=== PATIENT | male | born 1970 | race Two or more races ===

== ENCOUNTER 2017-05-21 11:28 | Emergency (ER) | payer SELFPAY ==
--- NOTE | 2017-05-21 12:24 | EDM.PDOC ---
ED HPI GENERAL MEDICAL PROBLEM - General Chief Complaint: Cardiovascular Problem Stated Complaint: HIGH BP Time Seen by Provider: 05/21/17 12:00 Source of Information: Reports: Patient History Limitations: Reports: No Limitations - History of Present Illness INITIAL COMMENTS - FREE TEXT/NARRATIVE: HISTORY AND PHYSICAL: History of present illness: [Pt comes to ER c/o elevated BP and requesting a refill of his BP medication. States that he has a long history of high BP, which has been managed by his PCP in [place], [place]. He hasn't taken his medication for the past 6 months because he forgot it in a truck that is no longer in his possession. He cannot remember the name of this medication. States that he did not fill at a local pharmacy. He has not tried to call the prescribing physician in [place] for refill. He has not had any chest pain shortness of breath or difficulty breathing. He felt mildly lightheaded a couple of days ago but this resolved. He feels anxious that he should be on this medication and wants a refill today. He has not established care with a local PCP. ] Review of systems: As per history of present illness and below otherwise all systems reviewed and negative. Past medical history: As per history of present illness and as reviewed below otherwise noncontributory. Surgical history: As per history of present illness and as reviewed below otherwise noncontributory. Social history: No reported history of drug or alcohol abuse. Family history: As per history of present illness and as reviewed below otherwise noncontributory. Physical exam: Gen.: Well-developed well-nourished male in no acute distress. Vitals are reviewed by me. HEENT: Atraumatic, normocephalic. PERRLA. EOMI. Oral mucous membranes are pink and moist. Neck supple no lymphadenopathy. No thyromegaly. Lungs: Clear to auscultation, breath sounds equal bilaterally, chest nontender. Heart: S1S2, regular, negative for clicks, rubs, or JVD. Abdomen: Soft, nondistended, nontender. No CVA tenderness. Pelvis: Stable nontender. Genitourinary: Deferred. Rectal: Deferred. Extremities: Atraumatic. No cyanosis or swelling to feet or lower legs. Neurovascular unremarkable. Neuro: Awake, alert, oriented. Appears mildly anxious. Motor and sensory unremarkable throughout. Exam nonfocal. Impression: [History of hypertension] Plan: [Discussed with patient that his blood pressure certainly is elevated, but that he requires lab work and to need management by a local PCP. Reviewed with him that I unable to refill the medication of which I don't know the name. We also discussed that his blood pressure is certainly not at a critical level and that he can follow-up with primary care provider tomorrow to establish care. He is in agreement with today's discussion and verbalizes understanding. Patient has no concerns upon discharge from the emergency room. Definitive disposition and diagnosis as appropriate pending reevaluation and review of above. - Related Data Allergies Allergy/AdvReac Type Severity Reaction Status Date / Time No Known Allergies Allergy Verified 05/21/17 11:42 Home Meds: Home Meds . [Unable to Verify Home Med List] 05/21/17 [History] Past Medical History Cardiovascular History: Reports: Hypertension - Infectious Disease History Infectious Disease History: Reports: Chicken Pox, Measles, Mumps Social & Family History - Family History Family Medical History: Noncontributory - Tobacco Use Smoking Status *Q: Never Smoker - Alcohol Use Days Per Week of Alcohol Use: 7 Number of Drinks Per Day: 10 Total Drinks Per Week: 70 - Recreational Drug Use Recreational Drug Use: No ED ROS GENERAL - Review of Systems Review Of Systems: ROS reveals no pertinent complaints other than HPI. ED EXAM, GENERAL - Physical Exam Exam: See Below Course - Vital Signs Last Recorded V/S: Last Vital Signs Temp 96.5 F 05/21/17 12:57 Pulse 115 H 05/21/17 12:57 Resp 18 05/21/17 12:57 BP 119/69 05/21/17 12:57 Pulse Ox 96 05/21/17 12:57 Departure - Departure Time of Disposition: 12:25 Disposition: Home, Self-Care 01 Condition: Good Clinical Impression: Hypertension Instructions: Hypertension, [id number] Referrals: PCP,None [Primary Care Provider] - Forms: ED Department Discharge Additional Instructions: The following information is given to patients seen in the emergency department who are being discharged to home. This information is to outline your options for follow-up care. We provide all patients seen in our emergency department with a follow-up referral. The need for follow-up, as well as the timing and circumstances, are variable depending upon the specifics of your emergency department visit. If you don't have a primary care physician on staff, we will provide you with a referral. We always advise you to contact your personal physician following an emergency department visit to inform them of the circumstance of the visit and for follow-up with them and/or the need for any referrals to a consulting specialist. The emergency department will also refer you to a specialist when appropriate. This referral assures that you have the opportunity for follow-up care with a specialist. All of these measure are taken in an effort to provide you with optimal care, which includes your follow-up. Under all circumstances we always encourage you to contact your private physician who remains a resource for coordinating your care. When calling for follow-up care, please make the office aware that this follow-up is from your recent emergency room visit. If for any reason you are refused follow-up, please contact the [facility] emergency department at and asked to speak to the emergency department charge nurse. [facility] Primary Care [address] [place] [phone] Please keep your appointment for ThursdayMay 25 at 1:30pm with Dr. Gloria. Take all medications as prescribed. Return to ER as needed as discussed.
== END 2017-05-21 12:57 | disposition home or self-care (01) ==
LOC: MW.ED 11:28
DX: I10 Essential (primary) hypertension (principal)
CPT/HCPCS: 99282

== ENCOUNTER 2018-12-06 05:23 | Emergency (ER) | payer SELFPAY ==
[2018-12-06] MEDS ORDERED: Sodium Chloride 0.9% 1,000 ML IV ONE (05:46)
[2018-12-06] MEDS ORDERED: Enalaprilat 1.25 MG/ML SDV IVPUSH ONE (05:48)
--- NOTE | 2018-12-06 05:48 | EDM.PDOC ---
ED HPI GENERAL MEDICAL PROBLEM - General Chief Complaint: General Stated Complaint: HIGH BLOOD PRESSURE, HEART RACING Time Seen by Provider: 12/06/18 05:47 Source of Information: Reports: Patient - History of Present Illness INITIAL COMMENTS - FREE TEXT/NARRATIVE: HISTORY AND PHYSICAL: History of present illness: []Patient with hypertension and diabetes presents with generalized weakness over the last week or 2 he has been out of his medications at home Patient was diagnosed with diabetes 2 years prior during a hospital admission, he has followed his glucose however is been ranging from 80-120 on his home checks Also states he was on 2 blood pressure medications lisinopril and hydrochlorothiazide Was unable to sleep last night hence he drank a sixpack of beer to try to sleep this did not help Has no fever nausea vomiting chills sweats no chest pain shortness breath headache dizziness palpitation no bowel or urine symptoms he does complain of generalized weakness he does not appear to be week or in any distress whatsoever Review of systems: As per history of present illness and below otherwise all systems reviewed and negative. Past medical history: As per history of present illness and as reviewed below otherwise noncontributory. Surgical history: As per history of present illness and as reviewed below otherwise noncontributory. Social history: No reported history of drug or alcohol abuse. Family history: As per history of present illness and as reviewed below otherwise noncontributory. Physical exam: HEENT: Atraumatic, normocephalic, pupils reactive, negative for conjunctival pallor or scleral icterus, mucous membranes moist, throat clear, neck supple, nontender, trachea midline. Lungs: Clear to auscultation, breath sounds equal bilaterally, chest nontender. Heart: S1S2, regular, negative for clicks, rubs, or JVD. Abdomen: Soft, nondistended, nontender. Negative for masses or hepatosplenomegaly. Negative for costovertebral tenderness. Pelvis: Stable nontender. Genitourinary: Deferred. Rectal: Deferred. Extremities: Atraumatic, negative for cords or calf pain. Neurovascular unremarkable. Neuro: Awake, alert, oriented. Cranial nerves II through XII unremarkable. Cerebellum unremarkable. Motor and sensory unremarkable throughout. Exam nonfocal. Diagnostics: [CBC CMP UA troponin lipase EKG chest 1 view ] Therapeutics: [Normal saline Vasotec Lisinopril Hydrochlorothiazide Follow-up with primary care ] Impression: [ hypertension diabetes med noncompliance due to financial Chronic history of baseline ] Definitive disposition and diagnosis as appropriate pending reevaluation and review of above. - Related Data Allergies Allergy/AdvReac Type Severity Reaction Status Date / Time No Known Allergies Allergy Verified 12/06/18 05:36 Home Meds: Home Meds . [No Known Home Meds] 12/06/18 [History] Past Medical History HEENT History: Reports: Impaired Vision Cardiovascular History: Reports: Hypertension Psychiatric History: Reports: Anxiety Endocrine/Metabolic History: Reports: Diabetes, Type II - Infectious Disease History Infectious Disease History: Reports: Chicken Pox, Measles, Mumps Social & Family History - Family History Family Medical History: Noncontributory - Tobacco Use Smoking Status *Q: Never Smoker - Alcohol Use Days Per Week of Alcohol Use: 7 Number of Drinks Per Day: 6 Total Drinks Per Week: 42 - Recreational Drug Use Recreational Drug Use: No ED ROS GENERAL - Review of Systems Review Of Systems: See Below ED EXAM, GENERAL - Physical Exam Exam: See Below Course - Vital Signs Last Recorded V/S: Last Vital Signs Temp 96.9 F 12/06/18 05:32 Pulse 116 H 12/06/18 06:06 Resp 20 12/06/18 06:06 BP 155/98 H 12/06/18 06:06 Pulse Ox 98 12/06/18 06:06 - Orders/Labs/Meds Orders: Active Orders 24 hr Category Date Time Status EKG Documentation Completion [RC] STAT Care 12/06/18 05:46 Active Chest 1V Frontal [CR] Stat Exams 12/06/18 05:47 Taken COMPREHENSIVE METABOLIC PN,CMP [CHEM] Stat Lab 12/06/18 05:45 Received TROPONIN I [CHEM] Stat Lab 12/06/18 05:45 Received Sodium Chloride 0.9% [Normal Saline] 1,000 ml Med 12/06/18 05:46 Active IV STAT Medication Orders Sodium Chloride (Normal Saline) 1,000 mls @ 999 mls/hr IV STAT ONE Stop: 12/06/18 06:46 Last Admin: 12/06/18 05:57 Dose: 999 mls/hr Labs: Laboratory Tests 12/06/18 12/06/18 Range/Units 05:34 05:45 WBC 9.19 (4.0-11.0) K/uL RBC 3.77 L (4.50-5.90) M/uL Hgb 13.5 (13.0-17.0) g/dL Hct 37.7 L (38.0-50.0) % MCV 100.0 H (80.0-98.0) fL MCH 35.8 H (27.0-32.0) pg MCHC 35.8 (31.0-37.0) g/dL RDW Std Deviation 47.9 (28.0-62.0) fl RDW Coeff of Pipe 13 (11.0-15.0) % Plt Count 102 L (150-400) K/uL MPV 11.20 (7.40-12.00) fL Neut % (Auto) 59.5 (48.0-80.0) % Lymph % (Auto) 32.3 (16.0-40.0) % [place] % (Auto) 7.0 (0.0-15.0) % Eos % (Auto) 1.0 (0.0-7.0) % Baso % (Auto) 0.2 (0.0-1.5) % Neut # (Auto) 5.5 (1.4-5.7) K/uL Lymph # (Auto) 3.0 H (0.6-2.4) K/uL [place] # (Auto) 0.6 (0.0-0.8) K/uL Eos # (Auto) 0.1 (0.0-0.7) K/uL Baso # (Auto) 0.0 (0.0-0.1) K/uL Nucleated RBC % 0.0 /100WBC Nucleated RBCs # 0 K/uL POC Glucose 142 H (60-110) mg/dL Meds: Medications Generic Name Dose Route Start Last Admin Trade Name Freq PRN Reason Stop Dose Admin Sodium Chloride 1,000 mls @ 999 mls/hr 12/06/18 05:46 12/06/18 05:57 Normal Saline IV 12/06/18 06:46 999 mls/hr STAT ONE Administration Discontinued Medications Generic Name Dose Route Start Last Admin Trade Name Freq PRN Reason Stop Dose Admin Enalaprilat 1.25 mg 12/06/18 05:48 12/06/18 05:57 Vasotec Iv IVPUSH 12/06/18 05:49 1.25 mg ONETIME ONE Administration Hydrochlorothiazide 25 mg 12/06/18 06:09 Hydrochlorothiazide PO 12/06/18 06:10 ONETIME ONE Departure - Departure Time of Disposition: 06:31 Disposition: Home, Self-Care 01 Condition: Good Clinical Impression: Hypertension, Noncompliance with medication regimen - Discharge Information Referrals: Anitra Robbins SYSTEMS TEST ENGINEER [Primary Care Provider] - Forms: ED Department Discharge Additional Instructions: Medication as prescribed Return if symptoms persist or worsen Follow-up with primary care in 2 weeks sooner as needed [facility] - Primary Care [address] [place] [phone] The following information is given to patients seen in the emergency department who are being discharged to home. This information is to outline your options for follow-up care. We provide all patients seen in our emergency department with a follow-up referral. The need for follow-up, as well as the timing and circumstances, are variable depending upon the specifics of your emergency department visit. If you don't have a primary care physician on staff, we will provide you with a referral. We always advise you to contact your personal physician following an emergency department visit to inform them of the circumstance of the visit and for follow-up with them and/or the need for any referrals to a consulting specialist. The emergency department will also refer you to a specialist when appropriate. This referral assures that you have the opportunity for follow-up care with a specialist. All of these measure are taken in an effort to provide you with optimal care, which includes your follow-up. Under all circumstances we always encourage you to contact your private physician who remains a resource for coordinating your care. When calling for follow-up care, please make the office aware that this follow-up is from your recent emergency room visit. If for any reason you are refused follow-up, please contact the [facility] emergency department at and asked to speak to the emergency department charge nurse. - My Orders Last 24 Hours: My Active Orders 12/06/18 05:45 COMPREHENSIVE METABOLIC PN,CMP [CHEM] Stat TROPONIN I [CHEM] Stat 12/06/18 05:46 EKG Documentation Completion [RC] STAT Sodium Chloride 0.9% [Normal Saline] 1,000 ml IV STAT 12/06/18 05:47 Chest 1V Frontal [CR] Stat - Assessment/Plan Last 24 Hours: My Active Orders 12/06/18 05:45 COMPREHENSIVE METABOLIC PN,CMP [CHEM] Stat TROPONIN I [CHEM] Stat 12/06/18 05:46 EKG Documentation Completion [RC] STAT Sodium Chloride 0.9% [Normal Saline] 1,000 ml IV STAT 12/06/18 05:47 Chest 1V Frontal [CR] Stat
[2018-12-06] MEDS ORDERED: Hydrochlorothiazide 25 MG Tab PO ONE (06:09)
[2018-12-06 06:48] LABS: CHLORIDE,CL 91 mmol/L (98-107); SODIUM,NA 130 mmol/L (136-148)
--- NOTE | 2018-12-06 07:13 | CR ---
INDICATION: Pain. Shortness of breath. FINDINGS: A single portable chest x-ray shows a normal cardiac silhouette. The lungs show no focal pulmonary opacities. Sharp pleural margins. No pneumothorax. IMPRESSION: No evidence of acute pulmonary abnormalities. Dictated by Jean-Pierre Go MD @ 12/06/2018 7:11:08 AM Dictated by: Jean-Pierre Go MD @ 12/06/2018 07:11:18 (Electronically Signed)
== END 2018-12-06 07:10 | disposition home or self-care (01) ==
LOC: MW.ED 05:23
DX: I10 Essential (primary) hypertension (principal); E11.9 Type 2 diabetes mellitus without complications; Z91.14 Patient's other noncompliance with medication regimen
CPT/HCPCS: 71045; 80053; 82962; 84484; 85025; 93005; 96361; 96374; 99285; A9270; J7040

== ENCOUNTER 2019-06-03 11:09 | Inpatient (IN) | payer MEDICAID ==
[2019-06-03] MEDS ORDERED: fentaNYL 50 MCG/ML SDV IVPUSH ONE (11:16)
[2019-06-03] MEDS ORDERED: Sodium Chloride 0.9% 1,000 ML IV ONE ×3 (11:17→15:19)
--- NOTE | 2019-06-03 11:38 | EDM.PDOC ---
ED [facility] GENERAL MEDICAL PROBLEM - General Chief Complaint: Abdominal Pain Stated Complaint: DETOX/ABDOMINAL PAIN Time Seen by Provider: 06/03/19 11:32 Source of Information: Reports: Patient History Limitations: Reports: No Limitations - History of Present Illness INITIAL COMMENTS - FREE TEXT/NARRATIVE: Patient is a 48-year-old male with a past medical history of alcohol abuse, hypertension, diabetes presenting with a chief complaint of abrupt onset of abdominal pain. The pain is located primarily in the epigastric region with radiation to the back. Patient states he does have some associated numbness in his right foot. Patient states he had the symptoms less than a week ago which only lasted for a minute or 2 and then resolved spontaneously. Patient does not have any chest pain or shortness of breath. Symptoms are severe in nature. Patient's last drink of alcohol was about 4 days ago. Patient reports daily heavy drinking prior to this. Patient states he would get the shakes when he stopped drinking. Pmhx: Per HPI Pshx: None Family Hx: noncontributory Smoking history? no Etoh use? Yes alcohol abuse Drug use? none In addition to that documented in the HPI above, the additional ROS was obtained : Constitutional: Denies fevers or chills Eyes: Denies vision changes ENMT: Denies sore throat CV: Denies chest pain Resp: Denies SOB GI: Reports one episode of diarrhea last night : Denies painful urination MSK: Denies recent trauma Skin: Denies new rashes Neuro: Per HPI Endocrine: Denies unexpected weight loss Heme: Denies bleeding disorders I have reviewed the triage vital signs Const: Toxic in appearance with diffuse diaphoresis and anxious. Eyes: PERRL, no conjunctival injection HENT: NCAT, Neck supple without meningismus CV: RRR, Warm, well-perfused extremities RESP: CTAB, Unlabored respiratory effort GI: soft, non-tender, non-distended, no masses MSK: No gross deformities appreciated Skin: Diaphoretic. No rashes Neuro: Alert, tub washer II-XII grossly intact. Sensation and motor function of extremities grossly intact. Psych: Appropriate mood and affect Assessment and plan: Patient is a 48-year-old male with intense abdominal pain and tremulousness. Initially, there was high concern for aortic dissection given the patient's clinical appearance and chief complaint. Patient's vital signs only showed initial tachycardia. Patient's labs were done as well as CT angiography. Demonstrate elevated white blood cell count and elevated lactate. Patient was also noted to be hypokalemic. I do not believe that this is secondary to sepsis as the patient has no fever and no findings on CT scan that would be concerning for infectious etiology. CT angiography was negative for aortic dissection. Patient's CIWA score was rated as a 16. However, during course of ER stay, the patient progressively worsened. Patient began hallucinating and tremors began were to increase. Patient was given numerous rounds of Ativan as well as Valium with slight improvement. In addition, patient was given been phenobarbital to help reduce withdrawal signs and symptoms. No seizures in the emergency department. No respiratory depression. Case discussed with Dr. Tirado who agreed to admit the patient for the ICU for close monitoring and treatment of severe alcohol withdrawal. Critical Care Procedure Note Authorized and Performed by: Marta Total critical care time: Approximately 60 minutes Due to a high probability of clinically significant, life threatening deterioration, the patient required my highest level of preparedness to intervene emergently and I personally spent this critical care time directly and personally managing the patient. This critical care time included obtaining a history; examining the patient; pulse oximetry; ordering and review of studies ; arranging urgent treatment with development of a management plan; evaluation of patient's response to treatment; frequent reassessment; and, discussions with other providers. This critical care time was performed to assess and manage the high probability of imminent, life-threatening deterioration that could result in multi-organ failure. It was exclusive of separately billable procedures and treating other patients and teaching time. Please see MDM section and the rest of the note for further information on patient assessment and treatment. Abdomen Pain Score (Numeric/FACES): 10 - Related Data Allergies Allergy/AdvReac Type Severity Reaction Status Date / Time No Known Allergies Allergy Verified 06/03/19 12:08 Home Meds: Home Meds . [No Known Home Meds] 12/06/18 [History] Past Medical History HEENT History: Reports: Impaired Vision Cardiovascular History: Reports: Hypertension Psychiatric History: Reports: Anxiety Endocrine/Metabolic History: Reports: Diabetes, Type II - Infectious Disease History Infectious Disease History: Reports: Chicken Pox, Measles, Mumps Social & Family History - Family History Family Medical History: Noncontributory ED ROS GENERAL - Review of Systems Review Of Systems: See Below ED EXAM, GI/ABD - Physical Exam Exam: See Below Course - Vital Signs Last Recorded V/S: Last Vital Signs Temp 36.3 C 06/03/19 11:13 Pulse 90 06/03/19 12:25 Resp 18 06/03/19 12:25 BP 134/84 06/03/19 12:25 Pulse Ox 98 06/03/19 12:25 - Orders/Labs/Meds Orders: Active Orders 24 hr Category Date Time Status Admission Status [Patient Status] [ADT] Stat ADT 06/03/19 13:09 Active UA W/KOKI RFLX IF INDICATED [URIN] Stat Lab 06/03/19 11:15 Ordered Potassium Chloride 40 meq Med 06/03/19 12:30 Active Dextrose 5%-Lactated Ringers 1,000 ml IV ASDIRECTED Medication Orders Acetaminophen (Tylenol) 650 mg PO Q4H PRN PRN Reason: Pain (Mild 1-3)/fever Chlordiazepoxide HCl (Librium) 25 mg PO QID JESUS Diazepam (Valium) 10 mg IVPUSH Q8H JESUS Heparin Sodium (Porcine) (Heparin Sodium) 5,000 units SUBCUT Q8H [facility] Potassium Chloride 40 meq/ (Dextrose/Lactated Ringer's) 1,020 mls @ 150 mls/hr IV ASDIRECTED JESUS Last Admin: 06/03/19 12:47 Dose: 150 mls/hr Lactated Ringer's (Ringers, Lactated) 1,000 mls @ 999 mls/hr IV .BOLUS ONE Stop: 06/03/19 15:13 Last Admin: 06/03/19 14:37 Dose: 999 mls/hr Phenobarbital 130 mg/ Sodium (Chloride) 101 mls @ 200 mls/hr IV ONETIME ONE Stop: 06/03/19 15:15 Last Admin: 06/03/19 14:47 Dose: 200 mls/hr Lorazepam (Ativan) 0 mg IVPUSH Q4H PRN; Protocol PRN Reason: Withdrawal Symptoms Morphine Sulfate (Morphine) 2 mg IVPUSH Q2H PRN PRN Reason: Pain (severe 7-10) Stop: 06/04/19 13:12 Multivit/Ca Carb/B Cmplx/FA/Prenat (Renal Caps Softgel) 1 cap PO DAILY JESUS Ondansetron HCl (Zofran Odt) 4 mg PO Q4H PRN PRN Reason: nausea, able to take PO Ondansetron HCl (Zofran) 4 mg IVPUSH Q4H PRN PRN Reason: Pain Labs: Laboratory Tests 06/03/19 06/03/19 06/03/19 Range/Units 11:07 11:07 11:07 WBC 13.78 H (4.0-11.0) K/uL RBC 4.87 (4.50-5.90) M/uL Hgb 17.2 H (13.0-17.0) g/dL Hct 47.7 (38.0-50.0) % MCV 97.9 (80.0-98.0) fL MCH 35.3 H (27.0-32.0) pg MCHC 36.1 (31.0-37.0) g/dL RDW Std Deviation 46.4 (28.0-62.0) fl RDW Coeff of Pipe 13 (11.0-15.0) % Plt Count 149 L (150-400) K/uL MPV 10.60 (7.40-12.00) fL Neut % (Auto) 49.8 (48.0-80.0) % Lymph % (Auto) 36.9 (16.0-40.0) % [place] % (Auto) 12.4 (0.0-15.0) % Eos % (Auto) 0.7 (0.0-7.0) % Baso % (Auto) 0.2 (0.0-1.5) % Neut # (Auto) 6.9 H (1.4-5.7) K/uL Lymph # (Auto) 5.1 H (0.6-2.4) K/uL [place] # (Auto) 1.7 H (0.0-0.8) K/uL Eos # (Auto) 0.1 (0.0-0.7) K/uL Baso # (Auto) 0.0 (0.0-0.1) K/uL Nucleated RBC % 0.0 /100WBC Nucleated RBCs # 0 K/uL Lactate 4.8 H* (0.20-2.00) mmol/L Sodium 131 L (136-148) mmol/L Potassium 2.9 L (3.5-5.1) mmol/L Chloride 88 L (98-107) mmol/L Carbon Dioxide 23.8 (21.0-32.0) mmol/L BUN 32 H (7.0-18.0) mg/dL Creatinine 2.3 H (0.8-1.3) mg/dL Est Cr Clr Drug Dosing TNP Estimated GFR (MDRD) 30.6 ml/min Glucose 84 (74-106) mg/dL Calcium 8.3 L (8.5-10.1) mg/dL Total Bilirubin 3.2 H (0.2-1.0) mg/dL AST 160 H (15-37) IU/L ALT 106 H (14-63) IU/L Alkaline Phosphatase 106 (46-116) U/L Troponin I < 0.050 (0.000-0.056) ng/mL Total Protein 8.0 (6.4-8.2) g/dL Albumin 3.7 (3.4-5.0) g/dL Globulin 4.3 H (2.6-4.0) g/dL Albumin/Globulin Ratio 0.9 (0.9-1.6) Lipase 315 (73-393) U/L Ethyl Alcohol mg/dL 06/03/19 Range/Units 11:07 WBC (4.0-11.0) K/uL RBC (4.50-5.90) M/uL Hgb (13.0-17.0) g/dL Hct (38.0-50.0) % MCV (80.0-98.0) fL MCH (27.0-32.0) pg MCHC (31.0-37.0) g/dL RDW Std Deviation (28.0-62.0) fl RDW Coeff of Pipe (11.0-15.0) % Plt Count (150-400) K/uL MPV (7.40-12.00) fL Neut % (Auto) (48.0-80.0) % Lymph % (Auto) (16.0-40.0) % [place] % (Auto) (0.0-15.0) % Eos % (Auto) (0.0-7.0) % Baso % (Auto) (0.0-1.5) % Neut # (Auto) (1.4-5.7) K/uL Lymph # (Auto) (0.6-2.4) K/uL [place] # (Auto) (0.0-0.8) K/uL Eos # (Auto) (0.0-0.7) K/uL Baso # (Auto) (0.0-0.1) K/uL Nucleated RBC % /100WBC Nucleated RBCs # K/uL Lactate (0.20-2.00) mmol/L Sodium (136-148) mmol/L Potassium (3.5-5.1) mmol/L Chloride (98-107) mmol/L Carbon Dioxide (21.0-32.0) mmol/L BUN (7.0-18.0) mg/dL Creatinine (0.8-1.3) mg/dL Est Cr Clr Drug Dosing Estimated GFR (MDRD) ml/min Glucose (74-106) mg/dL Calcium (8.5-10.1) mg/dL Total Bilirubin (0.2-1.0) mg/dL AST (15-37) IU/L ALT (14-63) IU/L Alkaline Phosphatase (46-116) U/L Troponin I (0.000-0.056) ng/mL Total Protein (6.4-8.2) g/dL Albumin (3.4-5.0) g/dL Globulin (2.6-4.0) g/dL Albumin/Globulin Ratio (0.9-1.6) Lipase (73-393) U/L Ethyl Alcohol <3 mg/dL Meds: Medications Generic Name Dose Route Start Last Admin Trade Name Freq PRN Reason Stop Dose Admin Acetaminophen 650 mg 06/03/19 13:10 Tylenol PO Q4H PRN Pain (Mild 1-3)/fever Chlordiazepoxide HCl 25 mg 06/03/19 18:00 Librium PO QID JESUS Diazepam 10 mg 06/03/19 19:00 Valium IVPUSH Q8H JESUS Heparin Sodium (Porcine) 5,000 units 06/03/19 13:15 Heparin Sodium SUBCUT Q8H [facility] Potassium Chloride 40 meq/ 1,020 mls @ 150 mls/hr 06/03/19 12:30 06/03/19 12: 47 Dextrose/Lactated Ringer's IV 150 mls/hr ASDIRECTED JESUS Administration Lactated Ringer's 1,000 mls @ 999 mls/hr 06/03/19 14:13 06/03/19 14:37 Ringers, Lactated IV 06/03/19 15:13 999 mls/hr .BOLUS ONE Administration Phenobarbital 130 mg/ Sodium 101 mls @ 200 mls/hr 06/03/19 14:45 06/03/19 14: 47 Chloride IV 06/03/19 15:15 200 mls/hr ONETIME ONE Administration Lorazepam 0 mg 06/03/19 13:24 Ativan IVPUSH Q4H PRN Withdrawal Symptoms Protocol Morphine Sulfate 2 mg 06/03/19 13:10 Morphine IVPUSH 06/04/19 13:12 Q2H PRN Pain (severe 7-10) Multivit/Ca Carb/B Cmplx/FA/Prenat 1 cap 06/04/19 09:00 Renal Caps Softgel PO DAILY [facility] Ondansetron HCl 4 mg 06/03/19 13:10 Zofran Odt PO Q4H PRN nausea, able to take PO Ondansetron HCl 4 mg 06/03/19 13:10 Zofran IVPUSH Q4H PRN Pain Discontinued Medications Generic Name Dose Route Start Last Admin Trade Name Freq PRN Reason Stop Dose Admin Diazepam 5 mg 06/03/19 12:47 06/03/19 12:51 Valium IVPUSH 06/03/19 12:48 5 mg ONETIME ONE Administration Diazepam Confirm 06/03/19 12:51 06/03/19 13:06 Valium Administered 06/03/19 12:52 Not Given Dose 5 mg .ROUTE .STK-MED ONE Diazepam 5 mg 06/03/19 13:17 06/03/19 13:44 Valium IVPUSH 06/03/19 13:18 5 mg ONETIME ONE Administration Fentanyl 100 mcg 06/03/19 11:16 06/03/19 11:26 Fentanyl IVPUSH 06/03/19 11:17 100 mcg ONETIME ONE Administration Sodium Chloride 1,000 mls @ 999 mls/hr 06/03/19 11:17 06/03/19 11:26 Normal Saline IV 06/03/19 12:17 999 mls/hr .Bolus ONE Administration Thiamine HCl 100 mg/ Sodium 101 mls @ 202 mls/hr 06/03/19 12:19 06/03/19 12: 47 Chloride IV 06/03/19 12:20 202 mls/hr ONETIME ONE Administration Sodium Chloride 1,000 mls @ 999 mls/hr 06/03/19 13:13 06/03/19 13:23 Normal Saline IV 06/03/19 14:13 999 mls/hr ONETIME ONE Administration Phenobarbital 130 mg/ Sodium 101 mls @ 200 mls/hr 06/03/19 13:49 06/03/19 14: 47 Chloride IV 06/03/19 14:18 Not Given ONETIME ONE Iopamidol 100 ml 06/03/19 11:47 06/03/19 11:48 Isovue Multipack-370 (76%) IVPUSH 06/03/19 11:48 100 ml ONETIME STA Administration Lorazepam 2 mg 06/03/19 11:57 06/03/19 12:16 Ativan IVPUSH 06/03/19 11:58 2 mg ONETIME ONE Administration Lorazepam 2 mg 06/03/19 12:47 06/03/19 12:51 Ativan IVPUSH 06/03/19 12:48 2 mg ONETIME ONE Administration Lorazepam 2 mg 06/03/19 13:01 06/03/19 13:06 Ativan IVPUSH 06/03/19 13:02 2 mg ONETIME ONE Administration Lorazepam Confirm 06/03/19 13:01 06/03/19 13:06 Ativan Administered 06/03/19 13:02 Not Given Dose 2 mg .ROUTE .STK-MED ONE Lorazepam 2 mg 06/03/19 13:19 06/03/19 13:23 Ativan IVPUSH 06/03/19 13:20 2 mg ONETIME ONE Administration Lorazepam 2 mg 06/03/19 13:19 06/03/19 13:41 Ativan IVPUSH 06/03/19 13:20 2 mg ONETIME ONE Administration Lorazepam 2 mg 06/03/19 13:36 06/03/19 14:55 Ativan IVPUSH 06/03/19 13:37 2 mg ONETIME ONE Administration Departure - Departure Time of Disposition: 15:07 Disposition: Admitted As Inpatient 67 Clinical Impression: Alcohol withdrawal delirium, acute, hyperactive - Discharge Information Sepsis Event Note - Focused Exam Vital Signs: Vital Signs Temp Pulse Resp BP Pulse Ox 06/03/19 12:25 90 18 134/84 98 06/03/19 11:13 36.3 C 108 H 26 H 135/89 99 Date Exam was Performed: 06/03/19 Time Exam was Performed: 15:05 - My Orders Last 24 Hours: My Active Orders 06/03/19 11:15 UA W/KOKI RFLX IF INDICATED [URIN] Stat 06/03/19 12:30 Potassium Chloride 40 meq Dextrose 5%-Lactated Ringers 1,000 ml IV ASDIRECTED 06/03/19 13:09 Admission Status [Patient Status] [ADT] Stat - Assessment/Plan Last 24 Hours: My Active Orders 06/03/19 11:15 UA W/KOKI RFLX IF INDICATED [URIN] Stat 06/03/19 12:30 Potassium Chloride 40 meq Dextrose 5%-Lactated Ringers 1,000 ml IV ASDIRECTED 06/03/19 13:09 Admission Status [Patient Status] [ADT] Stat
[2019-06-03] MEDS ORDERED: Iopamidol 755 MG/ML 500 ML Multipack Bottle IVPUSH STA (11:47)
[2019-06-03] MEDS ORDERED: LORazepam 2 MG/ML SDV IVPUSH ONE ×6 (11:57→13:36)
[2019-06-03 12:04] LABS: BLOOD UREA NITROGEN,BUN 32 mg/dL (7.0-18.0); CARBON DIOXIDE,CO2 23.8 mmol/L (21.0-32.0); CHLORIDE,CL 88 mmol/L (98-107); GLUCOSE RANDOM 84 mg/dL (74-106); LIPASE 315 U/L (73-393); POTASSIUM,K 2.9 mmol/L (3.5-5.1); SODIUM,NA 131 mmol/L (136-148)
--- NOTE | 2019-06-03 12:10 | CR ---
Chest: Portable view of the chest was obtained. Comparison: Prior chest x-ray of 12/06/18. Heart size and mediastinum are normal. Lungs are clear with no acute parenchymal change. Bony structures are grossly intact. Impression: 1. Nothing acute is seen on portable chest x-ray. Diagnostic code #1 This report was dictated in [place] Standard Time
[2019-06-03] MEDS ORDERED: Thiamine 100 MG in Sodium Chloride 0.9% 100 ML IV ONE (12:19)
[2019-06-03] MEDS: Potassium Chloride 40 MEQ in Dextrose 5%-Lactated Ringers 1,000 ML IV SCH ×2 (12:47→21:20)
[2019-06-03] MEDS ORDERED: diazePAM 5 MG/ML MDV ONE (12:51)
[2019-06-03] MEDS ORDERED: LORazepam 2 MG/ML SDV ONE (13:01)
[2019-06-03] MEDS ORDERED: Ondansetron 4 MG/2 ML SDV IVPUSH PRN ×2 (13:10→15:36)
[2019-06-03] MEDS ORDERED: Ondansetron 4 MG Tab.DIS PO PRN (13:10)
[2019-06-03] MEDS ORDERED: Morphine 10 MG/ML Syringe IVPUSH PRN (13:10)
[2019-06-03] MEDS ORDERED: Acetaminophen 325 MG Tab PO PRN (13:10)
--- NOTE | 2019-06-03 13:47 | CT ---
EXAM DATE: 06/03/19 PATIENT'S AGE: 48 CT chest and abdomen Technique: Multiple axial sections were obtained through the chest and abdomen through the aortoiliac bifurcation. Intravenous contrast was given. Study performed as a aortogram exam. Comparison: Prior chest x-ray performed earlier on the same day (11:24 AM). Findings: Thoracic aorta shows no aneurysm. No dissection is seen. Abdominal aorta also shows no aneurysm or dissection. Common iliac arteries are unremarkable. Visualized mediastinum shows no adenopathy or mass. Coronary artery calcification appears to be present. No pericardial thickening is seen. Visualized lungs show no acute parenchymal change. No pleural effusions are seen. Bone window settings were reviewed which shows no acute osseous finding with mild scattered degenerative change. Slight anterior wedging is noted of T11 which is felt to be old. Liver shows fatty infiltration. Spleen size is normal. Adrenal glands show no nodule. Pancreas is within normal limits. Gallbladder contains no calcified gallstones. Kidneys show symmetric contrast enhancement. No hydronephrosis or mass seen within the kidneys. No retroperitoneal adenopathy or mesenteric abnormalities are seen. Appendix is seen which is normal in size. Bone window settings were reviewed which shows mild degenerative change within the lumbar spine. Impression: 1. Aorta shows no aneurysm or dissection. 2. Nothing acute is appreciated on CT study of the chest. 3. CT study of the abdomen shows fatty infiltration within the liver. Nothing acute is otherwise seen within the abdomen. Diagnostic code #2 This report was dictated in [place] Standard Time Report Signed by Proxy. [facility]
[2019-06-03] MEDS ORDERED: Lactated Ringers 1,000 ML IV ONE (14:13)
[2019-06-03] MEDS: PHENobarbitaL sodium 130 MG in Sodium Chloride 0.9% 100 ML IV ONE ×2 (14:44→14:47)
[2019-06-03] MEDS ORDERED: PHENobarbitaL sodium 130 MG in Sodium Chloride 0.9% 100 ML IV ONE (14:45)
--- NOTE | 2019-06-03 15:09 | PCM.HP.2 ---
H&P History of Present Illness - General Date of Service: 06/03/19 Admit Problem/Dx: Admission Diagnosis/Problem Admission Diagnosis/Problem Alcohol withdrawal syndrome - History of Present Illness Initial Comments - Free Text/Narative: 48 y/o male with history of alcohol abuse who presented to the ER complaining of abdominal pain, tremulous. Per , he drinks about 12 pk per day. Last drink about 2 days ago. Has been trying to quit drinking. denies any history of alcohol withdrawal seizures. No previous hospitalizations. When I evaluated the patient, the patient was tremulous and hallucinating. CT chest/abdomen was negative for any acute pathology. He received multiple doses of lorazepam and Ativan with minimal improvement. Was started on phenobarbital x1. Now calm and sleeping in bed. Abdomen Pain Score (Numeric/FACES): 10 - Related Data Allergies/Adverse Reactions: Allergies Allergy/AdvReac Type Severity Reaction Status Date / Time No Known Allergies Allergy Verified 06/03/19 12:08 Home Medications: Home Meds . [No Known Home Meds] 12/06/18 [History] Past Medical History HEENT History: Reports: Impaired Vision Cardiovascular History: Reports: Hypertension Psychiatric History: Reports: Anxiety Endocrine/Metabolic History: Reports: Diabetes, Type II - Infectious Disease History Infectious Disease History: Reports: Chicken Pox, Measles, Mumps Social & Family History - Family History Family Medical History: Noncontributory - Tobacco Use Smoking Status *Q: Never Smoker Second Hand Smoke Exposure: No - Caffeine Use Caffeine Use: Reports: Coffee - Alcohol Use Days Per Week of Alcohol Use: 7 Number of Drinks Per Day: 12 Total Drinks Per Week: 84 - Recreational Drug Use Recreational Drug Use: No H&P Review of Systems - Review of Systems: Review Of Systems: Comprehensive ROS is negative, except as noted in HPI. Exam - Exam Exam: See Below - Vital Signs Vital Signs: Last Vital Signs Temp 36.3 C 06/03/19 11:13 Pulse 90 06/03/19 12:25 Resp 18 06/03/19 12:25 BP 134/84 06/03/19 12:25 Pulse Ox 98 06/03/19 12:25 Weight: 122.47 kg - Exam General: Sedated HEENT: Other (dry mucosa) Lungs: Clear to Auscultation. No: Crackles, Wheezing Cardiovascular: Regular Rhythm, Tachycardia GI/Abdominal Exam: Soft, Non-Tender, No Distention Extremities: Normal Inspection, No Pedal Edema Skin: Warm, Moist - Patient Data Lab Results Last 24 hrs: Laboratory Results - last 24 hr 06/03/19 06/03/19 06/03/19 Range/Units 11:07 11:07 11:07 WBC 13.78 H (4.0-11.0) K/uL RBC 4.87 (4.50-5.90) M/uL Hgb 17.2 H (13.0-17.0) g/dL Hct 47.7 (38.0-50.0) % MCV 97.9 (80.0-98.0) fL MCH 35.3 H (27.0-32.0) pg MCHC 36.1 (31.0-37.0) g/dL RDW Std Deviation 46.4 (28.0-62.0) fl RDW Coeff of Pipe 13 (11.0-15.0) % Plt Count 149 L (150-400) K/uL MPV 10.60 (7.40-12.00) fL Neut % (Auto) 49.8 (48.0-80.0) % Lymph % (Auto) 36.9 (16.0-40.0) % [place]ie % (Auto) 12.4 (0.0-15.0) % Eos % (Auto) 0.7 (0.0-7.0) % Baso % (Auto) 0.2 (0.0-1.5) % Neut # (Auto) 6.9 H (1.4-5.7) K/uL Lymph # (Auto) 5.1 H (0.6-2.4) K/uL [place] # (Auto) 1.7 H (0.0-0.8) K/uL Eos # (Auto) 0.1 (0.0-0.7) K/uL Baso # (Auto) 0.0 (0.0-0.1) K/uL Nucleated RBC % 0.0 /100WBC Nucleated RBCs # 0 K/uL Lactate 4.8 H* (0.20-2.00) mmol/L Sodium 131 L (136-148) mmol/L Potassium 2.9 L (3.5-5.1) mmol/L Chloride 88 L (98-107) mmol/L Carbon Dioxide 23.8 (21.0-32.0) mmol/L BUN 32 H (7.0-18.0) mg/dL Creatinine 2.3 H (0.8-1.3) mg/dL Est Cr Clr Drug Dosing TNP Estimated GFR (MDRD) 30.6 ml/min Glucose 84 (74-106) mg/dL Calcium 8.3 L (8.5-10.1) mg/dL Total Bilirubin 3.2 H (0.2-1.0) mg/dL AST 160 H (15-37) IU/L ALT 106 H (14-63) IU/L Alkaline Phosphatase 106 (46-116) U/L Troponin I < 0.050 (0.000-0.056) ng/mL Total Protein 8.0 (6.4-8.2) g/dL Albumin 3.7 (3.4-5.0) g/dL Globulin 4.3 H (2.6-4.0) g/dL Albumin/Globulin Ratio 0.9 (0.9-1.6) Lipase 315 (73-393) U/L Ethyl Alcohol mg/dL 06/03/19 Range/Units 11:07 WBC (4.0-11.0) K/uL RBC (4.50-5.90) M/uL Hgb (13.0-17.0) g/dL Hct (38.0-50.0) % MCV (80.0-98.0) fL MCH (27.0-32.0) pg MCHC (31.0-37.0) g/dL RDW Std Deviation (28.0-62.0) fl RDW Coeff of Pipe (11.0-15.0) % Plt Count (150-400) K/uL MPV (7.40-12.00) fL Neut % (Auto) (48.0-80.0) % Lymph % (Auto) (16.0-40.0) % [place] % (Auto) (0.0-15.0) % Eos % (Auto) (0.0-7.0) % Baso % (Auto) (0.0-1.5) % Neut # (Auto) (1.4-5.7) K/uL Lymph # (Auto) (0.6-2.4) K/uL [place]ie # (Auto) (0.0-0.8) K/uL Eos # (Auto) (0.0-0.7) K/uL Baso # (Auto) (0.0-0.1) K/uL Nucleated RBC % /100WBC Nucleated RBCs # K/uL Lactate (0.20-2.00) mmol/L Sodium (136-148) mmol/L Potassium (3.5-5.1) mmol/L Chloride (98-107) mmol/L Carbon Dioxide (21.0-32.0) mmol/L BUN (7.0-18.0) mg/dL Creatinine (0.8-1.3) mg/dL Est Cr Clr Drug Dosing Estimated GFR (MDRD) ml/min Glucose (74-106) mg/dL Calcium (8.5-10.1) mg/dL Total Bilirubin (0.2-1.0) mg/dL AST (15-37) IU/L ALT (14-63) IU/L Alkaline Phosphatase (46-116) U/L Troponin I (0.000-0.056) ng/mL Total Protein (6.4-8.2) g/dL Albumin (3.4-5.0) g/dL Globulin (2.6-4.0) g/dL Albumin/Globulin Ratio (0.9-1.6) Lipase (73-393) U/L Ethyl Alcohol <3 mg/dL Result Diagrams: 06/03/19 11:07 06/03/19 11:07 Sepsis Event Note - Evaluation Sepsis Screening Result: No Definite Risk - Focused Exam Vital Signs: Vital Signs Temp Pulse Resp BP Pulse Ox 06/03/19 12:25 90 18 134/84 98 06/03/19 11:13 36.3 C 108 H 26 H 135/89 99 Date Exam was Performed: 06/03/19 Time Exam was Performed: 15:50 Problem List Initiated/Reviewed/Updated: Yes Orders Last 24hrs: Active Orders 24 hr Category Date Time Status Admission Status [Patient Status] [ADT] Stat ADT 06/03/19 13:09 Active Patient Status [ADT] Routine ADT 06/03/19 13:10 Active Blood Glucose Check, Bedside [RC] QIDACANDBED Care 06/03/19 13:10 Active CIWAA Assessment [RC] Q4H Care 06/03/19 13:24 Active Intake and Output [RC] QSHIFT Care 06/03/19 13:11 Active Oxygen Therapy [RC] PRN Care 06/03/19 13:10 Active Up With Assistance [RC] ASDIRECTED Care 06/03/19 13:10 Active VTE/DVT Education [RC] PER UNIT ROUTINE Care 06/03/19 13:10 Active Vital Signs [RC] Q4H Care 06/03/19 13:10 Active Regular Diet [DIET] Diet 06/03/19 Dinner Active DRUG SCREEN, URINE [URCHEM] Routine Lab 06/03/19 13:19 Ordered UA W/KOKI RFLX IF INDICATED [URIN] Stat Lab 06/03/19 11:15 Ordered Acetaminophen [Tylenol] Med 06/03/19 13:10 Active 650 mg PO Q4H PRN Folic Acid/Vitamin B Comp W-C [Renal Caps Softgel] Med 06/04/19 09:00 Active 1 cap PO DAILY Heparin Sodium Med 06/03/19 13:15 Active 5,000 units SUBCUT Q8H LORazepam [Ativan] Med 06/03/19 13:24 Active See Protocol IVPUSH Q4H PRN Lactated Ringers [Ringers, Lactated] 1,000 ml Med 06/03/19 14:13 Active IV .BOLUS Morphine Med 06/03/19 13:10 Active 2 mg IVPUSH Q2H PRN Ondansetron [Zofran ODT] Med 06/03/19 13:10 Active 4 mg PO Q4H PRN Ondansetron [Zofran] Med 06/03/19 13:10 Active 4 mg IVPUSH Q4H PRN PHENobarbitaL sodium 130 mg Med 06/03/19 14:45 Active Sodium Chloride 0.9% [Normal Saline] 100 ml IV ONETIME Potassium Chloride 40 meq Med 06/03/19 12:30 Active Dextrose 5%-Lactated Ringers 1,000 ml IV ASDIRECTED chlordiazePOXIDE [Librium] Med 06/03/19 18:00 Active 25 mg PO QID diazePAM [Valium] Med 06/03/19 19:00 Active 10 mg IVPUSH Q8H Seizure Precautions [OM.PC] Stat Oth 06/03/19 13:13 Ordered Resuscitation Status Routine Resus Stat 06/03/19 13:10 Ordered Medication Orders Acetaminophen (Tylenol) 650 mg PO Q4H PRN PRN Reason: Pain (Mild 1-3)/fever Chlordiazepoxide HCl (Librium) 25 mg PO QID [facility] Diazepam (Valium) 10 mg IVPUSH Q8H [facility] Heparin Sodium (Porcine) (Heparin Sodium) 5,000 units SUBCUT Q8H [facility] Potassium Chloride 40 meq/ (Dextrose/Lactated Ringer's) 1,020 mls @ 150 mls/hr IV ASDIRECTED [facility] Last Admin: 06/03/19 12:47 Dose: 150 mls/hr Lactated Ringer's (Ringers, Lactated) 1,000 mls @ 999 mls/hr IV .BOLUS ONE Stop: 06/03/19 15:13 Last Admin: 06/03/19 14:37 Dose: 999 mls/hr Phenobarbital 130 mg/ Sodium (Chloride) 101 mls @ 200 mls/hr IV ONETIME ONE Stop: 06/03/19 15:15 Last Admin: 06/03/19 14:47 Dose: 200 mls/hr Lorazepam (Ativan) 0 mg IVPUSH Q4H PRN; Protocol PRN Reason: Withdrawal Symptoms Morphine Sulfate (Morphine) 2 mg IVPUSH Q2H PRN PRN Reason: Pain (severe 7-10) Stop: 06/04/19 13:12 Multivit/Ca Carb/B Cmplx/FA/Prenat (Renal Caps Softgel) 1 cap PO DAILY [facility] Ondansetron HCl (Zofran Odt) 4 mg PO Q4H PRN PRN Reason: nausea, able to take PO Ondansetron HCl (Zofran) 4 mg IVPUSH Q4H PRN PRN Reason: Pain Assessment/Plan Comment:: 1. Acute alcohol withdrawal 2. Acute kidney injury 3. Elevated liver enzymes 4. Hypokalemia 5. Erythrocytosis P: 1. Will monitor in the ICU. He is now sedated after 1 dose of phenobarbital. Will monitor O2 sats, CIWA, ativan PRN. In addition, continue Librium QID. High risk for withdrawal seizure. Will continue to aggressively hydrate with NS. Will monitor electrolytes and replace as needed. Banana bag later this evening. Will set maintenance fluids 200 ml/hr NS. Dispo: 2-3 days
--- NOTE | 2019-06-03 15:26 | PN ---
THC Physician - Brief Progress [id number]/21/2020 14:46[facility] [place], [place] - SHAYNA (LORI) - JOSHUA GARCÍA.Date of Service 06/03/2019 14:46H PI/Events of Note eICU admission [id number] M with hx of etoh abuse, HTN, DM2 who presented to the ED w ith abdominal pain. Patient mentions he had acute onset of epigastric abdominal pain radiating to th e back with associated numbness in right foot. Patient had similar symptoms 1 week prior which resol nik spontaneously. Patient reports heavy drinking daily but last drink was 4 days prior and he has p rior history of tremors when he stops drinking. On initial presentation the ED there was concern for dissection per EM physician thus CTA was performed which did not reveal any acute pathology. Howeve r patient was found to have leukocytosis and elevated lactate and hypokalemia thus patient was resusc itated with IV fluids, phenobarb, valium, ativan, librium and potassium replacements. Patient is layi ng flat in bed, no acute distress, conversing with bedside nurse. No agitation noted. Does have inten tional tremors in UE. Nasal canula in place. Vitals reviewedLabs/EMR/imaging reviewedAlcohol Withdraw al- Agree with placement on CIWA protocol with ativan PRN. Can consider precedex gtt(as long as HR re aminta normal) if patient becomes agitated to avoid excessive benzo use. - Patient also started on elliott rium and valium scheduled, recommend only doing one scheduled medication at this time to avoid excess reza sedation. - Agree with IVF resuscitation- can consider banana bag. But will recommend aggressive Potassium replacements. - Continue with Thiamine 200mg BID IVP and Folate IV daily- Recommend obtaini ng Mg on next lab check and replacing to 2.0 if low. - Will need repeat lactate, to check trend. Elev ation likely multifactorial with etoh abuse and acute liver injury. Alcoholic Hepatitis- CT abd shows fatty infiltration of liver- Recommend continued daily LFT's and coags. If INR elevated recommend gi ving Vit K- Do not recommend initiating prednisolone for alcoholic hepatitis. GILLES- Cr 2.3- Likely pre -renal in etiology but patient also given contrast for CTA thus also possible concern for contrast ne phropathy superimposed. - Will recommend repeat labs tonight, along with strict I/O's and avoid any n ephrotoxins. DM2- ISS while inpatient with BG goal of 140-180DVT prophy- Heparin sqGI prophy- diet or deredInterventions [id number] disturbance - evaluation and management, Acute renal failure - doeren luation and management, Delirium, psychosis, severe agitation - evaluation and managementElectronical ly Signed by: VIPUL GREY) on 06/03/2019 15:20
[2019-06-03] MEDS: Heparin Sodium 5,000 Units/ML Vial SUBCUT SCH ×2 (15:41→20:57)
[2019-06-03] MEDS: Pantoprazole 40 MG in Sodium Chloride 0.9% 10 ML IV SCH (16:24)
[2019-06-03 17:44] LABS: CARBON DIOXIDE,CO2 25.8 mmol/L (21.0-32.0); POTASSIUM,K 3.3 mmol/L (3.5-5.1)
[2019-06-03] MEDS ORDERED: chlordiazePOXIDE 25 MG Cap PO SCH (18:00)
[2019-06-03] MEDS ORDERED: Magnesium Sulfate/Water 4 GM in Premix Bag 1 BAG IV ONE (18:44)
[2019-06-03] MEDS ORDERED: MVI, Adult with Vitamin K 10 ML, Thiamine 100 MG, Folic Acid 1 MG in Sodium Chloride 0.... IV ONE ×4 (21:00)
[2019-06-04] MEDS: Heparin Sodium 5,000 Units/ML Vial SUBCUT SCH (05:13)
[2019-06-04 06:48] LABS: BLOOD UREA NITROGEN,BUN 21 mg/dL (7.0-18.0); CARBON DIOXIDE,CO2 26.7 mmol/L (21.0-32.0); CHLORIDE,CL 105 mmol/L (98-107); GLUCOSE RANDOM 76 mg/dL (74-106); POTASSIUM,K 3.6 mmol/L (3.5-5.1); SODIUM,NA 141 mmol/L (136-148)
[2019-06-04] MEDS ORDERED: Magnesium Sulfate/Water 2 GM in Premix Bag 1 BAG IV ONE (07:25)
[2019-06-04 08:40] LABS: HEMOGLOBIN A1C 6.6 % (4.5-6.2)
[2019-06-04] MEDS ORDERED: diazePAM 5 MG/ML MDV IVPUSH PRN (08:49)
--- NOTE | 2019-06-04 09:00 | PN ---
THC Physician - Brief Progress [id number]/22/2020 08:52[facility] [place], [place] - SHAYNA (LORI) - JOSHUA GARCÍADate of Service 06/04/2019 08:52H PI/Events of Note eICU progress [id number] M with hx of etoh abuse, HTN, DM2 who presented to the ED wi th abdominal pain found to be in alcohol withdrawal with alcoholic hepatitis. No acute issues overnig ht and patient doing well this morning, sitting up in bed, eating breakfast. On camera patient is not in acute distress, comfortable, no agitationVitals reviewed (tachycardic 120's and hypertensive 160' s systolic)Labs/EMR/Imaging reviewedAlcohol withdrawal- Agree with continuing Valium scheduled with a tivan PRN per CIWA protocol- If patient is to get agitated, can consider starting precidex gtt to ramana id excessive benzo administration. - Agree with Thiamine/Folate/MVI- Agree wtih continued replacement of Mg and KAlcoholic hepatiis - INR within normal limit and no mental status changes thus acute live r injury from etoh use. - Recommend daily trend for LFT's Hypertension and Tachycardia- Withdrawal li murphy contributing to current vital signs. Will recommend to confirm home medications (lopressor and e nalapril) and starting one of the agents at low dose. Patient could also have BB withdrawal leading t o tachcyardia. DVT prophy- heparinInterventions Major-Hypertension - evaluation and management, Other : Alcohol withdrawal
[2019-06-04] MEDS: Pantoprazole 40 MG in Sodium Chloride 0.9% 10 ML IV SCH (09:15)
[2019-06-04] MEDS: Folic Acid/Vitamin B Complex With C Cap PO SCH (09:15)
[2019-06-04] MEDS: LORazepam 2 MG/ML SDV IVPUSH PRN (11:54)
[2019-06-04] MEDS ORDERED: Potassium Chloride 20 MEQ Tab.ER PO ONE (16:25)
--- NOTE | 2019-06-04 16:30 | PCM.PN ---
- General Info Date of Service: 06/04/19 Subjective Update: No acute events overnight. Doing better this morning. Awake and speaking. Mild tremor. Denies any nausea, vomiting, chest pain, dyspnea, abdominal pain. Endorsing some loose stools. - Patient Data Vitals - Most Recent: Last Vital Signs Temp 36.8 C 06/04/19 08:00 Pulse 99 06/04/19 07:00 Resp 29 H 06/04/19 10:00 BP 150/97 H 06/04/19 11:00 Pulse Ox 93 L 06/04/19 11:00 Weight - Most Recent: 119.5 kg I&O - Last 24 Hours: Intake & Output 06/04/19 06/04/19 06/04/19 06:59 14:59 22:59 Intake Total 3265 Output Total 2000 Balance 1265 Lab Results Last 24 Hours: Laboratory Results - last 24 hr 06/03/19 06/03/19 06/03/19 Range/Units 11:07 17:15 17:15 WBC (4.0-11.0) K/uL RBC (4.50-5.90) M/uL Hgb (13.0-17.0) g/dL Hct (38.0-50.0) % MCV (80.0-98.0) fL MCH (27.0-32.0) pg MCHC (31.0-37.0) g/dL RDW Std Deviation (28.0-62.0) fl RDW Coeff of Pipe (11.0-15.0) % Plt Count (150-400) K/uL MPV (7.40-12.00) fL Neut % (Auto) (48.0-80.0) % Lymph % (Auto) (16.0-40.0) % [place] % (Auto) (0.0-15.0) % Eos % (Auto) (0.0-7.0) % Baso % (Auto) (0.0-1.5) % Neut # (Auto) (1.4-5.7) K/uL Lymph # (Auto) (0.6-2.4) K/uL [place] # (Auto) (0.0-0.8) K/uL Eos # (Auto) (0.0-0.7) K/uL Baso # (Auto) (0.0-0.1) K/uL Nucleated RBC % /100WBC Nucleated RBCs # K/uL INR 1.18 Ionized Calcium 3.8 L (4.6-5.1) mg/dL Lactate (0.20-2.00) mmol/L Sodium 135 L (136-148) mmol/L Potassium 3.3 L (3.5-5.1) mmol/L Chloride 100 (98-107) mmol/L Carbon Dioxide 25.8 (21.0-32.0) mmol/L BUN 28 H (7.0-18.0) mg/dL Creatinine 1.4 H (0.8-1.3) mg/dL Est Cr Clr Drug Dosing 75.87 mL/min Estimated GFR (MDRD) 54.3 ml/min Glucose 92 (74-106) mg/dL POC Glucose (60-110) mg/dL Hemoglobin A1c (4.5-6.2) % Calcium 6.6 L (8.5-10.1) mg/dL Phosphorus (2.6-4.7) mg/dL Magnesium 0.9 L (1.8-2.4) mg/dL Total Bilirubin 1.8 H (0.2-1.0) mg/dL AST 107 H (15-37) IU/L ALT 73 H (14-63) IU/L Alkaline Phosphatase 67 (46-116) U/L Total Protein 5.4 L (6.4-8.2) g/dL Albumin 2.4 L (3.4-5.0) g/dL Globulin 3.0 (2.6-4.0) g/dL Albumin/Globulin Ratio 0.8 L (0.9-1.6) Triglycerides (0-200) mg/dL Cholesterol (50-200) mg/dL LDL Cholesterol, Calc (60-180) mg/dL VLDL Cholesterol (5-55) mg/dL HDL Cholesterol (40-60) mg/dL Cholesterol/HDL Ratio (3.3-6.0) Urine Color Urine Appearance Urine pH (5.0-8.0) Ur Specific [place] (1.001-1.035) Urine Protein (NEGATIVE) mg/dL Urine Glucose (UA) (NEGATIVE) mg/dL Urine Ketones (NEGATIVE) mg/dL Urine Occult Blood (NEGATIVE) Urine Nitrite (NEGATIVE) Urine Bilirubin (NEGATIVE) Urine Urobilinogen (<2.0) EU/dL Ur Leukocyte Esterase (NEGATIVE) Urine RBC (0-2/HPF) Urine WBC (0-5/HPF) Ur Epithelial Cells (NONE-FEW) Urine Bacteria (NEGATIVE) Urine Opiates Screen (NEGATIVE) Ur Oxycodone Screen (NEGATIVE) Urine Methadone Screen (NEGATIVE) Ur Barbiturates Screen (NEGATIVE) Ur Phencyclidine Scrn (NEGATIVE) Ur Amphetamine Screen (NEGATIVE) U Methamphetamines Scrn (NEGATIVE) U Benzodiazepines Scrn (NEGATIVE) U Cocaine Metab Screen (NEGATIVE) U Marijuana (THC) Screen (NEGATIVE) 06/03/19 06/03/19 06/03/19 Range/Units 17:57 19:27 19:27 WBC (4.0-11.0) K/uL RBC (4.50-5.90) M/uL Hgb (13.0-17.0) g/dL Hct (38.0-50.0) % MCV (80.0-98.0) fL MCH (27.0-32.0) pg MCHC (31.0-37.0) g/dL RDW Std Deviation (28.0-62.0) fl RDW Coeff of Pipe (11.0-15.0) % Plt Count (150-400) K/uL MPV (7.40-12.00) fL Neut % (Auto) (48.0-80.0) % Lymph % (Auto) (16.0-40.0) % [place] % (Auto) (0.0-15.0) % Eos % (Auto) (0.0-7.0) % Baso % (Auto) (0.0-1.5) % Neut # (Auto) (1.4-5.7) K/uL Lymph # (Auto) (0.6-2.4) K/uL [place] # (Auto) (0.0-0.8) K/uL Eos # (Auto) (0.0-0.7) K/uL Baso # (Auto) (0.0-0.1) K/uL Nucleated RBC % /100WBC Nucleated RBCs # K/uL INR Ionized Calcium (4.6-5.1) mg/dL Lactate 0.6 (0.20-2.00) mmol/L Sodium (136-148) mmol/L Potassium (3.5-5.1) mmol/L Chloride (98-107) mmol/L Carbon Dioxide (21.0-32.0) mmol/L BUN (7.0-18.0) mg/dL Creatinine (0.8-1.3) mg/dL Est Cr Clr Drug Dosing mL/min Estimated GFR (MDRD) ml/min Glucose (74-106) mg/dL POC Glucose 98 (60-110) mg/dL Hemoglobin A1c (4.5-6.2) % Calcium (8.5-10.1) mg/dL Phosphorus 4.3 (2.6-4.7) mg/dL Magnesium (1.8-2.4) mg/dL Total Bilirubin (0.2-1.0) mg/dL AST (15-37) IU/L ALT (14-63) IU/L Alkaline Phosphatase (46-116) U/L Total Protein (6.4-8.2) g/dL Albumin (3.4-5.0) g/dL Globulin (2.6-4.0) g/dL Albumin/Globulin Ratio (0.9-1.6) Triglycerides (0-200) mg/dL Cholesterol (50-200) mg/dL LDL Cholesterol, Calc (60-180) mg/dL VLDL Cholesterol (5-55) mg/dL HDL Cholesterol (40-60) mg/dL Cholesterol/HDL Ratio (3.3-6.0) Urine Color Urine Appearance Urine pH (5.0-8.0) Ur Specific [place] (1.001-1.035) Urine Protein (NEGATIVE) mg/dL Urine Glucose (UA) (NEGATIVE) mg/dL Urine Ketones (NEGATIVE) mg/dL Urine Occult Blood (NEGATIVE) Urine Nitrite (NEGATIVE) Urine Bilirubin (NEGATIVE) Urine Urobilinogen (<2.0) EU/dL Ur Leukocyte Esterase (NEGATIVE) Urine RBC (0-2/HPF) Urine WBC (0-5/HPF) Ur Epithelial Cells (NONE-FEW) Urine Bacteria (NEGATIVE) Urine Opiates Screen (NEGATIVE) Ur Oxycodone Screen (NEGATIVE) Urine Methadone Screen (NEGATIVE) Ur Barbiturates Screen (NEGATIVE) Ur Phencyclidine Scrn (NEGATIVE) Ur Amphetamine Screen (NEGATIVE) U Methamphetamines Scrn (NEGATIVE) U Benzodiazepines Scrn (NEGATIVE) U Cocaine Metab Screen (NEGATIVE) U Marijuana (THC) Screen (NEGATIVE) 06/03/19 06/03/19 06/04/19 Range/Units 23:15 23:15 00:02 WBC (4.0-11.0) K/uL RBC (4.50-5.90) M/uL Hgb (13.0-17.0) g/dL Hct (38.0-50.0) % MCV (80.0-98.0) fL MCH (27.0-32.0) pg MCHC (31.0-37.0) g/dL RDW Std Deviation (28.0-62.0) fl RDW Coeff of Pipe (11.0-15.0) % Plt Count (150-400) K/uL MPV (7.40-12.00) fL Neut % (Auto) (48.0-80.0) % Lymph % (Auto) (16.0-40.0) % [place] % (Auto) (0.0-15.0) % Eos % (Auto) (0.0-7.0) % Baso % (Auto) (0.0-1.5) % Neut # (Auto) (1.4-5.7) K/uL Lymph # (Auto) (0.6-2.4) K/uL [place] # (Auto) (0.0-0.8) K/uL Eos # (Auto) (0.0-0.7) K/uL Baso # (Auto) (0.0-0.1) K/uL Nucleated RBC % /100WBC Nucleated RBCs # K/uL INR Ionized Calcium (4.6-5.1) mg/dL Lactate (0.20-2.00) mmol/L Sodium (136-148) mmol/L Potassium (3.5-5.1) mmol/L Chloride (98-107) mmol/L Carbon Dioxide (21.0-32.0) mmol/L BUN (7.0-18.0) mg/dL Creatinine (0.8-1.3) mg/dL Est Cr Clr Drug Dosing mL/min Estimated GFR (MDRD) ml/min Glucose (74-106) mg/dL POC Glucose 106 (60-110) mg/dL Hemoglobin A1c (4.5-6.2) % Calcium (8.5-10.1) mg/dL Phosphorus (2.6-4.7) mg/dL Magnesium (1.8-2.4) mg/dL Total Bilirubin (0.2-1.0) mg/dL AST (15-37) IU/L ALT (14-63) IU/L Alkaline Phosphatase (46-116) U/L Total Protein (6.4-8.2) g/dL Albumin (3.4-5.0) g/dL Globulin (2.6-4.0) g/dL Albumin/Globulin Ratio (0.9-1.6) Triglycerides (0-200) mg/dL Cholesterol (50-200) mg/dL LDL Cholesterol, Calc (60-180) mg/dL VLDL Cholesterol (5-55) mg/dL HDL Cholesterol (40-60) mg/dL Cholesterol/HDL Ratio (3.3-6.0) Urine Color YELLOW Urine Appearance CLEAR Urine pH 6.0 (5.0-8.0) Ur Specific [place] 1.010 (1.001-1.035) Urine Protein NEGATIVE (NEGATIVE) mg/dL Urine Glucose (UA) NEGATIVE (NEGATIVE) mg/dL Urine Ketones NEGATIVE (NEGATIVE) mg/dL Urine Occult Blood SMALL H (NEGATIVE) Urine Nitrite NEGATIVE (NEGATIVE) Urine Bilirubin NEGATIVE (NEGATIVE) Urine Urobilinogen 0.2 (<2.0) EU/dL Ur Leukocyte Esterase NEGATIVE (NEGATIVE) Urine RBC 0-1 (0-2/HPF) Urine WBC 0-1 (0-5/HPF) Ur Epithelial Cells RARE (NONE-FEW) Urine Bacteria RARE (NEGATIVE) Urine Opiates Screen NEGATIVE (NEGATIVE) Ur Oxycodone Screen NEGATIVE (NEGATIVE) Urine Methadone Screen NEGATIVE (NEGATIVE) Ur Barbiturates Screen NEGATIVE (NEGATIVE) Ur Phencyclidine Scrn NEGATIVE (NEGATIVE) Ur Amphetamine Screen NEGATIVE (NEGATIVE) U Methamphetamines Scrn NEGATIVE (NEGATIVE) U Benzodiazepines Scrn POSITIVE (NEGATIVE) U Cocaine Metab Screen NEGATIVE (NEGATIVE) U Marijuana (THC) Screen NEGATIVE (NEGATIVE) 06/04/19 06/04/19 06/04/19 Range/Units 06:10 06:10 06:10 WBC 4.90 (4.0-11.0) K/uL RBC 3.85 L (4.50-5.90) M/uL Hgb 13.2 (13.0-17.0) g/dL Hct 37.9 L (38.0-50.0) % MCV 98.4 H (80.0-98.0) fL MCH 34.3 H (27.0-32.0) pg MCHC 34.8 (31.0-37.0) g/dL RDW Std Deviation 46.7 (28.0-62.0) fl RDW Coeff of Pipe 13 (11.0-15.0) % Plt Count 92 L (150-400) K/uL MPV 10.50 (7.40-12.00) fL Neut % (Auto) 57.2 (48.0-80.0) % Lymph % (Auto) 28.4 (16.0-40.0) % [place] % (Auto) 11.8 (0.0-15.0) % Eos % (Auto) 2.4 (0.0-7.0) % Baso % (Auto) 0.2 (0.0-1.5) % Neut # (Auto) 2.8 (1.4-5.7) K/uL Lymph # (Auto) 1.4 (0.6-2.4) K/uL [place] # (Auto) 0.6 (0.0-0.8) K/uL Eos # (Auto) 0.1 (0.0-0.7) K/uL Baso # (Auto) 0.0 (0.0-0.1) K/uL Nucleated RBC % 0.0 /100WBC Nucleated RBCs # 0 K/uL INR Ionized Calcium (4.6-5.1) mg/dL Lactate (0.20-2.00) mmol/L Sodium 141 (136-148) mmol/L Potassium 3.6 (3.5-5.1) mmol/L Chloride 105 (98-107) mmol/L Carbon Dioxide 26.7 (21.0-32.0) mmol/L BUN 21 H (7.0-18.0) mg/dL Creatinine 1.1 (0.8-1.3) mg/dL Est Cr Clr Drug Dosing 96.56 mL/min Estimated GFR (MDRD) > 60.0 ml/min Glucose 76 (74-106) mg/dL POC Glucose (60-110) mg/dL Hemoglobin A1c 6.6 H (4.5-6.2) % Calcium 7.3 L (8.5-10.1) mg/dL Phosphorus (2.6-4.7) mg/dL Magnesium 1.7 L (1.8-2.4) mg/dL Total Bilirubin 1.8 H (0.2-1.0) mg/dL AST 112 H (15-37) IU/L ALT 80 H (14-63) IU/L Alkaline Phosphatase 71 (46-116) U/L Total Protein 5.9 L (6.4-8.2) g/dL Albumin 2.6 L (3.4-5.0) g/dL Globulin 3.3 (2.6-4.0) g/dL Albumin/Globulin Ratio 0.8 L (0.9-1.6) Triglycerides (0-200) mg/dL Cholesterol (50-200) mg/dL LDL Cholesterol, Calc (60-180) mg/dL VLDL Cholesterol (5-55) mg/dL HDL Cholesterol (40-60) mg/dL Cholesterol/HDL Ratio (3.3-6.0) Urine Color Urine Appearance Urine pH (5.0-8.0) Ur Specific [place] (1.001-1.035) Urine Protein (NEGATIVE) mg/dL Urine Glucose (UA) (NEGATIVE) mg/dL Urine Ketones (NEGATIVE) mg/dL Urine Occult Blood (NEGATIVE) Urine Nitrite (NEGATIVE) Urine Bilirubin (NEGATIVE) Urine Urobilinogen (<2.0) EU/dL Ur Leukocyte Esterase (NEGATIVE) Urine RBC (0-2/HPF) Urine WBC (0-5/HPF) Ur Epithelial Cells (NONE-FEW) Urine Bacteria (NEGATIVE) Urine Opiates Screen (NEGATIVE) Ur Oxycodone Screen (NEGATIVE) Urine Methadone Screen (NEGATIVE) Ur Barbiturates Screen (NEGATIVE) Ur Phencyclidine Scrn (NEGATIVE) Ur Amphetamine Screen (NEGATIVE) U Methamphetamines Scrn (NEGATIVE) U Benzodiazepines Scrn (NEGATIVE) U Cocaine Metab Screen (NEGATIVE) U Marijuana (THC) Screen (NEGATIVE) 06/04/19 06/04/19 06/04/19 Range/Units 06:10 06:18 06:42 WBC (4.0-11.0) K/uL RBC (4.50-5.90) M/uL Hgb (13.0-17.0) g/dL Hct (38.0-50.0) % MCV (80.0-98.0) fL MCH (27.0-32.0) pg MCHC (31.0-37.0) g/dL RDW Std Deviation (28.0-62.0) fl RDW Coeff of Pipe (11.0-15.0) % Plt Count (150-400) K/uL MPV (7.40-12.00) fL Neut % (Auto) (48.0-80.0) % Lymph % (Auto) (16.0-40.0) % [place] % (Auto) (0.0-15.0) % Eos % (Auto) (0.0-7.0) % Baso % (Auto) (0.0-1.5) % Neut # (Auto) (1.4-5.7) K/uL Lymph # (Auto) (0.6-2.4) K/uL [place] # (Auto) (0.0-0.8) K/uL Eos # (Auto) (0.0-0.7) K/uL Baso # (Auto) (0.0-0.1) K/uL Nucleated RBC % /100WBC Nucleated RBCs # K/uL INR Ionized Calcium (4.6-5.1) mg/dL Lactate (0.20-2.00) mmol/L Sodium (136-148) mmol/L Potassium (3.5-5.1) mmol/L Chloride (98-107) mmol/L Carbon Dioxide (21.0-32.0) mmol/L BUN (7.0-18.0) mg/dL Creatinine (0.8-1.3) mg/dL Est Cr Clr Drug Dosing mL/min Estimated GFR (MDRD) ml/min Glucose (74-106) mg/dL POC Glucose 63 118 H (60-110) mg/dL Hemoglobin A1c (4.5-6.2) % Calcium (8.5-10.1) mg/dL Phosphorus (2.6-4.7) mg/dL Magnesium (1.8-2.4) mg/dL Total Bilirubin (0.2-1.0) mg/dL AST (15-37) IU/L ALT (14-63) IU/L Alkaline Phosphatase (46-116) U/L Total Protein (6.4-8.2) g/dL Albumin (3.4-5.0) g/dL Globulin (2.6-4.0) g/dL Albumin/Globulin Ratio (0.9-1.6) Triglycerides 66 (0-200) mg/dL Cholesterol 139 (50-200) mg/dL LDL Cholesterol, Calc 59 L (60-180) mg/dL VLDL Cholesterol 13 (5-55) mg/dL HDL Cholesterol 67 H (40-60) mg/dL Cholesterol/HDL Ratio 2.1 L (3.3-6.0) Urine Color Urine Appearance Urine pH (5.0-8.0) Ur Specific [place] (1.001-1.035) Urine Protein (NEGATIVE) mg/dL Urine Glucose (UA) (NEGATIVE) mg/dL Urine Ketones (NEGATIVE) mg/dL Urine Occult Blood (NEGATIVE) Urine Nitrite (NEGATIVE) Urine Bilirubin (NEGATIVE) Urine Urobilinogen (<2.0) EU/dL Ur Leukocyte Esterase (NEGATIVE) Urine RBC (0-2/HPF) Urine WBC (0-5/HPF) Ur Epithelial Cells (NONE-FEW) Urine Bacteria (NEGATIVE) Urine Opiates Screen (NEGATIVE) Ur Oxycodone Screen (NEGATIVE) Urine Methadone Screen (NEGATIVE) Ur Barbiturates Screen (NEGATIVE) Ur Phencyclidine Scrn (NEGATIVE) Ur Amphetamine Screen (NEGATIVE) U Methamphetamines Scrn (NEGATIVE) U Benzodiazepines Scrn (NEGATIVE) U Cocaine Metab Screen (NEGATIVE) U Marijuana (THC) Screen (NEGATIVE) 06/04/19 Range/Units 11:42 WBC (4.0-11.0) K/uL RBC (4.50-5.90) M/uL Hgb (13.0-17.0) g/dL Hct (38.0-50.0) % MCV (80.0-98.0) fL MCH (27.0-32.0) pg MCHC (31.0-37.0) g/dL RDW Std Deviation (28.0-62.0) fl RDW Coeff of Pipe (11.0-15.0) % Plt Count (150-400) K/uL MPV (7.40-12.00) fL Neut % (Auto) (48.0-80.0) % Lymph % (Auto) (16.0-40.0) % [place] % (Auto) (0.0-15.0) % Eos % (Auto) (0.0-7.0) % Baso % (Auto) (0.0-1.5) % Neut # (Auto) (1.4-5.7) K/uL Lymph # (Auto) (0.6-2.4) K/uL [place] # (Auto) (0.0-0.8) K/uL Eos # (Auto) (0.0-0.7) K/uL Baso # (Auto) (0.0-0.1) K/uL Nucleated RBC % /100WBC Nucleated RBCs # K/uL INR Ionized Calcium (4.6-5.1) mg/dL Lactate (0.20-2.00) mmol/L Sodium (136-148) mmol/L Potassium (3.5-5.1) mmol/L Chloride (98-107) mmol/L Carbon Dioxide (21.0-32.0) mmol/L BUN (7.0-18.0) mg/dL Creatinine (0.8-1.3) mg/dL Est Cr Clr Drug Dosing mL/min Estimated GFR (MDRD) ml/min Glucose (74-106) mg/dL POC Glucose 95 (60-110) mg/dL Hemoglobin A1c (4.5-6.2) % Calcium (8.5-10.1) mg/dL Phosphorus (2.6-4.7) mg/dL Magnesium (1.8-2.4) mg/dL Total Bilirubin (0.2-1.0) mg/dL AST (15-37) IU/L ALT (14-63) IU/L Alkaline Phosphatase (46-116) U/L Total Protein (6.4-8.2) g/dL Albumin (3.4-5.0) g/dL Globulin (2.6-4.0) g/dL Albumin/Globulin Ratio (0.9-1.6) Triglycerides (0-200) mg/dL Cholesterol (50-200) mg/dL LDL Cholesterol, Calc (60-180) mg/dL VLDL Cholesterol (5-55) mg/dL HDL Cholesterol (40-60) mg/dL Cholesterol/HDL Ratio (3.3-6.0) Urine Color Urine Appearance Urine pH (5.0-8.0) Ur Specific [place] (1.001-1.035) Urine Protein (NEGATIVE) mg/dL Urine Glucose (UA) (NEGATIVE) mg/dL Urine Ketones (NEGATIVE) mg/dL Urine Occult Blood (NEGATIVE) Urine Nitrite (NEGATIVE) Urine Bilirubin (NEGATIVE) Urine Urobilinogen (<2.0) EU/dL Ur Leukocyte Esterase (NEGATIVE) Urine RBC (0-2/HPF) Urine WBC (0-5/HPF) Ur Epithelial Cells (NONE-FEW) Urine Bacteria (NEGATIVE) Urine Opiates Screen (NEGATIVE) Ur Oxycodone Screen (NEGATIVE) Urine Methadone Screen (NEGATIVE) Ur Barbiturates Screen (NEGATIVE) Ur Phencyclidine Scrn (NEGATIVE) Ur Amphetamine Screen (NEGATIVE) U Methamphetamines Scrn (NEGATIVE) U Benzodiazepines Scrn (NEGATIVE) U Cocaine Metab Screen (NEGATIVE) U Marijuana (THC) Screen (NEGATIVE) Med Orders - Current: Current Medications Acetaminophen (Tylenol) 650 mg PO Q4H PRN PRN Reason: Pain (Mild 1-3)/fever Diazepam (Valium) 10 mg IVPUSH Q8H [facility] Enalapril Maleate (Vasotec) 10 mg PO DAILY [facility] Pantoprazole Sodium 40 mg/ (Sodium Chloride) 10 mls @ 300 mls/hr IV DAILY [facility] Last Admin: 06/04/19 09:15 Dose: 300 mls/hr Lorazepam (Ativan) 0 mg IVPUSH Q4H PRN; Protocol PRN Reason: Withdrawal Symptoms Last Admin: 06/04/19 11:54 Dose: 1 mg Multivit/Ca Carb/B Cmplx/FA/Prenat (Renal Caps Softgel) 1 cap PO DAILY [facility] Last Admin: 06/04/19 09:15 Dose: 1 cap Ondansetron HCl (Zofran Odt) 4 mg PO Q4H PRN PRN Reason: nausea, able to take PO Ondansetron HCl (Zofran) 4 mg IVPUSH Q4H PRN PRN Reason: Pain Potassium Chloride (Klor-Con M20) 40 meq PO ONETIME ONE Stop: 06/04/19 16:26 Discontinued Medications Chlordiazepoxide HCl (Librium) 25 mg PO QID [facility] Last Admin: 06/03/19 19:01 Dose: Not Given Diazepam (Valium) 5 mg IVPUSH ONETIME ONE Stop: 06/03/19 12:48 Last Admin: 06/03/19 12:51 Dose: 5 mg Diazepam (Valium) Confirm Administered Dose 5 mg .ROUTE .STK-MED ONE Stop: 06/03/19 12:52 Last Admin: 06/03/19 13:06 Dose: Not Given Diazepam (Valium) 5 mg IVPUSH ONETIME ONE Stop: 06/03/19 13:18 Last Admin: 06/03/19 13:44 Dose: 5 mg Diazepam (Valium) 10 mg IVPUSH Q8H [facility] Diazepam (Valium) 10 mg IVPUSH Q8H PRN PRN Reason: Anxiety Diazepam (Valium) 10 mg IVPUSH Q8H PRN PRN Reason: Anxiety Last Admin: 06/04/19 08:58 Dose: 10 mg Fentanyl (Fentanyl) 100 mcg IVPUSH ONETIME ONE Stop: 06/03/19 11:17 Last Admin: 06/03/19 11:26 Dose: 100 mcg Heparin Sodium (Porcine) (Heparin Sodium) 5,000 units SUBCUT Q8H [facility] Last Admin: 06/04/19 05:13 Dose: 5,000 units Sodium Chloride (Normal Saline) 1,000 mls @ 999 mls/hr IV .Bolus ONE Stop: 06/03/19 12:17 Last Admin: 06/03/19 11:26 Dose: 999 mls/hr Potassium Chloride 40 meq/ (Dextrose/Lactated Ringer's) 1,020 mls @ 150 mls/hr IV ASDIRECTED [facility] Last Admin: 06/03/19 21:20 Dose: 150 mls/hr Thiamine HCl 100 mg/ Sodium (Chloride) 101 mls @ 202 mls/hr IV ONETIME ONE Stop: 06/03/19 12:20 Last Admin: 06/03/19 12:47 Dose: 202 mls/hr Sodium Chloride (Normal Saline) 1,000 mls @ 999 mls/hr IV ONETIME ONE Stop: 06/03/19 14:13 Last Admin: 06/03/19 13:23 Dose: 999 mls/hr Phenobarbital 130 mg/ Sodium (Chloride) 101 mls @ 200 mls/hr IV ONETIME ONE Stop: 06/03/19 14:18 Last Admin: 06/03/19 14:47 Dose: Not Given Lactated Ringer's (Ringers, Lactated) 1,000 mls @ 999 mls/hr IV .BOLUS ONE Stop: 06/03/19 15:13 Last Admin: 06/03/19 14:37 Dose: 999 mls/hr Phenobarbital 130 mg/ Sodium (Chloride) 101 mls @ 200 mls/hr IV ONETIME ONE Stop: 06/03/19 15:15 Last Admin: 06/03/19 14:47 Dose: 200 mls/hr Sodium Chloride (Normal Saline) 1,000 mls @ 999 mls/hr IV STAT ONE Stop: 06/03/19 16:19 Last Admin: 06/03/19 15:44 Dose: 999 mls/hr Multivitamins/Minerals 10 ml/Thiamine HCl 100 mg/ Folic Acid 1 mg/ Sodium Chloride 1,011.2 mls @ 200 mls/hr IV ONETIME ONE Stop: 06/04/19 02:03 Last Admin: 06/03/19 20:55 Dose: 200 mls/hr Magnesium Sulfate 4 gm/ Premix 100 mls @ 25 mls/hr IV ONETIME ONE Stop: 06/03/19 22:43 Last Admin: 06/03/19 19:44 Dose: 25 mls/hr Magnesium Sulfate 2 gm/ Premix 50 mls @ 25 mls/hr IV ONETIME ONE Stop: 06/04/19 09:24 Last Admin: 06/04/19 07:48 Dose: 25 mls/hr Iopamidol (Isovue Multipack-370 (76%)) 100 ml IVPUSH ONETIME STA Stop: 06/03/19 11:48 Last Admin: 06/03/19 11:48 Dose: 100 ml Lorazepam (Ativan) 2 mg IVPUSH ONETIME ONE Stop: 06/03/19 11:58 Last Admin: 06/03/19 12:16 Dose: 2 mg Lorazepam (Ativan) 2 mg IVPUSH ONETIME ONE Stop: 06/03/19 12:48 Last Admin: 06/03/19 12:51 Dose: 2 mg Lorazepam (Ativan) 2 mg IVPUSH ONETIME ONE Stop: 06/03/19 13:02 Last Admin: 02/21/20 13:06 Dose: 2 mg Lorazepam (Ativan) Confirm Administered Dose 2 mg .ROUTE .STK-MED ONE Stop: 06/03/19 13:02 Last Admin: 06/03/19 13:06 Dose: Not Given Lorazepam (Ativan) 2 mg IVPUSH ONETIME ONE Stop: 06/03/19 13:20 Last Admin: 06/03/19 13:23 Dose: 2 mg Lorazepam (Ativan) 2 mg IVPUSH ONETIME ONE Stop: 06/03/19 13:20 Last Admin: 06/03/19 13:41 Dose: 2 mg Lorazepam (Ativan) 2 mg IVPUSH ONETIME ONE Stop: 06/03/19 13:37 Last Admin: 06/03/19 14:55 Dose: 2 mg Morphine Sulfate (Morphine) 2 mg IVPUSH Q2H PRN PRN Reason: Pain (severe 7-10) Stop: 06/04/19 13:12 Ondansetron HCl (Zofran) 4 mg IVPUSH Q4H PRN PRN Reason: Nausea - Exam General: Alert, Oriented, Cooperative, No Acute Distress, Other (tremulous) Lungs: Clear to Auscultation, Normal Respiratory Effort. No: Crackles, Wheezing Cardiovascular: Regular Rhythm, Tachycardia GI/Abdominal Exam: Normal Bowel Sounds, Soft, Non-Tender, No Distention Extremities: Normal Inspection, No Pedal Edema Skin: Warm, Dry Sepsis Event Note - Evaluation Sepsis Screening Result: Sepsis Risk - Focused Exam Vital Signs: Vital Signs Temp Pulse Resp BP BP Pulse Ox 06/04/19 11:00 150/97 H 93 L 06/04/19 10:00 29 H 95 06/04/19 09:00 33 H 141/90 H 95 06/04/19 08:00 36.8 C 18 161/104 H 94 L 06/04/19 07:00 99 17 153/106 H 95 06/04/19 06:00 85 16 149/95 H 97 06/04/19 05:00 78 16 138/87 99 Date Exam was Performed: 06/04/19 Time Exam was Performed: 16:25 - Problem List Review Problem List Initiated/Reviewed/Updated: Yes - My Orders Last 24 Hours: My Active Orders 06/03/19 16:00 Pantoprazole [ProTONIX IV] 40 mg Sodium Chloride 0.9% [Normal Saline] 10 ml IV DAILY 06/03/19 17:48 Blood Glucose Check, Bedside [RC] QIDACANDBED 06/03/19 Dinner Regular Diet [DIET] 06/04/19 08:13 Antiembolic Devices [RC] PER UNIT ROUTINE SCD [Sequential Compression Device] [OM.PC] Routine 06/04/19 09:00 Folic Acid/Vitamin B Comp W-C [Renal Caps Softgel] 1 cap PO DAILY 06/04/19 16:22 FOLIC ACID [CHEM] Routine VITAMIN B12 [CHEM] Routine 06/04/19 16:25 Potassium Chloride [Klor-Con M20] 40 meq PO ONETIME ONE 06/04/19 16:30 Enalapril [Vasotec] 10 mg PO DAILY 06/04/19 17:00 diazePAM [Valium] 10 mg IVPUSH Q8H 06/05/19 05:11 CBC WITH AUTO DIFF [HEME] AM COMPREHENSIVE METABOLIC PN,CMP [CHEM] AM 06/06/19 05:11 CBC WITH AUTO DIFF [HEME] AM COMPREHENSIVE METABOLIC PN,CMP [CHEM] AM - Plan Plan:: 1. Acute alcohol withdrawal 2. Acute liver injury 3. Hypertension 4. Hypomagnesemia 5. Hypokalemia 6. PMH DM2,Hypertension P: 1. Clinically improving. Will continue with Diazepam 10 mg IV Q8H for now and CIWA assessment with ativan PRN. Will restart enalapril 10 mg PO daily for hypertension. Replace potassium and magnesium. Encourage PO intake. Possibly downgrade tomorrow. Dispo: 1-2 days
[2019-06-04] MEDS: diazePAM 5 MG/ML MDV IVPUSH SCH (17:48)
[2019-06-04] MEDS ORDERED: Labetalol 100 MG/20 ML MDV IVPUSH PRN (18:31)
[2019-06-05] MEDS: diazePAM 5 MG/ML MDV IVPUSH SCH ×2 (00:46→09:02)
[2019-06-05 07:06] LABS: BLOOD UREA NITROGEN,BUN 18 mg/dL (7.0-18.0); CARBON DIOXIDE,CO2 29.5 mmol/L (21.0-32.0); CHLORIDE,CL 103 mmol/L (98-107); GLUCOSE RANDOM 95 mg/dL (74-106); POTASSIUM,K 3.7 mmol/L (3.5-5.1); SODIUM,NA 141 mmol/L (136-148)
[2019-06-05] MEDS: Folic Acid/Vitamin B Complex With C Cap PO SCH (08:47)
[2019-06-05] MEDS: Pantoprazole 40 MG in Sodium Chloride 0.9% 10 ML IV SCH (08:48)
--- NOTE | 2019-06-05 16:26 | PCM.PN ---
- General Info Date of Service: 06/05/19 Admission Dx/Problem (Free Text): Admission Diagnosis/Problem Admission Diagnosis/Problem Alcohol withdrawal syndrome Subjective Update: No acute events overnight. Doing better this morning. Feels his legs are restless. Awake and speaking. Mild tremor. Denies any nausea, vomiting, chest pain, dyspnea, abdominal pain. - Review of Systems General: Reports: Weakness. Denies: Fever, Fatigue, Malaise Pulmonary: Denies: Shortness of Breath, Pleuritic Chest Pain Cardiovascular: Denies: Chest Pain, Palpitations, Dyspnea on Exertion Gastrointestinal: Denies: Abdominal Pain, Constipation, Decreased Appetite Genitourinary: Denies: Dysuria, Frequency, Burning, Pain Musculoskeletal: Denies: Neck Pain, Shoulder Pain, Arm Pain Neurological: Reports: Tremors - Patient Data Vitals - Most Recent: Last Vital Signs Temp 36.2 C 06/05/19 12:00 Pulse 99 06/04/19 07:00 Resp 24 H 06/05/19 12:00 BP 138/96 H 06/05/19 12:00 Pulse Ox 94 L 06/05/19 12:00 Weight - Most Recent: 116.8 kg I&O - Last 24 Hours: Intake & Output 06/05/19 06/05/19 06/05/19 06:59 14:59 22:59 Intake Total 1400 Output Total 1600 Balance -200 Lab Results Last 24 Hours: Laboratory Results - last 24 hr 06/04/19 06/05/19 06/05/19 Range/Units 18:51 05:50 05:50 WBC 5.02 (4.0-11.0) K/uL RBC 3.99 L (4.50-5.90) M/uL Hgb 13.8 (13.0-17.0) g/dL Hct 40.3 (38.0-50.0) % MCV 101.0 H (80.0-98.0) fL MCH 34.6 H (27.0-32.0) pg MCHC 34.2 (31.0-37.0) g/dL RDW Std Deviation 46.6 (28.0-62.0) fl RDW Coeff of Pipe 13 (11.0-15.0) % Plt Count 101 L (150-400) K/uL MPV 10.80 (7.40-12.00) fL Neut % (Auto) 43.7 L (48.0-80.0) % Lymph % (Auto) 40.4 H (16.0-40.0) % [place] % (Auto) 13.5 (0.0-15.0) % Eos % (Auto) 2.2 (0.0-7.0) % Baso % (Auto) 0.2 (0.0-1.5) % Neut # (Auto) 2.2 (1.4-5.7) K/uL Lymph # (Auto) 2.0 (0.6-2.4) K/uL [place] # (Auto) 0.7 (0.0-0.8) K/uL Eos # (Auto) 0.1 (0.0-0.7) K/uL Baso # (Auto) 0.0 (0.0-0.1) K/uL Nucleated RBC % 0.0 /100WBC Nucleated RBCs # 0 K/uL Sodium 141 (136-148) mmol/L Potassium 3.7 (3.5-5.1) mmol/L Chloride 103 (98-107) mmol/L Carbon Dioxide 29.5 (21.0-32.0) mmol/L BUN 18 (7.0-18.0) mg/dL Creatinine 1.1 (0.8-1.3) mg/dL Est Cr Clr Drug Dosing 96.56 mL/min Estimated GFR (MDRD) > 60.0 ml/min Glucose 95 (74-106) mg/dL POC Glucose 80 (60-110) mg/dL Calcium 7.6 L (8.5-10.1) mg/dL Total Bilirubin 1.2 H (0.2-1.0) mg/dL AST 95 H (15-37) IU/L ALT 78 H (14-63) IU/L Alkaline Phosphatase 85 (46-116) U/L Total Protein 6.6 (6.4-8.2) g/dL Albumin 2.9 L (3.4-5.0) g/dL Globulin 3.7 (2.6-4.0) g/dL Albumin/Globulin Ratio 0.8 L (0.9-1.6) Vitamin B12 807 (193-986) pg/mL Folate 26.60 (8.60-58.90) ng/mL 06/05/19 06/05/19 Range/Units 06:32 11:52 WBC (4.0-11.0) K/uL RBC (4.50-5.90) M/uL Hgb (13.0-17.0) g/dL Hct (38.0-50.0) % MCV (80.0-98.0) fL MCH (27.0-32.0) pg MCHC (31.0-37.0) g/dL RDW Std Deviation (28.0-62.0) fl RDW Coeff of Pipe (11.0-15.0) % Plt Count (150-400) K/uL MPV (7.40-12.00) fL Neut % (Auto) (48.0-80.0) % Lymph % (Auto) (16.0-40.0) % [place] % (Auto) (0.0-15.0) % Eos % (Auto) (0.0-7.0) % Baso % (Auto) (0.0-1.5) % Neut # (Auto) (1.4-5.7) K/uL Lymph # (Auto) (0.6-2.4) K/uL [place] # (Auto) (0.0-0.8) K/uL Eos # (Auto) (0.0-0.7) K/uL Baso # (Auto) (0.0-0.1) K/uL Nucleated RBC % /100WBC Nucleated RBCs # K/uL Sodium (136-148) mmol/L Potassium (3.5-5.1) mmol/L Chloride (98-107) mmol/L Carbon Dioxide (21.0-32.0) mmol/L BUN (7.0-18.0) mg/dL Creatinine (0.8-1.3) mg/dL Est Cr Clr Drug Dosing mL/min Estimated GFR (MDRD) ml/min Glucose (74-106) mg/dL POC Glucose 100 181 H (60-110) mg/dL Calcium (8.5-10.1) mg/dL Total Bilirubin (0.2-1.0) mg/dL AST (15-37) IU/L ALT (14-63) IU/L Alkaline Phosphatase (46-116) U/L Total Protein (6.4-8.2) g/dL Albumin (3.4-5.0) g/dL Globulin (2.6-4.0) g/dL Albumin/Globulin Ratio (0.9-1.6) Vitamin B12 (193-986) pg/mL Folate (8.60-58.90) ng/mL Med Orders - Current: Current Medications Acetaminophen (Tylenol) 650 mg PO Q4H PRN PRN Reason: Pain (Mild 1-3)/fever Diazepam (Valium.) 10 mg PO Q8H [facility] Enalapril Maleate (Vasotec) 10 mg PO DAILY [facility] Last Admin: 06/05/19 08:46 Dose: 10 mg Pantoprazole Sodium 40 mg/ (Sodium Chloride) 10 mls @ 300 mls/hr IV DAILY [facility] Last Admin: 06/05/19 08:48 Dose: 300 mls/hr Labetalol HCl (Normodyne) 10 mg IVPUSH Q4H PRN; Protocol PRN Reason: Hypertension Last Admin: 06/05/19 07:23 Dose: 10 mg Lorazepam (Ativan) 0 mg IVPUSH Q4H PRN; Protocol PRN Reason: Withdrawal Symptoms Last Admin: 06/04/19 11:54 Dose: 1 mg Multivit/Ca Carb/B Cmplx/FA/Prenat (Renal Caps Softgel) 1 cap PO DAILY [facility] Last Admin: 06/05/19 08:47 Dose: 1 cap Ondansetron HCl (Zofran Odt) 4 mg PO Q4H PRN PRN Reason: nausea, able to take PO Ondansetron HCl (Zofran) 4 mg IVPUSH Q4H PRN PRN Reason: Pain Discontinued Medications Chlordiazepoxide HCl (Librium) 25 mg PO QID [facility] Last Admin: 06/03/19 19:01 Dose: Not Given Diazepam (Valium) 5 mg IVPUSH ONETIME ONE Stop: 06/03/19 12:48 Last Admin: 06/03/19 12:51 Dose: 5 mg Diazepam (Valium) Confirm Administered Dose 5 mg .ROUTE .STK-MED ONE Stop: 06/03/19 12:52 Last Admin: 06/03/19 13:06 Dose: Not Given Diazepam (Valium) 5 mg IVPUSH ONETIME ONE Stop: 06/03/19 13:18 Last Admin: 06/03/19 13:44 Dose: 5 mg Diazepam (Valium) 10 mg IVPUSH Q8H [facility] Diazepam (Valium) 10 mg IVPUSH Q8H PRN PRN Reason: Anxiety Diazepam (Valium) 10 mg IVPUSH Q8H PRN PRN Reason: Anxiety Last Admin: 06/04/19 08:58 Dose: 10 mg Diazepam (Valium) 10 mg IVPUSH Q8H [facility] Last Admin: 06/05/19 09:02 Dose: 10 mg Fentanyl (Fentanyl) 100 mcg IVPUSH ONETIME ONE Stop: 06/03/19 11:17 Last Admin: 06/03/19 11:26 Dose: 100 mcg Heparin Sodium (Porcine) (Heparin Sodium) 5,000 units SUBCUT Q8H [facility] Last Admin: 06/04/19 05:13 Dose: 5,000 units Sodium Chloride (Normal Saline) 1,000 mls @ 999 mls/hr IV .Bolus ONE Stop: 06/03/19 12:17 Last Admin: 06/03/19 11:26 Dose: 999 mls/hr Potassium Chloride 40 meq/ (Dextrose/Lactated Ringer's) 1,020 mls @ 150 mls/hr IV ASDIRECTED [facility] Last Admin: 06/03/19 21:20 Dose: 150 mls/hr Thiamine HCl 100 mg/ Sodium (Chloride) 101 mls @ 202 mls/hr IV ONETIME ONE Stop: 06/03/19 12:20 Last Admin: 06/03/19 12:47 Dose: 202 mls/hr Sodium Chloride (Normal Saline) 1,000 mls @ 999 mls/hr IV ONETIME ONE Stop: 06/03/19 14:13 Last Admin: 06/03/19 13:23 Dose: 999 mls/hr Phenobarbital 130 mg/ Sodium (Chloride) 101 mls @ 200 mls/hr IV ONETIME ONE Stop: 06/03/19 14:18 Last Admin: 06/03/19 14:47 Dose: Not Given Lactated Ringer's (Ringers, Lactated) 1,000 mls @ 999 mls/hr IV .BOLUS ONE Stop: 06/03/19 15:13 Last Admin: 06/03/19 14:37 Dose: 999 mls/hr Phenobarbital 130 mg/ Sodium (Chloride) 101 mls @ 200 mls/hr IV ONETIME ONE Stop: 06/03/19 15:15 Last Admin: 06/03/19 14:47 Dose: 200 mls/hr Sodium Chloride (Normal Saline) 1,000 mls @ 999 mls/hr IV STAT ONE Stop: 06/03/19 16:19 Last Admin: 06/03/19 15:44 Dose: 999 mls/hr Multivitamins/Minerals 10 ml/Thiamine HCl 100 mg/ Folic Acid 1 mg/ Sodium Chloride 1,011.2 mls @ 200 mls/hr IV ONETIME ONE Stop: 06/04/19 02:03 Last Admin: 06/03/19 20:55 Dose: 200 mls/hr Magnesium Sulfate 4 gm/ Premix 100 mls @ 25 mls/hr IV ONETIME ONE Stop: 06/03/19 22:43 Last Admin: 06/03/19 19:44 Dose: 25 mls/hr Magnesium Sulfate 2 gm/ Premix 50 mls @ 25 mls/hr IV ONETIME ONE Stop: 06/04/19 09:24 Last Admin: 06/04/19 07:48 Dose: 25 mls/hr Iopamidol (Isovue Multipack-370 (76%)) 100 ml IVPUSH ONETIME STA Stop: 06/03/19 11:48 Last Admin: 06/03/19 11:48 Dose: 100 ml Lorazepam (Ativan) 2 mg IVPUSH ONETIME ONE Stop: 06/03/19 11:58 Last Admin: 06/03/19 12:16 Dose: 2 mg Lorazepam (Ativan) 2 mg IVPUSH ONETIME ONE Stop: 06/03/19 12:48 Last Admin: 06/03/19 12:51 Dose: 2 mg Lorazepam (Ativan) 2 mg IVPUSH ONETIME ONE Stop: 06/03/19 13:02 Last Admin: 06/03/19 13:06 Dose: 2 mg Lorazepam (Ativan) Confirm Administered Dose 2 mg .ROUTE .STK-MED ONE Stop: 06/03/19 13:02 Last Admin: 06/03/19 13:06 Dose: Not Given Lorazepam (Ativan) 2 mg IVPUSH ONETIME ONE Stop: 06/03/19 13:20 Last Admin: 06/03/19 13:23 Dose: 2 mg Lorazepam (Ativan) 2 mg IVPUSH ONETIME ONE Stop: 06/03/19 13:20 Last Admin: 06/03/19 13:41 Dose: 2 mg Lorazepam (Ativan) 2 mg IVPUSH ONETIME ONE Stop: 06/03/19 13:37 Last Admin: 06/03/19 14:55 Dose: 2 mg Morphine Sulfate (Morphine) 2 mg IVPUSH Q2H PRN PRN Reason: Pain (severe 7-10) Stop: 06/04/19 13:12 Ondansetron HCl (Zofran) 4 mg IVPUSH Q4H PRN PRN Reason: Nausea Potassium Chloride (Klor-Con M20) 40 meq PO ONETIME ONE Stop: 06/04/19 16:26 Last Admin: 06/04/19 17:48 Dose: 40 meq - Exam Quality Assessment: No: Supplemental Oxygen General: Alert, Oriented Neck: Supple, Trachea Midline Lungs: Clear to Auscultation, Normal Respiratory Effort Cardiovascular: Regular Rhythm, Tachycardia GI/Abdominal Exam: Normal Bowel Sounds, Soft, Non-Tender Neurological: No New Focal Deficit, Normal Speech, Normal Tone, Strength Equal Bilateral, Cranial Nerves Intact Psy/Mental Status: Alert, Normal Affect, Normal Mood. No: Anxious, Depressed, Agitated Sepsis Event Note - Evaluation Sepsis Screening Result: No Definite Risk - Focused Exam Vital Signs: Vital Signs Temp Resp BP BP Pulse Ox 06/05/19 12:00 36.2 C 24 H 138/96 H 94 L 06/05/19 11:00 21 H 143/101 H 91 L 06/05/19 10:00 18 146/102 H 92 L 06/05/19 09:00 15 139/94 H 95 06/05/19 08:46 151/97 H 06/05/19 08:00 37 C 16 184/116 H 95 06/05/19 07:28 22 H 177/111 H 94 L 06/05/19 07:00 16 165/111 H 94 L 06/05/19 06:00 13 150/102 H 98 06/05/19 05:00 14 153/98 H 96 Date Exam was Performed: 06/05/19 Time Exam was Performed: 16:23 - Problem List & Annotations (1) Alcohol withdrawal delirium, acute, hyperactive SNOMED Code(s): 7540727, 03682756 Code(s): F10.231 - ALCOHOL DEPENDENCE WITH WITHDRAWAL DELIRIUM Status: Acute Current Visit: Yes (2) Hypertension SNOMED Code(s): 84701053 Code(s): I10 - ESSENTIAL (PRIMARY) HYPERTENSION Status: Acute Current Visit: No - Problem List Review Problem List Initiated/Reviewed/Updated: Yes - My Orders Last 24 Hours: My Active Orders 06/05/19 13:40 Admission Status [Patient Status] [ADT] Routine Telemetry Monitoring [Cardiac Monitoring] [RC] Q8H 06/05/19 17:00 diazePAM [Valium] 10 mg PO Q8H - Plan Plan:: 1. Acute alcohol withdrawal 2. Acute liver injury 3. Hypertension 4. Hypomagnesemia 5. Hypokalemia 6. PMH DM2,Hypertension P: 1. Clinically improving. Will change with Diazepam 10 mg to PO Q8H for now and CIWA assessment with Ativan PRN. cont enalapril 10 mg PO daily for hypertension. Replace potassium and magnesium. Encourage PO intake. Downgrade to med-surg Possible dc rex Dispo: 1-2 days
[2019-06-05] MEDS: Diazepam 5 MG Tab PO SCH (17:39)
[2019-06-05] MEDS: LORazepam 2 MG/ML SDV IVPUSH PRN (21:26)
[2019-06-06] MEDS: Diazepam 5 MG Tab PO SCH ×2 (01:01→10:47)
[2019-06-06 06:46] LABS: BLOOD UREA NITROGEN,BUN 16 mg/dL (7.0-18.0); CARBON DIOXIDE,CO2 24.2 mmol/L (21.0-32.0); CHLORIDE,CL 104 mmol/L (98-107); GLUCOSE RANDOM 102 mg/dL (74-106); POTASSIUM,K 3.7 mmol/L (3.5-5.1); SODIUM,NA 140 mmol/L (136-148)
--- NOTE | 2019-06-06 09:10 | PCM.DCSUM1 ---
Discharge Summary - Hospital Course Free Text/Narrative:: 48 y/o male with history of alcohol abuse presenting to the ER in alcohol withdrawal. He was admitted for acute alcohol withdrawal needing multiple doses of Ativan and one dose of phenobarbital to control his withdrawal symptoms. He was closely monitored in the ICU where he had a good recovery. His tremulousness was relieved with Ativan PRN and scheduled Diazepam. At time of discharge he was tolerating PO intake. His withdrawal symptoms were under control. He was advised to follow-up with [facility] for alcohol treatment and his PCP. He was highly advised to abstain from alcohol and any mood altering substances. - Discharge Data Discharge Date: 06/06/19 Discharge Disposition: Home, Self-Care 01 Condition: Good - Referral to Home Health Primary Care Physician: PCP None - Patient Instructions Diet: Regular Diet as Tolerated, Drink 8-10+ Glasses/Day, No Alcoholic Beverages Activity: As Tolerated Notify Provider of: Fever, Increased Pain, Swelling and Redness, Nausea and/or Vomiting - Discharge Plan Prescriptions/Med Rec: RX: Folic Acid/Vitamin B Comp W-C [Renal Caps Softgel] 1 cap PO DAILY #30 cap Home Medications: Home Meds RX: Docusate Sodium 300 mg PO DAILY 06/03/19 [History] RX: Enalapril [Vasotec] 10 mg PO DAILY 06/03/19 [History] RX: Metoprolol Succinate 50 mg PO DAILY 06/03/19 [History] RX: Simvastatin 20 mg PO BEDTIME 06/03/19 [History] RX: metFORMIN [Glucophage XR] 1,000 mg PO DAILY 06/03/19 [History] RX: Folic Acid/Vitamin B Comp W-C [Renal Caps Softgel] 1 cap PO DAILY #30 cap [Rx] Patient Handouts: Alcohol Withdrawal Syndrome, Delirium Tremens, Folic Acid, Vitamin B9 tablets Referrals: [facility] [Outside] Anitra Robbins NP [Ordering Only Provider] - 06/10/19 10:15 am - Discharge Summary/Plan Comment DC Time >30 min.: No - Patient Data Vitals - Most Recent: Last Vital Signs Temp 36.3 C 06/06/19 04:56 Pulse 116 H 06/06/19 04:56 Resp 18 06/06/19 04:56 BP 158/96 H 06/06/19 04:56 Pulse Ox 97 06/06/19 04:56 Weight - Most Recent: 120.247 kg I&O - Last 24 hours: Intake & Output 06/05/19 06/06/19 06/06/19 22:59 06:59 14:59 Intake Total 3000 800 Output Total 450 1600 Balance 2550 -800 Lab Results - Last 24 hrs: Laboratory Results - last 24 hr 06/05/19 06/05/19 06/06/19 Range/Units 11:52 17:15 03:03 WBC (4.0-11.0) K/uL RBC (4.50-5.90) M/uL Hgb (13.0-17.0) g/dL Hct (38.0-50.0) % MCV (80.0-98.0) fL MCH (27.0-32.0) pg MCHC (31.0-37.0) g/dL RDW Std Deviation (28.0-62.0) fl RDW Coeff of Pipe (11.0-15.0) % Plt Count (150-400) K/uL MPV (7.40-12.00) fL Neut % (Auto) (48.0-80.0) % Lymph % (Auto) (16.0-40.0) % [place] % (Auto) (0.0-15.0) % Eos % (Auto) (0.0-7.0) % Baso % (Auto) (0.0-1.5) % Neut # (Auto) (1.4-5.7) K/uL Lymph # (Auto) (0.6-2.4) K/uL [place] # (Auto) (0.0-0.8) K/uL Eos # (Auto) (0.0-0.7) K/uL Baso # (Auto) (0.0-0.1) K/uL Nucleated RBC % /100WBC Nucleated RBCs # K/uL Sodium (136-148) mmol/L Potassium (3.5-5.1) mmol/L Chloride (98-107) mmol/L Carbon Dioxide (21.0-32.0) mmol/L BUN (7.0-18.0) mg/dL Creatinine (0.8-1.3) mg/dL Est Cr Clr Drug Dosing mL/min Estimated GFR (MDRD) ml/min Glucose (74-106) mg/dL POC Glucose 181 H 117 H 108 (60-110) mg/dL Calcium (8.5-10.1) mg/dL Total Bilirubin (0.2-1.0) mg/dL AST (15-37) IU/L ALT (14-63) IU/L Alkaline Phosphatase (46-116) U/L Total Protein (6.4-8.2) g/dL Albumin (3.4-5.0) g/dL Globulin (2.6-4.0) g/dL Albumin/Globulin Ratio (0.9-1.6) 06/06/19 06/06/19 06/06/19 Range/Units 05:55 05:55 06:21 WBC 5.00 (4.0-11.0) K/uL RBC 3.74 L (4.50-5.90) M/uL Hgb 13.1 (13.0-17.0) g/dL Hct 37.6 L (38.0-50.0) % MCV 100.5 H (80.0-98.0) fL MCH 35.0 H (27.0-32.0) pg MCHC 34.8 (31.0-37.0) g/dL RDW Std Deviation 46.4 (28.0-62.0) fl RDW Coeff of Pipe 13 (11.0-15.0) % Plt Count 97 L (150-400) K/uL MPV 10.40 (7.40-12.00) fL Neut % (Auto) 46.8 L (48.0-80.0) % Lymph % (Auto) 30.0 (16.0-40.0) % [place] % (Auto) 21.2 H (0.0-15.0) % Eos % (Auto) 1.6 (0.0-7.0) % Baso % (Auto) 0.4 (0.0-1.5) % Neut # (Auto) 2.3 (1.4-5.7) K/uL Lymph # (Auto) 1.5 (0.6-2.4) K/uL [place] # (Auto) 1.1 H (0.0-0.8) K/uL Eos # (Auto) 0.1 (0.0-0.7) K/uL Baso # (Auto) 0.0 (0.0-0.1) K/uL Nucleated RBC % 0.0 /100WBC Nucleated RBCs # 0 K/uL Sodium 140 (136-148) mmol/L Potassium 3.7 (3.5-5.1) mmol/L Chloride 104 (98-107) mmol/L Carbon Dioxide 24.2 (21.0-32.0) mmol/L BUN 16 (7.0-18.0) mg/dL Creatinine 1.0 (0.8-1.3) mg/dL Est Cr Clr Drug Dosing 109.15 mL/min Estimated GFR (MDRD) > 60.0 ml/min Glucose 102 (74-106) mg/dL POC Glucose 100 (60-110) mg/dL Calcium 7.8 L (8.5-10.1) mg/dL Total Bilirubin 1.1 H (0.2-1.0) mg/dL AST 68 H (15-37) IU/L ALT 68 H (14-63) IU/L Alkaline Phosphatase 76 (46-116) U/L Total Protein 6.2 L (6.4-8.2) g/dL Albumin 2.8 L (3.4-5.0) g/dL Globulin 3.4 (2.6-4.0) g/dL Albumin/Globulin Ratio 0.8 L (0.9-1.6) Med Orders - Current: Current Medications Acetaminophen (Tylenol) 650 mg PO Q4H PRN PRN Reason: Pain (Mild 1-3)/fever Diazepam (Valium.) 10 mg PO Q8H [facility] Last Admin: 06/06/19 01:01 Dose: 10 mg Enalapril Maleate (Vasotec) 10 mg PO DAILY [facility] Last Admin: 06/05/19 08:46 Dose: 10 mg Pantoprazole Sodium 40 mg/ (Sodium Chloride) 10 mls @ 300 mls/hr IV DAILY [facility] Last Admin: 06/05/19 08:48 Dose: 300 mls/hr Labetalol HCl (Normodyne) 10 mg IVPUSH Q4H PRN; Protocol PRN Reason: Hypertension Last Admin: 06/05/19 07:23 Dose: 10 mg Lorazepam (Ativan) 0 mg IVPUSH Q4H PRN; Protocol PRN Reason: Withdrawal Symptoms Last Admin: 06/05/19 21:26 Dose: 1 mg Multivit/Ca Carb/B Cmplx/FA/Prenat (Renal Caps Softgel) 1 cap PO DAILY [facility] Last Admin: 06/05/19 08:47 Dose: 1 cap Ondansetron HCl (Zofran Odt) 4 mg PO Q4H PRN PRN Reason: nausea, able to take PO Ondansetron HCl (Zofran) 4 mg IVPUSH Q4H PRN PRN Reason: Pain Discontinued Medications Chlordiazepoxide HCl (Librium) 25 mg PO QID [facility] Last Admin: 06/03/19 19:01 Dose: Not Given Diazepam (Valium) 5 mg IVPUSH ONETIME ONE Stop: 06/03/19 12:48 Last Admin: 06/03/19 12:51 Dose: 5 mg Diazepam (Valium) Confirm Administered Dose 5 mg .ROUTE .STK-MED ONE Stop: 06/03/19 12:52 Last Admin: 06/03/19 13:06 Dose: Not Given Diazepam (Valium) 5 mg IVPUSH ONETIME ONE Stop: 06/03/19 13:18 Last Admin: 06/03/19 13:44 Dose: 5 mg Diazepam (Valium) 10 mg IVPUSH Q8H [facility] Diazepam (Valium) 10 mg IVPUSH Q8H PRN PRN Reason: Anxiety Diazepam (Valium) 10 mg IVPUSH Q8H PRN PRN Reason: Anxiety Last Admin: 06/04/19 08:58 Dose: 10 mg Diazepam (Valium) 10 mg IVPUSH Q8H [facility] Last Admin: 06/05/19 09:02 Dose: 10 mg Fentanyl (Fentanyl) 100 mcg IVPUSH ONETIME ONE Stop: 06/03/19 11:17 Last Admin: 06/03/19 11:26 Dose: 100 mcg Heparin Sodium (Porcine) (Heparin Sodium) 5,000 units SUBCUT Q8H [facility] Last Admin: 06/04/19 05:13 Dose: 5,000 units Sodium Chloride (Normal Saline) 1,000 mls @ 999 mls/hr IV .Bolus ONE Stop: 06/03/19 12:17 Last Admin: 06/03/19 11:26 Dose: 999 mls/hr Potassium Chloride 40 meq/ (Dextrose/Lactated Ringer's) 1,020 mls @ 150 mls/hr IV ASDIRECTED [facility] Last Admin: 06/03/19 21:20 Dose: 150 mls/hr Thiamine HCl 100 mg/ Sodium (Chloride) 101 mls @ 202 mls/hr IV ONETIME ONE Stop: 06/03/19 12:20 Last Admin: 06/03/19 12:47 Dose: 202 mls/hr Sodium Chloride (Normal Saline) 1,000 mls @ 999 mls/hr IV ONETIME ONE Stop: 06/03/19 14:13 Last Admin: 06/03/19 13:23 Dose: 999 mls/hr Phenobarbital 130 mg/ Sodium (Chloride) 101 mls @ 200 mls/hr IV ONETIME ONE Stop: 06/03/19 14:18 Last Admin: 06/03/19 14:47 Dose: Not Given Lactated Ringer's (Ringers, Lactated) 1,000 mls @ 999 mls/hr IV .BOLUS ONE Stop: 06/03/19 15:13 Last Admin: 06/03/19 14:37 Dose: 999 mls/hr Phenobarbital 130 mg/ Sodium (Chloride) 101 mls @ 200 mls/hr IV ONETIME ONE Stop: 06/03/19 15:15 Last Admin: 06/03/19 14:47 Dose: 200 mls/hr Sodium Chloride (Normal Saline) 1,000 mls @ 999 mls/hr IV STAT ONE Stop: 06/03/19 16:19 Last Admin: 06/03/19 15:44 Dose: 999 mls/hr Multivitamins/Minerals 10 ml/Thiamine HCl 100 mg/ Folic Acid 1 mg/ Sodium Chloride 1,011.2 mls @ 200 mls/hr IV ONETIME ONE Stop: 06/04/19 02:03 Last Admin: 06/03/19 20:55 Dose: 200 mls/hr Magnesium Sulfate 4 gm/ Premix 100 mls @ 25 mls/hr IV ONETIME ONE Stop: 06/03/19 22:43 Last Admin: 06/03/19 19:44 Dose: 25 mls/hr Magnesium Sulfate 2 gm/ Premix 50 mls @ 25 mls/hr IV ONETIME ONE Stop: 06/04/19 09:24 Last Admin: 06/04/19 07:48 Dose: 25 mls/hr Iopamidol (Isovue Multipack-370 (76%)) 100 ml IVPUSH ONETIME STA Stop: 06/03/19 11:48 Last Admin: 06/03/19 11:48 Dose: 100 ml Lorazepam (Ativan) 2 mg IVPUSH ONETIME ONE Stop: 06/03/19 11:58 Last Admin: 06/03/19 12:16 Dose: 2 mg Lorazepam (Ativan) 2 mg IVPUSH ONETIME ONE Stop: 06/03/19 12:48 Last Admin: 06/03/19 12:51 Dose: 2 mg Lorazepam (Ativan) 2 mg IVPUSH ONETIME ONE Stop: 06/03/19 13:02 Last Admin: 06/03/19 13:06 Dose: 2 mg Lorazepam (Ativan) Confirm Administered Dose 2 mg .ROUTE .STK-MED ONE Stop: 06/03/19 13:02 Last Admin: 06/03/19 13:06 Dose: Not Given Lorazepam (Ativan) 2 mg IVPUSH ONETIME ONE Stop: 06/03/19 13:20 Last Admin: 06/03/19 13:23 Dose: 2 mg Lorazepam (Ativan) 2 mg IVPUSH ONETIME ONE Stop: 06/03/19 13:20 Last Admin: 06/03/19 13:41 Dose: 2 mg Lorazepam (Ativan) 2 mg IVPUSH ONETIME ONE Stop: 06/03/19 13:37 Last Admin: 06/03/19 14:55 Dose: 2 mg Morphine Sulfate (Morphine) 2 mg IVPUSH Q2H PRN PRN Reason: Pain (severe 7-10) Stop: 06/04/19 13:12 Ondansetron HCl (Zofran) 4 mg IVPUSH Q4H PRN PRN Reason: Nausea Potassium Chloride (Klor-Con M20) 40 meq PO ONETIME ONE Stop: 06/04/19 16:26 Last Admin: 06/04/19 17:48 Dose: 40 meq
[2019-06-06] MEDS: Pantoprazole 40 MG in Sodium Chloride 0.9% 10 ML IV SCH (10:47)
[2019-06-06] MEDS: Folic Acid/Vitamin B Complex With C Cap PO SCH (10:47)
== END 2019-06-06 12:30 | disposition home or self-care (01) | DRG 897 ==
LOC: MW.ED 11:09 → MW.ICU 13:10 → MW.MS 06-05 22:39 → OBSVTOIN 06-05 22:40
PROVIDERS: ADMIT Student in an Organized Health Care Education/Training Program; ATTEND Student in an Organized Health Care Education/Training Program
DX: F10.231 Alcohol dependence with withdrawal delirium (principal); Y90.9 Presence of alcohol in blood, level not specified; N17.9 Acute kidney failure, unspecified; F10.288 Alcohol dependence with other alcohol-induced disorder; E87.6 Hypokalemia; R74.8 Abnormal levels of other serum enzymes; K72.00 Acute and subacute hepatic failure without coma; D75.1 Secondary polycythemia; I10 Essential (primary) hypertension; F41.9 Anxiety disorder, unspecified; R79.89 Other specified abnormal findings of blood chemistry; R10.13 Epigastric pain; R20.0 Anesthesia of skin; E11.9 Type 2 diabetes mellitus without complications; R00.0 Tachycardia, unspecified; E83.42 Hypomagnesemia; K70.10 Alcoholic hepatitis without ascites; Y90.0 Blood alcohol level of less than 20 mg/100 ml; H54.7 Unspecified visual loss
CPT/HCPCS: 36415 ×3; 71045; 71275; 74175; 80053 ×4; 80061; 80305; 80307; 81001; 82330; 82607; 82746; 82962 ×9; 83036; 83605 ×2; 83690; 83735 ×2; 84100; 84484; 85025 ×3; 85610; 93005; A9270 ×6; C9113 ×3; J1644 ×3; J2060 ×8; J2560; J3010; J3360 ×6; J3411 ×2; J3475 ×2; J3480 ×2; J3490; J7030 ×4; J7050 ×5; J7120; J7121 ×2; Q9967

== ENCOUNTER 2019-08-07 17:38 | Inpatient (IN) | payer MEDICAID ==
--- NOTE | 2019-08-07 18:46 | CR ---
Chest: Portable view of the chest was obtained. Comparison: Previous chest x-ray of 12/06/18. Heart size and mediastinum are normal. Mild atelectasis believed to be present above the right hemidiaphragm within the right lung base. Lungs otherwise are clear with no acute parenchymal change. Bony structures are grossly intact. Impression: 1. Mild right basilar atelectasis as noted above. 2. Nothing acute is otherwise appreciated on portable chest x-ray. Diagnostic code #2 This report was dictated in MDT
--- NOTE | 2019-08-07 19:02 | CT ---
Head CT Technique: Multiple axial sections through the brain were obtained. Intravenous contrast was not utilized. Comparison: No prior intracranial imaging is available. Findings: Ventricles along with basal cisterns and sulci over the convexities are mildly prominent. No abnormal parenchymal densities are seen. No evidence of intracranial hemorrhage. No midline shift or mass-effect is seen. Bone window settings were reviewed. No acute calvarial abnormality is appreciated. Mild mucosal thickening is seen within the right inferior maxillary sinus. Minimal mucosal thickening is seen within the left maxillary sinus. No air-fluid levels are seen within the paranasal sinuses. Impression: 1. Sinus findings which are most likely chronic. 2. Mild generalized atrophy. 3. No acute intracranial abnormality is appreciated. Diagnostic code #2 This report was dictated in MDT
[2019-08-07] MEDS ORDERED: MVI, Adult with Vitamin K 10 ML, Thiamine 100 MG, Folic Acid 1 MG in Sodium Chloride 0.... IV ONE ×4 (19:11)
[2019-08-07] MEDS ORDERED: LORazepam 2 MG/ML SDV IVPUSH ONE (19:11)
[2019-08-07] MEDS ORDERED: chlordiazePOXIDE 25 MG Cap PO ONE (19:12)
--- NOTE | 2019-08-07 19:14 | EDM.PDOC ---
ED HPI GENERAL MEDICAL PROBLEM - General Chief Complaint: Neuro Symptoms/Deficits Stated Complaint: EMS ARRIVAL - SEIZURE Time Seen by Provider: 08/07/19 19:05 Source of Information: Reports: Patient History Limitations: Reports: No Limitations - History of Present Illness INITIAL COMMENTS - FREE TEXT/NARRATIVE: Seen initially managed by Dr. Aly orders put in 18:24. This provider on shift at 19:00. Patient states that he has been drinking and stopped for 4 days. Patient states he vomited 1 time and had a seizure. Patient now states that he has shakes and has some abdominal pain. It is now alert and awake. Had CAT scan which is negative and chest x-ray. Patient's labs are pending at this point. Onset: Today Duration: Hour(s):, Resolved Prior to Arrival Location: Reports: Abdomen Quality: Reports: Stabbing Severity: Moderate Worsens with: Reports: None Associated Symptoms: Reports: No Other Symptoms - Related Data Allergies Allergy/AdvReac Type Severity Reaction Status Date / Time No Known Allergies Allergy Verified 08/07/19 17:44 Home Meds: Home Meds Docusate Sodium 300 mg PO DAILY 06/03/19 [History] Enalapril [Vasotec] 10 mg PO DAILY 06/03/19 [History] Metoprolol Succinate 50 mg PO DAILY 06/03/19 [History] Simvastatin 20 mg PO BEDTIME 06/03/19 [History] metFORMIN [Glucophage XR] 1,000 mg PO DAILY 06/03/19 [History] Folic Acid/Vitamin B Comp W-C [Renal Caps Softgel] 1 cap PO DAILY #30 cap [Rx] Past Medical History HEENT History: Reports: Impaired Vision Cardiovascular History: Reports: Hypertension Psychiatric History: Reports: Anxiety Endocrine/Metabolic History: Reports: Diabetes, Type II - Infectious Disease History Infectious Disease History: Reports: Chicken Pox, Measles, Mumps Social & Family History - Family History Family Medical History: Noncontributory - Tobacco Use Smoking Status *Q: Unknown Ever Smoked - Caffeine Use Caffeine Use: Reports: Coffee - Recreational Drug Use Recreational Drug Use: No ED ROS GENERAL - Review of Systems Review Of Systems: See Below Constitutional: Reports: No Symptoms HEENT: Reports: No Symptoms Respiratory: Reports: No Symptoms Cardiovascular: Reports: No Symptoms Endocrine: Reports: Fatigue GI/Abdominal: Reports: Abdominal Pain : Reports: No Symptoms Musculoskeletal: Reports: No Symptoms Skin: Reports: No Symptoms Neurological: Reports: Seizure Psychiatric: Reports: No Symptoms Hematologic/Lymphatic: Reports: No Symptoms Immunologic: Reports: No Symptoms ED EXAM, NEURO - Physical Exam Exam: See Below Exam Limited By: No Limitations General Appearance: Alert, WD/WN, Moderate Distress Eye Exam: Bilateral Eye: PERRL Ears: Normal External Exam, Normal Canal Nose: Normal Inspection, Normal Mucosa Throat/Mouth: Normal Inspection, Normal Lips Head Exam: Atraumatic, Normocephalic Neck: Normal Inspection, Supple, Non-Tender Respiratory/Chest: No Respiratory Distress, Lungs Clear, Normal Breath Sounds, No Accessory Muscle Use, Chest Non-Tender Cardiovascular: Normal Peripheral Pulses, Regular Rate, Rhythm, No Edema, No Gallop, No Murmur, No Rub GI/Abdominal: Normal Bowel Sounds, Soft, No Abnormal Bruit, No Mass, Pelvis Stable, Tender (Epigastric tenderness) (Male) Exam: No Hernia, Normal Inspection Rectal (Males) Exam: Deferred Neurological: Alert, Normal Dorsiflexion, CN II-XII Intact, Normal Gait, Normal Reflexes, No Motor/Sensory Deficits, Oriented x 3, Tremor Back Exam: Normal Inspection, Full Range of Motion Extremities: Normal Inspection, Normal Range of Motion, Non-Tender Psychiatric: Normal Affect, Normal Mood Skin Exam: Warm, Dry, Intact, Normal Color, No Rash EKG INTERPRETATION [place]: Normal P-Wave: Present (Tachycardia rate of 111 no acute changes) QRS: Normal Course - Vital Signs Text/Narrative:: 49-year-old gentleman presents to the emergency room chief complaint of having a seizure after not drinking for 4 days. Patient having tremors at this time. Patient hallucinating a little bit while in the emergency room. Patient given 1 mg of Ativan which she responded to. Patient not having as many tremors at this time. Patient does have a history of DTs in the past. Patient's electrolytes found to have a potassium low at 2.8 and magnesium low 1.4. Patient has been given a banana bag which contains potassium and magnesium. Patient is also been given IV potassium. Course: Patient responded well to Ativan no longer hallucinating. Patient's vitals are stable. Patient's CAT scan of the head was done which is normal. Patient receiving IV fluids with normal vital signs at this time. Patient's alcohol level is less than 3. Because of patient's significant history of DTs. Patient will be monitored and sent to the eye to the stiff care unit with a diagnosis of pending DTs Patient also has hypokalemia and hyponatremia and hypomagnesemia. Was given IV Protonix for his abdominal pain. Last Recorded V/S: Last Vital Signs Temp 97.3 F 08/07/19 17:45 Pulse 107 H 08/07/19 19:35 Resp 16 08/07/19 19:35 BP 129/89 08/07/19 19:35 Pulse Ox 96 08/07/19 19:35 - Orders/Labs/Meds Orders: Active Orders 24 hr Category Date Time Status EKG 12 Lead [EKG Documentation Completion] [RC] STAT Care 08/07/19 19:22 Active EKG Documentation Completion [RC] STAT Care 08/07/19 19:22 Active DRUG SCREEN, URINE [URCHEM] Stat Lab 08/07/19 18:13 Ordered Dextrose 5%-0.9% NaCl with KCl [D5 NS with 20 mEq KCl] Med 08/07/19 20:45 Active 1,000 ml IV ASDIRECTED MVI, Adult with Vitamin K [Infuvite Adult] 10 ml Med 08/07/19 19:11 Active Thiamine [Vitamin B-1] 100 mg Folic Acid 1 mg Sodium Chloride 0.9% [Normal Saline] 1,000 ml IV ONETIME Medication Orders Multivitamins/Minerals 10 ml/Thiamine HCl 100 mg/ Folic Acid 1 mg/ Sodium Chloride 1,011.2 mls @ 150 mls/hr IV ONETIME ONE Stop: 08/08/19 01:55 Last Admin: 08/07/19 19:52 Dose: 150 mls/hr Potassium Chloride/Dextrose/Sod Cl (D5 Ns With 20 Meq Kcl) 1,000 mls @ 125 mls/ hr IV ASDIRECTED [facility] Labs: Laboratory Tests 08/07/19 08/07/19 08/07/19 Range/Units 18:50 18:50 18:50 WBC 7.87 (4.0-11.0) K/uL RBC 4.27 L (4.50-5.90) M/uL Hgb 14.8 (13.0-17.0) g/dL Hct 41.2 (38.0-50.0) % MCV 96.5 (80.0-98.0) fL MCH 34.7 H (27.0-32.0) pg MCHC 35.9 (31.0-37.0) g/dL RDW Std Deviation 45.7 (28.0-62.0) fl RDW Coeff of Pipe 13 (11.0-15.0) % Plt Count 109 L (150-400) K/uL MPV 10.50 (7.40-12.00) fL Neut % (Auto) 75.6 (48.0-80.0) % Lymph % (Auto) 15.0 L (16.0-40.0) % Green % (Auto) 8.8 (0.0-15.0) % Eos % (Auto) 0.3 (0.0-7.0) % Baso % (Auto) 0.3 (0.0-1.5) % Neut # (Auto) 6.0 H (1.4-5.7) K/uL Lymph # (Auto) 1.2 (0.6-2.4) K/uL [place] # (Auto) 0.7 (0.0-0.8) K/uL Eos # (Auto) 0.0 (0.0-0.7) K/uL Baso # (Auto) 0.0 (0.0-0.1) K/uL Nucleated RBC % 0.0 /100WBC Nucleated RBCs # 0 K/uL Sodium 129 L (136-148) mmol/L Potassium 2.8 L (3.5-5.1) mmol/L Chloride 92 L (98-107) mmol/L Carbon Dioxide 26.2 (21.0-32.0) mmol/L BUN 16 (7.0-18.0) mg/dL Creatinine 1.8 H (0.8-1.3) mg/dL Est Cr Clr Drug Dosing 59.98 mL/min Estimated GFR (MDRD) 40.5 ml/min Glucose 185 H (74-106) mg/dL Calcium 8.1 L (8.5-10.1) mg/dL Magnesium 1.4 L (1.8-2.4) mg/dL Total Bilirubin 2.7 H (0.2-1.0) mg/dL AST 93 H (15-37) IU/L ALT 58 (14-63) IU/L Alkaline Phosphatase 93 (46-116) U/L Troponin I < 0.050 (0.000-0.056) ng/mL Total Protein 6.9 (6.4-8.2) g/dL Albumin 3.3 L (3.4-5.0) g/dL Globulin 3.6 (2.6-4.0) g/dL Albumin/Globulin Ratio 0.9 (0.9-1.6) Ethyl Alcohol < 3.0 mg/dL Meds: Medications Generic Name Dose Route Start Last Admin Trade Name Freq PRN Reason Stop Dose Admin Multivitamins/Minerals 10 ml/ 1,011.2 mls @ 150 mls/hr 08/07/19 19:11 19:52 Thiamine HCl 100 mg/ Folic IV 08/08/19 01:55 150 mls/hr Acid 1 mg/ Sodium Chloride ONETIME ONE Administration Potassium Chloride/Dextrose/Sod Cl 1,000 mls @ 125 mls/hr 08/07/19 20:45 D5 Ns With 20 Meq Kcl IV ASDIRECTED JESUS Discontinued Medications Generic Name Dose Route Start Last Admin Trade Name Freq PRN Reason Stop Dose Admin Chlordiazepoxide HCl 50 mg 08/07/19 19:12 Librium PO 08/07/19 19:13 ONETIME ONE Pantoprazole Sodium 40 mg/ 10 mls @ 300 mls/hr 08/07/19 19:21 08/07/19 19:37 Sodium Chloride IV 08/07/19 19:22 300 mls/hr NOW ONE Administration Lorazepam 1 mg 08/07/19 19:11 08/07/19 19:34 Ativan IVPUSH 08/07/19 19:12 1 mg ONETIME ONE Administration Departure - Departure Time of Disposition: 20:46 Disposition: Admitted As Inpatient 67 Condition: Fair Clinical Impression: Alcohol withdrawal delirium, Hypokalemia, Hypomagnesemia - Discharge Information Referrals: Anitra Robbins NP [Primary Care Provider] - Forms: ED Department Discharge Sepsis Event Note - Evaluation Sepsis Screening Result: No Definite Risk - Focused Exam Vital Signs: Vital Signs Temp Pulse Resp BP Pulse Ox 08/07/19 19:35 107 H 16 129/89 96 08/07/19 17:45 97.3 F 134 H 20 134/75 97 Date Exam was Performed: 08/07/19 Time Exam was Performed: 20:41 - My Orders Last 24 Hours: My Active Orders 08/07/19 19:11 MVI, Adult with Vitamin K [Infuvite Adult] 10 ml Thiamine [Vitamin B-1] 100 mg Folic Acid 1 mg Sodium Chloride 0.9% [Normal Saline] 1,000 ml IV ONETIME 08/07/19 19:22 EKG 12 Lead [EKG Documentation Completion] [RC] STAT 08/07/19 20:45 Dextrose 5%-0.9% NaCl with KCl [D5 NS with 20 mEq KCl] 1,000 ml IV ASDIRECTED - Assessment/Plan Last 24 Hours: My Active Orders 08/07/19 19:11 MVI, Adult with Vitamin K [Infuvite Adult] 10 ml Thiamine [Vitamin B-1] 100 mg Folic Acid 1 mg Sodium Chloride 0.9% [Normal Saline] 1,000 ml IV ONETIME 08/07/19 19:22 EKG 12 Lead [EKG Documentation Completion] [RC] STAT 08/07/19 20:45 Dextrose 5%-0.9% NaCl with KCl [D5 NS with 20 mEq KCl] 1,000 ml IV ASDIRECTED
[2019-08-07] MEDS ORDERED: Pantoprazole 40 MG in Sodium Chloride 0.9% 10 ML IV ONE (19:21)
[2019-08-07 19:26] LABS: BLOOD UREA NITROGEN,BUN 16 mg/dL (7.0-18.0); CARBON DIOXIDE,CO2 26.2 mmol/L (21.0-32.0); CHLORIDE,CL 92 mmol/L (98-107); GLUCOSE RANDOM 185 mg/dL (74-106); POTASSIUM,K 2.8 mmol/L (3.5-5.1); SODIUM,NA 129 mmol/L (136-148)
[2019-08-07] MEDS ORDERED: Dextrose 5%-0.9% NaCl with KCl 1,000 ML IV SCH (20:45)
[2019-08-07] MEDS ORDERED: LORazepam 2 MG/ML SDV IVPUSH PRN (22:15)
[2019-08-07] MEDS ORDERED: Potassium Chloride 20 MEQ Tab.ER PO ONE (22:24)
[2019-08-07] MEDS ORDERED: Magnesium Sulfate/Water 2 GM in Premix Bag 1 BAG IV ONE (22:25)
--- NOTE | 2019-08-07 22:28 | PN ---
THC Physician - Brief Progress [id number]/26/2020 22:04 Fransico [place]in, [place] - ALCIDESN (LORI) - JOSHUA GARCÍADate of Service 08/07/2019 22:04H PI/Events of Note eICU Admission Note49 yo M presenting after etoh withdrawal seizureLast drink 4 day sago now tremulous with some hallucinations in ERAdmitted to ICU for further monitoringOn CameraAwake and alertNADLabs reviewedLow potassiumAKIeICU Recommendations:HydrationElectrolyte repletionCiwaGI a nd DVT prophThank you for allowing us to particpate in the care of your patient.Interventions Major-D elirium, psychosis, severe agitation - evaluation and management, Seizures - evaluation and managemen tIntermediate-Communication with other healthcare providers and/or family
--- NOTE | 2019-08-07 22:33 | PCM.HP.2 ---
H&P History of Present Illness - General Date of Service: 08/07/19 Admit Problem/Dx: Admission Diagnosis/Problem Admission Diagnosis/Problem Alcohol withdrawal delirium - History of Present Illness Initial Comments - Free Text/Narative: 49 yo male with pmh of DM, HTN and alcoholism who presented to the ED after having a seizure at home. Patient was admitted two months ago for alcohol detox. He stated he was doing well until he he stopped working due to the pandemic. He has been drinking 12 beers a day. He stopped drinking three day sago. He started to develop shakes today. He denies any fevers or shortness of breath. - Related Data Allergies/Adverse Reactions: Allergies Allergy/AdvReac Type Severity Reaction Status Date / Time No Known Allergies Allergy Verified 08/07/19 17:44 Home Medications: Home Meds Docusate Sodium 300 mg PO DAILY 06/03/19 [History] Enalapril [Vasotec] 10 mg PO DAILY 06/03/19 [History] Metoprolol Succinate 50 mg PO DAILY 06/03/19 [History] Simvastatin 20 mg PO BEDTIME 06/03/19 [History] metFORMIN [Glucophage XR] 1,000 mg PO DAILY 06/03/19 [History] Folic Acid/Vitamin B Comp W-C [Renal Caps Softgel] 1 cap PO DAILY #30 cap [Rx] Past Medical History HEENT History: Reports: Impaired Vision, Other (See Below) Other HEENT History: glasses for reading Cardiovascular History: Reports: High Cholesterol, Hypertension Respiratory History: Reports: None Gastrointestinal History: Reports: GERD Psychiatric History: Reports: Anxiety, Depression Endocrine/Metabolic History: Reports: Diabetes, Type II - Infectious Disease History Infectious Disease History: Reports: Chicken Pox, Measles, Mumps - Past Surgical History GI Surgical History: Reports: None Musculoskeletal Surgical History: Reports: Other (See Below) Other Musculoskeletal Surgeries/Procedures:: left knee pain- every year had an injection to control the pain Social & Family History - Family History Family Medical History: Noncontributory - Tobacco Use Smoking Status *Q: Former Smoker Used Tobacco, but Quit: Yes Month/Year Tobacco Last Used: 20 yrs ago Second Hand Smoke Exposure: Yes - Caffeine Use Caffeine Use: Reports: Coffee, Soda Other Caffeine Use: coffee for morning. soda for lunch - Alcohol Use Days Per Week of Alcohol Use: 7 Number of Drinks Per Day: 12 Total Drinks Per Week: 84 Date of Last Drink: 08/04/19 - Recreational Drug Use Recreational Drug Use: No H&P Review of Systems - Review of Systems: Review Of Systems: Comprehensive ROS is negative, except as noted in HPI. Exam - Exam Exam: See Below - Vital Signs Vital Signs: Last Vital Signs Temp 36.3 C 08/07/19 17:45 Pulse 107 H 08/07/19 21:21 Resp 18 08/07/19 21:21 BP 149/80 H 08/07/19 21:21 Pulse Ox 98 08/07/19 21:21 Weight: 113.171 kg - Exam General: Alert, Oriented HEENT: Mucosa Moist & [place] Neck: Supple Lungs: Clear to Auscultation, Normal Respiratory Effort Cardiovascular: Regular Rate, Regular Rhythm GI/Abdominal Exam: Normal Bowel Sounds, Soft, Non-Tender Extremities: Non-Tender, No Pedal Edema Skin: Warm, Dry, Intact - Patient Data Lab Results Last 24 hrs: Laboratory Results - last 24 hr 08/07/19 08/07/19 08/07/19 Range/Units 18:50 18:50 18:50 WBC 7.87 (4.0-11.0) K/uL RBC 4.27 L (4.50-5.90) M/uL Hgb 14.8 (13.0-17.0) g/dL Hct 41.2 (38.0-50.0) % MCV 96.5 (80.0-98.0) fL MCH 34.7 H (27.0-32.0) pg MCHC 35.9 (31.0-37.0) g/dL RDW Std Deviation 45.7 (28.0-62.0) fl RDW Coeff of Pipe 13 (11.0-15.0) % Plt Count 109 L (150-400) K/uL MPV 10.50 (7.40-12.00) fL Neut % (Auto) 75.6 (48.0-80.0) % Lymph % (Auto) 15.0 L (16.0-40.0) % [place] % (Auto) 8.8 (0.0-15.0) % Eos % (Auto) 0.3 (0.0-7.0) % Baso % (Auto) 0.3 (0.0-1.5) % Neut # (Auto) 6.0 H (1.4-5.7) K/uL Lymph # (Auto) 1.2 (0.6-2.4) K/uL [place] # (Auto) 0.7 (0.0-0.8) K/uL Eos # (Auto) 0.0 (0.0-0.7) K/uL Baso # (Auto) 0.0 (0.0-0.1) K/uL Nucleated RBC % 0.0 /100WBC Nucleated RBCs # 0 K/uL Sodium 129 L (136-148) mmol/L Potassium 2.8 L (3.5-5.1) mmol/L Chloride 92 L (98-107) mmol/L Carbon Dioxide 26.2 (21.0-32.0) mmol/L BUN 16 (7.0-18.0) mg/dL Creatinine 1.8 H (0.8-1.3) mg/dL Est Cr Clr Drug Dosing 59.98 mL/min Estimated GFR (MDRD) 40.5 ml/min Glucose 185 H (74-106) mg/dL Calcium 8.1 L (8.5-10.1) mg/dL Magnesium 1.4 L (1.8-2.4) mg/dL Total Bilirubin 2.7 H (0.2-1.0) mg/dL AST 93 H (15-37) IU/L ALT 58 (14-63) IU/L Alkaline Phosphatase 93 (46-116) U/L Troponin I < 0.050 (0.000-0.056) ng/mL Total Protein 6.9 (6.4-8.2) g/dL Albumin 3.3 L (3.4-5.0) g/dL Globulin 3.6 (2.6-4.0) g/dL Albumin/Globulin Ratio 0.9 (0.9-1.6) Ethyl Alcohol < 3.0 mg/dL Result Diagrams: 08/08/19 05:55 08/08/19 05:55 Sepsis Event Note - Evaluation Sepsis Screening Result: No Definite Risk - Focused Exam Vital Signs: Vital Signs Temp Pulse Resp BP Pulse Ox 08/07/19 21:21 107 H 18 149/80 H 98 08/07/19 19:35 107 H 16 129/89 96 04/26/20 17:45 36.3 C 134 H 20 134/75 97 Date Exam was Performed: 08/08/19 Time Exam was Performed: 09:19 Problem List Initiated/Reviewed/Updated: Yes Orders Last 24hrs: Active Orders 24 hr Category Date Time Status Admission Status [Patient Status] [ADT] Stat ADT 08/07/19 20:48 Active Antiembolic Devices [RC] PER UNIT ROUTINE Care 08/07/19 22:28 Ordered Blood Glucose Check, Bedside [RC] TIDMEALS Care 08/07/19 22:26 Ordered Oxygen Therapy [RC] PRN Care 08/07/19 22:27 Ordered Up ad [place] [RC] ASDIRECTED Care 08/07/19 22:26 Ordered VTE/DVT Education [RC] PER UNIT ROUTINE Care 08/07/19 22:27 Ordered Vital Signs [RC] Q4H Care 08/07/19 22:27 Ordered Citizen Of [place] Diabetic [employer] Diet [DIET] Diet 08/07/19 Breakfast Ordered CBC WITH AUTO DIFF [HEME] AM Lab 08/08/19 05:11 Ordered COMPREHENSIVE METABOLIC PN,CMP [CHEM] AM Lab 08/08/19 05:11 Ordered DRUG SCREEN, URINE [URCHEM] Stat Lab 08/07/19 18:13 Ordered MAGNESIUM [CHEM] AM Lab 08/08/19 05:11 Ordered PHOSPHORUS [CHEM] AM Lab 08/08/19 05:11 Ordered Folic Acid Med 08/08/19 21:00 Ordered 1 mg PO BEDTIME Insulin Aspart [NovoLOG] Med 08/08/19 07:30 Ordered See Protocol SUBCUT TIDAC LORazepam [Ativan] Med 08/07/19 22:18 Active 1 - 2 mg PO Q4H PRN LORazepam [Ativan] Med 08/07/19 22:15 Ordered See Protocol IVPUSH Q4H PRN MVI, Adult with Vitamin K [Infuvite Adult] 10 ml Med 08/07/19 19:11 Active Thiamine [Vitamin B-1] 100 mg Folic Acid 1 mg Sodium Chloride 0.9% [Normal Saline] 1,000 ml IV ONETIME Magnesium Sulfate/Water [Magnesium Sulfate in Water Med 08/07/19 22:25 Ordered Premix] 2 gm Premix Bag 1 bag IV ONETIME Sodium Chloride 0.9% @ 125 MLS/HR (1000ml) Med 08/07/19 22:30 Ordered Sodium Chloride 0.9% [Normal Saline] 1,000 ml IV ASDIRECTED Thiamine [Vitamin B-1] Med 08/08/19 21:00 Ordered 100 mg PO BEDTIME Sequential Compression Device [OM.PC] Per Unit Routine Oth 08/07/19 22:27 Ordered Resuscitation Status Routine Resus Stat 08/07/19 22:26 Ordered Medication Orders Folic Acid (Folic Acid) 1 mg PO BEDTIME JESUS Multivitamins/Minerals 10 ml/Thiamine HCl 100 mg/ Folic Acid 1 mg/ Sodium Chloride 1,011.2 mls @ 150 mls/hr IV ONETIME ONE Stop: 08/08/19 01:55 Last Admin: 08/07/19 19:52 Dose: 150 mls/hr Magnesium Sulfate 2 gm/ Premix 50 mls @ 50 mls/hr IV ONETIME ONE Stop: 08/07/19 23:24 Sodium Chloride (Normal Saline) 1,000 mls @ 125 mls/hr IV ASDIRECTED JESUS Insulin Aspart (Novolog) 0 unit SUBCUT TIDAC JESUS; Protocol Lorazepam (Ativan) 0 mg IVPUSH Q4H PRN; Protocol PRN Reason: CIWAA Lorazepam (Ativan) 1 - 2 mg PO Q4H PRN; Protocol PRN Reason: CIWAA Thiamine HCl (Vitamin B-1) 100 mg PO BEDTIME JESUS Assessment/Plan Comment:: 49 yo male admitted for alcohol withdrawal. Patient also has an acute kidney injury likely from dehydration. We will hydrate with IV fluids and monitor on CIWAA protocol. Patient is to receive thiamin and folic acid.
[2019-08-07 22:56] LABS: LIPASE 193 U/L (73-393)
[2019-08-08] MEDS: Sodium Chloride 0.9% 1,000 ML IV SCH ×2 (02:34→16:14)
[2019-08-08 06:35] LABS: CARBON DIOXIDE,CO2 28.6 mmol/L (21.0-32.0)
[2019-08-08] MEDS: Insulin Aspart 100 Units/ML 3 ML Pen SUBCUT SCH ×3 (07:15→17:26)
[2019-08-08] MEDS ORDERED: Sodium Chloride 0.9% with KCl 1,000 ML IV ONE (07:56)
[2019-08-08] MEDS ORDERED: Potassium Chloride 20 MEQ Tab.ER PO ONE (07:56)
--- NOTE | 2019-08-08 08:16 | PN ---
THC Physician - Brief Progress [id number]/27/2020 08:09[facility] Fransico Luke, [place] - SHAYNA (LORI) - JOSHUA GARCÍADate of Service 08/08/2019 08:09H PI/Events of Note eICU progress [id number] male with past history of DM 2, HTN and EtOH abuse wh o presented to the hospital with alcohol withdrawal seizures. Patient mentions that he has been havi ng excessive drinking up to 12 beers daily since the pandemic began and quit 3 days prior to admissio n ending up with seizure. No acute events noted in EMR overnight but patient continues to be tachyca rdic up to 120s at rest.Patient sitting up at the side of his bed, no acute distress, comfortable and conversing with bedside team.Vital signs reviewed. HR 118,Labs/EMR reviewedEtoh abuse-Agree with CI WA protocol with PRN ativan -If patient has high requirement of Benzo's can consider adding on Preced ex to help decrease requirement.-Agree with Thiamine and folate-Recommend aggressive replacement of M g and K to prevent any arrhythmias. Withdrawal seizure- Continue with Ativan PRN- Agree with holding off on Anti epileptic medications as seizure likely related to withdrawalAKI-Likely pre-renal as impr oving with IVF hydration. -Strict I/O and avoid nephrotoxins. Continued daily monitoring.Intervention s Major-Acute renal failure - evaluation and management, Other: etoh abuse
[2019-08-08] MEDS: Phosphorus #1 250 MG Tab PO SCH ×4 (08:39→23:00)
--- NOTE | 2019-08-08 09:19 | PCM.PN ---
- General Info Date of Service: 08/08/19 - Review of Systems Systems Review Comment:: feeling better, abdominal pain has resolved - Patient Data Vitals - Most Recent: Last Vital Signs Temp 36.4 C 08/08/19 07:00 Pulse 107 H 08/07/19 21:21 Resp 19 08/08/19 09:00 BP 131/93 H 08/08/19 09:00 Pulse Ox 95 08/08/19 09:00 Weight - Most Recent: 114.804 kg I&O - Last 24 Hours: Intake & Output 08/07/19 08/08/19 08/08/19 22:59 06:59 14:59 Intake Total 1412 930 Output Total 375 Balance 1037 930 Lab Results Last 24 Hours: Laboratory Results - last 24 hr 08/07/19 08/07/19 08/07/19 Range/Units 18:50 18:50 18:50 WBC 7.87 (4.0-11.0) K/uL RBC 4.27 L (4.50-5.90) M/uL Hgb 14.8 (13.0-17.0) g/dL Hct 41.2 (38.0-50.0) % MCV 96.5 (80.0-98.0) fL MCH 34.7 H (27.0-32.0) pg MCHC 35.9 (31.0-37.0) g/dL RDW Std Deviation 45.7 (28.0-62.0) fl RDW Coeff of Pipe 13 (11.0-15.0) % Plt Count 109 L (150-400) K/uL MPV 10.50 (7.40-12.00) fL Neut % (Auto) 75.6 (48.0-80.0) % Lymph % (Auto) 15.0 L (16.0-40.0) % [place] % (Auto) 8.8 (0.0-15.0) % Eos % (Auto) 0.3 (0.0-7.0) % Baso % (Auto) 0.3 (0.0-1.5) % Neut # (Auto) 6.0 H (1.4-5.7) K/uL Lymph # (Auto) 1.2 (0.6-2.4) K/uL [place] # (Auto) 0.7 (0.0-0.8) K/uL Eos # (Auto) 0.0 (0.0-0.7) K/uL Baso # (Auto) 0.0 (0.0-0.1) K/uL Nucleated RBC % 0.0 /100WBC Nucleated RBCs # 0 K/uL Sodium 129 L (136-148) mmol/L Potassium 2.8 L (3.5-5.1) mmol/L Chloride 92 L (98-107) mmol/L Carbon Dioxide 26.2 (21.0-32.0) mmol/L BUN 16 (7.0-18.0) mg/dL Creatinine 1.8 H (0.8-1.3) mg/dL Est Cr Clr Drug Dosing 59.98 mL/min Estimated GFR (MDRD) 40.5 ml/min Glucose 185 H (74-106) mg/dL Calcium 8.1 L (8.5-10.1) mg/dL Phosphorus (2.6-4.7) mg/dL Magnesium 1.4 L (1.8-2.4) mg/dL Total Bilirubin 2.7 H (0.2-1.0) mg/dL AST 93 H (15-37) IU/L ALT 58 (14-63) IU/L Alkaline Phosphatase 93 (46-116) U/L Troponin I < 0.050 (0.000-0.056) ng/mL Total Protein 6.9 (6.4-8.2) g/dL Albumin 3.3 L (3.4-5.0) g/dL Globulin 3.6 (2.6-4.0) g/dL Albumin/Globulin Ratio 0.9 (0.9-1.6) Amylase (25-115) U/L Lipase (73-393) U/L Urine Opiates Screen (NEGATIVE) Ur Oxycodone Screen (NEGATIVE) Urine Methadone Screen (NEGATIVE) Ur Barbiturates Screen (NEGATIVE) Ur Phencyclidine Scrn (NEGATIVE) Ur Amphetamine Screen (NEGATIVE) U Methamphetamines Scrn (NEGATIVE) U Benzodiazepines Scrn (NEGATIVE) U Cocaine Metab Screen (NEGATIVE) U Marijuana (THC) Screen (NEGATIVE) Ethyl Alcohol < 3.0 mg/dL 08/07/19 08/08/19 08/08/19 Range/Units 18:50 03:48 05:55 WBC 7.18 (4.0-11.0) K/uL RBC 4.08 L (4.50-5.90) M/uL Hgb 13.8 (13.0-17.0) g/dL Hct 39.9 (38.0-50.0) % MCV 97.8 (80.0-98.0) fL MCH 33.8 H (27.0-32.0) pg MCHC 34.6 (31.0-37.0) g/dL RDW Std Deviation 48.3 (28.0-62.0) fl RDW Coeff of Pipe 13 (11.0-15.0) % Plt Count 118 L (150-400) K/uL MPV 10.80 (7.40-12.00) fL Neut % (Auto) 64.7 (48.0-80.0) % Lymph % (Auto) 23.7 (16.0-40.0) % [place] % (Auto) 10.2 (0.0-15.0) % Eos % (Auto) 1.3 (0.0-7.0) % Baso % (Auto) 0.1 (0.0-1.5) % Neut # (Auto) 4.7 (1.4-5.7) K/uL Lymph # (Auto) 1.7 (0.6-2.4) K/uL [place] # (Auto) 0.7 (0.0-0.8) K/uL Eos # (Auto) 0.1 (0.0-0.7) K/uL Baso # (Auto) 0.0 (0.0-0.1) K/uL Nucleated RBC % 0.0 /100WBC Nucleated RBCs # 0 K/uL Sodium (136-148) mmol/L Potassium (3.5-5.1) mmol/L Chloride (98-107) mmol/L Carbon Dioxide (21.0-32.0) mmol/L BUN (7.0-18.0) mg/dL Creatinine (0.8-1.3) mg/dL Est Cr Clr Drug Dosing mL/min Estimated GFR (MDRD) ml/min Glucose (74-106) mg/dL Calcium (8.5-10.1) mg/dL Phosphorus (2.6-4.7) mg/dL Magnesium (1.8-2.4) mg/dL Total Bilirubin (0.2-1.0) mg/dL AST (15-37) IU/L ALT (14-63) IU/L Alkaline Phosphatase (46-116) U/L Troponin I (0.000-0.056) ng/mL Total Protein (6.4-8.2) g/dL Albumin (3.4-5.0) g/dL Globulin (2.6-4.0) g/dL Albumin/Globulin Ratio (0.9-1.6) Amylase 44 (25-115) U/L Lipase 193 (73-393) U/L Urine Opiates Screen NEGATIVE (NEGATIVE) Ur Oxycodone Screen NEGATIVE (NEGATIVE) Urine Methadone Screen NEGATIVE (NEGATIVE) Ur Barbiturates Screen NEGATIVE (NEGATIVE) Ur Phencyclidine Scrn NEGATIVE (NEGATIVE) Ur Amphetamine Screen NEGATIVE (NEGATIVE) U Methamphetamines Scrn NEGATIVE (NEGATIVE) U Benzodiazepines Scrn POSITIVE (NEGATIVE) U Cocaine Metab Screen NEGATIVE (NEGATIVE) U Marijuana (THC) Screen NEGATIVE (NEGATIVE) Ethyl Alcohol mg/dL 08/08/19 Range/Units 05:55 WBC (4.0-11.0) K/uL RBC (4.50-5.90) M/uL Hgb (13.0-17.0) g/dL Hct (38.0-50.0) % MCV (80.0-98.0) fL MCH (27.0-32.0) pg MCHC (31.0-37.0) g/dL RDW Std Deviation (28.0-62.0) fl RDW Coeff of Pipe (11.0-15.0) % Plt Count (150-400) K/uL MPV (7.40-12.00) fL Neut % (Auto) (48.0-80.0) % Lymph % (Auto) (16.0-40.0) % [place] % (Auto) (0.0-15.0) % Eos % (Auto) (0.0-7.0) % Baso % (Auto) (0.0-1.5) % Neut # (Auto) (1.4-5.7) K/uL Lymph # (Auto) (0.6-2.4) K/uL [place] # (Auto) (0.0-0.8) K/uL Eos # (Auto) (0.0-0.7) K/uL Baso # (Auto) (0.0-0.1) K/uL Nucleated RBC % /100WBC Nucleated RBCs # K/uL Sodium 132 L (136-148) mmol/L Potassium 3.0 L (3.5-5.1) mmol/L Chloride 96 L (98-107) mmol/L Carbon Dioxide 28.6 (21.0-32.0) mmol/L BUN 15 (7.0-18.0) mg/dL Creatinine 1.4 H (0.8-1.3) mg/dL Est Cr Clr Drug Dosing 75.02 mL/min Estimated GFR (MDRD) 54.1 ml/min Glucose 148 H (74-106) mg/dL Calcium 7.4 L (8.5-10.1) mg/dL Phosphorus 2.1 L (2.6-4.7) mg/dL Magnesium 1.8 (1.8-2.4) mg/dL Total Bilirubin 3.1 H (0.2-1.0) mg/dL AST 80 H (15-37) IU/L ALT 53 (14-63) IU/L Alkaline Phosphatase 86 (46-116) U/L Troponin I (0.000-0.056) ng/mL Total Protein 6.4 (6.4-8.2) g/dL Albumin 3.0 L (3.4-5.0) g/dL Globulin 3.4 (2.6-4.0) g/dL Albumin/Globulin Ratio 0.9 (0.9-1.6) Amylase (25-115) U/L Lipase (73-393) U/L Urine Opiates Screen (NEGATIVE) Ur Oxycodone Screen (NEGATIVE) Urine Methadone Screen (NEGATIVE) Ur Barbiturates Screen (NEGATIVE) Ur Phencyclidine Scrn (NEGATIVE) Ur Amphetamine Screen (NEGATIVE) U Methamphetamines Scrn (NEGATIVE) U Benzodiazepines Scrn (NEGATIVE) U Cocaine Metab Screen (NEGATIVE) U Marijuana (THC) Screen (NEGATIVE) Ethyl Alcohol mg/dL Med Orders - Current: Current Medications Folic Acid (Folic Acid) 1 mg PO BEDTIME JESUS Sodium Chloride (Normal Saline) 1,000 mls @ 125 mls/hr IV ASDIRECTED [facility] Last Admin: 08/08/19 02:34 Dose: 125 mls/hr Potassium Chloride/Sodium Chloride (Normal Saline With 40 Meq Kcl) 1,000 mls @ 125 mls/hr IV ONETIME ONE Stop: 08/08/19 15:55 Last Admin: 08/08/19 08:37 Dose: 125 mls/hr Insulin Aspart (Novolog) 0 unit SUBCUT TIDAC [facility]; Protocol Last Admin: 08/08/19 07:15 Dose: Not Given Lorazepam (Ativan) 0 mg IVPUSH Q4H PRN; Protocol PRN Reason: CIWAA Last Admin: 08/08/19 08:41 Dose: 1 mg Lorazepam (Ativan) 1 - 2 mg PO Q4H PRN; Protocol PRN Reason: CIWAA Sodium Phosphate (Neutra-Phos) 250 mg PO QID [facility] Last Admin: 08/08/19 08:39 Dose: 250 mg Thiamine HCl (Vitamin B-1) 100 mg PO BEDTIME [facility] Discontinued Medications Chlordiazepoxide HCl (Librium) 50 mg PO ONETIME ONE Stop: 08/07/19 19:13 Last Admin: 08/07/19 20:56 Dose: Not Given Multivitamins/Minerals 10 ml/Thiamine HCl 100 mg/ Folic Acid 1 mg/ Sodium Chloride 1,011.2 mls @ 150 mls/hr IV ONETIME ONE Stop: 08/08/19 01:55 Last Admin: 08/07/19 19:52 Dose: 150 mls/hr Pantoprazole Sodium 40 mg/ (Sodium Chloride) 10 mls @ 300 mls/hr IV NOW ONE Stop: 08/07/19 19:22 Last Admin: 08/07/19 19:37 Dose: 300 mls/hr Potassium Chloride/Dextrose/Sod Cl (D5 Ns With 20 Meq Kcl) 1,000 mls @ 125 mls/ hr IV ASDIRECTED [facility] Last Admin: 08/07/19 22:19 Dose: 125 mls/hr Magnesium Sulfate 2 gm/ Premix 50 mls @ 50 mls/hr IV ONETIME ONE Stop: 08/07/19 23:24 Last Admin: 08/07/19 22:37 Dose: 50 mls/hr Lorazepam (Ativan) 1 mg IVPUSH ONETIME ONE Stop: 08/07/19 19:12 Last Admin: 08/07/19 19:34 Dose: 1 mg Potassium Chloride (Klor-Con M20) 40 meq PO ONETIME ONE Stop: 08/07/19 22:25 Last Admin: 08/07/19 22:37 Dose: 40 meq Potassium Chloride (Klor-Con M20) 40 meq PO ONETIME ONE Stop: 08/08/19 07:57 Last Admin: 08/08/19 08:40 Dose: 40 meq - Exam General: Alert, Oriented Neck: Supple Lungs: Clear to Auscultation, Normal Respiratory Effort Cardiovascular: Regular Rate, Regular Rhythm GI/Abdominal Exam: Normal Bowel Sounds, Soft, Non-Tender, No Distention Extremities: Non-Tender, No Pedal Edema Skin: Warm, Dry, Intact Sepsis Event Note - Evaluation Sepsis Screening Result: No Definite Risk - Focused Exam Vital Signs: Vital Signs Temp Pulse Resp BP Pulse Ox 08/08/19 09:00 19 131/93 H 95 08/08/19 08:00 18 138/98 H 97 08/08/19 07:00 36.4 C 15 140/104 H 95 08/08/19 06:00 17 135/93 H 96 08/08/19 05:00 20 126/87 96 08/08/19 04:00 36.6 C 18 148/100 H 95 08/08/19 03:00 18 139/96 H 98 08/08/19 02:00 14 177/101 H 97 08/08/19 01:00 15 153/106 H 97 08/08/19 00:00 36.6 C 14 166/99 H 96 08/07/19 23:00 16 148/102 H 98 08/07/19 22:00 20 133/96 H 95 08/07/19 21:48 36.8 C 15 145/97 H 98 08/07/19 21:21 107 H 18 149/80 H 98 Date Exam was Performed: 08/08/19 Time Exam was Performed: 09:16 - Problem List Review Problem List Initiated/Reviewed/Updated: Yes - My Orders Last 24 Hours: My Active Orders 08/07/19 22:15 LORazepam [Ativan] See Protocol IVPUSH Q4H PRN 08/07/19 22:18 LORazepam [Ativan] 1 - 2 mg PO Q4H PRN 08/07/19 22:26 Blood Glucose Check, Bedside [RC] TIDMEALS Up ad [place]ella [RC] ASDIRECTED Resuscitation Status Routine 08/07/19 22:27 Oxygen Therapy [RC] PRN VTE/DVT Education [RC] PER UNIT ROUTINE Vital Signs [RC] Q1H Sequential Compression Device [OM.PC] Per Unit Routine 08/07/19 22:28 Antiembolic Devices [RC] Q12H 08/07/19 22:30 Sodium Chloride 0.9% [Normal Saline] 1,000 ml IV ASDIRECTED 08/08/19 07:30 Insulin Aspart [NovoLOG] See Protocol SUBCUT TIDAC 08/08/19 21:00 Folic Acid 1 mg PO BEDTIME Thiamine [Vitamin B-1] 100 mg PO BEDTIME - Plan Plan:: 49 yo male admitted for alcohol withdrawal. ETOH withdrawal. Continue CIWAA protocol, receiving Ativan this morning. continue thiamin and folic acid Hypomagnesia/Hypokalemia: replacing GILLES: improving with fluids
[2019-08-08] MEDS: LORazepam 1 MG Tab PO PRN ×2 (16:10→22:56)
[2019-08-08] MEDS ORDERED: Thiamine 100 MG Tab PO SCH (21:00)
[2019-08-08] MEDS ORDERED: Folic Acid 1 MG Tab PO SCH (21:00)
[2019-08-09] MEDS: Sodium Chloride 0.9% 1,000 ML IV SCH (00:47)
[2019-08-09 04:33] LABS: BLOOD UREA NITROGEN,BUN 13 mg/dL (7.0-18.0); CARBON DIOXIDE,CO2 28.3 mmol/L (21.0-32.0); CHLORIDE,CL 102 mmol/L (98-107); GLUCOSE RANDOM 86 mg/dL (74-106); POTASSIUM,K 3.1 mmol/L (3.5-5.1); SODIUM,NA 137 mmol/L (136-148)
[2019-08-09] MEDS ORDERED: Potassium Chloride Riders 40 MEQ in Premix Bag 1 BAG IV ONE (06:11)
[2019-08-09] MEDS ORDERED: Magnesium Sulfate/Water 2 GM in Premix Bag 1 BAG IV ONE ×4 (06:12→12:00)
--- NOTE | 2019-08-09 06:18 | PN ---
THC Physician - Brief Progress [id number]/28/2020 06:14[facility] [place] - SHAYNA (LORI) - JOSHUA GARCÍADate of Service 08/09/2019 06:14H PI/Events of Note eICU Event NoteMag and potassium repletion orderedThank you for allowing us to part icipate in the care of your patient.Interventions Intermediate-Electrolyte abnormality - evaluation a nd management
[2019-08-09] MEDS: Phosphorus #1 250 MG Tab PO SCH (06:19)
[2019-08-09] MEDS: Insulin Aspart 100 Units/ML 3 ML Pen SUBCUT SCH (07:29)
[2019-08-09] MEDS ORDERED: Potassium Chloride 20 MEQ Tab.ER PO ONE (07:54)
[2019-08-09] MEDS: LORazepam 1 MG Tab PO PRN (08:52)
--- NOTE | 2019-08-09 10:00 | PN ---
THC Physician - Brief Progress [id number]/28/2020 09:40[facility] [place], [place] - ALCIDESN (LORI) - JOSHUA GARCÍADate of Service 08/09/2019 09:40H PI/Events of Note eICU progress [id number] male with past history of DM 2, HTN and EtOH abuse wh o presented to the hospital with alcohol withdrawal seizures. Patient mentions that he has been havin g excessive drinking up to 12 beers daily since the pandemic began and quit 3 days prior to admission ending up with seizure. Overnight patient was noted to be in A. fib with RVR with heart rate in the 150s before converting back to sinus rhythm. Patient was asymptomatic during this time and lab work -up done overnight did reveal significant hypokalemia and hypomagnesemia which was replaced.Patient s itting in chair next to bed, no acute distress,Vital signs reviewed Labs/EMR reviewedEtoh abuse-Agree with CIWA protocol with PRN ativan-If patient has high requirement of Benzo's can consider adding on Precedex to help decrease requirement.-Agree with Thiamine and folateAfib w/ RVR-Paroxysmal likely r elated to significant hypokalemia/hypomagnesemia -Agree with aggressive replacement of lytes. Will or luis repeat for noon and replace as needed. Withdrawal seizure- Continue with Ativan PRN- Agree with h olding off on Anti epileptic medications as seizure likely related to withdrawalInterventions Major-A rrhythmia - evaluation and management, Electrolyte abnormality - evaluation and managementElectronica [facility] Signed by: VIPUL GREY) on 08/09/2019 10:00
--- NOTE | 2019-08-09 11:16 | PCM.DCSUM1 ---
Discharge Summary - Discharge Data Discharge Date: 08/09/19 Discharge Disposition: Against Medical Advice 07 Condition: Fair - Referral to Home Health Primary Care Physician: Anitra Robbins NP - Patient Summary/Data Hospital Course: 49 yo male with past medical history of DM, HTN and alcoholism who was admitted for alcohol withdrawal with seizure and acute kidney injury from dehydration.. Patient was admitted two months ago for alcohol detox. He started drinking a month ago due to loss of job. He stopped drinking three days prior to admission. He presented to the ED after having a seizure at home. He had been having tremors before the seizure. Initial work up was significant for a sodium of 128, potassium of 2.8, creatinine of 1.8, bilirubin of 2.7, Magnesium fo 1.4. He was admitted and given Ativan prn CIWAA protocol. His electrolytes were replaced. On his third hospital day he agreed to stay for continued detox on morning rounds but then later signed out against medical advice with out waiting to be seen by me again. - Discharge Plan Home Medications: Home Meds Docusate Sodium 300 mg PO DAILY 06/03/19 [History] Enalapril [Vasotec] 10 mg PO DAILY 06/03/19 [History] Metoprolol Succinate 50 mg PO DAILY 06/03/19 [History] Simvastatin 20 mg PO BEDTIME 06/03/19 [History] metFORMIN [Glucophage XR] 1,000 mg PO DAILY 06/03/19 [History] Folic Acid/Vitamin B Comp W-C [Renal Caps Softgel] 1 cap PO DAILY #30 cap [Rx] Forms: ED Department Discharge Referrals: Anitra Robbins NP [Primary Care Provider] - - Discharge Summary/Plan Comment DC Time >30 min.: No - Patient Data Vitals - Most Recent: Last Vital Signs Temp 36.6 C 08/09/19 08:00 Pulse 107 H 08/07/19 21:21 Resp 17 08/09/19 09:00 BP 145/100 H 08/09/19 09:00 Pulse Ox 96 08/09/19 09:00 Weight - Most Recent: 115.893 kg I&O - Last 24 hours: Intake & Output 08/08/19 08/09/19 08/09/19 22:59 06:59 14:59 Intake Total 1710 2703 1140 Output Total 1600 900 Balance 1710 1103 240 Lab Results - Last 24 hrs: Laboratory Results - last 24 hr 08/08/19 08/08/19 08/09/19 Range/Units 11:31 17:23 04:08 WBC 4.37 (4.0-11.0) K/uL RBC 3.38 L (4.50-5.90) M/uL Hgb 11.7 L (13.0-17.0) g/dL Hct 33.7 L (38.0-50.0) % MCV 99.7 H (80.0-98.0) fL MCH 34.6 H (27.0-32.0) pg MCHC 34.7 (31.0-37.0) g/dL RDW Std Deviation 48.7 (28.0-62.0) fl RDW Coeff of Pipe 13 (11.0-15.0) % Plt Count 85 L (150-400) K/uL MPV 10.10 (7.40-12.00) fL Neut % (Auto) 55.9 (48.0-80.0) % Lymph % (Auto) 30.9 (16.0-40.0) % [place] % (Auto) 11.2 (0.0-15.0) % Eos % (Auto) 1.8 (0.0-7.0) % Baso % (Auto) 0.2 (0.0-1.5) % Neut # (Auto) 2.4 (1.4-5.7) K/uL Lymph # (Auto) 1.4 (0.6-2.4) K/uL [place] # (Auto) 0.5 (0.0-0.8) K/uL Eos # (Auto) 0.1 (0.0-0.7) K/uL Baso # (Auto) 0.0 (0.0-0.1) K/uL Nucleated RBC % 0.0 /100WBC Nucleated RBCs # 0 K/uL Sodium (136-148) mmol/L Potassium (3.5-5.1) mmol/L Chloride (98-107) mmol/L Carbon Dioxide (21.0-32.0) mmol/L BUN (7.0-18.0) mg/dL Creatinine (0.8-1.3) mg/dL Est Cr Clr Drug Dosing mL/min Estimated GFR (MDRD) ml/min Glucose (74-106) mg/dL POC Glucose 165 H 100 (60-110) mg/dL Calcium (8.5-10.1) mg/dL Phosphorus (2.6-4.7) mg/dL Magnesium (1.8-2.4) mg/dL Total Bilirubin (0.2-1.0) mg/dL AST (15-37) IU/L ALT (14-63) IU/L Alkaline Phosphatase (46-116) U/L Total Protein (6.4-8.2) g/dL Albumin (3.4-5.0) g/dL Globulin (2.6-4.0) g/dL Albumin/Globulin Ratio (0.9-1.6) 08/09/19 08/09/19 Range/Units 04:08 07:25 WBC (4.0-11.0) K/uL RBC (4.50-5.90) M/uL Hgb (13.0-17.0) g/dL Hct (38.0-50.0) % MCV (80.0-98.0) fL MCH (27.0-32.0) pg MCHC (31.0-37.0) g/dL RDW Std Deviation (28.0-62.0) fl RDW Coeff of Pipe (11.0-15.0) % Plt Count (150-400) K/uL MPV (7.40-12.00) fL Neut % (Auto) (48.0-80.0) % Lymph % (Auto) (16.0-40.0) % [place] % (Auto) (0.0-15.0) % Eos % (Auto) (0.0-7.0) % Baso % (Auto) (0.0-1.5) % Neut # (Auto) (1.4-5.7) K/uL Lymph # (Auto) (0.6-2.4) K/uL [place] # (Auto) (0.0-0.8) K/uL Eos # (Auto) (0.0-0.7) K/uL Baso # (Auto) (0.0-0.1) K/uL Nucleated RBC % /100WBC Nucleated RBCs # K/uL Sodium 137 (136-148) mmol/L Potassium 3.1 L (3.5-5.1) mmol/L Chloride 102 (98-107) mmol/L Carbon Dioxide 28.3 (21.0-32.0) mmol/L BUN 13 (7.0-18.0) mg/dL Creatinine 1.2 (0.8-1.3) mg/dL Est Cr Clr Drug Dosing 87.53 mL/min Estimated GFR (MDRD) > 60.0 ml/min Glucose 86 (74-106) mg/dL POC Glucose 72 (60-110) mg/dL Calcium 7.3 L (8.5-10.1) mg/dL Phosphorus 2.1 L (2.6-4.7) mg/dL Magnesium 1.3 L (1.8-2.4) mg/dL Total Bilirubin 1.9 H (0.2-1.0) mg/dL AST 69 H (15-37) IU/L ALT 46 (14-63) IU/L Alkaline Phosphatase 70 (46-116) U/L Total Protein 5.7 L (6.4-8.2) g/dL Albumin 2.7 L (3.4-5.0) g/dL Globulin 3.0 (2.6-4.0) g/dL Albumin/Globulin Ratio 0.9 (0.9-1.6) Med Orders - Current: Current Medications Folic Acid (Folic Acid) 1 mg PO BEDTIME [facility] Last Admin: 08/08/19 20:23 Dose: 1 mg [facility]ulin [facility] ([facility]) [facility] Protocol Last Admin: 08/09/19 07:29 Dose: Not Given Lorazepam (Ativan) 0 mg IVPUSH Q4H PRN; Protocol PRN Reason: CIWAA Last Admin: 08/08/19 08:41 Dose: 1 mg Lorazepam (Ativan) 1 - 2 mg PO Q4H PRN; Protocol PRN Reason: CIWAA Last Admin: 08/09/19 08:52 Dose: 1 mg Sodium Phosphate (Neutra-Phos) 250 mg PO QID [facility] Last Admin: 08/09/19 06:19 Dose: 250 mg Thiamine HCl (Vitamin B-1) 100 mg PO BEDTIME [facility] Last Admin: 08/08/19 20:23 Dose: 100 mg Discontinued Medications Chlordiazepoxide HCl (Librium) 50 mg PO ONETIME ONE Stop: 08/07/19 19:13 Last Admin: 08/07/19 20:56 Dose: Not Given Multivitamins/Minerals 10 ml/Thiamine HCl 100 mg/ Folic Acid 1 mg/ Sodium Chloride 1,011.2 mls @ 150 mls/hr IV ONETIME ONE Stop: 08/08/19 01:55 Last Admin: 08/07/19 19:52 Dose: 150 mls/hr Pantoprazole Sodium 40 mg/ (Sodium Chloride) 10 mls @ 300 mls/hr IV NOW ONE Stop: 08/07/19 19:22 Last Admin: 08/07/19 19:37 Dose: 300 mls/hr Potassium Chloride/Dextrose/Sod Cl (D5 Ns With 20 Meq Kcl) 1,000 mls @ 125 mls/ hr IV ASDIRECTED [facility] Last Admin: 08/07/19 22:19 Dose: 125 mls/hr Magnesium Sulfate 2 gm/ Premix 50 mls @ 50 mls/hr IV ONETIME ONE Stop: 08/07/19 23:24 Last Admin: 08/07/19 22:37 Dose: 50 mls/hr Sodium Chloride (Normal Saline) 1,000 mls @ 125 mls/hr IV ASDIRECTED [facility] Last Infusion: 08/09/19 08:33 Dose: 125 mls/hr Potassium Chloride/Sodium Chloride (Normal Saline With 40 Meq Kcl) 1,000 mls @ 125 mls/hr IV ONETIME ONE Stop: 08/08/19 15:55 Last Admin: 08/08/19 08:37 Dose: 125 mls/hr Magnesium Sulfate 2 gm/ Premix 50 mls @ 50 mls/hr IV ONETIME ONE Stop: 08/09/19 07:11 Last Admin: 08/09/19 06:19 Dose: 50 mls/hr Potassium Chloride 40 meq/ (Premix) 100 mls @ 25 mls/hr IV ONETIME ONE Stop: 08/09/19 10:10 Last Admin: 08/09/19 07:30 Dose: 25 mls/hr Magnesium Sulfate 2 gm/ Premix 50 mls @ 50 mls/hr IV ONETIME ONE Stop: 08/09/19 08:54 Last Admin: 08/09/19 09:12 Dose: Not Given Magnesium Sulfate 2 gm/ Premix 50 mls @ 50 mls/hr IV ONETIME ONE Stop: 08/09/19 12:59 Magnesium Sulfate 2 gm/ Premix 50 mls @ 50 mls/hr IV ONETIME ONE Stop: 08/09/19 09:59 Last Admin: 08/09/19 08:53 Dose: 50 mls/hr Lorazepam (Ativan) 1 mg IVPUSH ONETIME ONE Stop: 08/07/19 19:12 Last Admin: 08/07/19 19:34 Dose: 1 mg Potassium Chloride (Klor-Con M20) 40 meq PO ONETIME ONE Stop: 08/07/19 22:25 Last Admin: 08/07/19 22:37 Dose: 40 meq Potassium Chloride (Klor-Con M20) 40 meq PO ONETIME ONE Stop: 08/08/19 07:57 Last Admin: 08/08/19 08:40 Dose: 40 meq Potassium Chloride (Klor-Con M20) 40 meq PO ONETIME ONE Stop: 08/09/19 07:55 Last Admin: 08/09/19 08:52 Dose: 40 meq
== END 2019-08-09 10:54 | disposition left against medical advice (07) | DRG 894 ==
LOC: MW.ED 17:38 → MW.ICU 20:48
PROVIDERS: ADMIT Internal Medicine; ATTEND Internal Medicine
DX: F10.231 Alcohol dependence with withdrawal delirium (principal); E87.6 Hypokalemia; E83.42 Hypomagnesemia; E87.1 Hypo-osmolality and hyponatremia; F10.239 Alcohol dependence with withdrawal, unspecified; N17.9 Acute kidney failure, unspecified; E86.0 Dehydration; E11.9 Type 2 diabetes mellitus without complications; I10 Essential (primary) hypertension; H54.7 Unspecified visual loss; E78.00 Pure hypercholesterolemia, unspecified; K21.9 Gastro-esophageal reflux disease without esophagitis; F41.9 Anxiety disorder, unspecified; F32.9 Major depressive disorder, single episode, unspecified; Z79.84 Long term (current) use of oral hypoglycemic drugs; Z79.899 Other long term (current) drug therapy; Z87.891 Personal history of nicotine dependence; I48.91 Unspecified atrial fibrillation
CPT/HCPCS: 36415; 70450; 71045; 80053; 80307; 82150; 83690; 83735; 84484; 85025; 93005; 96365; 96375; 99285; C9113; J2060; J3411; J7030; J7050; 80305-QW; 82962; 84100; 99284; A9270-GY; J1815-GY; J3475; J3480

== ENCOUNTER 2019-11-09 13:48 | Emergency (ER) | payer MEDICAID ==
[2019-11-09] MEDS ORDERED: Sodium Chloride 0.9% 2.5 ML Syringe FLUSH PRN (14:19)
[2019-11-09] MEDS ORDERED: Sodium Chloride 0.9% 10 ML Syringe FLUSH PRN (14:19)
[2019-11-09] MEDS ORDERED: Lactated Ringers 1,000 ML IV ONE ×2 (14:28→16:37)
[2019-11-09] MEDS ORDERED: fentaNYL 50 MCG/ML SDV IVPUSH ONE (14:35)
[2019-11-09 15:10] LABS: BLOOD UREA NITROGEN,BUN 13 mg/dL (7.0-18.0); CARBON DIOXIDE,CO2 24.3 mmol/L (21.0-32.0); CHLORIDE,CL 83 mmol/L (98-107); GLUCOSE RANDOM 195 mg/dL (74-106); POTASSIUM,K 2.9 mmol/L (3.5-5.1); SODIUM,NA 126 mmol/L (136-148)
--- NOTE | 2019-11-09 15:12 | EDM.PDOC ---
ED HPI GENERAL MEDICAL PROBLEM - General Chief Complaint: Abdominal Pain Stated Complaint: ABDOMINAL PAIN Time Seen by Provider: 11/09/19 14:18 Source of Information: Reports: Patient, Old Records History Limitations: Reports: No Limitations - History of Present Illness INITIAL COMMENTS - FREE TEXT/NARRATIVE: 49-year-old male with a past medical history of alcohol dependence and alcohol withdrawal, diabetes mellitus presenting with complaints of feeling unwell. Patient reports a one-week history of generalized abdominal pain, lightheadedness, general malaise, bilateral leg numbness. States that he has not eaten in at least 5 days. Also noticed new jaundice over the same timeframe. Reports new onset of dark-colored urine. Nothing makes abdominal pain better or worse, generalized, nonradiating, constant, rated as 10 out of 10. Denies any fever, nausea, vomiting, hematemesis, diarrhea, rectal bleeding, melena, hematochezia, dysuria, urinary frequency, recent illness, chest pain. Middle Abdomen Pain Score (Numeric/FACES): 8 - Related Data Allergies Allergy/AdvReac Type Severity Reaction Status Date / Time No Known Allergies Allergy Verified 08/07/19 17:44 Home Meds: Home Meds Enalapril [Vasotec] 10 mg PO DAILY 06/03/19 [History] Metoprolol Succinate 50 mg PO DAILY 06/03/19 [History] metFORMIN [Glucophage XR] 1,000 mg PO DAILY 06/03/19 [History] B Complex W-C No.20/Folic Acid [Virt-Caps Softgel] 1 cap PO DAILY 11/09/19 [History] Past Medical History HEENT History: Reports: Impaired Vision, Other (See Below) Other HEENT History: glasses for reading Cardiovascular History: Reports: High Cholesterol, Hypertension Respiratory History: Reports: None Gastrointestinal History: Reports: Cirrhosis, GERD Psychiatric History: Reports: Anxiety, Depression Endocrine/Metabolic History: Reports: Diabetes, Type II - Infectious Disease History Infectious Disease History: Reports: Chicken Pox, Measles, Mumps - Past Surgical History GI Surgical History: Reports: None Musculoskeletal Surgical History: Reports: Other (See Below) Other Musculoskeletal Surgeries/Procedures:: left knee pain- every year had an injection to control the pain, broken left arm with plate Social & Family History - Family History Family Medical History: Noncontributory - Tobacco Use Smoking Status *Q: Never Smoker - Caffeine Use Caffeine Use: Reports: None Other Caffeine Use: coffee for morning. soda for lunch - Recreational Drug Use Recreational Drug Use: No ED ROS GENERAL - Review of Systems Review Of Systems: See Below Constitutional: Reports: Malaise, Weakness, Fatigue. Denies: Fever, Chills HEENT: Denies: Nosebleed, Throat Swelling Respiratory: Denies: Shortness of Breath, Cough Cardiovascular: Denies: Chest Pain, Edema Endocrine: Reports: No Symptoms GI/Abdominal: Reports: Abdominal Pain. Denies: Black Stool, Bloody Stool, Diarrhea, Distension, Hematemesis, Hematochezia, Melena, Nausea, Vomiting : Denies: Flank Pain, Hematuria Musculoskeletal: Denies: Neck Pain, Back Pain Skin: Reports: Jaundice Neurological: Reports: Numbness (Bilateral lower extremity numbness) ED EXAM, GI/ABD - Physical Exam Exam: See Below Text/Narrative:: Vital signs reviewed. Nursing notes reviewed. Constitutional: Awake, alert, ill-appearing. Head: Normocephalic, atraumatic. Eyes: EOMI, conjunctiva normal, no discharge, no scleral icterus. Ears, Nose, Throat: External ears and nose normal, moist oral mucosa. Cardiovascular: Tachycardic, 2+ radial pulse, capillary refill less than 2 seconds. Pulmonary: normal work of breathing, no accessory muscle use. CTA BL Abdomen/GI: Soft, mild generalized tenderness, obese, no masses. Musculoskeletal: No deformities. Integumentary: Jaundiced, warm, dry, no pallor or jaundice, no rash. Neurologic: Alert, answering questions appropriately, normal speech, no facial droop, moving all extremities well. Psychiatric: Appropriate mood and affect, normal thought process. EKG INTERPRETATION EKG Interpretation Comments: 12-Lead ECG Interpretation Acquired: 2:34 PM Rhythm: Sinus tachycardia Rate: 103/min [place]: Normal Intervals: Normal Ectopy: None Ischemic Changes: None apparent RV Strain: No obvious RV strain pattern. ST Segments/T-Waves: T wave inversions in lead III Course - Vital Signs Text/Narrative:: Differential diagnosis includes but is not limited to: Cirrhosis, AAA, bowel obstruction, perforation, mesenteric ischemia, intra-abdominal infection, cholecystitis, appendicitis, pancreatitis, GI bleed, anemia, electrolyte disturbance, hepatic failure, sepsis, UTI, pyelonephritis, malignancy, etc. Labs show leukocytosis, normal INR, elevated lactate at 8.2. Hyponatremia, hypokalemia, elevated serum creatinine at 1.8. Bilirubin markedly elevated at 26.9. AST/ALT elevated and an alcoholic hepatitis pattern. Elevated alkaline phosphatase at 348. Negative troponin. Lipase is within normal limits. Urinalysis shows large bilirubin and small occult blood. CT imaging of the abdomen/pelvis was concerning for mild pancreatitis, no evidence of ascites. Patient was given 2 L of crystalloid fluids along with IV magnesium sulfate and potassium. Given fentanyl for pain. Blood cultures were also sent. I did speak with our hospitalist Dr. Manuel Faria who did not feel comfortable admitting the patient our facility because we do not have gastroenterology coverage. We will plan to transfer the patient to [facility] in my not due to a higher level of care. I spoke with the accepting emergency physician Dr. Gomez who agrees to accept the transfer. The patient remained in the emergency department through the end of my shift awaiting EMS arrival for [place]. Last Recorded V/S: Last Vital Signs Temp 37.6 C 11/09/19 14:10 Pulse 107 H 11/09/19 14:10 Resp 20 11/09/19 14:10 BP 121/79 11/09/19 14:10 Pulse Ox 96 11/09/19 14:10 - Orders/Labs/Meds Orders: Active Orders 24 hr Category Date Time Status Cardiac Monitoring [RC] . DIRECTED Care 11/09/19 14:19 Active EKG Documentation Completion [RC] STAT Care 11/09/19 14:19 Active Pulse Oximetry [RC] ASDIRECTED Care 11/09/19 14:19 Active NPO [Nothing Per Oral Diet] [DIET] Diet 11/09/19 Breakfast Active CULTURE BLOOD [BC] Stat Lab 11/09/19 14:15 Received CULTURE BLOOD [BC] Stat Lab 11/09/19 14:41 Received Sodium Chloride 0.9% [Saline Flush] Med 11/09/19 14:19 Active 10 ml FLUSH ASDIRECTED PRN Sodium Chloride 0.9% [Saline Flush] Med 11/09/19 14:19 Active 2.5 ml FLUSH ASDIRECTED PRN Blood Culture x2 Reflex Set [OM.PC] Stat Oth 11/09/19 14:27 Ordered Saline Lock Insert [OM.PC] Stat Oth 11/09/19 14:19 Ordered Medication Orders Sodium Chloride (Saline Flush) 10 ml FLUSH ASDIRECTED PRN PRN Reason: Keep Vein Open Sodium Chloride (Saline Flush) 2.5 ml FLUSH ASDIRECTED PRN PRN Reason: Keep Vein Open Labs: Laboratory Tests 11/09/19 11/09/19 11/09/19 Range/Units 14:15 14:15 14:15 WBC 11.49 H (4.0-11.0) K/uL RBC 3.74 L (4.50-5.90) M/uL Hgb 12.7 L (13.0-17.0) g/dL Hct 36.0 L (38.0-50.0) % MCV 96.3 (80.0-98.0) fL MCH 34.0 H (27.0-32.0) pg MCHC 35.3 (31.0-37.0) g/dL RDW Std Deviation 53.2 (28.0-62.0) fl RDW Coeff of Pipe 15 (11.0-15.0) % Plt Count 92 L (150-400) K/uL MPV 12.40 H (7.40-12.00) fL Neut % (Auto) 59.4 (48.0-80.0) % Lymph % (Auto) 32.2 (16.0-40.0) % [place] % (Auto) 7.8 (0.0-15.0) % Eos % (Auto) 0.3 (0.0-7.0) % Baso % (Auto) 0.3 (0.0-1.5) % Neut # (Auto) 6.8 H (1.4-5.7) K/uL Lymph # (Auto) 3.7 H (0.6-2.4) K/uL [place] # (Auto) 0.9 H (0.0-0.8) K/uL Eos # (Auto) 0.0 (0.0-0.7) K/uL Baso # (Auto) 0.0 (0.0-0.1) K/uL Nucleated RBC % 0.0 /100WBC Nucleated RBCs # 0 K/uL INR 1.30 Lactate 8.2 H* (0.20-2.00) mmol/L Sodium (136-148) mmol/L Potassium (3.5-5.1) mmol/L Chloride (98-107) mmol/L Carbon Dioxide (21.0-32.0) mmol/L BUN (7.0-18.0) mg/dL Creatinine (0.8-1.3) mg/dL Est Cr Clr Drug Dosing mL/min Estimated GFR (MDRD) ml/min Glucose (74-106) mg/dL Calcium (8.5-10.1) mg/dL Total Bilirubin (0.2-1.0) mg/dL AST (15-37) IU/L ALT (14-63) IU/L Alkaline Phosphatase (46-116) U/L Troponin I (0.000-0.056) ng/mL Total Protein (6.4-8.2) g/dL Albumin (3.4-5.0) g/dL Globulin (2.6-4.0) g/dL Albumin/Globulin Ratio (0.9-1.6) Lipase (73-393) U/L Urine Color Urine Appearance Urine pH (5.0-8.0) Ur Specific Premium (1.001-1.035) Urine Protein (NEGATIVE) mg/dL Urine Glucose (UA) (NEGATIVE) mg/dL Urine Ketones (NEGATIVE) mg/dL Urine Occult Blood (NEGATIVE) Urine Nitrite (NEGATIVE) Urine Bilirubin (NEGATIVE) Urine Ictotest Urine Urobilinogen (<2.0) EU/dL Ur Leukocyte Esterase (NEGATIVE) Urine RBC (0-2/HPF) Urine WBC (0-5/HPF) Ur Epithelial Cells (NONE-FEW) Urine Bacteria (NEGATIVE) COVID-19 (MAYE) (NEGATIVE) Blood Type 11/09/19 11/09/19 11/09/19 Range/Units 14:15 14:15 14:15 WBC (4.0-11.0) K/uL RBC (4.50-5.90) M/uL Hgb (13.0-17.0) g/dL Hct (38.0-50.0) % MCV (80.0-98.0) fL MCH (27.0-32.0) pg MCHC (31.0-37.0) g/dL RDW Std Deviation (28.0-62.0) fl RDW Coeff of Pipe (11.0-15.0) % Plt Count (150-400) K/uL MPV (7.40-12.00) fL Neut % (Auto) (48.0-80.0) % Lymph % (Auto) (16.0-40.0) % [place] % (Auto) (0.0-15.0) % Eos % (Auto) (0.0-7.0) % Baso % (Auto) (0.0-1.5) % Neut # (Auto) (1.4-5.7) K/uL Lymph # (Auto) (0.6-2.4) K/uL [place] # (Auto) (0.0-0.8) K/uL Eos # (Auto) (0.0-0.7) K/uL Baso # (Auto) (0.0-0.1) K/uL Nucleated RBC % /100WBC Nucleated RBCs # K/uL INR Lactate (0.20-2.00) mmol/L Sodium 126 L (136-148) mmol/L Potassium 2.9 L (3.5-5.1) mmol/L Chloride 83 L (98-107) mmol/L Carbon Dioxide 24.3 (21.0-32.0) mmol/L BUN 13 (7.0-18.0) mg/dL Creatinine 1.8 H (0.8-1.3) mg/dL Est Cr Clr Drug Dosing 56.72 mL/min Estimated GFR (MDRD) 40.5 ml/min Glucose 195 H (74-106) mg/dL Calcium 8.1 L (8.5-10.1) mg/dL Total Bilirubin 26.9 H (0.2-1.0) mg/dL AST 426 H (15-37) IU/L ALT 190 H (14-63) IU/L Alkaline Phosphatase 348 H (46-116) U/L Troponin I < 0.050 (0.000-0.056) ng/mL Total Protein 6.7 (6.4-8.2) g/dL Albumin 2.5 L (3.4-5.0) g/dL Globulin 4.2 H (2.6-4.0) g/dL Albumin/Globulin Ratio 0.6 L (0.9-1.6) Lipase 295 (73-393) U/L Urine Color Urine Appearance Urine pH (5.0-8.0) Ur Specific Premium (1.001-1.035) Urine Protein (NEGATIVE) mg/dL Urine Glucose (UA) (NEGATIVE) mg/dL Urine Ketones (NEGATIVE) mg/dL Urine Occult Blood (NEGATIVE) Urine Nitrite (NEGATIVE) Urine Bilirubin (NEGATIVE) Urine Ictotest Urine Urobilinogen (<2.0) EU/dL Ur Leukocyte Esterase (NEGATIVE) Urine RBC (0-2/HPF) Urine WBC (0-5/HPF) Ur Epithelial Cells (NONE-FEW) Urine Bacteria (NEGATIVE) COVID-19 (MAYE) (NEGATIVE) Blood Type O NEGATIVE 11/09/19 11/09/19 Range/Units 15:20 16:52 WBC (4.0-11.0) K/uL RBC (4.50-5.90) M/uL Hgb (13.0-17.0) g/dL Hct (38.0-50.0) % MCV (80.0-98.0) fL MCH (27.0-32.0) pg MCHC (31.0-37.0) g/dL RDW Std Deviation (28.0-62.0) fl RDW Coeff of Pipe (11.0-15.0) % Plt Count (150-400) K/uL MPV (7.40-12.00) fL Neut % (Auto) (48.0-80.0) % Lymph % (Auto) (16.0-40.0) % [place] % (Auto) (0.0-15.0) % Eos % (Auto) (0.0-7.0) % Baso % (Auto) (0.0-1.5) % Neut # (Auto) (1.4-5.7) K/uL Lymph # (Auto) (0.6-2.4) K/uL [place] # (Auto) (0.0-0.8) K/uL Eos # (Auto) (0.0-0.7) K/uL Baso # (Auto) (0.0-0.1) K/uL Nucleated RBC % /100WBC Nucleated RBCs # K/uL INR Lactate (0.20-2.00) mmol/L Sodium (136-148) mmol/L Potassium (3.5-5.1) mmol/L Chloride (98-107) mmol/L Carbon Dioxide (21.0-32.0) mmol/L BUN (7.0-18.0) mg/dL Creatinine (0.8-1.3) mg/dL Est Cr Clr Drug Dosing mL/min Estimated GFR (MDRD) ml/min Glucose (74-106) mg/dL Calcium (8.5-10.1) mg/dL Total Bilirubin (0.2-1.0) mg/dL AST (15-37) IU/L ALT (14-63) IU/L Alkaline Phosphatase (46-116) U/L Troponin I (0.000-0.056) ng/mL Total Protein (6.4-8.2) g/dL Albumin (3.4-5.0) g/dL Globulin (2.6-4.0) g/dL Albumin/Globulin Ratio (0.9-1.6) Lipase (73-393) U/L Urine Color YELLOW Urine Appearance CLEAR Urine pH 7.0 (5.0-8.0) Ur Specific Premium <= 1.005 (1.001-1.035) Urine Protein NEGATIVE (NEGATIVE) mg/dL Urine Glucose (UA) NEGATIVE (NEGATIVE) mg/dL Urine Ketones NEGATIVE (NEGATIVE) mg/dL Urine Occult Blood SMALL H (NEGATIVE) Urine Nitrite NEGATIVE (NEGATIVE) Urine Bilirubin LARGE H (NEGATIVE) Urine Ictotest POSITIVE Urine Urobilinogen 0.2 (<2.0) EU/dL Ur Leukocyte Esterase NEGATIVE (NEGATIVE) Urine RBC 1-2 (0-2/HPF) Urine WBC 0-1 (0-5/HPF) Ur Epithelial Cells RARE (NONE-FEW) Urine Bacteria RARE (NEGATIVE) COVID-19 (MAYE) NEGATIVE (NEGATIVE) Blood Type Meds: Medications Generic Name Dose Route Start Last Admin Trade Name Freq PRN Reason Stop Dose Admin Sodium Chloride 10 ml 11/09/19 14:19 Saline Flush FLUSH ASDIRECTED PRN Keep Vein Open Sodium Chloride 2.5 ml 11/09/19 14:19 Saline Flush FLUSH ASDIRECTED PRN Keep Vein Open Discontinued Medications Generic Name Dose Route Start Last Admin Trade Name Freq PRN Reason Stop Dose Admin Fentanyl 100 mcg 11/09/19 14:35 11/09/19 14:40 Fentanyl IVPUSH 11/09/19 14:36 100 mcg ONETIME ONE Administration Lactated Ringer's 1,000 mls @ 999 mls/hr 11/09/19 14:28 11/09/19 14:33 Ringers, Lactated IV 11/09/19 15:28 999 mls/hr .BOLUS ONE Administration Magnesium Sulfate 2 gm/ Premix 50 mls @ 50 mls/hr 11/09/19 15:48 11/09/19 16:42 IV 11/09/19 16:47 50 mls/hr ONETIME ONE Administration Potassium Chloride 20 meq/ 50 mls @ 25 mls/hr 11/09/19 15:48 11/09/19 16:42 Premix IV 11/09/19 17:47 25 mls/hr ONETIME ONE Administration Lactated Ringer's 1,000 mls @ 999 mls/hr 11/09/19 16:37 11/09/19 16:43 Ringers, Lactated IV 11/09/19 17:37 999 mls/hr .BOLUS ONE Administration Iopamidol 100 ml 11/09/19 16:44 11/09/19 16:45 Isovue Multipack-370 (76%) IVPUSH 11/09/19 16:45 100 ml ONETIME STA Administration Departure - Departure Time of Disposition: 17:00 Disposition: DC/Tfer to Acute Hospital 02 Condition: Good Clinical Impression: Hyperbilirubinemia, Hypokalemia, Acute renal insufficiency Alcoholic hepatitis Qualifiers: Ascites presence: without ascites Qualified Code(s): K70.10 - Alcoholic hepatitis without ascites - Discharge Information Referrals: Anitra Robbins NP [Primary Care Provider] - Forms: ED Department Discharge Sepsis Event Note (ED) - Evaluation Sepsis Screening Result: No Definite Risk - Focused Exam Vital Signs: Vital Signs Temp Pulse Resp BP Pulse Ox 11/09/19 14:10 37.6 C 107 H 20 121/79 96 - My Orders Last 24 Hours: My Active Orders 11/09/19 Breakfast NPO [Nothing Per Oral Diet] [DIET] 11/09/19 14:15 CULTURE BLOOD [BC] Stat 11/09/19 14:19 Cardiac Monitoring [RC] . DIRECTED EKG Documentation Completion [RC] STAT Pulse Oximetry [RC] ASDIRECTED Sodium Chloride 0.9% [Saline Flush] 10 ml FLUSH ASDIRECTED PRN Sodium Chloride 0.9% [Saline Flush] 2.5 ml FLUSH ASDIRECTED PRN Saline Lock Insert [OM.PC] Stat 11/09/19 14:27 Blood Culture x2 Reflex Set [OM.PC] Stat 11/09/19 14:41 CULTURE BLOOD [BC] Stat - Assessment/Plan Last 24 Hours: My Active Orders 11/09/19 Breakfast NPO [Nothing Per Oral Diet] [DIET] 11/09/19 14:15 CULTURE BLOOD [BC] Stat 11/09/19 14:19 Cardiac Monitoring [RC] . DIRECTED EKG Documentation Completion [RC] STAT Pulse Oximetry [RC] ASDIRECTED Sodium Chloride 0.9% [Saline Flush] 10 ml FLUSH ASDIRECTED PRN Sodium Chloride 0.9% [Saline Flush] 2.5 ml FLUSH ASDIRECTED PRN Saline Lock Insert [OM.PC] Stat 11/09/19 14:27 Blood Culture x2 Reflex Set [OM.PC] Stat 11/09/19 14:41 CULTURE BLOOD [BC] Stat
--- NOTE | 2019-11-09 15:27 | CR ---
Chest: Portable view of the chest was obtained. Comparison: Prior chest x-ray of 08/07/19. Heart size and mediastinum are within normal limits for portable technique. Lungs are clear with no acute parenchymal change. Bony structures are grossly intact. Impression: 1. Nothing acute is identified on portable chest x-ray. Diagnostic code #1 This report was dictated in MDT
[2019-11-09] MEDS ORDERED: Magnesium Sulfate/Water 2 GM in Premix Bag 1 BAG IV ONE (15:48)
[2019-11-09] MEDS ORDERED: Potassium Chloride Riders 20 MEQ in Premix Bag 1 BAG IV ONE (15:48)
[2019-11-09] MEDS ORDERED: Iopamidol 755 MG/ML 500 ML Multipack Bottle IVPUSH STA (16:44)
--- NOTE | 2019-11-09 16:53 | CT ---
CT abdomen and pelvis Technique: Multiple axial sections were obtained from above the dome of the diaphragm inferiorly through the pubic symphysis. Intravenous contrast was utilized. No oral contrast has been given. Findings: Diffuse fatty infiltration is seen within the liver. Visualized lung bases show nothing acute. Spleen appears within normal limits. Small amount of accessory splenic tissue is seen inferior to the spleen. Adrenal glands show no nodule. Kidneys show symmetric contrast enhancement without hydronephrosis or mass. Mild inflammatory change is seen around the tail of the pancreas. Inflammatory change continues along the left pararenal fascia. Findings are felt compatible with mild pancreatitis. Gallbladder contains no calcified gallstones. Aorta shows no aneurysm. No retroperitoneal adenopathy or mesenteric abnormalities are seen. No pelvic mass or adenopathy is seen. Small fat-containing bilateral inguinal hernias are noted. Appendix is seen which is normal in size. Bone window settings were reviewed which shows mild scoliosis within the spine. Bilateral spondylolytic defects noted at L5-S1 without spondylolisthesis. Mild degenerative change is scattered within the spine. Impression: 1. Mild inflammatory change around the tail of the pancreas compatible with pancreatitis. 2. Fatty infiltration within the liver which is similar to prior exam. 3. Other nonacute findings as noted above. Diagnostic code #3 This report was dictated in MDT
== END 2019-11-09 20:33 ==
LOC: MW.ED 13:48
DX: K70.10 Alcoholic hepatitis without ascites (principal); E80.6 Other disorders of bilirubin metabolism; E87.6 Hypokalemia; I10 Essential (primary) hypertension; N28.9 Disorder of kidney and ureter, unspecified; E11.9 Type 2 diabetes mellitus without complications; Z79.84 Long term (current) use of oral hypoglycemic drugs; Z79.899 Other long term (current) drug therapy; Z20.828 Contact with and (suspected) exposure to other viral communicable diseases
CPT/HCPCS: 36415; 71045; 74177; 80053; 81001; 83605; 83690; 84484; 85025; 85610; 86900; 86901; 87040; 87635; 93005; 96361; 96365; 96366; 96368; 96375; 99285; J3010; J3475; J3480; J7120; Q9967; 99284; U0002

== ENCOUNTER 2020-02-26 19:31 | Observation (INO) | payer MEDICAID ==
[2020-02-26] MEDS ORDERED: Sodium Chloride 0.9% 1,000 ML IV ONE ×2 (19:48→20:55)
[2020-02-26] MEDS ORDERED: Morphine 4 MG/ML Syringe IVPUSH ONE (19:48)
[2020-02-26] MEDS ORDERED: Ondansetron 4 MG/2 ML SDV IVPUSH ONE (19:48)
--- NOTE | 2020-02-26 19:51 | EDM.PDOC ---
<MirandaCash - Last Filed: 02/26/20 22:59> ED HPI GENERAL MEDICAL PROBLEM - General Chief Complaint: Abdominal Pain Stated Complaint: COUGH, STOMACH SWELLING, HEADACHE Time Seen by Provider: 02/26/20 19:32 - Related Data Allergies Allergy/AdvReac Type Severity Reaction Status Date / Time No Known Allergies Allergy Verified 02/27/20 04:25 Home Meds: Home Meds Enalapril [Vasotec] 5 mg PO DAILY 06/03/19 [History] Metoprolol Succinate 50 mg PO DAILY 06/03/19 [History] Insulin Glarg,Human.Rec.Analog [Lantus] 12 units SQ BEDTIME 02/26/20 [History] Rifaximin [Xifaxan] 1 tab PO BID 02/26/20 [History] Lactulose 22 ml PO TID #0 02/28/20 [Rx] polyethylene glycoL 3350 [MiraLAX] 17 gm PO BID PRN #30 packet 02/28/20 [Rx] Course - Vital Signs Text/Narrative:: 220 hours the patient feels better. His abdomen is not significantly tender. He is not nauseated. His headaches gone. We will try p.o. challenge, recheck his labs, and make a disposition. 2259 hrs. the patient's heart rate is 113 and his sodium only came to 119 BUN was 31.5 the patient's magnesium was corrected. Because it is so slow and correcting with his hyponatremia I talked to the hospitalist and she agreed to admit the patient to observation status on telemetry. Departure - Departure Time of Disposition: 22:59 Disposition: Refer to Observation Condition: Good Clinical Impression: Dehydration, Abdominal pain, Hyponatremia - Discharge Information <Renato Mejia - Last Filed: 02/29/20 19:51> ED HPI GENERAL MEDICAL PROBLEM - General Source of Information: Reports: Patient History Limitations: Reports: No Limitations - History of Present Illness INITIAL COMMENTS - FREE TEXT/NARRATIVE: HISTORY AND PHYSICAL: History of present illness: Patient is a 49-year-old male who presents to the emergency room with complaints of generalized abdominal pain, nausea, vomiting, headache, dry nonproductive cough and generally feeling unwell over the past 2 to 3 days. He complains of generalized abdominal pain, nonspecific and nontender with palpation. He states he has been retching due to vomiting and has been having intermittent diarrhea/constipation. Patient denies any change in vision, syncope or near syncope. Denies any chest pain, back pain, shortness of breath or dysuria. Has not noted any blood in urine or stool. Patient has been eating and drinking appropriately. Patient has a past medical history of alcohol dependence, alcohol withdrawal, type 2 diabetes, hypertension, cirrhosis, and GERD. Review of systems: As per history of present illness and below otherwise all systems reviewed and negative. Past medical history: As per history of present illness and as reviewed below otherwise noncontributory. Surgical history: As per history of present illness and as reviewed below otherwise no ncontributory. Social history: See social history for further information Family history: As per history of present illness and as reviewed below otherwise noncontributory. Physical exam: General: Well developed and well nourished 49 year old male. Alert and orientated x 3. Nontoxic in appearance and in no acute distress. Vital signs are stable and have been reviewed by me. Nursing notes were reviewed. HEENT: Atraumatic, normocephalic, pupils equal and reactive bilaterally, negative for conjunctival pallor or scleral icterus, mucous membranes moist, TMs normal bilaterally, throat clear, neck supple, nontender, trachea midline. No drooling or trismus noted. No meningeal signs. No hot potato voice noted. Lungs: Clear to auscultation, breath sounds equal bilaterally, chest nontender. Normal work of breathing, no accessory muscles used. Heart: S1S2, regular rate and rhythm without overt murmur Abdomen: Soft, nondistended, nontender. Negative for masses or hepatosplenomegaly. Negative for costovertebral tenderness. Pelvis: Stable nontender. Skin: Intact, warm, dry. No lesions or rashes noted. Hematologic: No petechiae or purpra. Mucosa appropriate color and normal nail bed color and refill. Extremities: Atraumatic, moves all extremities per self without difficulty or deficits, negative for cords or calf pain. Neurovascular unremarkable. Neuro: Awake, alert, oriented. Cranial nerves II through XII unremarkable. Cerebellum unremarkable. Motor and sensory unremarkable throughout. Exam nonfocal. Psychiatric: Mood and affect are appropriate. Normal thought process. Answering questions appropriately. Notes: 11/09/2019: Patient was seen in the emergency department and transferred to [place] for alcoholic hepatitis without ascites, hyper bili Domo anemia, hypokalemia and acute renal insufficiency. At that time the patient states he had been drinking heavily but has not had any alcohol in approximately 4 months. Chest x-ray is unremarkable. Patient has hyponatremia; unable to get a lactate at this time. Will rehydrate and reassess. Patient will need to be admitted, monitored and re-evaluated. CT abd/pelvis shows evidence of third spacing with trace ascites and trace bilateral pleural effusions. Small bowel wall thickening, possibly enteritis. Fatty infiltration of liver. Splenomegaly, likely secondary to portal hypertension with some distention of the portal vein noted. Hospitalist was consulted on this patient, agreeable to accepting this patient for further care and management. Patient was made aware of the need for admission and he is agreeable to plan of care. Continues to be vitally stable. We will continue to monitor until admitted to the floor. Diagnostics: CBC, CMP, Magnesium, Lipase, UA, CT abdomen/pelvis Therapeutics: IV fluids x 2, Zofran, Morphine, 2gm Magnesium Impression: Hyponatremia Dehydration Plan: Admission to Med/Surg Definitive disposition and diagnosis as appropriate pending reevaluation and review of above. headache, abdomen Pain Score (Numeric/FACES): 7 Abdomen Pain Score (Numeric/FACES): 4 Past Medical History HEENT History: Reports: Impaired Vision, Other (See Below) Other HEENT History: glasses for reading Cardiovascular History: Reports: High Cholesterol, Hypertension Respiratory History: Reports: None Gastrointestinal History: Reports: Cirrhosis, GERD Psychiatric History: Reports: Anxiety, Depression Endocrine/Metabolic History: Reports: Diabetes, Type II - Infectious Disease History Infectious Disease History: Reports: Chicken Pox, Measles, Mumps - Past Surgical History GI Surgical History: Reports: None Musculoskeletal Surgical History: Reports: Other (See Below) Other Musculoskeletal Surgeries/Procedures:: left knee pain- every year had an injection to control the pain, broken left arm with plate Social & Family History - Family History Family Medical History: No Pertinent Family History - Tobacco Use Tobacco Use Status *Q: Never Tobacco User - Caffeine Use Caffeine Use: Reports: None Other Caffeine Use: coffee for morning. soda for lunch - Recreational Drug Use Recreational Drug Use: No ED ROS GENERAL - Review of Systems Review Of Systems: Comprehensive ROS is negative, except as noted in HPI. ED EXAM, GI/ABD - Physical Exam Exam: See Below (See dictation) Course - Vital Signs Last Recorded V/S: Last Vital Signs Temp 97.5 F 02/28/20 11:50 Pulse 77 02/28/20 11:50 Resp 18 02/28/20 11:50 BP 172/93 H 02/28/20 11:50 Pulse Ox 96 02/28/20 08:00 - Orders/Labs/Meds Labs: Laboratory Tests 02/26/20 02/26/20 02/26/20 Range/Units 20:01 20:01 20:01 WBC 12.56 H (4.0-11.0) K/uL RBC 4.23 L (4.50-5.90) M/uL Hgb 13.0 (13.0-17.0) g/dL Hct 35.9 L (38.0-50.0) % MCV 84.9 (80.0-98.0) fL MCH 30.7 (27.0-32.0) pg MCHC 36.2 (31.0-37.0) g/dL RDW Std Deviation 36.6 (28.0-62.0) fl RDW Coeff of Pipe 12 (11.0-15.0) % Plt Count 153 (150-400) K/uL MPV 10.60 (7.40-12.00) fL Neut % (Auto) 73.4 (48.0-80.0) % Lymph % (Auto) 17.9 (16.0-40.0) % Roosevelt % (Auto) 8.2 (0.0-15.0) % Eos % (Auto) 0.5 (0.0-7.0) % Baso % (Auto) 0.0 (0.0-1.5) % Neut # (Auto) 9.2 H (1.4-5.7) K/uL Lymph # (Auto) 2.3 (0.6-2.4) K/uL Roosevelt # (Auto) 1.0 H (0.0-0.8) K/uL Eos # (Auto) 0.1 (0.0-0.7) K/uL Baso # (Auto) 0.0 (0.0-0.1) K/uL Nucleated RBC % 0.0 /100WBC Nucleated RBCs # 0 K/uL Lactate (0.20-2.00) mmol/L Sodium 118 L* (136-148) mmol/L Potassium 3.8 (3.5-5.1) mmol/L Chloride 82 L (98-107) mmol/L Carbon Dioxide 27.1 (21.0-32.0) mmol/L BUN 31 H (7.0-18.0) mg/dL Creatinine 1.7 H (0.8-1.3) mg/dL Est Cr Clr Drug Dosing 63.51 mL/min Estimated GFR (MDRD) 43.2 ml/min Glucose 132 H (74-106) mg/dL Calcium 8.2 L (8.5-10.1) mg/dL Magnesium 1.5 L (1.8-2.4) mg/dL Total Bilirubin 0.7 (0.2-1.0) mg/dL AST 24 (15-37) IU/L ALT 17 (14-63) IU/L Alkaline Phosphatase 79 (46-116) U/L Total Protein 6.3 L (6.4-8.2) g/dL Albumin 2.6 L (3.4-5.0) g/dL Globulin 3.7 (2.6-4.0) g/dL Albumin/Globulin Ratio 0.7 L (0.9-1.6) Lipase (73-393) U/L Urine Color Urine Appearance Urine pH (5.0-8.0) Ur Specific Blackburn (1.001-1.035) Urine Protein (NEGATIVE) mg/dL Urine Glucose (UA) (NEGATIVE) mg/dL Urine Ketones (NEGATIVE) mg/dL Urine Occult Blood (NEGATIVE) Urine Nitrite (NEGATIVE) Urine Bilirubin (NEGATIVE) Urine Urobilinogen (<2.0) EU/dL Ur Leukocyte Esterase (NEGATIVE) Urine RBC (0-2/HPF) Urine WBC (0-5/HPF) Ur Epithelial Cells (NONE-FEW) Urine Bacteria (NEGATIVE) SARS-CoV-2 (PCR) (NOT DETECT) SARS CoV-2 RNA Rapid MAYE (NEGATIVE) 02/26/20 02/26/20 02/26/20 Range/Units 20:01 20:15 20:15 WBC (4.0-11.0) K/uL RBC (4.50-5.90) M/uL Hgb (13.0-17.0) g/dL Hct (38.0-50.0) % MCV (80.0-98.0) fL MCH (27.0-32.0) pg MCHC (31.0-37.0) g/dL RDW Std Deviation (28.0-62.0) fl RDW Coeff of Pipe (11.0-15.0) % Plt Count (150-400) K/uL MPV (7.40-12.00) fL Neut % (Auto) (48.0-80.0) % Lymph % (Auto) (16.0-40.0) % Roosevelt % (Auto) (0.0-15.0) % Eos % (Auto) (0.0-7.0) % Baso % (Auto) (0.0-1.5) % Neut # (Auto) (1.4-5.7) K/uL Lymph # (Auto) (0.6-2.4) K/uL Roosevelt # (Auto) (0.0-0.8) K/uL Eos # (Auto) (0.0-0.7) K/uL Baso # (Auto) (0.0-0.1) K/uL Nucleated RBC % /100WBC Nucleated RBCs # K/uL Lactate (0.20-2.00) mmol/L Sodium (136-148) mmol/L Potassium (3.5-5.1) mmol/L Chloride (98-107) mmol/L Carbon Dioxide (21.0-32.0) mmol/L BUN (7.0-18.0) mg/dL Creatinine (0.8-1.3) mg/dL Est Cr Clr Drug Dosing mL/min Estimated GFR (MDRD) ml/min Glucose (74-106) mg/dL Calcium (8.5-10.1) mg/dL Magnesium (1.8-2.4) mg/dL Total Bilirubin (0.2-1.0) mg/dL AST (15-37) IU/L ALT (14-63) IU/L Alkaline Phosphatase (46-116) U/L Total Protein (6.4-8.2) g/dL Albumin (3.4-5.0) g/dL Globulin (2.6-4.0) g/dL Albumin/Globulin Ratio (0.9-1.6) Lipase 135 (73-393) U/L Urine Color Urine Appearance Urine pH (5.0-8.0) Ur Specific Blackburn (1.001-1.035) Urine Protein (NEGATIVE) mg/dL Urine Glucose (UA) (NEGATIVE) mg/dL Urine Ketones (NEGATIVE) mg/dL Urine Occult Blood (NEGATIVE) Urine Nitrite (NEGATIVE) Urine Bilirubin (NEGATIVE) Urine Urobilinogen (<2.0) EU/dL Ur Leukocyte Esterase (NEGATIVE) Urine RBC (0-2/HPF) Urine WBC (0-5/HPF) Ur Epithelial Cells (NONE-FEW) Urine Bacteria (NEGATIVE) SARS-CoV-2 (PCR) NOT DETECTED (NOT DETECT) SARS CoV-2 RNA Rapid MAYE NEGATIVE (NEGATIVE) 02/26/20 02/26/20 Range/Units 22:26 22:32 WBC (4.0-11.0) K/uL RBC (4.50-5.90) M/uL Hgb (13.0-17.0) g/dL Hct (38.0-50.0) % MCV (80.0-98.0) fL MCH (27.0-32.0) pg MCHC (31.0-37.0) g/dL RDW Std Deviation (28.0-62.0) fl RDW Coeff of Pipe (11.0-15.0) % Plt Count (150-400) K/uL MPV (7.40-12.00) fL Neut % (Auto) (48.0-80.0) % Lymph % (Auto) (16.0-40.0) % Roosevelt % (Auto) (0.0-15.0) % Eos % (Auto) (0.0-7.0) % Baso % (Auto) (0.0-1.5) % Neut # (Auto) (1.4-5.7) K/uL Lymph # (Auto) (0.6-2.4) K/uL Roosevelt # (Auto) (0.0-0.8) K/uL Eos # (Auto) (0.0-0.7) K/uL Baso # (Auto) (0.0-0.1) K/uL Nucleated RBC % /100WBC Nucleated RBCs # K/uL Lactate (0.20-2.00) mmol/L Sodium 119 L* (136-148) mmol/L Potassium 4.5 (3.5-5.1) mmol/L Chloride 85 L (98-107) mmol/L Carbon Dioxide 28.5 (21.0-32.0) mmol/L BUN 30 H (7.0-18.0) mg/dL Creatinine 1.5 H (0.8-1.3) mg/dL Est Cr Clr Drug Dosing 71.98 mL/min Estimated GFR (MDRD) 49.9 ml/min Glucose 112 H (74-106) mg/dL Calcium 7.9 L (8.5-10.1) mg/dL Magnesium 2.0 (1.8-2.4) mg/dL Total Bilirubin (0.2-1.0) mg/dL AST (15-37) IU/L ALT (14-63) IU/L Alkaline Phosphatase (46-116) U/L Total Protein (6.4-8.2) g/dL Albumin (3.4-5.0) g/dL Globulin (2.6-4.0) g/dL Albumin/Globulin Ratio (0.9-1.6) Lipase (73-393) U/L Urine Color YELLOW Urine Appearance HAZY Urine pH 5.5 (5.0-8.0) Ur Specific Blackburn 1.020 (1.001-1.035) Urine Protein 100 H (NEGATIVE) mg/dL Urine Glucose (UA) NEGATIVE (NEGATIVE) mg/dL Urine Ketones NEGATIVE (NEGATIVE) mg/dL Urine Occult Blood LARGE H (NEGATIVE) Urine Nitrite NEGATIVE (NEGATIVE) Urine Bilirubin NEGATIVE (NEGATIVE) Urine Urobilinogen 0.2 (<2.0) EU/dL Ur Leukocyte Esterase NEGATIVE (NEGATIVE) Urine RBC 10-20 (0-2/HPF) Urine WBC 0-3 (0-5/HPF) Ur Epithelial Cells RARE (NONE-FEW) Urine Bacteria FEW (NEGATIVE) SARS-CoV-2 (PCR) (NOT DETECT) SARS CoV-2 RNA Rapid MAYE (NEGATIVE) Meds: Medications Discontinued Medications Generic Name Dose Route Start Last Admin Trade Name Freq PRN Reason Stop Dose Admin Albuterol/Ipratropium 3 ml 02/26/20 23:20 Duoneb 3.0-0.5 Mg/3 Ml NEB Q4HRRT PRN Shortness Of Breath/wheezing Dextrose/Water 50 ml 02/27/20 15:49 Dextrose 50% In Water IV ASDIRECTED PRN Hypoglycemia Enalapril Maleate 5 mg 02/27/20 09:00 02/28/20 09:15 Vasotec PO 5 mg DAILY JESUS Administration Glucagon 1 mg 02/27/20 15:49 Glucagen IM ASDIRECTED PRN Hypoglycemia Sodium Chloride 1,000 mls @ 999 mls/hr 02/26/20 19:48 02/26/20 20:09 Normal Saline IV 02/26/20 20:48 999 mls/hr STAT ONE Administration Sodium Chloride 1,000 mls @ 999 mls/hr 02/26/20 20:55 02/26/20 21:01 Normal Saline IV 02/26/20 21:55 999 mls/hr STAT ONE Administration Sodium Chloride 500 mls @ 150 mls/hr 02/26/20 22:30 02/26/20 22:29 Normal Saline IV 150 mls/hr .BOLUS JESUS Administration Lactated Ringer's 1,000 mls @ 125 mls/hr 02/26/20 23:30 Ringers, Lactated IV ASDIRECTED JESUS Pantoprazole Sodium 40 mg/ 10 mls @ 300 mls/hr 02/27/20 09:00 02/28/20 09:15 Sodium Chloride IV 300 mls/hr DAILY JESUS Administration Lactated Ringer's 1,000 mls @ 125 mls/hr 02/27/20 01:00 02/27/20 01:02 Ringers, Lactated IV 125 mls/hr ASDIRECTED JESUS Administration Lactated Ringer's 1,000 mls @ 125 mls/hr 02/27/20 06:45 02/28/20 06:48 Ringers, Lactated IV 125 mls/hr ASDIRECTED JESUS Administration Insulin Aspart 0 unit 02/27/20 17:00 02/28/20 11:45 Novolog SUBCUT 1 unit TIDAC JESUS Administration Protocol Iopamidol 100 ml 02/26/20 21:32 02/27/20 01:09 Isovue Multipack-370 (76%) IVPUSH 02/26/20 21:33 100 ml ONETIME STA Administration Labetalol HCl 10 mg 02/27/20 00:15 02/27/20 00:25 Normodyne IVPUSH 02/27/20 00:16 2 ml ONETIME ONE Administration Protocol Labetalol HCl 20 mg 02/27/20 20:20 02/27/20 20:35 Normodyne IVPUSH 02/27/20 20:21 20 mg ONETIME ONE Administration Protocol Lactulose 14.666 gm 02/27/20 09:48 02/28/20 09:16 Chronulac PO 14.666 gm BID JESUS Administration Magnesium Sulfate 2 gm 02/26/20 21:27 02/26/20 21:44 Magnesium Sulfate In Water Premix IV 02/26/20 21:28 2 gm NOW STA Administration Metoprolol Succinate 50 mg 02/28/20 09:48 02/28/20 09:15 Toprol Xl PO 50 mg DAILY JESUS Administration Morphine Sulfate 4 mg 02/26/20 19:48 02/26/20 20:09 Morphine IVPUSH 02/26/20 19:49 4 mg ONETIME ONE Administration Morphine Sulfate 1 mg 02/26/20 23:25 02/28/20 04:07 Morphine IVPUSH 1 mg Q4H PRN Administration Abdominal Pain Ondansetron HCl 4 mg 02/26/20 19:48 02/26/20 20:09 Zofran IVPUSH 02/26/20 19:49 4 mg ONETIME ONE Administration Ondansetron HCl 4 mg 02/26/20 23:27 02/27/20 01:05 Zofran IVPUSH 4 mg Q4H PRN Administration Nausea/Vomiting Rifaximin 550 Mg Tab 1 each 02/27/20 09:48 02/28/20 09:15 PO 1 each BID JESUS Administration Polyethylene Glycol 17 gm 02/27/20 21:00 02/28/20 09:15 Miralax PO 17 gm BID JESUS Administration Sepsis Event Note (ED) - Evaluation Sepsis Screening Result: No Definite Risk
--- NOTE | 2020-02-26 20:26 | CR ---
INDICATION: Shortness of breath, chest pain TECHNIQUE: Chest 1 view COMPARISON: November 09, 2019 FINDINGS: Cardiovascular and mediastinum: Heart size and vasculature are normal in caliber and appearance. Lungs and pleural spaces: Lungs are clear. No sign of infiltrate or mass. No sign of pleural effusion. No pneumothorax. Bones and soft tissues: No significant findings. IMPRESSION: No acute findings and no significant changes from the prior exam. Dictated by Osmany Baker MD @ Feb 26 2020 8:24PM Signed by Dr. Osmany Baker @ Feb 26 2020 8:24PM
[2020-02-26 20:50] LABS: CARBON DIOXIDE,CO2 27.1 mmol/L (21.0-32.0); POTASSIUM,K 3.8 mmol/L (3.5-5.1)
--- NOTE | 2020-02-26 21:23 | PCM.SN.2 ---
- Free Text/Narrative Note: An EKG was performed 02/26/2020 at 2108 hrs. and read at 2115. Sinus rhythm with a heart rate 68 [place] I 07 MI interval 175 QT 437. Duration 115. QRS there is a minor tiny Q wave in [address] and T insulin normal. This is compared to 11/09/2019 and there is no significant change. This injury
[2020-02-26] MEDS ORDERED: Magnesium Sulfate/Water 2 GM/50 ML Premix Bag IV STA (21:27)
[2020-02-26] MEDS ORDERED: Iopamidol 755 MG/ML 500 ML Multipack Bottle IVPUSH STA (21:32)
--- NOTE | 2020-02-26 22:02 | CT ---
INDICATION: Abdominal pain. Nausea and vomiting. TECHNIQUE: Axial images were obtained from the diaphragm to the pubic symphysis. Reformats were obtained in the coronal and sagittal plane. IV Contrast: 100 cc Isovue 370 Oral Contrast: None COMPARISON: Abdomen and pelvis CT 11/09/2019 FINDINGS: Lower chest: Trace bilateral pleural effusions. Liver: Fatty infiltration of the liver. No discrete intrahepatic lesions. Gallbladder and bile ducts: Distended gallbladder without pericholecystic inflammation. Spleen: Mild splenomegaly without discrete lesion. Pancreas: Unremarkable. No mass or inflammation. Adrenal glands: Unremarkable. No nodules. Kidneys: Symmetric renal enhancement without hydronephrosis. Vasculature: No abdominal aortic aneurysm. Mild distention of the portal vein. GI tract: Trace ascites. Stomach is unremarkable. No dilated loops of small bowel. Small bowel is mostly decompressed limiting evaluation although some areas of small-bowel wall thickening are possible. Unremarkable appendix. Colon is normal in caliber. Pelvis: Minimal bladder distension. Bones: Spondylolysis L5. IMPRESSION: 1. Evidence of 3rd spacing with trace ascites and trace bilateral pleural effusions. 2. Equivocal small bowel wall thickening, possibly an enteritis. 3. Fatty infiltration of the liver. 4. Splenomegaly, likely secondary to portal hypertension with some distention of the portal vein noted. Please note that all CT scans at this facility use dose modulation, iterative reconstruction, and/or weight-based dosing when appropriate to reduce radiation dose to as low as reasonably achievable. Dictated by Khanh Bean MD @ Feb 26 2020 9:44PM Signed by Dr. Khanh Bean @ Feb 26 2020 10:01PM
[2020-02-26] MEDS ORDERED: Sodium Chloride 0.9% 500 ML IV SCH (22:30)
[2020-02-26 22:53] LABS: CARBON DIOXIDE,CO2 28.5 mmol/L (21.0-32.0); POTASSIUM,K 4.5 mmol/L (3.5-5.1)
[2020-02-26] MEDS ORDERED: Albuterol/Ipratropium 3.0-0.5 MG/3 ML Neb Soln NEB PRN (23:20)
[2020-02-26] MEDS ORDERED: Ondansetron 4 MG/2 ML SDV IVPUSH PRN (23:27)
[2020-02-26] MEDS ORDERED: Lactated Ringers 1,000 ML IV SCH (23:30)
[2020-02-27] MEDS ORDERED: Labetalol 100 MG/20 ML MDV IVPUSH ONE ×2 (00:15→20:20)
[2020-02-27] MEDS: Morphine 2 MG/ML SYRINGE IVPUSH PRN ×2 (00:57→05:48)
[2020-02-27] MEDS ORDERED: Lactated Ringers 1,000 ML IV SCH (01:00)
[2020-02-27 02:43] LABS: CARBON DIOXIDE,CO2 29.4 mmol/L (21.0-32.0); POTASSIUM,K 4.6 mmol/L (3.5-5.1)
[2020-02-27 06:17] LABS: CARBON DIOXIDE,CO2 27.9 mmol/L (21.0-32.0)
[2020-02-27] MEDS: Lactated Ringers 1,000 ML IV SCH ×3 (06:45→22:56)
--- NOTE | 2020-02-27 08:11 | PCM.HP.2 ---
<Shaan Rosen - Last Filed: 02/27/20 15:49> H&P History of Present Illness - General Date of Service: 02/27/20 Admit Problem/Dx: Admission Diagnosis/Problem Admission Diagnosis/Problem Hyponatremia - History of Present Illness Initial Comments - Free Text/Narative: 49 yr old male presented to the ED due to abdominal pain, nausea, vomiting, headaches and a dry cough for 3 days. Patient states that he though he had a COVID infection or the flu. Patient has a past medical history significant for Alcohol dependence, Cirrosis, GERD, HTN, Diabetes 2. Patient states that he has not had any alcohol in 4 months. Patient denies nausea, vomiting, fever or chills but states abdominal pain that is aggravated with movement and due to vomiting multiple times over the past 3 days. headache, abdomen Pain Score (Numeric/FACES): 3 - Related Data Allergies/Adverse Reactions: Allergies Allergy/AdvReac Type Severity Reaction Status Date / Time No Known Allergies Allergy Verified 02/27/20 04:25 Home Medications: Home Meds Enalapril [Vasotec] 5 mg PO DAILY 06/03/19 [History] Metoprolol Succinate 50 mg PO DAILY 06/03/19 [History] Insulin Glarg,Human.Rec.Analog [Lantus] 12 units SQ BEDTIME 02/26/20 [History] Rifaximin [Xifaxan] 1 tab PO BID 02/26/20 [History] Lactulose 22 ml PO TID #0 02/28/20 [Rx] polyethylene glycoL 3350 [MiraLAX] 17 gm PO BID PRN #30 packet 02/28/20 [Rx] Past Medical History HEENT History: Reports: Impaired Vision, Other (See Below) Other HEENT History: glasses for reading Cardiovascular History: Reports: High Cholesterol, Hypertension Respiratory History: Reports: None Gastrointestinal History: Reports: Cirrhosis, GERD Psychiatric History: Reports: Anxiety, Depression Endocrine/Metabolic History: Reports: Diabetes, Type II - Infectious Disease History Infectious Disease History: Reports: Chicken Pox, Measles, Mumps - Past Surgical History GI Surgical History: Reports: None Musculoskeletal Surgical History: Reports: Other (See Below) Other Musculoskeletal Surgeries/Procedures:: left knee pain- every year had an injection to control the pain, broken left arm with plate Social & Family History - Family History Family Medical History: No Pertinent Family History - Tobacco Use Tobacco Use Status *Q: Never Tobacco User Second Hand Smoke Exposure: No - Caffeine Use Caffeine Use: Reports: Soda Other Caffeine Use: coffee for morning. soda for lunch - Alcohol Use Date of Last Drink: 11/09/19 - Recreational Drug Use Recreational Drug Use: No H&P Review of Systems - Review of Systems: Review Of Systems: See Below General: Denies: Fever, Chills, Malaise, Weakness Pulmonary: Denies: Shortness of Breath, Wheezing Cardiovascular: Denies: Chest Pain, Dyspnea on Exertion Gastrointestinal: Denies: Abdominal Pain, Nausea, Vomiting Musculoskeletal: Reports: Foot Pain (left great toe pain). Denies: Back Pain Neurological: Denies: Dizziness, Headache Exam - Exam Exam: See Below - Vital Signs Vital Signs: Last Vital Signs Temp 97.5 F 02/27/20 08:00 Pulse 67 02/27/20 08:00 Resp 17 02/27/20 08:00 BP 191/98 H 02/27/20 08:00 Pulse Ox 96 02/27/20 08:00 Weight: 131.769 kg - Exam General: Alert, Oriented, Cooperative Neck: Trachea Midline Lungs: Clear to Auscultation, Normal Respiratory Effort Cardiovascular: Regular Rate, Regular Rhythm GI/Abdominal Exam: Normal Bowel Sounds, Soft, Non-Tender Extremities: No Pedal Edema, Other (Wound of left great toe) Neurological: Sensation Intact Neuro Extensive - Mental Status: Alert, Oriented x3 - Patient Data Lab Results Last 24 hrs: Laboratory Results - last 24 hr 02/26/20 02/26/20 02/26/20 Range/Units 20:01 20:01 20:01 WBC 12.56 H (4.0-11.0) K/uL RBC 4.23 L (4.50-5.90) M/uL Hgb 13.0 (13.0-17.0) g/dL Hct 35.9 L (38.0-50.0) % MCV 84.9 (80.0-98.0) fL MCH 30.7 (27.0-32.0) pg MCHC 36.2 (31.0-37.0) g/dL RDW Std Deviation 36.6 (28.0-62.0) fl RDW Coeff of Pipe 12 (11.0-15.0) % Plt Count 153 (150-400) K/uL MPV 10.60 (7.40-12.00) fL Neut % (Auto) 73.4 (48.0-80.0) % Lymph % (Auto) 17.9 (16.0-40.0) % [place] % (Auto) 8.2 (0.0-15.0) % Eos % (Auto) 0.5 (0.0-7.0) % Baso % (Auto) 0.0 (0.0-1.5) % Neut # (Auto) 9.2 H (1.4-5.7) K/uL Lymph # (Auto) 2.3 (0.6-2.4) K/uL [place] # (Auto) 1.0 H (0.0-0.8) K/uL Eos # (Auto) 0.1 (0.0-0.7) K/uL Baso # (Auto) 0.0 (0.0-0.1) K/uL Nucleated RBC % 0.0 /100WBC Nucleated RBCs # 0 K/uL Lactate (0.20-2.00) mmol/L Sodium 118 L* (136-148) mmol/L Potassium 3.8 (3.5-5.1) mmol/L Chloride 82 L (98-107) mmol/L Carbon Dioxide 27.1 (21.0-32.0) mmol/L BUN 31 H (7.0-18.0) mg/dL Creatinine 1.7 H (0.8-1.3) mg/dL Est Cr Clr Drug Dosing 63.51 mL/min Estimated GFR (MDRD) 43.2 ml/min Glucose 132 H (74-106) mg/dL Calcium 8.2 L (8.5-10.1) mg/dL Magnesium 1.5 L (1.8-2.4) mg/dL Total Bilirubin 0.7 (0.2-1.0) mg/dL AST 24 (15-37) IU/L ALT 17 (14-63) IU/L Alkaline Phosphatase 79 (46-116) U/L Total Protein 6.3 L (6.4-8.2) g/dL Albumin 2.6 L (3.4-5.0) g/dL Globulin 3.7 (2.6-4.0) g/dL Albumin/Globulin Ratio 0.7 L (0.9-1.6) Lipase (73-393) U/L Urine Color Urine Appearance Urine pH (5.0-8.0) Ur Specific [place] (1.001-1.035) Urine Protein (NEGATIVE) mg/dL Urine Glucose (UA) (NEGATIVE) mg/dL Urine Ketones (NEGATIVE) mg/dL Urine Occult Blood (NEGATIVE) Urine Nitrite (NEGATIVE) Urine Bilirubin (NEGATIVE) Urine Urobilinogen (<2.0) EU/dL Ur Leukocyte Esterase (NEGATIVE) Urine RBC (0-2/HPF) Urine WBC (0-5/HPF) Ur Epithelial Cells (NONE-FEW) Urine Bacteria (NEGATIVE) SARS-CoV-2 RNA (MAYE) (NEGATIVE) SARS CoV-2 RNA Rapid MAYE (NEGATIVE) 02/26/20 02/26/20 02/26/20 Range/Units 20:01 20:15 22:26 WBC (4.0-11.0) K/uL RBC (4.50-5.90) M/uL Hgb (13.0-17.0) g/dL Hct (38.0-50.0) % MCV (80.0-98.0) fL MCH (27.0-32.0) pg MCHC (31.0-37.0) g/dL RDW Std Deviation (28.0-62.0) fl RDW Coeff of Pipe (11.0-15.0) % Plt Count (150-400) K/uL MPV (7.40-12.00) fL Neut % (Auto) (48.0-80.0) % Lymph % (Auto) (16.0-40.0) % [place] % (Auto) (0.0-15.0) % Eos % (Auto) (0.0-7.0) % Baso % (Auto) (0.0-1.5) % Neut # (Auto) (1.4-5.7) K/uL Lymph # (Auto) (0.6-2.4) K/uL [place] # (Auto) (0.0-0.8) K/uL Eos # (Auto) (0.0-0.7) K/uL Baso # (Auto) (0.0-0.1) K/uL Nucleated RBC % /100WBC Nucleated RBCs # K/uL Lactate (0.20-2.00) mmol/L Sodium (136-148) mmol/L Potassium (3.5-5.1) mmol/L Chloride (98-107) mmol/L Carbon Dioxide (21.0-32.0) mmol/L BUN (7.0-18.0) mg/dL Creatinine (0.8-1.3) mg/dL Est Cr Clr Drug Dosing mL/min Estimated GFR (MDRD) ml/min Glucose (74-106) mg/dL Calcium (8.5-10.1) mg/dL Magnesium (1.8-2.4) mg/dL Total Bilirubin (0.2-1.0) mg/dL AST (15-37) IU/L ALT (14-63) IU/L Alkaline Phosphatase (46-116) U/L Total Protein (6.4-8.2) g/dL Albumin (3.4-5.0) g/dL Globulin (2.6-4.0) g/dL Albumin/Globulin Ratio (0.9-1.6) Lipase 135 (73-393) U/L Urine Color YELLOW Urine Appearance HAZY Urine pH 5.5 (5.0-8.0) Ur Specific [place] 1.020 (1.001-1.035) Urine Protein 100 H (NEGATIVE) mg/dL Urine Glucose (UA) NEGATIVE (NEGATIVE) mg/dL Urine Ketones NEGATIVE (NEGATIVE) mg/dL Urine Occult Blood LARGE H (NEGATIVE) Urine Nitrite NEGATIVE (NEGATIVE) Urine Bilirubin NEGATIVE (NEGATIVE) Urine Urobilinogen 0.2 (<2.0) EU/dL Ur Leukocyte Esterase NEGATIVE (NEGATIVE) Urine RBC 10-20 (0-2/HPF) Urine WBC 0-3 (0-5/HPF) Ur Epithelial Cells RARE (NONE-FEW) Urine Bacteria FEW (NEGATIVE) SARS-CoV-2 RNA (MAYE) (NEGATIVE) SARS CoV-2 RNA Rapid MAYE NEGATIVE (NEGATIVE) 02/26/20 02/26/20 02/27/20 Range/Units 22:32 23:12 02:07 WBC (4.0-11.0) K/uL RBC (4.50-5.90) M/uL Hgb (13.0-17.0) g/dL Hct (38.0-50.0) % MCV (80.0-98.0) fL MCH (27.0-32.0) pg MCHC (31.0-37.0) g/dL RDW Std Deviation (28.0-62.0) fl RDW Coeff of Pipe (11.0-15.0) % Plt Count (150-400) K/uL MPV (7.40-12.00) fL Neut % (Auto) (48.0-80.0) % Lymph % (Auto) (16.0-40.0) % [place] % (Auto) (0.0-15.0) % Eos % (Auto) (0.0-7.0) % Baso % (Auto) (0.0-1.5) % Neut # (Auto) (1.4-5.7) K/uL Lymph # (Auto) (0.6-2.4) K/uL [place] # (Auto) (0.0-0.8) K/uL Eos # (Auto) (0.0-0.7) K/uL Baso # (Auto) (0.0-0.1) K/uL Nucleated RBC % /100WBC Nucleated RBCs # K/uL Lactate (0.20-2.00) mmol/L Sodium 119 L* 120 L (136-148) mmol/L Potassium 4.5 4.6 (3.5-5.1) mmol/L Chloride 85 L 86 L (98-107) mmol/L Carbon Dioxide 28.5 29.4 (21.0-32.0) mmol/L BUN 30 H 31 H (7.0-18.0) mg/dL Creatinine 1.5 H 1.5 H (0.8-1.3) mg/dL Est Cr Clr Drug Dosing 71.98 71.98 mL/min Estimated GFR (MDRD) 49.9 49.9 ml/min Glucose 112 H 99 (74-106) mg/dL Calcium 7.9 L 7.8 L (8.5-10.1) mg/dL Magnesium 2.0 (1.8-2.4) mg/dL Total Bilirubin (0.2-1.0) mg/dL AST (15-37) IU/L ALT (14-63) IU/L Alkaline Phosphatase (46-116) U/L Total Protein (6.4-8.2) g/dL Albumin (3.4-5.0) g/dL Globulin (2.6-4.0) g/dL Albumin/Globulin Ratio (0.9-1.6) Lipase (73-393) U/L Urine Color Urine Appearance Urine pH (5.0-8.0) Ur Specific [place] (1.001-1.035) Urine Protein (NEGATIVE) mg/dL Urine Glucose (UA) (NEGATIVE) mg/dL Urine Ketones (NEGATIVE) mg/dL Urine Occult Blood (NEGATIVE) Urine Nitrite (NEGATIVE) Urine Bilirubin (NEGATIVE) Urine Urobilinogen (<2.0) EU/dL Ur Leukocyte Esterase (NEGATIVE) Urine RBC (0-2/HPF) Urine WBC (0-5/HPF) Ur Epithelial Cells (NONE-FEW) Urine Bacteria (NEGATIVE) SARS-CoV-2 RNA (MAYE) NEGATIVE (NEGATIVE) SARS CoV-2 RNA Rapid MAYE (NEGATIVE) 02/27/20 Range/Units 05:07 WBC (4.0-11.0) K/uL RBC (4.50-5.90) M/uL Hgb (13.0-17.0) g/dL Hct (38.0-50.0) % MCV (80.0-98.0) fL MCH (27.0-32.0) pg MCHC (31.0-37.0) g/dL RDW Std Deviation (28.0-62.0) fl RDW Coeff of Pipe (11.0-15.0) % Plt Count (150-400) K/uL MPV (7.40-12.00) fL Neut % (Auto) (48.0-80.0) % Lymph % (Auto) (16.0-40.0) % [place] % (Auto) (0.0-15.0) % Eos % (Auto) (0.0-7.0) % Baso % (Auto) (0.0-1.5) % Neut # (Auto) (1.4-5.7) K/uL Lymph # (Auto) (0.6-2.4) K/uL [place] # (Auto) (0.0-0.8) K/uL Eos # (Auto) (0.0-0.7) K/uL Baso # (Auto) (0.0-0.1) K/uL Nucleated RBC % /100WBC Nucleated RBCs # K/uL Lactate (0.20-2.00) mmol/L Sodium 120 L (136-148) mmol/L Potassium 4.0 (3.5-5.1) mmol/L Chloride 86 L (98-107) mmol/L Carbon Dioxide 27.9 (21.0-32.0) mmol/L BUN 31 H (7.0-18.0) mg/dL Creatinine 1.6 H (0.8-1.3) mg/dL Est Cr Clr Drug Dosing 67.48 mL/min Estimated GFR (MDRD) 46.4 ml/min Glucose 87 (74-106) mg/dL Calcium 7.9 L (8.5-10.1) mg/dL Magnesium (1.8-2.4) mg/dL Total Bilirubin (0.2-1.0) mg/dL AST (15-37) IU/L ALT (14-63) IU/L Alkaline Phosphatase (46-116) U/L Total Protein (6.4-8.2) g/dL Albumin (3.4-5.0) g/dL Globulin (2.6-4.0) g/dL Albumin/Globulin Ratio (0.9-1.6) Lipase (73-393) U/L Urine Color Urine Appearance Urine pH (5.0-8.0) Ur Specific [place] (1.001-1.035) Urine Protein (NEGATIVE) mg/dL Urine Glucose (UA) (NEGATIVE) mg/dL Urine Ketones (NEGATIVE) mg/dL Urine Occult Blood (NEGATIVE) Urine Nitrite (NEGATIVE) Urine Bilirubin (NEGATIVE) Urine Urobilinogen (<2.0) EU/dL Ur Leukocyte Esterase (NEGATIVE) Urine RBC (0-2/HPF) Urine WBC (0-5/HPF) Ur Epithelial Cells (NONE-FEW) Urine Bacteria (NEGATIVE) SARS-CoV-2 RNA (MAYE) (NEGATIVE) SARS CoV-2 RNA Rapid MAYE (NEGATIVE) Result Diagrams: 02/27/20 02:07 02/27/20 12:35 Sepsis Event Note - Evaluation Sepsis Screening Result: No Definite Risk - Focused Exam Vital Signs: Vital Signs Temp Pulse Resp BP Pulse Ox 02/27/20 08:00 97.5 F 67 17 191/98 H 96 02/27/20 04:00 68 17 155/82 H 100 02/27/20 01:30 69 16 158/83 H 98 02/27/20 00:40 97.0 F 69 17 195/100 H 98 02/27/20 00:11 70 18 181/97 H 97 02/26/20 23:19 71 18 180/60 H 97 02/26/20 21:48 72 16 155/92 H 96 02/26/20 21:02 70 20 169/97 H 97 02/26/20 20:13 68 20 155/92 H 98 Problem List Initiated/Reviewed/Updated: Yes Orders Last 24hrs: Active Orders 24 hr Category Date Time Status Admission Status [Patient Status] [ADT] Stat ADT 02/26/20 23:00 Active Ambulate [RC] ASDIRECTED Care 02/26/20 23:20 Active Antiembolic Devices [RC] PER UNIT ROUTINE Care 02/26/20 23:24 Active EKG Documentation Completion [RC] STAT Care 02/26/20 20:53 Active Oxygen Therapy [RC] PRN Care 02/26/20 23:21 Active Pulse Oximetry [RC] PRN Care 02/26/20 23:21 Active RT Aerosol Therapy [RC] ASDIRECTED Care 02/26/20 23:25 Active Telemetry Monitoring [Cardiac Monitoring] [RC] Q8H Care 02/26/20 23:08 Active VTE/DVT Education [RC] PER UNIT ROUTINE Care 02/26/20 23:21 Active Vital Signs [RC] Q4H Care 02/26/20 23:21 Active Regular Diet [DIET] Diet 02/27/20 Breakfast Active CORONAVIRUS COVID-19 PCR PHL Stat Lab 02/26/20 20:15 Received Albuterol/Ipratropium [DuoNeb 3.0-0.5 MG/3 ML] Med 02/26/20 23:20 Active 3 ml NEB Q4HRRT PRN Lactated Ringers [Ringers, Lactated] 1,000 ml Med 02/27/20 06:45 Active IV ASDIRECTED Morphine Med 02/26/20 23:25 Active 1 mg IVPUSH Q4H PRN Ondansetron [Zofran] Med 02/26/20 23:27 Active 4 mg IVPUSH Q4H PRN Pantoprazole [ProTONIX IV] 40 mg Med 02/27/20 09:00 Active Sodium Chloride 0.9% [Normal Saline] 10 ml IV DAILY Sodium Chloride 0.9% [Normal Saline] 500 ml Med 02/26/20 22:30 Active IV .BOLUS Sequential Compression Device [OM.PC] Per Unit Routine Oth 02/26/20 23:22 Ordered Resuscitation Status Routine Resus Stat 02/26/20 23:20 Ordered Medication Orders Albuterol/Ipratropium (Duoneb 3.0-0.5 Mg/3 Ml) 3 ml NEB Q4HRRT PRN PRN Reason: Shortness Of Breath/wheezing Sodium Chloride (Normal Saline) 500 mls @ 150 mls/hr IV .BOLUS JESUS Last Admin: 02/26/20 22:29 Dose: 150 mls/hr Documented by: BRITTANIE Pantoprazole Sodium 40 mg/ (Sodium Chloride) 10 mls @ 300 mls/hr IV DAILY JESUS Lactated Ringer's (Ringers, Lactated) 1,000 mls @ 150 mls/hr IV ASDIRECTED JESUS Last Admin: 02/27/20 06:45 Dose: 150 mls/hr Documented by: BRISA Morphine Sulfate (Morphine) 1 mg IVPUSH Q4H PRN PRN Reason: Abdominal Pain Last Admin: 02/27/20 05:48 Dose: 1 mg Documented by: Admin: 02/27/20 00:57 Dose: 1 mg Documented by: BRISA Ondansetron HCl (Zofran) 4 mg IVPUSH Q4H PRN PRN Reason: Nausea/Vomiting Last Admin: 02/27/20 01:05 Dose: 4 mg Documented by: BRISA Assessment/Plan Comment:: Nausea/Vomiting- Patient has a negative COVID. Morphine 1mg PRN, Zofran 4mg PRN, Pantropozole 40mg Dehydration- LR 150/HR Diabetes- ADA Diet, Sliding Scale (low) Left great toe wound- Wound Care consult, Aquacel wound dressings. X-RAY left foot to rule out osteomyelitis Hyponatremia- 122, monitor with AM BMP. Sodium chloride PO if sodium is not improving Cirosis- Rifaximin 550mg QD, Lactulose HTN- Enalapril 5mg daily, Metoprolol succinate 50mg ER daily <Kevin Tirado - Last Filed: 03/01/20 12:35> H&P History of Present Illness - General Admit Problem/Dx: Admission Diagnosis/Problem Admission Diagnosis/Problem Hyponatremia Exam - Vital Signs Vital Signs: Last Vital Signs Temp 36.4 C 02/28/20 11:50 Pulse 77 02/28/20 11:50 Resp 18 02/28/20 11:50 BP 172/93 H 02/28/20 11:50 Pulse Ox 96 02/28/20 08:00 - Patient Data Result Diagrams: 02/28/20 04:58 02/28/20 04:58 Assessment/Plan Comment:: I performed a history and physical exam of the patient and discussed management with resident. I have reviewed the residents note and agree with documented findings and plan unless otherwise specified in my note.
[2020-02-27] MEDS: Pantoprazole 40 MG in Sodium Chloride 0.9% 10 ML IV SCH (09:16)
[2020-02-27] MEDS: Enalapril 5 MG Tab PO SCH (10:47)
[2020-02-27] MEDS: Lactulose Soln 10 GM/15 ML 15 ML UD Cup PO SCH ×2 (10:47→20:39)
[2020-02-27] MEDS: Rifaximin 550 MG Tab PO SCH ×2 (10:49→20:41)
--- NOTE | 2020-02-27 13:18 | CR ---
Indication: Left great toe wound Comparison: None available. Technique: AP and lateral views of the left foot were obtained Findings: There is a healed fracture of the 5th metatarsal. There is no evidence of obvious, displaced fracture or dislocation. There is no evidence of osseous erosion. The joint spaces are grossly preserved. There is prominence of the distal 1st soft tissues without evidence of underlying osseous erosion Impression: Superficial soft tissue ulceration of the distal 1st digit without evidence of underlying osseous erosion or acute fracture. If there remains persisting concern for underlying osteomyelitis, MRI with contrast is more sensitive for detecting subtle edema and foci of enhancement. Dictated by Erick Vinson MD @ Feb 27 2020 1:16PM Signed by Dr. Erick Vinson @ Feb 27 2020 1:17PM
[2020-02-27 13:23] LABS: CARBON DIOXIDE,CO2 28.7 mmol/L (21.0-32.0); POTASSIUM,K 4.6 mmol/L (3.5-5.1)
[2020-02-27] MEDS ORDERED: Glucagon,Human Recombinant 1 MG Vial IM PRN (15:49)
[2020-02-27] MEDS ORDERED: 50% Dextrose in Water 50 ML Syringe IV PRN (15:49)
[2020-02-27] MEDS: Insulin Aspart 100 Units/ML 3 ML Pen SUBCUT SCH (18:13)
[2020-02-27] MEDS: Polyethylene Glycol 3350 Powder 17 GM Packet PO SCH (20:38)
[2020-02-28] MEDS: Morphine 2 MG/ML SYRINGE IVPUSH PRN (04:07)
[2020-02-28 05:55] LABS: CARBON DIOXIDE,CO2 28.2 mmol/L (21.0-32.0); POTASSIUM,K 4.4 mmol/L (3.5-5.1)
[2020-02-28] MEDS: Lactated Ringers 1,000 ML IV SCH (06:48)
[2020-02-28] MEDS: Insulin Aspart 100 Units/ML 3 ML Pen SUBCUT SCH ×2 (06:51→11:45)
[2020-02-28] MEDS: Rifaximin 550 MG Tab PO SCH (09:15)
[2020-02-28] MEDS: Enalapril 5 MG Tab PO SCH (09:15)
[2020-02-28] MEDS: Polyethylene Glycol 3350 Powder 17 GM Packet PO SCH (09:15)
[2020-02-28] MEDS: Pantoprazole 40 MG in Sodium Chloride 0.9% 10 ML IV SCH (09:15)
[2020-02-28] MEDS: Lactulose Soln 10 GM/15 ML 15 ML UD Cup PO SCH (09:16)
[2020-02-28] MEDS ORDERED: Metoprolol Succinate 50 MG Tab.ER PO SCH (09:48)
--- NOTE | 2020-02-28 16:38 | PCM.DCSUM1 ---
<Shaan Rosen - Last Filed: 02/28/20 16:31> Discharge Summary - Hospital Course Free Text/Narrative:: 49 yr old male presented was admitted for abdominal pain, nausea, vomiting with an unknow etiology. Patient states that he though he had a COVID infection or the flu. Patient has a past medical history significant for Alcohol dependence, Cirrosis, GERD, HTN, Diabetes 2. Patient states that he has not had any alcohol in 4 months. Patient was admitted for monitoring and fluids. Patient was noted to be hyponatremic which gradually improved. Patient was also noted to have a wound of his left great toe which required wound consult and treatment with aquacel dressings. Patient at discharge was stable and stated that he felt better. - Discharge Data Discharge Date: 02/28/20 Discharge Disposition: Home, Self-Care 01 Condition: Stable - Referral to Home Health Primary Care Physician: Anitra Robbins NP - Patient Summary/Data Consults: Consultations 02/27/20 09:21 Consult to Wound Care Services [CONS] Routine - Discharge Plan Prescriptions/Med Rec: polyethylene glycoL 3350 [MiraLAX] 17 gm PO BID PRN #30 packet PRN Reason: Constipation Home Medications: Home Meds Enalapril [Vasotec] 5 mg PO DAILY 06/03/19 [History] Metoprolol Succinate 50 mg PO DAILY 06/03/19 [History] Insulin Glarg,Human.Rec.Analog [Lantus] 12 units SQ BEDTIME 02/26/20 [History] Rifaximin [Xifaxan] 1 tab PO BID 02/26/20 [History] Lactulose 22 ml PO TID #0 02/28/20 [Rx] polyethylene glycoL 3350 [MiraLAX] 17 gm PO BID PRN #30 packet 02/28/20 [Rx] Patient Handouts: Dehydration, Adult, [id number], Polyethylene Glycol powder Referrals: Anitra Robbins NP [Primary Care Provider] - 03/07/20 10:30 am - Discharge Summary/Plan Comment DC Time >30 min.: No - General Info Date of Service: 02/28/20 Admission Dx/Problem (Free Text: Patient states that he feels better but had some abdominal pain which resolved with a bowel movement and D/C of IV fluids. Patient denies fever, chills, nausea, vomiting, SOB, chest pain. Patient would like to go home - Review of Systems General: Denies: Fever, Weakness, Chills Pulmonary: Denies: Shortness of Breath, Pleuritic Chest Pain, Cough Cardiovascular: Denies: Chest Pain, Dyspnea on Exertion Gastrointestinal: Denies: Abdominal Pain, Decreased Appetite, Diarrhea Neurological: Denies: Confusion, Dizziness, Headache - Patient Data Vitals - Most Recent: Last Vital Signs Temp 97.5 F 02/28/20 11:50 Pulse 77 02/28/20 11:50 Resp 18 02/28/20 11:50 BP 172/93 H 02/28/20 11:50 Pulse Ox 96 02/28/20 08:00 Weight - Most Recent: 131.769 kg I&O - Last 24 hours: Intake & Output 02/28/20 02/28/20 02/28/20 06:59 14:59 22:59 Intake Total 2110 1460 Output Total 1150 350 Balance 960 1110 Lab Results - Last 24 hrs: Laboratory Results - last 24 hr 02/27/20 02/28/20 02/28/20 Range/Units 18:11 04:58 04:58 WBC 9.72 (4.0-11.0) K/uL RBC 3.96 L (4.50-5.90) M/uL Hgb 12.1 L (13.0-17.0) g/dL Hct 34.3 L (38.0-50.0) % MCV 86.6 (80.0-98.0) fL MCH 30.6 (27.0-32.0) pg MCHC 35.3 (31.0-37.0) g/dL RDW Std Deviation 37.9 (28.0-62.0) fl RDW Coeff of Pipe 12 (11.0-15.0) % Plt Count 143 L (150-400) K/uL MPV 10.10 (7.40-12.00) fL Neut % (Auto) 65.6 (48.0-80.0) % Lymph % (Auto) 22.3 (16.0-40.0) % [place] % (Auto) 11.2 (0.0-15.0) % Eos % (Auto) 0.8 (0.0-7.0) % Baso % (Auto) 0.1 (0.0-1.5) % Neut # (Auto) 6.4 H (1.4-5.7) K/uL Lymph # (Auto) 2.2 (0.6-2.4) K/uL [place] # (Auto) 1.1 H (0.0-0.8) K/uL Eos # (Auto) 0.1 (0.0-0.7) K/uL Baso # (Auto) 0.0 (0.0-0.1) K/uL Nucleated RBC % 0.0 /100WBC Nucleated RBCs # 0 K/uL Sodium 122 L (136-148) mmol/L Potassium 4.4 (3.5-5.1) mmol/L Chloride 88 L (98-107) mmol/L Carbon Dioxide 28.2 (21.0-32.0) mmol/L BUN 31 H (7.0-18.0) mg/dL Creatinine 1.8 H (0.8-1.3) mg/dL Est Cr Clr Drug Dosing 59.98 mL/min Estimated GFR (MDRD) 40.5 ml/min Glucose 83 (74-106) mg/dL POC Glucose 90 (60-110) mg/dL Calcium 8.1 L (8.5-10.1) mg/dL 02/28/20 02/28/20 Range/Units 06:47 11:19 WBC (4.0-11.0) K/uL RBC (4.50-5.90) M/uL Hgb (13.0-17.0) g/dL Hct (38.0-50.0) % MCV (80.0-98.0) fL MCH (27.0-32.0) pg MCHC (31.0-37.0) g/dL RDW Std Deviation (28.0-62.0) fl RDW Coeff of Pipe (11.0-15.0) % Plt Count (150-400) K/uL MPV (7.40-12.00) fL Neut % (Auto) (48.0-80.0) % Lymph % (Auto) (16.0-40.0) % [place] % (Auto) (0.0-15.0) % Eos % (Auto) (0.0-7.0) % Baso % (Auto) (0.0-1.5) % Neut # (Auto) (1.4-5.7) K/uL Lymph # (Auto) (0.6-2.4) K/uL [place] # (Auto) (0.0-0.8) K/uL Eos # (Auto) (0.0-0.7) K/uL Baso # (Auto) (0.0-0.1) K/uL Nucleated RBC % /100WBC Nucleated RBCs # K/uL Sodium (136-148) mmol/L Potassium (3.5-5.1) mmol/L Chloride (98-107) mmol/L Carbon Dioxide (21.0-32.0) mmol/L BUN (7.0-18.0) mg/dL Creatinine (0.8-1.3) mg/dL Est Cr Clr Drug Dosing mL/min Estimated GFR (MDRD) ml/min Glucose (74-106) mg/dL POC Glucose 80 164 H (60-110) mg/dL Calcium (8.5-10.1) mg/dL Med Orders - Current: Current Medications Discontinued Medications Albuterol/Ipratropium (Duoneb 3.0-0.5 Mg/3 Ml) 3 ml NEB Q4HRRT PRN PRN Reason: Shortness Of Breath/wheezing Dextrose/Water (Dextrose 50% In Water) 50 ml IV ASDIRECTED PRN PRN Reason: Hypoglycemia Enalapril Maleate (Vasotec) 5 mg PO DAILY [facility] Last Admin: 02/28/20 09:15 Dose: 5 mg Documented by: Glucagon (Glucagen) 1 mg IM ASDIRECTED PRN PRN Reason: Hypoglycemia Sodium Chloride (Normal Saline) 1,000 mls @ 999 mls/hr IV STAT ONE Stop: 02/26/20 20:48 Last Admin: 02/26/20 20:09 Dose: 999 mls/hr Documented by: Sodium Chloride (Normal Saline) 1,000 mls @ 999 mls/hr IV STAT ONE Stop: 02/26/20 21:55 Last Admin: 02/26/20 21:01 Dose: 999 mls/hr Documented by: Sodium Chloride (Normal Saline) 500 mls @ 150 mls/hr IV .BOLUS [facility] Last Admin: 02/26/20 22:29 Dose: 150 mls/hr Documented by: Lactated Ringer's (Ringers, Lactated) 1,000 mls @ 125 mls/hr IV ASDIRECTED [facility] Pantoprazole Sodium 40 mg/ (Sodium Chloride) 10 mls @ 300 mls/hr IV DAILY [facility] Last Admin: 02/28/20 09:15 Dose: 300 mls/hr Documented by: Lactated Ringer's (Ringers, Lactated) 1,000 mls @ 125 mls/hr IV ASDIRECTED [facility] Last Admin: 02/27/20 01:02 Dose: 125 mls/hr Documented by: Lactated Ringer's (Ringers, Lactated) 1,000 mls @ 125 mls/hr IV ASDIRECTED [facility] Last Admin: 02/28/20 06:48 Dose: 125 mls/hr Documented by: Insulin Aspart (Novolog) 0 unit SUBCUT TIDAC [facility]; Protocol Last Admin: 02/28/20 11:45 Dose: 1 unit Documented by: Iopamidol (Isovue Multipack-370 (76%)) 100 ml IVPUSH ONETIME STA Stop: 02/26/20 21:33 Last Admin: 02/27/20 01:09 Dose: 100 ml Documented by: Labetalol HCl (Normodyne) 10 mg IVPUSH ONETIME ONE; Protocol Stop: 02/27/20 00:16 Last Admin: 02/27/20 00:25 Dose: 2 ml Documented by: Labetalol HCl (Normodyne) 20 mg IVPUSH ONETIME ONE; Protocol Stop: 02/27/20 20:21 Last Admin: 02/27/20 20:35 Dose: 20 mg Documented by: Lactulose (Chronulac) 14.666 gm PO BID [facility] Last Admin: 02/28/20 09:16 Dose: 14.666 gm Documented by: Magnesium Sulfate (Magnesium Sulfate In Water Premix) 2 gm IV NOW STA Stop: 02/26/20 21:28 Last Admin: 02/26/20 21:44 Dose: 2 gm Documented by: Metoprolol Succinate (Toprol Xl) 50 mg PO DAILY [facility] Last Admin: 02/28/20 09:15 Dose: 50 mg Documented by: Morphine Sulfate (Morphine) 4 mg IVPUSH ONETIME ONE Stop: 02/26/20 19:49 Last Admin: 02/26/20 20:09 Dose: 4 mg Documented by: Morphine Sulfate (Morphine) 1 mg IVPUSH Q4H PRN PRN Reason: Abdominal Pain Last Admin: 02/28/20 04:07 Dose: 1 mg Documented by: Ondansetron HCl (Zofran) 4 mg IVPUSH ONETIME ONE Stop: 02/26/20 19:49 Last Admin: 02/26/20 20:09 Dose: 4 mg Documented by: Ondansetron HCl (Zofran) 4 mg IVPUSH Q4H PRN PRN Reason: Nausea/Vomiting Last Admin: 02/27/20 01:05 Dose: 4 mg Documented by: Rifaximin 550 Mg Tab 1 each PO BID [facility] Last Admin: 02/28/20 09:15 Dose: 1 each Documented by: Polyethylene Glycol (Miralax) 17 gm PO BID [facility] Last Admin: 02/28/20 09:15 Dose: 17 gm Documented by: - Exam General: Reports: Alert, Oriented Lungs: Reports: Clear to Auscultation, Normal Respiratory Effort Cardiovascular: Reports: Regular Rate, Regular Rhythm GI/Abdominal Exam: Normal Bowel Sounds, Soft, Non-Tender Wound/Incisions: Reports: Other (wound to left great toe. ) <Kevin Tirado - Last Filed: 03/01/20 12:27> Discharge Summary - Hospital Course Free Text/Narrative:: I have seen and evaluated the patient and agree with the residents note unless specified in my note - Referral to Home Health Primary Care Physician: Anitra Robbins NP - Patient Summary/Data Consults: Consultations 02/27/20 09:21 Consult to Wound Care Services [CONS] Routine - Patient Data Vitals - Most Recent: Last Vital Signs Temp 36.4 C 02/28/20 11:50 Pulse 77 02/28/20 11:50 Resp 18 02/28/20 11:50 BP 172/93 H 02/28/20 11:50 Pulse Ox 96 02/28/20 08:00 Med Orders - Current: Current Medications Discontinued Medications Albuterol/Ipratropium (Duoneb 3.0-0.5 Mg/3 Ml) 3 ml NEB Q4HRRT PRN PRN Reason: Shortness Of Breath/wheezing Dextrose/Water (Dextrose 50% In Water) 50 ml IV ASDIRECTED PRN PRN Reason: Hypoglycemia Enalapril Maleate (Vasotec) 5 mg PO DAILY [facility] Last Admin: 02/28/20 09:15 Dose: 5 mg Documented by: Glucagon (Glucagen) 1 mg IM ASDIRECTED PRN PRN Reason: Hypoglycemia Sodium Chloride (Normal Saline) 1,000 mls @ 999 mls/hr IV STAT ONE Stop: 02/26/20 20:48 Last Admin: 02/26/20 20:09 Dose: 999 mls/hr Documented by: Sodium Chloride (Normal Saline) 1,000 mls @ 999 mls/hr IV STAT ONE Stop: 02/26/20 21:55 Last Admin: 02/26/20 21:01 Dose: 999 mls/hr Documented by: Sodium Chloride (Normal Saline) 500 mls @ 150 mls/hr IV .BOLUS [facility] Last Admin: 02/26/20 22:29 Dose: 150 mls/hr Documented by: Lactated Ringer's (Ringers, Lactated) 1,000 mls @ 125 mls/hr IV ASDIRECTED [facility] Pantoprazole Sodium 40 mg/ (Sodium Chloride) 10 mls @ 300 mls/hr IV DAILY [facility] Last Admin: 02/28/20 09:15 Dose: 300 mls/hr Documented by: Lactated Ringer's (Ringers, Lactated) 1,000 mls @ 125 mls/hr IV ASDIRECTED [facility] Last Admin: 02/27/20 01:02 Dose: 125 mls/hr Documented by: Lactated Ringer's (Ringers, Lactated) 1,000 mls @ 125 mls/hr IV ASDIRECTED [facility] Last Admin: 02/28/20 06:48 Dose: 125 mls/hr Documented by: Insulin Aspart (Novolog) 0 unit SUBCUT TIDAC [facility]; Protocol Last Admin: 02/28/20 11:45 Dose: 1 unit Documented by: Iopamidol (Isovue Multipack-370 (76%)) 100 ml IVPUSH ONETIME STA Stop: 02/26/20 21:33 Last Admin: 02/27/20 01:09 Dose: 100 ml Documented by: Labetalol HCl (Normodyne) 10 mg IVPUSH ONETIME ONE; Protocol Stop: 02/27/20 00:16 Last Admin: 02/27/20 00:25 Dose: 2 ml Documented by: Labetalol HCl (Normodyne) 20 mg IVPUSH ONETIME ONE; Protocol Stop: 02/27/20 20:21 Last Admin: 02/27/20 20:35 Dose: 20 mg Documented by: Lactulose (Chronulac) 14.666 gm PO BID [facility] Last Admin: 02/28/20 09:16 Dose: 14.666 gm Documented by: Magnesium Sulfate (Magnesium Sulfate In Water Premix) 2 gm IV NOW [facility] Stop: 02/26/20 21:28 Last Admin: 02/26/20 21:44 Dose: 2 gm Documented by: Metoprolol Succinate (Toprol Xl) 50 mg PO DAILY [facility] Last Admin: 02/28/20 09:15 Dose: 50 mg Documented by: Morphine Sulfate (Morphine) 4 mg IVPUSH ONETIME ONE Stop: 02/26/20 19:49 Last Admin: 02/26/20 20:09 Dose: 4 mg Documented by: Morphine Sulfate (Morphine) 1 mg IVPUSH Q4H PRN PRN Reason: Abdominal Pain Last Admin: 02/28/20 04:07 Dose: 1 mg Documented by: Ondansetron HCl (Zofran) 4 mg IVPUSH ONETIME ONE Stop: 02/26/20 19:49 Last Admin: 02/26/20 20:09 Dose: 4 mg Documented by: Ondansetron HCl (Zofran) 4 mg IVPUSH Q4H PRN PRN Reason: Nausea/Vomiting Last Admin: 02/27/20 01:05 Dose: 4 mg Documented by: Rifaximin 550 Mg Tab 1 each PO BID [facility] Last Admin: 02/28/20 09:15 Dose: 1 each Documented by: Polyethylene Glycol (Miralax) 17 gm PO BID [facility] Last Admin: 02/28/20 09:15 Dose: 17 gm Documented by:
== END 2020-02-28 14:30 | disposition home or self-care (01) ==
LOC: MW.ED 19:31 → MW.MS 23:08
PROVIDERS: ADMIT Student in an Organized Health Care Education/Training Program; ATTEND Student in an Organized Health Care Education/Training Program
DX: R11.2 Nausea with vomiting, unspecified (principal); R10.9 Unspecified abdominal pain; R05 Cough; I10 Essential (primary) hypertension; E11.9 Type 2 diabetes mellitus without complications; K70.30 Alcoholic cirrhosis of liver without ascites; E78.00 Pure hypercholesterolemia, unspecified; F41.9 Anxiety disorder, unspecified; F32.9 Major depressive disorder, single episode, unspecified; E87.1 Hypo-osmolality and hyponatremia; S91.102A Unspecified open wound of left great toe without damage to nail, initial encounter; Z79.4 Long term (current) use of insulin; Z79.899 Other long term (current) drug therapy; Z20.828 Contact with and (suspected) exposure to other viral communicable diseases
CPT/HCPCS: 36415; 71045; 73620; 74177; 80048; 80053; 81001; 82962; 83605; 83690; 83735; 85025; 87635; 93005; 96361; 96365; 96375; 96376; 99285; A9270; C9113; G0378; J1815; J2270; J2405; J3475; J3490; J7030; J7040; J7120; Q9967; 93010; 99217; 99218; U0002

== ENCOUNTER 2020-07-12 10:10 | Emergency (ER) | payer MEDICAID ==
[2020-07-12] MEDS ORDERED: MVI, Adult with Vitamin K 10 ML, Thiamine 100 MG, Folic Acid 1 MG in Sodium Chloride 0.... IV ONE ×4 (10:25)
[2020-07-12] MEDS ORDERED: LORazepam 2 MG/ML SDV IVPUSH ONE (10:25)
--- NOTE | 2020-07-12 10:25 | EDM.PDOC ---
ED HPI GENERAL MEDICAL PROBLEM - General Chief Complaint: Drug or Alcohol Abuse Stated Complaint: cirrhosis Time Seen by Provider: 07/12/20 10:17 Source of Information: Reports: Patient History Limitations: Reports: No Limitations - History of Present Illness INITIAL COMMENTS - FREE TEXT/NARRATIVE: HISTORY AND PHYSICAL: History of present illness: Patient is a 49-year-old male who presents to the emergency room with complaints of shortness of breath when he lays flat. He woke up this morning after a 2- week cruz of alcohol (was drinking an 18 pack of Kuna Light daily) stating he was short of breath but quickly resolved as he sat up and started moving around. Past medical history of alcohol abuse, cirrhosis, GERD, hypertension and type 2 diabetes. He states he does not want to drink alcohol any longer and decided to check into the emergency room to "make sure I am okay". He states he does feel slightly shaky and generally unwell. Last drink was 4 am this morning. Hasn't taken his home medications in 2 weeks. Patient denies any fever, chills, headache, change in vision, syncope or near syncope. Denies any chest pain, back pain, hemoptysis or cough. Denies any abdominal pain, nausea, vomiting, diarrhea, constipation or dysuria. Has not noted any blood in urine or stool. Patient has been eating and drinking appropriately. Review of systems: As per history of present illness and below otherwise all systems reviewed and negative. Past medical history: As per history of present illness and as reviewed below otherwise noncontributory. Surgical history: As per history of present illness and as reviewed below otherwise noncontributory. Social history: See social history for further information Family history: As per history of present illness and as reviewed below otherwise noncontributory. Physical exam: General: Well developed and well nourished 49-year-old male. Alert and orientated x 3. Nontoxic in appearance and in no acute distress. Vital signs are stable and have been reviewed by me. Nursing notes were reviewed. HEENT: Atraumatic, normocephalic, pupils equal and reactive bilaterally, negative for conjunctival pallor or scleral icterus, mucous membranes dry/tacky, throat clear, neck supple, nontender, trachea midline. No drooling or trismus noted. No meningeal signs. No hot potato voice noted. Lungs: Clear to auscultation bilaterally. No wheezes, rales, or rhonchi. Chest nontender. Normal work of breathing, no accessory muscles used. Heart: S1S2, regular rate and rhythm without overt murmur, gallops, or rubs. No JVD. No peripheral edema Abdomen: Soft, nondistended, nontender. No ascites noted. Normoactive bowel sounds. Negative for masses or costovertebral tenderness. Skin: Intact, warm, dry. No lesions or rashes noted. Hematologic: No petechiae or purpra. Mucosa appropriate color and normal nail bed color and refill. Extremities: Atraumatic, moves all extremities per self without difficulty or deficits, negative for cords or calf pain. Neurovascular unremarkable. Neuro: Awake, alert, oriented. Cranial nerves II through XII unremarkable. Cerebellum unremarkable. Motor and sensory unremarkable throughout. Exam nonfocal. Psychiatric: Mood and affect are appropriate. Normal thought process. Answering questions appropriately. Notes: *This patient was seen and evaluated during the 2019 SARS-CoV-2 novel [place] pandemic period. Community viral transmission is ongoing at time of this encounter and the emergency department is operating under pandemic response procedures. NIH: 0, GCS: 15. CIWA 6. Patient is agreeable to lab work at this time. Will give him some Ativan for his agitation/symptoms and banana bag. He has been admitted to our Hospital 03/02 for hyponatremia and alcohol withdraw. Chest x-ray is unremarkable. I reviewed patient's labs and EKG with Dr Miranda, attending physician - at this time there is no need to admit the patient. Patient's vitals have improved. He feels well and offers no current complaints. I have talked with the patient about today's findings, in addition to providing specific details for plan of care. Reassessment at the time of disposition demonstrates that the patient is in no acute distress. Encouraged him to follow up with cardiology for some EKG changes, no concern for STEMI at this point. The patient is stable for discharge, counseling was provided and we discussed in great detail signs and symptoms that would prompt them to return to the Emergency Department. Medication, follow up and supportive care measures were reviewed and discussed. Voices understanding and is agreeable to plan of care. Denies any further questions or concerns at this time. Diagnostics: CBC, CMP, Lipase, UA, Drug Screen, Troponin, EKG, CXR Therapeutics: Susanana Bag, Ativan Impression: Encounter for medical screening exam Anxiety about health Plan: 1. Your lab work is within normal limits. Please abstain from alcohol and/or seek outpatient treatment. See the resource sheet. 2. There was some changes on your EKG that should be further evaluated by a hand braille transcriber. Please call today to set up a follow up appointment. 3. Take your home medications as prescribed. 4. If you should have worsening symptoms or new symptoms develop please return to the emergency room or call 911. Definitive disposition and diagnosis as appropriate pending reevaluation and rev iew of above. - Related Data Allergies Allergy/AdvReac Type Severity Reaction Status Date / Time No Known Allergies Allergy Verified 07/12/20 10:19 Home Meds: Home Meds Enalapril [Vasotec] 20 mg PO DAILY 06/03/19 [History] Metoprolol Succinate 50 mg PO DAILY 06/03/19 [History] Rifaximin [Xifaxan] 1 tab PO BID 02/26/20 [History] Lactulose 22 ml PO TID #0 02/28/20 [Rx] Past Medical History HEENT History: Reports: Impaired Vision, Other (See Below) Other HEENT History: glasses for reading Cardiovascular History: Reports: High Cholesterol, Hypertension Respiratory History: Reports: None Gastrointestinal History: Reports: Cirrhosis, GERD Psychiatric History: Reports: Anxiety, Depression Endocrine/Metabolic History: Reports: Diabetes, Type II - Infectious Disease History Infectious Disease History: Reports: Chicken Pox, Measles, Mumps - Past Surgical History GI Surgical History: Reports: None Musculoskeletal Surgical History: Reports: Other (See Below) Other Musculoskeletal Surgeries/Procedures:: left knee pain- every year had an injection to control the pain, broken left arm with plate Social & Family History - Family History Family Medical History: No Pertinent Family History - Caffeine Use Caffeine Use: Reports: Soda Other Caffeine Use: coffee for morning. soda for lunch ED ROS GENERAL - Review of Systems Review Of Systems: Comprehensive ROS is negative, except as noted in HPI. ED EXAM, GENERAL - Physical Exam Exam: See Below (See dictation) Course - Vital Signs Last Recorded V/S: Last Vital Signs Temp 98.0 F 07/12/20 10:21 Pulse 99 07/12/20 10:50 Resp 18 07/12/20 10:50 BP 141/92 H 07/12/20 10:50 Pulse Ox 96 07/12/20 10:50 - Orders/Labs/Meds Orders: Active Orders 24 hr Category Date Time Status CIWAA Assessment [RC] ASDIRECTED Care 07/12/20 10:27 Active Cardiac Monitoring [RC] . DIRECTED Care 07/12/20 10:26 Active EKG Documentation Completion [RC] STAT Care 07/12/20 10:26 Active CORONAVIRUS COVID-19 MAYE [MOLEC] Stat Lab 07/12/20 10:53 Received DRUG SCREEN, URINE [URCHEM] Stat Lab 07/12/20 10:27 Stop Req UA RFX KOKI AND CULT IF INDIC [URIN] Stat Lab 07/12/20 10:26 Stop Req Sodium Chloride 0.9% [Saline Flush] Med 07/12/20 10:26 Active 10 ml FLUSH ASDIRECTED PRN Sodium Chloride 0.9% [Saline Flush] Med 07/12/20 10:26 Active 2.5 ml FLUSH ASDIRECTED PRN Saline Lock Insert [OM.PC] Stat Oth 07/12/20 10:26 Ordered Medication Orders Sodium Chloride (Sodium Chloride 0.9% 10 Ml Syringe) 10 ml FLUSH ASDIRECTED PRN PRN Reason: Keep Vein Open Last Admin: 07/12/20 10:41 Dose: 10 ml Documented by: [email or web address] Sodium Chloride (Sodium Chloride 0.9% 2.5 Ml Syringe) 2.5 ml FLUSH ASDIRECTED PRN PRN Reason: Keep Vein Open Last Admin: 07/12/20 10:41 Dose: 2.5 ml Documented by: [id number] Labs: Laboratory Tests 07/12/20 07/12/20 07/12/20 Range/Units 10:30 10:30 10:30 WBC 8.61 (4.0-11.0) K/uL RBC 4.54 (4.50-5.90) M/uL Hgb 15.2 (13.0-17.0) g/dL Hct 41.4 (38.0-50.0) % MCV 91.2 (80.0-98.0) fL MCH 33.5 H (27.0-32.0) pg MCHC 36.7 (31.0-37.0) g/dL RDW Std Deviation 42.5 (28.0-62.0) fl RDW Coeff of Pipe 13 (11.0-15.0) % Plt Count 128 L (150-400) K/uL MPV 10.40 (7.40-12.00) fL Neut % (Auto) 54.8 (48.0-80.0) % Lymph % (Auto) 33.2 (16.0-40.0) % [place] % (Auto) 11.0 (0.0-15.0) % Eos % (Auto) 0.8 (0.0-7.0) % Baso % (Auto) 0.2 (0.0-1.5) % Neut # (Auto) 4.7 (1.4-5.7) K/uL Lymph # (Auto) 2.9 H (0.6-2.4) K/uL [place] # (Auto) 1.0 H (0.0-0.8) K/uL Eos # (Auto) 0.1 (0.0-0.7) K/uL Baso # (Auto) 0.0 (0.0-0.1) K/uL Nucleated RBC % 0.0 /100WBC Nucleated RBCs # 0 K/uL Sodium 125 L (136-148) mmol/L Potassium 3.5 (3.5-5.1) mmol/L Chloride 90 L (98-107) mmol/L Carbon Dioxide 28.3 (21.0-32.0) mmol/L BUN 11 (7.0-18.0) mg/dL Creatinine 0.9 (0.8-1.3) mg/dL Est Cr Clr Drug Dosing 110.17 mL/min Estimated GFR (MDRD) > 60.0 ml/min Glucose 182 H (74-106) mg/dL Calcium 8.3 L (8.5-10.1) mg/dL Magnesium 1.8 (1.8-2.4) mg/dL Total Bilirubin 1.0 (0.2-1.0) mg/dL AST 55 H (15-37) IU/L ALT 53 (14-63) IU/L Alkaline Phosphatase 101 (46-116) U/L Troponin I < 0.050 (0.000-0.056) ng/mL Total Protein 6.1 L (6.4-8.2) g/dL Albumin 2.4 L (3.4-5.0) g/dL Globulin 3.7 (2.6-4.0) g/dL Albumin/Globulin Ratio 0.7 L (0.9-1.6) Lipase 161 (73-393) U/L Ethyl Alcohol 8 mg/dL Meds: Medications Generic Name Dose Route Start Last Admin Trade Name Freq PRN Reason Stop Dose Admin Sodium Chloride 10 ml 07/12/20 10:26 07/12/20 10:41 Sodium Chloride 0.9% 10 Ml Syringe FLUSH 10 ml ASDIRECTED PRN Administration Keep Vein Open Sodium Chloride 2.5 ml 07/12/20 10:26 07/12/20 10:41 Sodium Chloride 0.9% 2.5 Ml Syringe FLUSH 2.5 ml ASDIRECTED PRN Administration Keep Vein Open Discontinued Medications Generic Name Dose Route Start Last Admin Trade Name Freq PRN Reason Stop Dose Admin Multivitamins/Minerals 10 ml/ 1,011.2 mls @ 999 mls/hr 07/12/20 10:25 07/12/20 10:47 Thiamine HCl 100 mg/ Folic IV 07/12/20 11:25 999 mls/hr Acid 1 mg/ Sodium Chloride ONETIME ONE Administration Lorazepam 1 mg 07/12/20 10:25 07/12/20 10:41 Lorazepam 2 Mg/Ml Sdv IVPUSH 07/12/20 10:26 1 mg ONETIME ONE Administration Departure - Departure Time of Disposition: 11:34 Disposition: Home, Self-Care 01 Clinical Impression: Anxiety about health, Encounter for medical screening examination - Discharge Information Instructions: Alcohol Use Disorder Referrals: Anitra Robbins NP [Primary Care Provider] - Forms: ED Department Discharge Additional Instructions: The following information is given to patients seen in the emergency department who are being discharged to home. This information is to outline your options for follow-up care. We provide all patients seen in our emergency department with a follow-up referral. The need for follow-up, as well as the timing and circumstances, are variable depending upon the specifics of your emergency department visit. If you don't have a primary care physician on staff, we will provide you with a referral. We always advise you to contact your personal physician following an emergency department visit to inform them of the circumstance of the visit and for follow-up with them and/or the need for any referrals to a consulting specialist. The emergency department will also refer you to a specialist when appropriate. This referral assures that you have the opportunity for follow-up care with a specialist. All of these measure are taken in an effort to provide you with optimal care, which includes your follow-up. Under all circumstances we always encourage you to contact your private physician who remains a resource for coordinating your care. When calling for follow-up care, please make the office aware that this follow-up is from your recent emergency room visit. If for any reason you are refused follow-up, please contact the [facility] Emergency Department at and asked to speak to the emergency department charge nurse. [facility] [address] [place] [id number] [place] [address] Thank you for choosing the [facility] emergency department in [place] for your medical needs today. It was a pleasure caring for you. Today you were seen in the emergency department for medical evaluation. 1. Your lab work is within normal limits. Please abstain from alcohol and/or seek outpatient treatment. See the resource sheet. 2. There was some changes on your EKG that should be further evaluated by a hand braille transcriber. Please call today to set up a follow up appointment. 3. Take your home medications as prescribed. 4. If you should have worsening symptoms or new symptoms develop please return to the emergency room or call 911. Sepsis Event Note (ED) - Focused Exam Vital Signs: Vital Signs Temp Pulse Resp BP Pulse Ox 07/12/20 10:50 99 18 141/92 H 96 07/12/20 10:21 98.0 F 99 17 169/114 H 98 - My Orders Last 24 Hours: My Active Orders 07/12/20 10:26 Cardiac Monitoring [RC] . DIRECTED EKG Documentation Completion [RC] STAT UA RFX KOKI AND CULT IF INDIC [URIN] Stat Sodium Chloride 0.9% [Saline Flush] 10 ml FLUSH ASDIRECTED PRN Sodium Chloride 0.9% [Saline Flush] 2.5 ml FLUSH ASDIRECTED PRN Saline Lock Insert [OM.PC] Stat 07/12/20 10:27 CIWAA Assessment [RC] ASDIRECTED DRUG SCREEN, URINE [URCHEM] Stat 07/12/20 10:53 CORONAVIRUS COVID-19 MAYE [MOLEC] Stat - Assessment/Plan Last 24 Hours: My Active Orders 07/12/20 10:26 Cardiac Monitoring [RC] . DIRECTED EKG Documentation Completion [RC] STAT UA RFX KOKI AND CULT IF INDIC [URIN] Stat Sodium Chloride 0.9% [Saline Flush] 10 ml FLUSH ASDIRECTED PRN Sodium Chloride 0.9% [Saline Flush] 2.5 ml FLUSH ASDIRECTED PRN Saline Lock Insert [OM.PC] Stat 07/12/20 10:27 CIWAA Assessment [RC] ASDIRECTED DRUG SCREEN, URINE [URCHEM] Stat 07/12/20 10:53 CORONAVIRUS COVID-19 MAYE [MOLEC] Stat
[2020-07-12] MEDS ORDERED: Sodium Chloride 0.9% 10 ML Syringe FLUSH PRN (10:26)
[2020-07-12] MEDS ORDERED: Sodium Chloride 0.9% 2.5 ML Syringe FLUSH PRN (10:26)
--- NOTE | 2020-07-12 10:56 | PCM.SN.2 ---
- Free Text/Narrative Note: EKG at 10:47 AM shows a sinus rhythm with left axis deviation and some ST elevation consistent with early repolarization. Compared to the EKG last done in February 2020 there is a change in the axis change in QRS configuration. Significance of this is uncertain. Impression change in axis and QRS configuration with late transition in the precordium that may or may not indicate some myocardial event. No obvious acute STEMI and no obvious arrhythmia.
[2020-07-12 11:12] LABS: BLOOD UREA NITROGEN,BUN 11 mg/dL (7.0-18.0); CARBON DIOXIDE,CO2 28.3 mmol/L (21.0-32.0); CHLORIDE,CL 90 mmol/L (98-107); GLUCOSE RANDOM 182 mg/dL (74-106); LIPASE 161 U/L (73-393); POTASSIUM,K 3.5 mmol/L (3.5-5.1); SODIUM,NA 125 mmol/L (136-148)
--- NOTE | 2020-07-12 11:26 | CR ---
HISTORY: Shortness of breath. TECHNIQUE: One view of the chest. COMPARISON: 02/26/2020. FINDINGS: Cardiac size and pulmonary vasculature are within normal limits. There is no acute lung infiltrate or pulmonary edema. No pneumothorax or pleural effusion. No acute bony abnormality. IMPRESSION: No acute disease. Dictated by Alvaro Diane MD @ 07/12/2020 11:24:23 AM Dictated by: Alvaro Diane MD @ 07/12/2020 11:24:26 (Electronically Signed)
== END 2020-07-12 12:08 | disposition home or self-care (01) ==
LOC: MW.ED 10:10
DX: F41.9 Anxiety disorder, unspecified (principal); I10 Essential (primary) hypertension; E11.9 Type 2 diabetes mellitus without complications; Z79.899 Other long term (current) drug therapy; Z20.822 Contact with and (suspected) exposure to COVID-19
CPT/HCPCS: 36415; 71045; 80053; 80307; 83690; 83735; 84484; 85025; 87635; 93005; 96365; 96375; 99285; J2060; J3411; J7030; 93010; 99284; U0002

== ENCOUNTER 2020-07-13 05:42 | Inpatient (IN) | payer MEDICAID ==
[2020-07-13] MEDS ORDERED: Midazolam 5 MG/ML SDV IVPUSH ONE (06:08)
[2020-07-13] MEDS ORDERED: MVI, Adult with Vitamin K 10 ML, Thiamine 100 MG, Folic Acid 1 MG in Sodium Chloride 0.... IV ONE ×4 (06:09)
[2020-07-13] MEDS ORDERED: LORazepam 2 MG/ML SDV IVPUSH ONE ×2 (06:12→06:42)
[2020-07-13] MEDS ORDERED: Dextrose 5%-0.9% NaCl 1,000 ML IV SCH (06:15)
--- NOTE | 2020-07-13 06:53 | EDM.PDOC ---
<Skyler Velasquez - Last Filed: 07/13/20 07:03> ED HPI GENERAL MEDICAL PROBLEM - General Chief Complaint: General Stated Complaint: ANXIETY Time Seen by Provider: 07/13/20 05:56 - History of Present Illness INITIAL COMMENTS - FREE TEXT/NARRATIVE: CHIEF COMPLAINT(S): Anxiety HISTORY OF PRESENT ILLNESS: This is a 49-year-old man with a past medical history of alcoholic cirrhosis, alcohol use disorder and prior history of alcohol withdrawal who comes to the emergency department with a chief complaint of anxiety. The patient states that he was evaluated yesterday. He states that he was discharged and this evening he had severe anxiety where he was shaking, anxious, diaphoretic. He states that he felt short of breath. He denies any chest pain. He states that he drank 6 beers because he was shaking but it did not seem to improve. He denies any headache, nausea or vomiting. He denies any cough or fever. He states that he is continue to feel shaky and so he came to the emergency department. He states that since being there he feels like someone is standing behind him but denies any auditory hallucination. He denies any suicidal ideation. He states that he was a heavy drinker up until October of last year and then was sober up until approximately 2 weeks ago. He states that for the last 2 weeks he has been drinking a 12 pack or more a day of beer. He states that this was all exacerbated because he has bleeding in his eye that he has surgery scheduled for in [place]. He states that his last drink was this evening. He denies any history of alcohol withdrawal seizures. REVIEW OF SYSTEMS: Constitutional: Denies fever, chills. Eyes: Denies eye pain Ears, Nose, Mouth, & Throat: Denies earache Cardiovascular: Denies chest pain Respiratory: Positive shortness of breath Gastrointestinal: Denies Nausea, vomiting, diarrhea, hematochezia. Genitourinary: Denies hematuria Skin:Denies a rash MSK: Denies joint pain Neurological: Positive for shaking. Denies blurred vision, numbness, tingling, weakness Psychiatric: Positive for feeling anxious PAST MEDICAL HISTORY: As per history of present illness and as reviewed below otherwise noncontributory. SURGICAL HISTORY: As per history of present illness and as reviewed below otherwise noncontributory. SOCIAL HISTORY: As per history of present illness and as reviewed below otherwise noncontributory. FAMILY HISTORY: As per history of present illness and as reviewed below otherwise noncontributory. EXAMINATION OF ORGAN SYSTEMS/BODY AREAS: Constitutional: Blood pressure is 166/98, heart rate 110, respiratory rate 18 with an oxygen saturation 98% on room air. Temperature 35.8 General: Anxious appearing man who is tremulous in his arms. Mildly diaphoretic. Psychiatric: Appears anxious. Does not appear to be responding to internal stimuli. Denies SI and HI. Eyes: No scleral icterus or conjunctival erythema ENMT: Moist mucous membranes. No pharyngeal erythema tongue protrudes midline. There is visible fasciculations of the patient's tongue. Cardiovascular: Tachycardic but regular. No gallops, murmurs, or rubs. Bilateral upper extremity pulses symmetric and intact. No peripheral edema. No JVD. Respiratory: Lungs clear to auscultation bilaterally. No wheezes, rales, or rhonchi. Gastrointestinal: Soft, non-tender, non-distended. Normoactive bowel sounds Genitourinary: No suprapubic tenderness Musculoskeletal: Normal range of motion. With the patient's hand outstretched his arms and his fingers both are tremulous. Skin: No lesions or abrasions. Neurological: Alert, GCS 15 strength and sensation grossly intact in upper and lower extremities bilaterally. MEDICAL DECISION MAKING AND COURSE IN THE ED WITH INTERPRETATION/REVIEW OF DIAGNOSTIC STUDIES: This is a 49-year-old man with a past medical history of alcoholic cirrhosis, alcohol use disorder, and prior history of alcohol withdraw who comes to the emergency department with what appears to be alcoholic withdrawal symptoms after a 2-week alcoholic binge. The patient's CIWA score is 9 at this time. We will provide the patient with 2 mg of IV Ativan. EKG was obtained which did not reveal any acute signs of ischemia. Will obtain screening labs. The patient was evaluated earlier today therefore no Covid swab will be obtained. We will place the patient on cardiac monitoring and pulse oximetry. Given the visual disturbance we will provide the patient with D5 LR and then provide the patient with a banana bag with thiamine, multivitamin and folic acid. Time: 0551 Twelve-lead EKG interpreted by myself. Sinus tachycardia at a rate of 106 beats per minute. Normal axis. [place] interval is 166 ms. QRS duration is [address] segments are normal without elevations or depressions. No T wave inversions no Q waves present. Hypertrophy not noted. No changes demonstrated from prior EKG dated 02/26/2020. Interpretation: Sinus tachycardia After initial Ativan the patient's symptoms had improved. He was still tremulous in his hands and his tongue therefore an additional 2 mg of IV Ativan was given. Laboratory: CBC is unremarkable. DIS[facility]ITION: [facility] laboratory analysis and final disposition CONDITION: Serious PROCEDURES: None FINAL IMPRESSION(S)/DIAGNOSES: 1. Acute alcohol withdrawal Skyler Velasquez M.D. epigastric Pain Score (Numeric/FACES): 2 - Related Data Allergies Allergy/AdvReac Type Severity Reaction Status Date / Time No Known Allergies Allergy Verified 07/13/20 05:54 Home Meds: Home Meds Enalapril [Vasotec] 20 mg PO DAILY 06/03/19 [History] Metoprolol Succinate 50 mg PO DAILY 06/03/19 [History] Rifaximin [Xifaxan] 1 tab PO BID 02/26/20 [History] Lactulose 22 ml PO TID #0 02/28/20 [Rx] Insulin Glarg,Human.Rec.Analog [Lantus] 12 unit SQ BEDTIME 07/13/20 [History] Past Medical History HEENT History: Reports: Impaired Vision, Other (See Below) Other HEENT History: glasses for reading Cardiovascular History: Reports: High Cholesterol, Hypertension Respiratory History: Reports: None Gastrointestinal History: Reports: Cirrhosis, GERD Genitourinary History: Reports: None Musculoskeletal History: Reports: None Neurological History: Reports: None Psychiatric History: Reports: Addiction, Anxiety, Depression Endocrine/Metabolic History: Reports: Diabetes, Type II Insulin Pump Model and Tile Applicator: None Hematologic History: Reports: None Immunologic History: Reports: None Oncologic (Cancer) History: Reports: None Dermatologic History: Reports: None - Infectious Disease History Infectious Disease History: Reports: Chicken Pox, Measles, Mumps - Past Surgical History Head Surgeries/Procedures: Reports: None GI Surgical History: Reports: None Male Surgical History: Reports: None Musculoskeletal Surgical History: Reports: Other (See Below) Other Musculoskeletal Surgeries/Procedures:: left knee pain- every year had an injection to control the pain, broken left arm with plate Social & Family History - Family History Family Medical History: No Pertinent Family History - Caffeine Use Caffeine Use: Reports: Soda Other Caffeine Use: coffee for morning. soda for lunch - Recreational Drug Use Recreational Drug Use: No ED ROS GENERAL - Review of Systems Review Of Systems: See Below ED EXAM, GENERAL - Physical Exam Exam: See Below Departure - Departure Disposition: Admitted As Inpatient 67 Clinical Impression: Alcohol withdrawal delirium - Discharge Information Referrals: Anitra Robbins [facility] [Primary Care Provider] - Forms: ED Department Discharge Sepsis Event Note (ED) - Evaluation Sepsis Screening Result: No Definite Risk <Cash Miranda - Last Filed: 07/13/20 07:12> Course - Vital Signs Text/Narrative:: 7:11 AM patient still hallucinating and somewhat hypertensive. Heart rate controlled. My partner has finished his evaluation of the patient and we agree he needs admission for close observation because he did the last 24 hours after we brought his withdrawal condition under control and now he is hallucinating. Discussed with Dr. Manuel Donohue and admitted. Last Recorded V/S: Last Vital Signs Temp 35.8 C L 07/13/20 05:50 Pulse 96 07/13/20 06:48 Resp 18 07/13/20 06:48 BP 155/98 H 07/13/20 06:48 Pulse Ox 97 07/13/20 06:48 - Orders/Labs/Meds Orders: Active Orders 24 hr Category Date Time Status Admission Status [Patient Status] [ADT] Stat ADT 07/13/20 07:07 Ordered Cardiac Monitoring [RC] . DIRECTED Care 07/13/20 06:20 Active EKG Documentation Completion [RC] STAT Care 07/13/20 05:55 Active Pulse Oximetry [RC] ASDIRECTED Care 07/13/20 06:20 Active Dextrose 5%-0.9% NaCl [Dextrose 5%-Normal Saline] 1,000 Med 07/13/20 06:15 Active ml IV ASDIRECTED Medication Orders Dextrose/Sodium Chloride (Dextrose 5%-Normal Saline) 1,000 mls @ 999 mls/hr IV ASDIRECTED JESUS Last Admin: 07/13/20 06:16 Dose: 999 mls/hr Documented by: DOM Labs: Laboratory Tests 07/13/20 07/13/20 07/13/20 Range/Units 06:20 06:20 06:20 WBC 8.23 (4.0-11.0) K/uL RBC 4.19 L (4.50-5.90) M/uL Hgb 14.1 (13.0-17.0) g/dL Hct 38.9 (38.0-50.0) % MCV 92.8 (80.0-98.0) fL MCH 33.7 H (27.0-32.0) pg MCHC 36.2 (31.0-37.0) g/dL RDW Std Deviation 44.1 (28.0-62.0) fl RDW Coeff of Pipe 13 (11.0-15.0) % Plt Count 151 (150-400) K/uL MPV 10.90 (7.40-12.00) fL Neut % (Auto) 51.8 (48.0-80.0) % Lymph % (Auto) 33.7 (16.0-40.0) % Bailey % (Auto) 13.2 (0.0-15.0) % Eos % (Auto) 0.9 (0.0-7.0) % Baso % (Auto) 0.4 (0.0-1.5) % Neut # (Auto) 4.3 (1.4-5.7) K/uL Lymph # (Auto) 2.8 H (0.6-2.4) K/uL Bailey # (Auto) 1.1 H (0.0-0.8) K/uL Eos # (Auto) 0.1 (0.0-0.7) K/uL Baso # (Auto) 0.0 (0.0-0.1) K/uL Nucleated RBC % 0.0 /100WBC Nucleated RBCs # 0 K/uL INR 1.03 Sodium 129 L (136-148) mmol/L Potassium 3.9 (3.5-5.1) mmol/L Chloride 94 L (98-107) mmol/L Carbon Dioxide 26.5 (21.0-32.0) mmol/L BUN 15 (7.0-18.0) mg/dL Creatinine 1.1 (0.8-1.3) mg/dL Est Cr Clr Drug Dosing 90.14 mL/min Estimated GFR (MDRD) > 60.0 ml/min Glucose 212 H (74-106) mg/dL Calcium 8.1 L (8.5-10.1) mg/dL Total Bilirubin 0.6 (0.2-1.0) mg/dL AST 55 H (15-37) IU/L ALT 64 H (14-63) IU/L Alkaline Phosphatase 117 H (46-116) U/L Ammonia (19-54) ug/dL Total Protein 6.0 L (6.4-8.2) g/dL Albumin 2.4 L (3.4-5.0) g/dL Globulin 3.6 (2.6-4.0) g/dL Albumin/Globulin Ratio 0.7 L (0.9-1.6) Lipase 181 (73-393) U/L Ethyl Alcohol < 3.0 mg/dL 07/13/20 Range/Units 06:20 WBC (4.0-11.0) K/uL RBC (4.50-5.90) M/uL Hgb (13.0-17.0) g/dL Hct (38.0-50.0) % MCV (80.0-98.0) fL MCH (27.0-32.0) pg MCHC (31.0-37.0) g/dL RDW Std Deviation (28.0-62.0) fl RDW Coeff of Pipe (11.0-15.0) % Plt Count (150-400) K/uL MPV (7.40-12.00) fL Neut % (Auto) (48.0-80.0) % Lymph % (Auto) (16.0-40.0) % Bailey % (Auto) (0.0-15.0) % Eos % (Auto) (0.0-7.0) % Baso % (Auto) (0.0-1.5) % Neut # (Auto) (1.4-5.7) K/uL Lymph # (Auto) (0.6-2.4) K/uL Bailey # (Auto) (0.0-0.8) K/uL Eos # (Auto) (0.0-0.7) K/uL Baso # (Auto) (0.0-0.1) K/uL Nucleated RBC % /100WBC Nucleated RBCs # K/uL INR Sodium (136-148) mmol/L Potassium (3.5-5.1) mmol/L Chloride (98-107) mmol/L Carbon Dioxide (21.0-32.0) mmol/L BUN (7.0-18.0) mg/dL Creatinine (0.8-1.3) mg/dL Est Cr Clr Drug Dosing mL/min Estimated GFR (MDRD) ml/min Glucose (74-106) mg/dL Calcium (8.5-10.1) mg/dL Total Bilirubin (0.2-1.0) mg/dL AST (15-37) IU/L ALT (14-63) IU/L Alkaline Phosphatase (46-116) U/L Ammonia 24 (19-54) ug/dL Total Protein (6.4-8.2) g/dL Albumin (3.4-5.0) g/dL Globulin (2.6-4.0) g/dL Albumin/Globulin Ratio (0.9-1.6) Lipase (73-393) U/L Ethyl Alcohol mg/dL Meds: Medications Generic Name Dose Route Start Last Admin Trade Name Freq PRN Reason Stop Dose Admin Dextrose/Sodium Chloride 1,000 mls @ 999 mls/hr 07/13/20 06:15 07/13/20 06:16 Dextrose 5%-Normal Saline IV 999 mls/hr ASDIRECTED JESUS Administration Discontinued Medications Generic Name Dose Route Start Last Admin Trade Name Freq PRN Reason Stop Dose Admin Multivitamins/Minerals 10 ml/ 1,011.2 mls @ 999 mls/hr 07/13/20 06:09 07/13/20 06:34 Thiamine HCl 100 mg/ Folic IV 07/13/20 07:09 999 mls/hr Acid 1 mg/ Sodium Chloride ONETIME ONE Administration Lorazepam 2 mg 07/13/20 06:12 07/13/20 06:16 Lorazepam 2 Mg/Ml Sdv IVPUSH 07/13/20 06:13 2 mg ONETIME ONE Administration Lorazepam 2 mg 07/13/20 06:42 07/13/20 06:47 Lorazepam 2 Mg/Ml Sdv IVPUSH 07/13/20 06:43 2 mg ONETIME ONE Administration Midazolam HCl 5 mg 07/13/20 06:08 07/13/20 06:12 Midazolam 5 Mg/Ml Sdv IVPUSH 07/13/20 06:09 Not Given ONETIME ONE Departure - Departure Time of Disposition: 07:11 Condition: Fair Sepsis Event Note (ED) - Focused Exam Vital Signs: Vital Signs Temp Pulse Resp BP Pulse Ox 07/13/20 06:48 96 18 155/98 H 97 07/13/20 05:50 35.8 C L 110 H 18 166/98 H 98 - My Orders Last 24 Hours: My Active Orders 07/13/20 07:07 Admission Status [Patient Status] [ADT] Stat - Assessment/Plan Last 24 Hours: My Active Orders 07/13/20 07:07 Admission Status [Patient Status] [ADT] Stat
[2020-07-13 06:57] LABS: BLOOD UREA NITROGEN,BUN 15 mg/dL (7.0-18.0); CARBON DIOXIDE,CO2 26.5 mmol/L (21.0-32.0); CHLORIDE,CL 94 mmol/L (98-107); GLUCOSE RANDOM 212 mg/dL (74-106); LIPASE 181 U/L (73-393); POTASSIUM,K 3.9 mmol/L (3.5-5.1); SODIUM,NA 129 mmol/L (136-148)
[2020-07-13 09:20] LABS: CORONAVIRUS COVID-19 NAA NEGATIVE (NEGATIVE); INFLUENZA A NAA NEGATIVE (NEGATIVE); INFLUENZA B NAA NEGATIVE (NEGATIVE)
--- NOTE | 2020-07-13 11:40 | PN ---
THC Physician - Brief Progress [id number]/02/2021 11:39[facility] Fransico Luke, KRISTEL - SHAYNA (LORI) - JOSHUA GARCÍADate of Service 07/13/2020 11:39H PI/Events of Note eICU Admission [id number] admitted for EtOH withdrawal. History obtained from review o f EMR, limited as admitting team documentation not available during time of examination.PMH: EtOH cir rhosis, EtOH useCamera exam: Laying in bed. Vitals monitor reviewed. eICU Recommendations:Alcohol wit hdrawal protocol per institutional policy, including administration of PRN benzodiazepinesContinued t elemetry monitoringThiamine and folate supplementationTrend LFTsDVT and GI prophylaxis as appropriate - SCDs ordered.Thank you for allowing us to participate in the care of this patient.Unless otherwise specified, defer implementation of above recommendations to discretion of bedside provider. Please d o not hesitate to contact the eICU service for questions, clarification, or assistance with implement ation.The above note transcribed with the assistance of dictation software. Please excuse any errors. Interventions Major-Other: EtOH withdrawalElectronically Signed by: HOPE ARAUZ) on 11:39
[2020-07-13] MEDS ORDERED: Folic Acid 50 MG/10 ML MDV SUBCUT SCH (12:15)
[2020-07-13] MEDS ORDERED: Thiamine 100 MG in Sodium Chloride 0.9% 100 ML IV SCH (12:15)
[2020-07-13] MEDS ORDERED: 50% Dextrose in Water 50 ML Syringe IV PRN (12:35)
[2020-07-13] MEDS ORDERED: Glucagon,Human Recombinant 1 MG Vial IM PRN (12:35)
[2020-07-13] MEDS ORDERED: Sodium Chloride 0.9% 1,000 ML IV SCH (12:45)
--- NOTE | 2020-07-13 13:50 | PCM.HP.2 ---
H&P History of Present Illness - General Date of Service: 07/13/20 Admit Problem/Dx: Admission Diagnosis/Problem Admission Diagnosis/Problem Alcohol withdrawal delirium - History of Present Illness Initial Comments - Free Text/Narative: 49-year-old man with a past medical history of alcoholic cirrhosis, alcohol use, history of alcohol withdrawal, hypertension, cirrhosis, GERD, diabetes type 2, admitted to the floor for alcohol withdrawal with delirium. Patient presented to the emergency room with complaining of anxiety. Patient states that he had his last alcoholic beverage yesterday evening since then has been experiencing hallucinations. Patient states that he just recently began drinking a moderate amount of alcohol prior to that he was not drinking as much. Upon questioning patient is extremely sleepy and lethargic and is not able to answer all questions. Patient however is alert and oriented to person place and time. Per ER documentation it was noted that the patient was having visual not auditory hallucinations. Patient denies chest pain, shortness of breath, fever, chills but states shakiness, denies nausea denies vomiting. At this point patient states he is extremely tired and just wants to sleep. Laboratory work includes white blood cell count 8.23 sodium 129 potassium 3.9 ammonia 24, negative alcohol level, AST 55, ALT 64, alkaline phosphatase 117. Patient started on Alcohol withdrawal, Ativan protocol with CIWAA's, telemetry, thiamine and folate. epigastric Pain Score (Numeric/FACES): 2 - Related Data Allergies/Adverse Reactions: Allergies Allergy/AdvReac Type Severity Reaction Status Date / Time No Known Allergies Allergy Verified 07/13/20 05:54 Home Medications: Home Meds Enalapril [Vasotec] 20 mg PO DAILY 06/03/19 [History] Metoprolol Succinate 50 mg PO DAILY 06/03/19 [History] Rifaximin [Xifaxan] 1 tab PO BID 02/26/20 [History] Lactulose 22 ml PO TID #0 02/28/20 [Rx] Insulin Glarg,Human.Rec.Analog [Lantus] 12 unit SQ BEDTIME 07/13/20 [History] Past Medical History HEENT History: Reports: Impaired Vision, Other (See Below) Other HEENT History: glasses for reading Cardiovascular History: Reports: High Cholesterol, Hypertension Respiratory History: Reports: None Gastrointestinal History: Reports: Cirrhosis, GERD Genitourinary History: Reports: None Musculoskeletal History: Reports: None Neurological History: Reports: None Psychiatric History: Reports: Addiction, Anxiety, Depression Endocrine/Metabolic History: Reports: Diabetes, Type II Insulin Pump Model and Family Service Aide: None Hematologic History: Reports: None Immunologic History: Reports: None Oncologic (Cancer) History: Reports: None Dermatologic History: Reports: None - Infectious Disease History Infectious Disease History: Reports: Chicken Pox, Measles, Mumps - Past Surgical History Head Surgeries/Procedures: Reports: None GI Surgical History: Reports: None Male Surgical History: Reports: None Musculoskeletal Surgical History: Reports: Other (See Below) Other Musculoskeletal Surgeries/Procedures:: left knee pain- every year had an injection to control the pain, broken left arm with plate Social & Family History - Family History Family Medical History: No Pertinent Family History - Caffeine Use Caffeine Use: Reports: Soda Other Caffeine Use: coffee for morning. soda for lunch - Recreational Drug Use Recreational Drug Use: No H&P Review of Systems - Review of Systems: Review Of Systems: See Below General: Reports: Fatigue, Other (states "shaky" feeling). Denies: Fever, Chills Pulmonary: Denies: Shortness of Breath, Wheezing, Cough Cardiovascular: Denies: Chest Pain Gastrointestinal: Denies: Abdominal Pain, Nausea, Vomiting Psychiatric: Reports: Anxiety. Denies: Confusion, Hallucinations (Visual) Neurological: Denies: Dizziness, Headache Exam - Exam Exam: See Below - Vital Signs Vital Signs: Last Vital Signs Temp 98.5 F 07/13/20 10:30 Pulse 101 H 07/13/20 07:15 Resp 14 07/13/20 13:00 BP 152/96 H 07/13/20 13:00 Pulse Ox 96 07/13/20 13:00 Weight: 279 lb 5 oz - Exam General: Alert, Lethargic HEENT: EOMI Lungs: Clear to Auscultation, Normal Respiratory Effort Cardiovascular: Regular Rate, Regular Rhythm GI/Abdominal Exam: Soft, Non-Tender Extremities: No Pedal Edema Neuro Extensive - Mental Status: Alert, Oriented x3, Opens Eyes to Commands - Patient Data Lab Results Last 24 hrs: Laboratory Results - last 24 hr 07/13/20 07/13/20 07/13/20 Range/Units 06:20 06:20 06:20 WBC 8.23 (4.0-11.0) K/uL RBC 4.19 L (4.50-5.90) M/uL Hgb 14.1 (13.0-17.0) g/dL Hct 38.9 (38.0-50.0) % MCV 92.8 (80.0-98.0) fL MCH 33.7 H (27.0-32.0) pg MCHC 36.2 (31.0-37.0) g/dL RDW Std Deviation 44.1 (28.0-62.0) fl RDW Coeff of Pipe 13 (11.0-15.0) % Plt Count 151 (150-400) K/uL MPV 10.90 (7.40-12.00) fL Neut % (Auto) 51.8 (48.0-80.0) % Lymph % (Auto) 33.7 (16.0-40.0) % [place] % (Auto) 13.2 (0.0-15.0) % Eos % (Auto) 0.9 (0.0-7.0) % Baso % (Auto) 0.4 (0.0-1.5) % Neut # (Auto) 4.3 (1.4-5.7) K/uL Lymph # (Auto) 2.8 H (0.6-2.4) K/uL [place] # (Auto) 1.1 H (0.0-0.8) K/uL Eos # (Auto) 0.1 (0.0-0.7) K/uL Baso # (Auto) 0.0 (0.0-0.1) K/uL Nucleated RBC % 0.0 /100WBC Nucleated RBCs # 0 K/uL INR 1.03 Sodium 129 L (136-148) mmol/L Potassium 3.9 (3.5-5.1) mmol/L Chloride 94 L (98-107) mmol/L Carbon Dioxide 26.5 (21.0-32.0) mmol/L BUN 15 (7.0-18.0) mg/dL Creatinine 1.1 (0.8-1.3) mg/dL Est Cr Clr Drug Dosing 90.14 mL/min Estimated GFR (MDRD) > 60.0 ml/min Glucose 212 H (74-106) mg/dL Calcium 8.1 L (8.5-10.1) mg/dL Total Bilirubin 0.6 (0.2-1.0) mg/dL AST 55 H (15-37) IU/L ALT 64 H (14-63) IU/L Alkaline Phosphatase 117 H (46-116) U/L Ammonia (19-54) ug/dL Total Protein 6.0 L (6.4-8.2) g/dL Albumin 2.4 L (3.4-5.0) g/dL Globulin 3.6 (2.6-4.0) g/dL Albumin/Globulin Ratio 0.7 L (0.9-1.6) Lipase 181 (73-393) U/L Ethyl Alcohol < 3.0 mg/dL Influenza Type A RNA (NEGATIVE) Influenza Type B RNA (NEGATIVE) SARS-CoV-2 RNA (MAYE) (NEGATIVE) 07/13/20 07/13/20 Range/Units 06:20 07:50 WBC (4.0-11.0) K/uL RBC (4.50-5.90) M/uL Hgb (13.0-17.0) g/dL Hct (38.0-50.0) % MCV (80.0-98.0) fL MCH (27.0-32.0) pg MCHC (31.0-37.0) g/dL RDW Std Deviation (28.0-62.0) fl RDW Coeff of Pipe (11.0-15.0) % Plt Count (150-400) K/uL MPV (7.40-12.00) fL Neut % (Auto) (48.0-80.0) % Lymph % (Auto) (16.0-40.0) % [place] % (Auto) (0.0-15.0) % Eos % (Auto) (0.0-7.0) % Baso % (Auto) (0.0-1.5) % Neut # (Auto) (1.4-5.7) K/uL Lymph # (Auto) (0.6-2.4) K/uL [place] # (Auto) (0.0-0.8) K/uL Eos # (Auto) (0.0-0.7) K/uL Baso # (Auto) (0.0-0.1) K/uL Nucleated RBC % /100WBC Nucleated RBCs # K/uL INR Sodium (136-148) mmol/L Potassium (3.5-5.1) mmol/L Chloride (98-107) mmol/L Carbon Dioxide (21.0-32.0) mmol/L BUN (7.0-18.0) mg/dL Creatinine (0.8-1.3) mg/dL Est Cr Clr Drug Dosing mL/min Estimated GFR (MDRD) ml/min Glucose (74-106) mg/dL Calcium (8.5-10.1) mg/dL Total Bilirubin (0.2-1.0) mg/dL AST (15-37) IU/L ALT (14-63) IU/L Alkaline Phosphatase (46-116) U/L Ammonia 24 (19-54) ug/dL Total Protein (6.4-8.2) g/dL Albumin (3.4-5.0) g/dL Globulin (2.6-4.0) g/dL Albumin/Globulin Ratio (0.9-1.6) Lipase (73-393) U/L Ethyl Alcohol mg/dL Influenza Type A RNA NEGATIVE (NEGATIVE) Influenza Type B RNA NEGATIVE (NEGATIVE) SARS-CoV-2 RNA (MAYE) NEGATIVE (NEGATIVE) Result Diagrams: 07/13/20 06:20 07/13/20 06:20 Sepsis Event Note - Evaluation Sepsis Screening Result: No Definite Risk - Focused Exam Vital Signs: Vital Signs Temp Pulse Resp BP Pulse Ox 07/13/20 13:00 14 152/96 H 96 07/13/20 12:00 14 149/85 H 97 07/13/20 11:00 20 158/113 H 95 07/13/20 10:30 98.5 F 22 H 181/109 H 97 07/13/20 07:15 101 H 18 125/91 H 98 07/13/20 06:48 96 18 155/98 H 97 07/13/20 05:50 96.5 F L 110 H 18 166/98 H 98 - Problem List (1) Alcohol withdrawal delirium SNOMED Code(s): 9954530 ICD Code: F10.231 - ALCOHOL DEPENDENCE WITH WITHDRAWAL DELIRIUM Status: Acute Current Visit: Yes (2) Alcohol withdrawal delirium, acute, hyperactive SNOMED Code(s): 9348750, 11231492, 93425602469969521 ICD Code: F10.231 - ALCOHOL DEPENDENCE WITH WITHDRAWAL DELIRIUM Status: Acute Current Visit: No (3) Alcoholic hepatitis SNOMED Code(s): 541381783 ICD Code: K70.10 - ALCOHOLIC HEPATITIS WITHOUT ASCITES Status: Acute Current Visit: No Qualifiers: Ascites presence: without ascites Qualified Code(s): K70.10 - Alcoholic hepatitis without ascites (4) Hypertension SNOMED Code(s): 34871528 ICD Code: I10 - ESSENTIAL (PRIMARY) HYPERTENSION Status: Acute Current Visit: No Problem List Initiated/Reviewed/Updated: Yes Orders Last 24hrs: Active Orders 24 hr Category Date Time Status Admission Status [Patient Status] [ADT] Stat ADT 07/13/20 07:07 Active Accu Check [Blood Glucose Check, Bedside] [RC] TIDMEALS Care 07/13/20 12:13 Active Antiembolic Devices [RC] PER UNIT ROUTINE Care 07/13/20 11:38 Active Cardiac Monitoring [RC] Q8H Care 07/13/20 06:20 Active Pulse Oximetry [RC] ASDIRECTED Care 07/13/20 06:20 Active Citizen Of [place] [employer] Diet [DIET] Diet 07/13/20 Dinner Active CBC WITH AUTO DIFF [HEME] AM Lab 07/14/20 05:11 Ordered COMPREHENSIVE METABOLIC PN,CMP [CHEM] AM Lab 07/14/20 05:11 Ordered MAGNESIUM [CHEM] AM Lab 07/14/20 05:11 Ordered PHOSPHORUS [CHEM] AM Lab 07/14/20 05:11 Ordered Dextrose 50% in Water Med 07/13/20 12:35 Active 50 ml IV ASDIRECTED PRN Folic Acid Med 07/14/20 09:00 Active 1 mg SUBCUT DAILY Glucagon,Human Recombinant [GlucaGen] Med 07/13/20 12:35 Active 1 mg IM ASDIRECTED PRN Insulin Aspart [NovoLOG] Med 07/13/20 17:00 Active See Protocol SUBCUT TIDAC LORazepam [Ativan] Med 07/13/20 12:11 Active See Protocol IVPUSH Q4H PRN Sodium Chloride 0.9% [Normal Saline] 1,000 ml Med 07/13/20 12:45 Active IV ASDIRECTED Thiamine [Vitamin B-1] 100 mg Med 07/14/20 09:00 Active Sodium Chloride 0.9% [Normal Saline] 100 ml IV DAILY SCD [Sequential Compression Device] [OM.PC] Routine Oth 07/13/20 11:38 Ordered Medication Orders Dextrose/Water (50% Dextrose In Water 50 Ml Syringe) 50 ml IV ASDIRECTED PRN PRN Reason: Hypoglycemia Folic Acid (Folic Acid 50 Mg/10 Ml Mdv) 1 mg SUBCUT DAILY JESUS Glucagon (Glucagon,Human Recombinant 1 Mg Vial) 1 mg IM ASDIRECTED PRN PRN Reason: Hypoglycemia Sodium Chloride (Normal Saline) 1,000 mls @ 125 mls/hr IV ASDIRECTED JESUS Stop: 07/13/20 20:44 Last Admin: 07/13/20 12:43 Dose: 125 mls/hr Documented by: NERY Thiamine HCl 100 mg/ Sodium (Chloride) 101 mls @ 202 mls/hr IV DAILY JESUS Insulin Aspart (Insulin Aspart 100 Units/Ml 3 Ml Pen) 0 unit SUBCUT TIDAC JESUS; Protocol Lorazepam (Lorazepam 2 Mg/Ml Sdv) 0 mg IVPUSH Q4H PRN; Protocol PRN Reason: CIKYARA Assessment/Plan Comment:: Alcohol withdrawal with delirium- Alcohol withdrawal, Ativan protocol with SANJEEV's, telemetry, thiamine and folate, daily CMP, lactulose Hypertensionmetoprolol 50 mg p.o. daily, enalapril 20 mg p.o. daily Diabeteslow-dose sliding scale, ADA diet, Accu-Cheks SCDs for DVT prophylaxis
[2020-07-13] MEDS: Insulin Aspart 100 Units/ML 3 ML Pen SUBCUT SCH ×2 (17:53→19:41)
[2020-07-13] MEDS: Lactulose Soln 10 GM/15 ML 15 ML UD Cup PO SCH (21:00)
[2020-07-13] MEDS ORDERED: hydrALAZINE 20 MG/ML SDV IVPUSH ONE (21:39)
--- NOTE | 2020-07-13 21:41 | PN ---
THC Physician - Brief Progress [id number]/2021 21:40[facility] Fransico malin, KRISTEL - SHAYNA (LORI) - JOSHUA GARCÍADate of Service 07/13/2020 21:40H PI/Events of Note HTN - will give a dose of hydralazine now.Interventions Intermediate-Hypertension - evaluation and management
[2020-07-13] MEDS ORDERED: Lactulose Soln 10 GM/15 ML ML 473 ML Bottle PO SCH (22:00)
[2020-07-14] MEDS: Lactulose Soln 10 GM/15 ML 15 ML UD Cup PO SCH ×3 (05:52→21:10)
[2020-07-14 06:56] LABS: BLOOD UREA NITROGEN,BUN 12 mg/dL (7.0-18.0); CHLORIDE,CL 102 mmol/L (98-107); GLUCOSE RANDOM 192 mg/dL (74-106); POTASSIUM,K 3.8 mmol/L (3.5-5.1); SODIUM,NA 137 mmol/L (136-148)
[2020-07-14 07:04] LABS: CARBON DIOXIDE,CO2 26.9 mmol/L (21.0-32.0)
[2020-07-14] MEDS ORDERED: Magnesium Sulfate/Water 2 GM/50 ML BAG IV ONE (07:34)
[2020-07-14] MEDS: Insulin Aspart 100 Units/ML 3 ML Pen SUBCUT SCH ×3 (07:36→17:36)
[2020-07-14] MEDS: LORazepam 2 MG/ML SDV IVPUSH PRN ×3 (08:01→22:54)
[2020-07-14] MEDS: Folic Acid 50 MG/10 ML MDV SUBCUT SCH (08:05)
[2020-07-14] MEDS: Metoprolol Succinate 50 MG Tab.ER PO SCH (08:06)
[2020-07-14] MEDS: Thiamine 100 MG in Sodium Chloride 0.9% 100 ML IV SCH (09:13)
--- NOTE | 2020-07-14 14:28 | PCM.PN ---
- General Info Date of Service: 07/14/20 Subjective Update: Patient states he slept well overnight. Denies fever, chills, nausea, vomiting, abdominal pain, headaches. States slight shakiness. - Review of Systems General: Denies: Fever, Chills Pulmonary: Denies: Shortness of Breath, Cough Cardiovascular: Denies: Chest Pain, Dyspnea on Exertion Gastrointestinal: Denies: Abdominal Pain, Decreased Appetite, Nausea, Vomiting Neurological: Denies: Confusion, Dizziness, Trouble Speaking - Patient Data Vitals - Most Recent: Last Vital Signs Temp 98.4 F 07/14/20 12:00 Pulse 132 H 07/14/20 08:06 Resp 24 H 07/14/20 13:00 BP 138/93 H 07/14/20 13:00 Pulse Ox 93 L 07/14/20 13:00 Weight - Most Recent: 273 lb I&O - Last 24 Hours: Intake & Output 07/13/20 07/14/20 07/14/20 22:59 06:59 14:59 Intake Total 1030 1840 151 Output Total 700 2900 Balance 330 -1060 151 Lab Results Last 24 Hours: Laboratory Results - last 24 hr 07/13/20 07/13/20 07/14/20 Range/Units 17:50 19:36 06:05 WBC 7.47 (4.0-11.0) K/uL RBC 4.23 L (4.50-5.90) M/uL Hgb 14.2 (13.0-17.0) g/dL Hct 40.4 (38.0-50.0) % MCV 95.5 (80.0-98.0) fL MCH 33.6 H (27.0-32.0) pg MCHC 35.1 (31.0-37.0) g/dL RDW Std Deviation 46.7 (28.0-62.0) fl RDW Coeff of Pipe 14 (11.0-15.0) % Plt Count 130 L (150-400) K/uL MPV 9.90 (7.40-12.00) fL Neut % (Auto) 55.2 (48.0-80.0) % Lymph % (Auto) 31.5 (16.0-40.0) % [place] % (Auto) 11.5 (0.0-15.0) % Eos % (Auto) 1.5 (0.0-7.0) % Baso % (Auto) 0.3 (0.0-1.5) % Neut # (Auto) 4.1 (1.4-5.7) K/uL Lymph # (Auto) 2.4 (0.6-2.4) K/uL [place] # (Auto) 0.9 H (0.0-0.8) K/uL Eos # (Auto) 0.1 (0.0-0.7) K/uL Baso # (Auto) 0.0 (0.0-0.1) K/uL Nucleated RBC % 0.0 /100WBC Nucleated RBCs # 0 K/uL Sodium (136-148) mmol/L Potassium (3.5-5.1) mmol/L Chloride (98-107) mmol/L Carbon Dioxide (21.0-32.0) mmol/L BUN (7.0-18.0) mg/dL Creatinine (0.8-1.3) mg/dL Est Cr Clr Drug Dosing mL/min Estimated GFR (MDRD) ml/min Glucose (74-106) mg/dL POC Glucose 192 H 190 H (60-110) mg/dL Calcium (8.5-10.1) mg/dL Phosphorus (2.6-4.7) mg/dL Magnesium (1.8-2.4) mg/dL Total Bilirubin (0.2-1.0) mg/dL AST (15-37) IU/L ALT (14-63) IU/L Alkaline Phosphatase (46-116) U/L Total Protein (6.4-8.2) g/dL Albumin (3.4-5.0) g/dL Globulin (2.6-4.0) g/dL Albumin/Globulin Ratio (0.9-1.6) 07/14/20 07/14/20 07/14/20 Range/Units 06:05 06:50 12:46 WBC (4.0-11.0) K/uL RBC (4.50-5.90) M/uL Hgb (13.0-17.0) g/dL Hct (38.0-50.0) % MCV (80.0-98.0) fL MCH (27.0-32.0) pg MCHC (31.0-37.0) g/dL RDW Std Deviation (28.0-62.0) fl RDW Coeff of Pipe (11.0-15.0) % Plt Count (150-400) K/uL MPV (7.40-12.00) fL Neut % (Auto) (48.0-80.0) % Lymph % (Auto) (16.0-40.0) % [place] % (Auto) (0.0-15.0) % Eos % (Auto) (0.0-7.0) % Baso % (Auto) (0.0-1.5) % Neut # (Auto) (1.4-5.7) K/uL Lymph # (Auto) (0.6-2.4) K/uL [place] # (Auto) (0.0-0.8) K/uL Eos # (Auto) (0.0-0.7) K/uL Baso # (Auto) (0.0-0.1) K/uL Nucleated RBC % /100WBC Nucleated RBCs # K/uL Sodium 137 (136-148) mmol/L Potassium 3.8 (3.5-5.1) mmol/L Chloride 102 (98-107) mmol/L Carbon Dioxide 26.9 (21.0-32.0) mmol/L BUN 12 (7.0-18.0) mg/dL Creatinine 1.1 (0.8-1.3) mg/dL Est Cr Clr Drug Dosing 90.14 mL/min Estimated GFR (MDRD) > 60.0 ml/min Glucose 192 H (74-106) mg/dL POC Glucose 193 H 177 H (60-110) mg/dL Calcium 8.3 L (8.5-10.1) mg/dL Phosphorus 2.9 (2.6-4.7) mg/dL Magnesium 1.7 L (1.8-2.4) mg/dL Total Bilirubin 0.8 (0.2-1.0) mg/dL AST 44 H (15-37) IU/L ALT 54 (14-63) IU/L Alkaline Phosphatase 85 (46-116) U/L Total Protein 5.9 L (6.4-8.2) g/dL Albumin 2.3 L (3.4-5.0) g/dL Globulin 3.6 (2.6-4.0) g/dL Albumin/Globulin Ratio 0.6 L (0.9-1.6) Med Orders - Current: Current Medications Dextrose/Water (50% Dextrose In Water 50 Ml Syringe) 50 ml IV ASDIRECTED PRN PRN Reason: Hypoglycemia Enalapril Maleate (Enalapril 10 Mg Tab) 20 mg PO DAILY [facility] Last Admin: 07/14/20 09:14 Dose: 20 mg Documented by: Folic Acid (Folic Acid 50 Mg/10 Ml Mdv) 1 mg SUBCUT DAILY [facility] Last Admin: 07/14/20 08:05 Dose: 1 mg Documented by: Glucagon (Glucagon,Human Recombinant 1 Mg Vial) 1 mg IM ASDIRECTED PRN PRN Reason: Hypoglycemia Thiamine HCl 100 mg/ Sodium (Chloride) 101 mls @ 202 mls/hr IV DAILY [facility] Last Admin: 07/14/20 09:13 Dose: 202 mls/hr Documented by: Insulin Aspart (Insulin Aspart 100 Units/Ml 3 Ml Pen) 0 unit SUBCUT TIDAC [facility]; Protocol Last Admin: 07/14/20 12:48 Dose: 1 units Documented by: Lactulose (Lactulose Soln 10 Gm/15 Ml 15 Ml Ud Cup) 14.666 gm PO TID [facility] Last Admin: 07/14/20 05:52 Dose: 14.666 gm Documented by: Lorazepam (Lorazepam 2 Mg/Ml Sdv) 0 mg IVPUSH Q4H PRN; Protocol PRN Reason: CIWAA Last Admin: 07/14/20 12:05 Dose: 1 mg Documented by: Metoprolol Succinate (Metoprolol Succinate 50 Mg Tab.Er) 50 mg PO DAILY [facility] Last Admin: 07/14/20 08:06 Dose: 50 mg Documented by: Discontinued Medications Folic Acid (Folic Acid 50 Mg/10 Ml Mdv) 1 mg SUBCUT DAILY [facility] Last Admin: 07/13/20 13:00 Dose: Not Given Documented by: Hydralazine HCl (Hydralazine 20 Mg/Ml Sdv) 20 mg IVPUSH ONETIME ONE Stop: 07/13/20 21:40 Last Admin: 07/13/20 21:51 Dose: 20 mg Documented by: Dextrose/Sodium Chloride (Dextrose 5%-Normal Saline) 1,000 mls @ 999 mls/hr IV ASDIRECTED [facility] Last Admin: 07/13/20 06:16 Dose: 999 mls/hr Documented by: Multivitamins/Minerals 10 ml/Thiamine HCl 100 mg/ Folic Acid 1 mg/ Sodium Chloride 1,011.2 mls @ 999 mls/hr IV ONETIME ONE Stop: 07/13/20 07:09 Last Admin: 07/13/20 06:34 Dose: 999 mls/hr Documented by: Thiamine HCl 100 mg/ Sodium (Chloride) 101 mls @ 202 mls/hr IV DAILY [facility] Last Admin: 07/13/20 13:00 Dose: Not Given Documented by: Sodium Chloride (Normal Saline) 1,000 mls @ 125 mls/hr IV ASDIRECTED [facility] Stop: 07/13/20 20:44 Last Admin: 07/13/20 12:43 Dose: 125 mls/hr Documented by: Magnesium Sulfate (Magnesium Sulfate In Water 2 Gm/50 Ml) 2 gm in 50 mls @ 50 mls/hr IV ONETIME ONE Stop: 07/14/20 08:33 Last Admin: 07/14/20 07:43 Dose: 50 mls/hr Documented by: Lactulose (Lactulose Soln 10 Gm/15 Ml Ml 473 Ml Bottle) 14.666 gm PO TID [facility] Lorazepam (Lorazepam 2 Mg/Ml Sdv) 2 mg IVPUSH ONETIME ONE Stop: 07/13/20 06:13 Last Admin: 07/13/20 06:16 Dose: 2 mg Documented by: Lorazepam (Lorazepam 2 Mg/Ml Sdv) 2 mg IVPUSH ONETIME ONE Stop: 07/13/20 06:43 Last Admin: 07/13/20 06:47 Dose: 2 mg Documented by: Midazolam HCl (Midazolam 5 Mg/Ml Sdv) 5 mg IVPUSH ONETIME ONE Stop: 07/13/20 06:09 Last Admin: 07/13/20 06:12 Dose: Not Given Documented by: - Exam General: Alert, Oriented Lungs: Clear to Auscultation, Normal Respiratory Effort Cardiovascular: Regular Rhythm, Tachycardia GI/Abdominal Exam: Normal Bowel Sounds, Soft, Non-Tender Back Exam: CVA Tenderness (L), CVA Tenderness (R) Extremities: No Pedal Edema Psy/Mental Status: Alert, Withdrawal Symptoms. No: Anxious, Agitated - Patient Data Lab Results Last 24 hrs: Laboratory Results - last 24 hr 07/13/20 07/13/20 07/14/20 Range/Units 17:50 19:36 06:05 WBC 7.47 (4.0-11.0) K/uL RBC 4.23 L (4.50-5.90) M/uL Hgb 14.2 (13.0-17.0) g/dL Hct 40.4 (38.0-50.0) % MCV 95.5 (80.0-98.0) fL MCH 33.6 H (27.0-32.0) pg MCHC 35.1 (31.0-37.0) g/dL RDW Std Deviation 46.7 (28.0-62.0) fl RDW Coeff of Pipe 14 (11.0-15.0) % Plt Count 130 L (150-400) K/uL MPV 9.90 (7.40-12.00) fL Neut % (Auto) 55.2 (48.0-80.0) % Lymph % (Auto) 31.5 (16.0-40.0) % [place] % (Auto) 11.5 (0.0-15.0) % Eos % (Auto) 1.5 (0.0-7.0) % Baso % (Auto) 0.3 (0.0-1.5) % Neut # (Auto) 4.1 (1.4-5.7) K/uL Lymph # (Auto) 2.4 (0.6-2.4) K/uL [place] # (Auto) 0.9 H (0.0-0.8) K/uL Eos # (Auto) 0.1 (0.0-0.7) K/uL Baso # (Auto) 0.0 (0.0-0.1) K/uL Nucleated RBC % 0.0 /100WBC Nucleated RBCs # 0 K/uL Sodium (136-148) mmol/L Potassium (3.5-5.1) mmol/L Chloride (98-107) mmol/L Carbon Dioxide (21.0-32.0) mmol/L BUN (7.0-18.0) mg/dL Creatinine (0.8-1.3) mg/dL Est Cr Clr Drug Dosing mL/min Estimated GFR (MDRD) ml/min Glucose (74-106) mg/dL POC Glucose 192 H 190 H (60-110) mg/dL Calcium (8.5-10.1) mg/dL Phosphorus (2.6-4.7) mg/dL Magnesium (1.8-2.4) mg/dL Total Bilirubin (0.2-1.0) mg/dL AST (15-37) IU/L ALT (14-63) IU/L Alkaline Phosphatase (46-116) U/L Total Protein (6.4-8.2) g/dL Albumin (3.4-5.0) g/dL Globulin (2.6-4.0) g/dL Albumin/Globulin Ratio (0.9-1.6) 07/14/20 07/14/20 07/14/20 Range/Units 06:05 06:50 12:46 WBC (4.0-11.0) K/uL RBC (4.50-5.90) M/uL Hgb (13.0-17.0) g/dL Hct (38.0-50.0) % MCV (80.0-98.0) fL MCH (27.0-32.0) pg MCHC (31.0-37.0) g/dL RDW Std Deviation (28.0-62.0) fl RDW Coeff of Pipe (11.0-15.0) % Plt Count (150-400) K/uL MPV (7.40-12.00) fL Neut % (Auto) (48.0-80.0) % Lymph % (Auto) (16.0-40.0) % [place] % (Auto) (0.0-15.0) % Eos % (Auto) (0.0-7.0) % Baso % (Auto) (0.0-1.5) % Neut # (Auto) (1.4-5.7) K/uL Lymph # (Auto) (0.6-2.4) K/uL [place] # (Auto) (0.0-0.8) K/uL Eos # (Auto) (0.0-0.7) K/uL Baso # (Auto) (0.0-0.1) K/uL Nucleated RBC % /100WBC Nucleated RBCs # K/uL Sodium 137 (136-148) mmol/L Potassium 3.8 (3.5-5.1) mmol/L Chloride 102 (98-107) mmol/L Carbon Dioxide 26.9 (21.0-32.0) mmol/L BUN 12 (7.0-18.0) mg/dL Creatinine 1.1 (0.8-1.3) mg/dL Est Cr Clr Drug Dosing 90.14 mL/min Estimated GFR (MDRD) > 60.0 ml/min Glucose 192 H (74-106) mg/dL POC Glucose 193 H 177 H (60-110) mg/dL Calcium 8.3 L (8.5-10.1) mg/dL Phosphorus 2.9 (2.6-4.7) mg/dL Magnesium 1.7 L (1.8-2.4) mg/dL Total Bilirubin 0.8 (0.2-1.0) mg/dL AST 44 H (15-37) IU/L ALT 54 (14-63) IU/L Alkaline Phosphatase 85 (46-116) U/L Total Protein 5.9 L (6.4-8.2) g/dL Albumin 2.3 L (3.4-5.0) g/dL Globulin 3.6 (2.6-4.0) g/dL Albumin/Globulin Ratio 0.6 L (0.9-1.6) Result Diagrams: 07/14/20 06:05 07/14/20 06:05 Sepsis Event Note - Evaluation Sepsis Screening Result: No Definite Risk - Focused Exam Vital Signs: Vital Signs Temp Pulse Resp BP BP Pulse Ox 07/14/20 13:00 24 H 138/93 H 93 L 07/14/20 12:00 98.4 F 17 148/101 H 92 L 07/14/20 11:00 98.4 F 13 151/103 H 92 L 07/14/20 10:00 16 162/109 H 92 L 07/14/20 09:14 153/98 H 07/14/20 09:00 29 H 153/98 H 94 L 07/14/20 08:06 132 H 118/70 07/14/20 08:00 97.3 F 21 H 118/70 96 07/14/20 07:00 24 H 152/106 H 92 L 07/14/20 06:00 19 161/104 H 94 L 07/14/20 05:00 16 154/105 H 95 07/14/20 04:00 96.8 F L 24 H 154/102 H 95 07/14/20 03:00 23 H 165/104 H 93 L - Problem List & Annotations (1) Alcohol withdrawal delirium SNOMED Code(s): 1313658 Code(s): F10.231 - ALCOHOL DEPENDENCE WITH WITHDRAWAL DELIRIUM Status: Acute Current Visit: Yes (2) Alcohol withdrawal delirium, acute, hyperactive SNOMED Code(s): 4623211, 53880650, [id number] Code(s): F10.231 - ALCOHOL DEPENDENCE WITH WITHDRAWAL DELIRIUM Status: Acute Current Visit: No (3) Alcoholic hepatitis SNOMED Code(s): 495471270 Code(s): K70.10 - ALCOHOLIC HEPATITIS WITHOUT ASCITES Status: Acute Current Visit: No Qualifiers: Ascites presence: without ascites Qualified Code(s): K70.10 - Alcoholic hepatitis without ascites (4) Hypertension SNOMED Code(s): 96510618 Code(s): I10 - ESSENTIAL (PRIMARY) HYPERTENSION Status: Acute Current Visit: No - Problem List Review Problem List Initiated/Reviewed/Updated: Yes - My Orders Last 24 Hours: My Active Orders 07/13/20 15:30 Enalapril [Vasotec] 20 mg PO DAILY 07/13/20 17:54 CIWAA Assessment [RC] Q4H 07/13/20 22:00 Lactulose [Chronulac] 14.666 gm PO TID 07/14/20 09:00 Metoprolol Succinate [Toprol XL] 50 mg PO DAILY 07/15/20 05:11 CBC WITH AUTO DIFF [HEME] AM COMPREHENSIVE METABOLIC PN,CMP [CHEM] AM MAGNESIUM [CHEM] AM PHOSPHORUS [CHEM] AM - Plan Plan:: Alcohol withdrawal with delirium- Alcohol withdrawal, Ativan protocol with CIWAA's, telemetry, thiamine and folate, daily CMP, lactulose Hypertensionmetoprolol 50 mg p.o. daily, enalapril 20 mg p.o. daily Diabeteslow-dose sliding scale, ADA diet, Accu-Cheks SCDs for DVT prophylaxis
[2020-07-15] MEDS: Lactulose Soln 10 GM/15 ML 15 ML UD Cup PO SCH ×3 (05:32→21:24)
[2020-07-15 06:55] LABS: BLOOD UREA NITROGEN,BUN 14 mg/dL (7.0-18.0); CARBON DIOXIDE,CO2 24.5 mmol/L (21.0-32.0); CHLORIDE,CL 99 mmol/L (98-107); GLUCOSE RANDOM 192 mg/dL (74-106); POTASSIUM,K 3.6 mmol/L (3.5-5.1); SODIUM,NA 133 mmol/L (136-148)
[2020-07-15] MEDS: Metoprolol Succinate 50 MG Tab.ER PO SCH ×2 (07:09→08:59)
--- NOTE | 2020-07-15 07:45 | PCM.PN ---
- General Info Date of Service: 07/15/20 - Review of Systems Systems Review Comment:: feeling better, no tremors, no hallucinations - Patient Data Vitals - Most Recent: Last Vital Signs Temp 36.8 C 07/15/20 04:00 Pulse 89 07/15/20 07:09 Resp 26 H 07/15/20 07:00 BP 195/120 H 07/15/20 07:10 Pulse Ox 96 07/15/20 07:00 Weight - Most Recent: 126.643 kg I&O - Last 24 Hours: Intake & Output 07/14/20 07/15/20 07/15/20 22:59 06:59 14:59 Intake Total 2730 2390 Output Total 2000 1950 Balance 730 440 Lab Results Last 24 Hours: Laboratory Results - last 24 hr 07/14/20 07/14/20 07/15/20 Range/Units 12:46 17:35 06:25 WBC 6.51 (4.0-11.0) K/uL RBC 4.13 L (4.50-5.90) M/uL Hgb 13.7 (13.0-17.0) g/dL Hct 38.3 (38.0-50.0) % MCV 92.7 (80.0-98.0) fL MCH 33.2 H (27.0-32.0) pg MCHC 35.8 (31.0-37.0) g/dL RDW Std Deviation 40.4 (28.0-62.0) fl RDW Coeff of Pipe 12 (11.0-15.0) % Plt Count 114 L (150-400) K/uL MPV 9.70 (7.40-12.00) fL Neut % (Auto) 48.1 (48.0-80.0) % Lymph % (Auto) 36.3 (16.0-40.0) % [place] % (Auto) 12.9 (0.0-15.0) % Eos % (Auto) 2.2 (0.0-7.0) % Baso % (Auto) 0.5 (0.0-1.5) % Neut # (Auto) 3.1 (1.4-5.7) K/uL Lymph # (Auto) 2.4 (0.6-2.4) K/uL [place] # (Auto) 0.8 (0.0-0.8) K/uL Eos # (Auto) 0.1 (0.0-0.7) K/uL Baso # (Auto) 0.0 (0.0-0.1) K/uL Sodium (136-148) mmol/L Potassium (3.5-5.1) mmol/L Chloride (98-107) mmol/L Carbon Dioxide (21.0-32.0) mmol/L BUN (7.0-18.0) mg/dL Creatinine (0.8-1.3) mg/dL Est Cr Clr Drug Dosing mL/min Estimated GFR (MDRD) ml/min Glucose (74-106) mg/dL POC Glucose 177 H 236 H (60-110) mg/dL Calcium (8.5-10.1) mg/dL Phosphorus (2.6-4.7) mg/dL Magnesium (1.8-2.4) mg/dL Total Bilirubin (0.2-1.0) mg/dL AST (15-37) IU/L ALT (14-63) IU/L Alkaline Phosphatase (46-116) U/L Total Protein (6.4-8.2) g/dL Albumin (3.4-5.0) g/dL Globulin (2.6-4.0) g/dL Albumin/Globulin Ratio (0.9-1.6) 07/15/20 07/15/20 Range/Units 06:25 06:53 WBC (4.0-11.0) K/uL RBC (4.50-5.90) M/uL Hgb (13.0-17.0) g/dL Hct (38.0-50.0) % MCV (80.0-98.0) fL MCH (27.0-32.0) pg MCHC (31.0-37.0) g/dL RDW Std Deviation (28.0-62.0) fl RDW Coeff of Pipe (11.0-15.0) % Plt Count (150-400) K/uL MPV (7.40-12.00) fL Neut % (Auto) (48.0-80.0) % Lymph % (Auto) (16.0-40.0) % [place] % (Auto) (0.0-15.0) % Eos % (Auto) (0.0-7.0) % Baso % (Auto) (0.0-1.5) % Neut # (Auto) (1.4-5.7) K/uL Lymph # (Auto) (0.6-2.4) K/uL [place] # (Auto) (0.0-0.8) K/uL Eos # (Auto) (0.0-0.7) K/uL Baso # (Auto) (0.0-0.1) K/uL Sodium 133 L (136-148) mmol/L Potassium 3.6 (3.5-5.1) mmol/L Chloride 99 (98-107) mmol/L Carbon Dioxide 24.5 (21.0-32.0) mmol/L BUN 14 (7.0-18.0) mg/dL Creatinine 1.1 (0.8-1.3) mg/dL Est Cr Clr Drug Dosing 90.14 mL/min Estimated GFR (MDRD) > 60.0 ml/min Glucose 192 H (74-106) mg/dL POC Glucose 171 H (60-110) mg/dL Calcium 8.4 L (8.5-10.1) mg/dL Phosphorus 3.7 (2.6-4.7) mg/dL Magnesium 1.8 (1.8-2.4) mg/dL Total Bilirubin 0.9 (0.2-1.0) mg/dL AST 33 (15-37) IU/L ALT 50 (14-63) IU/L Alkaline Phosphatase 95 (46-116) U/L Total Protein 6.1 L (6.4-8.2) g/dL Albumin 2.4 L (3.4-5.0) g/dL Globulin 3.7 (2.6-4.0) g/dL Albumin/Globulin Ratio 0.6 L (0.9-1.6) Med Orders - Current: Current Medications Dextrose/Water (50% Dextrose In Water 50 Ml Syringe) 50 ml IV ASDIRECTED PRN PRN Reason: Hypoglycemia Enalapril Maleate (Enalapril 10 Mg Tab) 20 mg PO DAILY [facility]US Last Admin: 07/15/20 07:10 Dose: 20 mg Documented by: Folic Acid (Folic Acid 50 Mg/10 Ml Mdv) 1 mg SUBCUT DAILY [facility] Last Admin: 07/14/20 08:05 Dose: 1 mg Documented by: Glucagon (Glucagon,Human Recombinant 1 Mg Vial) 1 mg IM ASDIRECTED PRN PRN Reason: Hypoglycemia Thiamine HCl 100 mg/ Sodium (Chloride) 101 mls @ 202 mls/hr IV DAILY [facility] Last Admin: 07/14/20 09:13 Dose: 202 mls/hr Documented by: Insulin Aspart (Insulin Aspart 100 Units/Ml 3 Ml Pen) 0 unit SUBCUT TIDAC [facility]; Protocol Last Admin: 07/14/20 17:36 Dose: 2 units Documented by: Lactulose (Lactulose Soln 10 Gm/15 Ml 15 Ml Ud Cup) 14.666 gm PO TID [facility] Last Admin: 07/15/20 05:32 Dose: 14.666 gm Documented by: Lorazepam (Lorazepam 2 Mg/Ml Sdv) 0 mg IVPUSH Q4H PRN; Protocol PRN Reason: CIWAA Last Admin: 07/14/20 22:54 Dose: 1 mg Documented by: Metoprolol Succinate (Metoprolol Succinate 50 Mg Tab.Er) 50 mg PO DAILY [facility] Last Admin: 07/15/20 07:09 Dose: 50 mg Documented by: Discontinued Medications Folic Acid (Folic Acid 50 Mg/10 Ml Mdv) 1 mg SUBCUT DAILY [facility] Last Admin: 07/13/20 13:00 Dose: Not Given Documented by: Hydralazine HCl (Hydralazine 20 Mg/Ml Sdv) 20 mg IVPUSH ONETIME ONE Stop: 07/13/20 21:40 Last Admin: 07/13/20 21:51 Dose: 20 mg Documented by: Dextrose/Sodium Chloride (Dextrose 5%-Normal Saline) 1,000 mls @ 999 mls/hr IV ASDIRECTED [facility] Last Admin: 07/13/20 06:16 Dose: 999 mls/hr Documented by: Multivitamins/Minerals 10 ml/Thiamine HCl 100 mg/ Folic Acid 1 mg/ Sodium Chloride 1,011.2 mls @ 999 mls/hr IV ONETIME ONE Stop: 07/13/20 07:09 Last Admin: 07/13/20 06:34 Dose: 999 mls/hr Documented by: Thiamine HCl 100 mg/ Sodium (Chloride) 101 mls @ 202 mls/hr IV DAILY [facility] Last Admin: 07/13/20 13:00 Dose: Not Given Documented by: Sodium Chloride (Normal Saline) 1,000 mls @ 125 mls/hr IV ASDIRECTED [facility] Stop: 07/13/20 20:44 Last Admin: 07/13/20 12:43 Dose: 125 mls/hr Documented by: Magnesium Sulfate (Magnesium Sulfate In Water 2 Gm/50 Ml) 2 gm in 50 mls @ 50 mls/hr IV ONETIME ONE Stop: 07/14/20 08:33 Last Admin: 07/14/20 07:43 Dose: 50 mls/hr Documented by: Lactulose (Lactulose Soln 10 Gm/15 Ml Ml 473 Ml Bottle) 14.666 gm PO TID [facility] Lorazepam (Lorazepam 2 Mg/Ml Sdv) 2 mg IVPUSH ONETIME ONE Stop: 07/13/20 06:13 Last Admin: 07/13/20 06:16 Dose: 2 mg Documented by: Lorazepam (Lorazepam 2 Mg/Ml Sdv) 2 mg IVPUSH ONETIME ONE Stop: 07/13/20 06:43 Last Admin: 07/13/20 06:47 Dose: 2 mg Documented by: Midazolam HCl (Midazolam 5 Mg/Ml Sdv) 5 mg IVPUSH ONETIME ONE Stop: 07/13/20 06:09 Last Admin: 07/13/20 06:12 Dose: Not Given Documented by: - Exam General: Alert, Oriented Neck: Supple Lungs: Clear to Auscultation, Normal Respiratory Effort Cardiovascular: Regular Rate, Regular Rhythm GI/Abdominal Exam: Soft, Non-Tender, No Distention Extremities: Non-Tender, No Pedal Edema Skin: Warm, Dry, Intact - Patient Data Lab Results Last 24 hrs: Laboratory Results - last 24 hr 07/14/20 07/14/20 07/15/20 Range/Units 12:46 17:35 06:25 WBC 6.51 (4.0-11.0) K/uL RBC 4.13 L (4.50-5.90) M/uL Hgb 13.7 (13.0-17.0) g/dL Hct 38.3 (38.0-50.0) % MCV 92.7 (80.0-98.0) fL MCH 33.2 H (27.0-32.0) pg MCHC 35.8 (31.0-37.0) g/dL RDW Std Deviation 40.4 (28.0-62.0) fl RDW Coeff of Pipe 12 (11.0-15.0) % Plt Count 114 L (150-400) K/uL MPV 9.70 (7.40-12.00) fL Neut % (Auto) 48.1 (48.0-80.0) % Lymph % (Auto) 36.3 (16.0-40.0) % [place] % (Auto) 12.9 (0.0-15.0) % Eos % (Auto) 2.2 (0.0-7.0) % Baso % (Auto) 0.5 (0.0-1.5) % Neut # (Auto) 3.1 (1.4-5.7) K/uL Lymph # (Auto) 2.4 (0.6-2.4) K/uL [place] # (Auto) 0.8 (0.0-0.8) K/uL Eos # (Auto) 0.1 (0.0-0.7) K/uL Baso # (Auto) 0.0 (0.0-0.1) K/uL Sodium (136-148) mmol/L Potassium (3.5-5.1) mmol/L Chloride (98-107) mmol/L Carbon Dioxide (21.0-32.0) mmol/L BUN (7.0-18.0) mg/dL Creatinine (0.8-1.3) mg/dL Est Cr Clr Drug Dosing mL/min Estimated GFR (MDRD) ml/min Glucose (74-106) mg/dL POC Glucose 177 H 236 H (60-110) mg/dL Calcium (8.5-10.1) mg/dL Phosphorus (2.6-4.7) mg/dL Magnesium (1.8-2.4) mg/dL Total Bilirubin (0.2-1.0) mg/dL AST (15-37) IU/L ALT (14-63) IU/L Alkaline Phosphatase (46-116) U/L Total Protein (6.4-8.2) g/dL Albumin (3.4-5.0) g/dL Globulin (2.6-4.0) g/dL Albumin/Globulin Ratio (0.9-1.6) 07/15/20 07/15/20 Range/Units 06:25 06:53 WBC (4.0-11.0) K/uL RBC (4.50-5.90) M/uL Hgb (13.0-17.0) g/dL Hct (38.0-50.0) % MCV (80.0-98.0) fL MCH (27.0-32.0) pg MCHC (31.0-37.0) g/dL RDW Std Deviation (28.0-62.0) fl RDW Coeff of Pipe (11.0-15.0) % Plt Count (150-400) K/uL MPV (7.40-12.00) fL Neut % (Auto) (48.0-80.0) % Lymph % (Auto) (16.0-40.0) % [place] % (Auto) (0.0-15.0) % Eos % (Auto) (0.0-7.0) % Baso % (Auto) (0.0-1.5) % Neut # (Auto) (1.4-5.7) K/uL Lymph # (Auto) (0.6-2.4) K/uL [place] # (Auto) (0.0-0.8) K/uL Eos # (Auto) (0.0-0.7) K/uL Baso # (Auto) (0.0-0.1) K/uL Sodium 133 L (136-148) mmol/L Potassium 3.6 (3.5-5.1) mmol/L Chloride 99 (98-107) mmol/L Carbon Dioxide 24.5 (21.0-32.0) mmol/L BUN 14 (7.0-18.0) mg/dL Creatinine 1.1 (0.8-1.3) mg/dL Est Cr Clr Drug Dosing 90.14 mL/min Estimated GFR (MDRD) > 60.0 ml/min Glucose 192 H (74-106) mg/dL POC Glucose 171 H (60-110) mg/dL Calcium 8.4 L (8.5-10.1) mg/dL Phosphorus 3.7 (2.6-4.7) mg/dL Magnesium 1.8 (1.8-2.4) mg/dL Total Bilirubin 0.9 (0.2-1.0) mg/dL AST 33 (15-37) IU/L ALT 50 (14-63) IU/L Alkaline Phosphatase 95 (46-116) U/L Total Protein 6.1 L (6.4-8.2) g/dL Albumin 2.4 L (3.4-5.0) g/dL Globulin 3.7 (2.6-4.0) g/dL Albumin/Globulin Ratio 0.6 L (0.9-1.6) Result Diagrams: 07/15/20 06:25 07/15/20 06:25 Sepsis Event Note - Evaluation Sepsis Screening Result: No Definite Risk - Focused Exam Vital Signs: Vital Signs Temp Pulse Resp BP BP Pulse Ox 07/15/20 07:10 195/120 H 07/15/20 07:09 89 195/120 H 07/15/20 07:00 26 H 195/120 H 96 07/15/20 06:00 26 H 163/106 H 92 L 07/15/20 05:00 24 H 158/100 H 95 07/15/20 04:00 36.8 C 20 150/93 H 94 L 07/15/20 03:00 19 154/103 H 95 07/15/20 02:00 16 158/97 H 98 07/15/20 01:00 15 144/95 H 94 L 07/15/20 00:00 14 134/91 H 95 07/14/20 23:00 36.9 C 25 H 160/95 H 94 L 07/14/20 22:00 26 H 151/91 H 93 L 07/14/20 21:00 22 H 168/106 H 100 07/14/20 20:00 36.3 C 20 148/91 H 97 - Problem List Review Problem List Initiated/Reviewed/Updated: Yes - My Orders Last 24 Hours: My Active Orders 07/14/20 09:00 Folic Acid 1 mg SUBCUT DAILY Thiamine [Vitamin B-1] 100 mg Sodium Chloride 0.9% [Normal Saline] 100 ml IV DAILY 07/15/20 07:42 Transfer Patient (Change bed) [ADT] Routine - Plan Plan:: Alcohol withdrawal with delirium- Alcohol withdrawal, Ativan protocol with [id number]'johny, telemetry, thiamine and folate, daily CMP, lactulose. We will transfer out of ICU to medical floor. IF continues to do will possible discharge home tomorrow. Hypertensionmetoprolol 50 mg p.o. daily, enalapril 20 mg p.o. daily Diabeteslow-dose sliding scale, ADA diet, Accu-Cheks, restart lantus tonight. SCDs for DVT prophylaxis
[2020-07-15] MEDS: Insulin Aspart 100 Units/ML 3 ML Pen SUBCUT SCH ×3 (07:50→18:14)
[2020-07-15] MEDS: Folic Acid 50 MG/10 ML MDV SUBCUT SCH (08:33)
[2020-07-15] MEDS: LORazepam 2 MG/ML SDV IVPUSH PRN ×2 (08:36→21:20)
[2020-07-15] MEDS: Thiamine 100 MG in Sodium Chloride 0.9% 100 ML IV SCH ×2 (08:59→09:18)
[2020-07-15] MEDS ORDERED: Insulin Glargine,Human Rec. Analog 100 Units/ML 3 ML Pen SUBCUT SCH (21:00)
[2020-07-16] MEDS: Lactulose Soln 10 GM/15 ML 15 ML UD Cup PO SCH (05:36)
[2020-07-16 06:48] LABS: BLOOD UREA NITROGEN,BUN 11 mg/dL (7.0-18.0); CARBON DIOXIDE,CO2 26.8 mmol/L (21.0-32.0); CHLORIDE,CL 101 mmol/L (98-107); GLUCOSE RANDOM 156 mg/dL (74-106); POTASSIUM,K 3.3 mmol/L (3.5-5.1); SODIUM,NA 136 mmol/L (136-148)
[2020-07-16] MEDS: Insulin Aspart 100 Units/ML 3 ML Pen SUBCUT SCH (07:32)
[2020-07-16] MEDS ORDERED: Magnesium Sulfate/Water 4 GM/100 ML BAG IV ONE (07:59)
[2020-07-16] MEDS ORDERED: Potassium Chloride 20 MEQ Tab.ER PO ONE (07:59)
[2020-07-16] MEDS: Metoprolol Succinate 50 MG Tab.ER PO SCH (08:11)
[2020-07-16] MEDS: Folic Acid 50 MG/10 ML MDV SUBCUT SCH (08:11)
[2020-07-16] MEDS: Thiamine 100 MG in Sodium Chloride 0.9% 100 ML IV SCH (10:18)
--- NOTE | 2020-07-16 10:47 | PCM.DCSUM1 ---
Discharge Summary - Hospital Course Brief History: 49-year-old man with a past medical history of alcoholic cirrhosis, alcohol use, history of alcohol withdrawal, hypertension, cirrhosis, GERD, diabetes type 2, admitted to the floor for alcohol withdrawal with delirium. Patient presented to the emergency room with complaining of anxiety. Patient states that he had his last alcoholic beverage yesterday evening since then has been experiencing hallucinations. Patient states that he just recently began drinking a moderate amount of alcohol prior to that he was not drinking as much. Upon questioning patient is extremely sleepy and lethargic and is not able to answer all questions. Patient however is alert and oriented to person place and time. Per ER documentation it was noted that the patient was having visual not auditory hallucinations. Patient denies chest pain, shortness of breath, fever, chills but states shakiness, denies nausea denies vomiting. At this point patient states he is extremely tired and just wants to sleep. Laboratory work includes white blood cell count 8.23 sodium 129 potassium 3.9 ammonia 24, negative alcohol level, AST 55, ALT 64, alkaline phosphatase 117. Patient started on Alcohol withdrawal, Ativan protocol with CIWAA's, telemetry, thiamine and folate. Diagnosis: Stroke: No - Discharge Data Discharge Date: 07/16/20 Discharge Disposition: Home, Self-Care 01 Condition: Good - Referral to Home Health Primary Care Physician: Anitra Robbins NP - Discharge Diagnosis/Problem(s) (1) Alcohol withdrawal delirium SNOMED Code(s): 2973429 ICD Code: F10.231 - ALCOHOL DEPENDENCE WITH WITHDRAWAL DELIRIUM Status: A cute (2) Cirrhosis of liver SNOMED Code(s): 75749775 ICD Code: K74.60 - UNSPECIFIED CIRRHOSIS OF LIVER Status: Acute (3) Hypertension SNOMED Code(s): 87504919 ICD Code: I10 - ESSENTIAL (PRIMARY) HYPERTENSION Status: Acute - Patient Summary/Data Hospital Course: Admission diagnoses: Alcohol withdrawal with delirium Electrolyte abnormalities Discharge diagnoses Alcohol withdrawal with delirium resolved Electrolyte abnormalities resolved Other PMH: DM type II Alcohol abuse Alcoholic cirrhosis Geronimo was admitted secondary to alcohol withdrawal. He reports he started binge drinking about 2 weeks ago after 8 months of sobriety. He started noting visual hallucinations and tremors at home. He was treated with Ativan per CIWAA protocol along with supplemented with thiamine and folic acid. He slowly improved and Ativan needs have decreased to nearly nothing today. Vital signs and lab work remained stable. Mild hypokalemia noted this morning he was treated with p.o. potassium. He is eager to be discharged home. He was counseled on continued sobriety and resources within the community that would help continue sobriety. He is to continue all medications as previously prescribed. Blood pressure is mildly elevated but he is asymptomatic. This is likely secondary to continued alcohol withdrawal which will slowly improve. He was told to monitor blood pressures at home and follow-up with PCP. He reports he has enough medications to get him to PCP appointment. He is to return to the ER or clinic if concerns should arise. - Patient Instructions Diet: Regular Diet as Tolerated Activity: As Tolerated, No Strenuous Activities Driving: Do Not Drive (for 24 hours) Showering/Bathing: May Shower Notify Provider of: Fever, Increased Pain, Swelling and Redness, Drainage, Nausea and/or Vomiting Other/Special Instructions: Contact information to be give regarding: AA meetings in [place]. [facility] Outpatient rehab resources. [facility]. Monitor Blood pressures at home, may be elevated next few days as you continue to withdrawal from alcohol. - Discharge Plan *PRESCRIPTION DRUG MONITORING PROGRAM REVIEWED*: Not Applicable *COPY OF PRESCRIPTION DRUG MONITORING REPORT IN PATIENT NIEVES: Not Applicable Prescriptions/Med Rec: Folic Acid 1 mg PO DAILY #30 tablet Thiamine [Vitamin B-1] 100 mg PO BEDTIME #30 tab Home Medications: Home Meds Enalapril [Vasotec] 20 mg PO DAILY 06/03/19 [History] Metoprolol Succinate 50 mg PO DAILY 06/03/19 [History] Rifaximin [Xifaxan] 1 tab PO BID 02/26/20 [History] Lactulose 22 ml PO TID #0 02/28/20 [Rx] Insulin Glarg,Human.Rec.Analog [Lantus] 12 unit SQ BEDTIME 07/13/20 [History] Folic Acid 1 mg PO DAILY #30 tablet 07/16/20 [Rx] Thiamine [Vitamin B-1] 100 mg PO BEDTIME #30 tab 07/16/20 [Rx] Oxygen Therapy Mode: Room Air Patient Handouts: Thiamine, Vitamin B1 injection, Folic Acid, Vitamin B9 tablets, Alcohol Withdrawal Syndrome, [id number] Referrals: Anitra Robbins [employer] [Primary Care Provider] - 07/24/20 10:15 am - Discharge Summary/Plan Comment DC Time >30 min.: No - Patient Data Vitals - Most Recent: Last Vital Signs Temp 97.1 F 07/16/20 07:35 Pulse 70 07/16/20 08:11 Resp 16 07/16/20 04:00 BP 184/126 H 07/16/20 08:12 Pulse Ox 97 07/16/20 07:35 Weight - Most Recent: 126.643 kg I&O - Last 24 hours: Intake & Output 07/15/20 07/16/20 07/16/20 22:59 06:59 14:59 Intake Total 600 2400 200 Output Total 800 4250 Balance -200 -1850 200 Lab Results - Last 24 hrs: Laboratory Results - last 24 hr 07/15/20 07/15/20 07/16/20 Range/Units 12:00 17:09 05:34 WBC (4.0-11.0) K/uL RBC (4.50-5.90) M/uL Hgb (13.0-17.0) g/dL Hct (38.0-50.0) % MCV (80.0-98.0) fL MCH (27.0-32.0) pg MCHC (31.0-37.0) g/dL RDW Std Deviation (28.0-62.0) fl RDW Coeff of Pipe (11.0-15.0) % Plt Count (150-400) K/uL MPV (7.40-12.00) fL Neut % (Auto) (48.0-80.0) % Lymph % (Auto) (16.0-40.0) % [place] % (Auto) (0.0-15.0) % Eos % (Auto) (0.0-7.0) % Baso % (Auto) (0.0-1.5) % Neut # (Auto) (1.4-5.7) K/uL Lymph # (Auto) (0.6-2.4) K/uL [place] # (Auto) (0.0-0.8) K/uL Eos # (Auto) (0.0-0.7) K/uL Baso # (Auto) (0.0-0.1) K/uL Sodium (136-148) mmol/L Potassium (3.5-5.1) mmol/L Chloride (98-107) mmol/L Carbon Dioxide (21.0-32.0) mmol/L BUN (7.0-18.0) mg/dL Creatinine (0.8-1.3) mg/dL Est Cr Clr Drug Dosing mL/min Estimated GFR (MDRD) ml/min Glucose (74-106) mg/dL POC Glucose 180 H 206 H 135 H (60-110) mg/dL Calcium (8.5-10.1) mg/dL Phosphorus (2.6-4.7) mg/dL Magnesium (1.8-2.4) mg/dL Total Bilirubin (0.2-1.0) mg/dL AST (15-37) IU/L ALT (14-63) IU/L Alkaline Phosphatase (46-116) U/L Total Protein (6.4-8.2) g/dL Albumin (3.4-5.0) g/dL Globulin (2.6-4.0) g/dL Albumin/Globulin Ratio (0.9-1.6) 07/16/20 07/16/20 07/16/20 Range/Units 06:05 06:05 07:31 WBC 5.73 (4.0-11.0) K/uL RBC 4.19 L (4.50-5.90) M/uL Hgb 13.9 (13.0-17.0) g/dL Hct 38.7 (38.0-50.0) % MCV 92.4 (80.0-98.0) fL MCH 33.2 H (27.0-32.0) pg MCHC 35.9 (31.0-37.0) g/dL RDW Std Deviation 40.0 (28.0-62.0) fl RDW Coeff of Pipe 12 (11.0-15.0) % Plt Count 122 L (150-400) K/uL MPV 9.60 (7.40-12.00) fL Neut % (Auto) 45.5 L (48.0-80.0) % Lymph % (Auto) 38.4 (16.0-40.0) % [place] % (Auto) 13.3 (0.0-15.0) % Eos % (Auto) 2.3 (0.0-7.0) % Baso % (Auto) 0.5 (0.0-1.5) % Neut # (Auto) 2.6 (1.4-5.7) K/uL Lymph # (Auto) 2.2 (0.6-2.4) K/uL [place] # (Auto) 0.8 (0.0-0.8) K/uL Eos # (Auto) 0.1 (0.0-0.7) K/uL Baso # (Auto) 0.0 (0.0-0.1) K/uL Sodium 136 (136-148) mmol/L Potassium 3.3 L (3.5-5.1) mmol/L Chloride 101 (98-107) mmol/L Carbon Dioxide 26.8 (21.0-32.0) mmol/L BUN 11 (7.0-18.0) mg/dL Creatinine 1.1 (0.8-1.3) mg/dL Est Cr Clr Drug Dosing 90.14 mL/min Estimated GFR (MDRD) > 60.0 ml/min Glucose 156 H (74-106) mg/dL POC Glucose 178 H (60-110) mg/dL Calcium 8.2 L (8.5-10.1) mg/dL Phosphorus 3.7 (2.6-4.7) mg/dL Magnesium 1.5 L (1.8-2.4) mg/dL Total Bilirubin 1.0 (0.2-1.0) mg/dL AST 31 (15-37) IU/L ALT 44 (14-63) IU/L Alkaline Phosphatase 81 (46-116) U/L Total Protein 5.9 L (6.4-8.2) g/dL Albumin 2.4 L (3.4-5.0) g/dL Globulin 3.5 (2.6-4.0) g/dL Albumin/Globulin Ratio 0.7 L (0.9-1.6) Med Orders - Current: Current Medications Dextrose/Water (50% Dextrose In Water 50 Ml Syringe) 50 ml IV ASDIRECTED PRN PRN Reason: Hypoglycemia Enalapril Maleate (Enalapril 10 Mg Tab) 20 mg PO DAILY [facility] Last Admin: 07/16/20 08:12 Dose: 20 mg Documented by: Folic Acid (Folic Acid 50 Mg/10 Ml Mdv) 1 mg SUBCUT DAILY [facility] Last Admin: 07/16/20 08:11 Dose: 1 mg Documented by: Glucagon (Glucagon,Human Recombinant 1 Mg Vial) 1 mg IM ASDIRECTED PRN PRN Reason: Hypoglycemia Thiamine HCl 100 mg/ Sodium (Chloride) 101 mls @ 202 mls/hr IV DAILY [facility] Last Admin: 07/16/20 10:18 Dose: 202 mls/hr Documented by: Insulin Aspart (Insulin Aspart 100 Units/Ml 3 Ml Pen) 0 unit SUBCUT TIDAC [facility]; Protocol Last Admin: 07/16/20 07:32 Dose: 1 units Documented by: Insulin Glargine (Insulin Glargine,Human Rec. Analog 100 Units/Ml 3 Ml Pen) 12 units SUBCUT BEDTIME [facility] Last Admin: 07/15/20 20:56 Dose: 12 units Documented by: Lactulose (Lactulose Soln 10 Gm/15 Ml 15 Ml Ud Cup) 14.666 gm PO TID [facility] Last Admin: 07/16/20 05:36 Dose: 14.666 gm Documented by: Lorazepam (Lorazepam 2 Mg/Ml Sdv) 0 mg IVPUSH Q4H PRN; Protocol PRN Reason: CIWAA Last Admin: 07/15/20 21:20 Dose: 1 mg Documented by: Metoprolol Succinate (Metoprolol Succinate 50 Mg Tab.Er) 50 mg PO DAILY [facility] Last Admin: 07/16/20 08:11 Dose: 50 mg Documented by: Discontinued Medications Folic Acid (Folic Acid 50 Mg/10 Ml Mdv) 1 mg SUBCUT DAILY [facility] Last Admin: 07/13/20 13:00 Dose: Not Given Documented by: Hydralazine HCl (Hydralazine 20 Mg/Ml Sdv) 20 mg IVPUSH ONETIME ONE Stop: 07/13/20 21:40 Last Admin: 07/13/20 21:51 Dose: 20 mg Documented by: Dextrose/Sodium Chloride (Dextrose 5%-Normal Saline) 1,000 mls @ 999 mls/hr IV ASDIRECTED [facility] Last Admin: 07/13/20 06:16 Dose: 999 mls/hr Documented by: Multivitamins/Minerals 10 ml/Thiamine HCl 100 mg/ Folic Acid 1 mg/ Sodium Chloride 1,011.2 mls @ 999 mls/hr IV ONETIME ONE Stop: 07/13/20 07:09 Last Admin: 07/13/20 06:34 Dose: 999 mls/hr Documented by: Thiamine HCl 100 mg/ Sodium (Chloride) 101 mls @ 202 mls/hr IV DAILY [facility] Last Admin: 07/13/20 13:00 Dose: Not Given Documented by: Sodium Chloride (Normal Saline) 1,000 mls @ 125 mls/hr IV ASDIRECTED [facility] Stop: 07/13/20 20:44 Last Admin: 07/13/20 12:43 Dose: 125 mls/hr Documented by: Magnesium Sulfate (Magnesium Sulfate In Water 2 Gm/50 Ml) 2 gm in 50 mls @ 50 mls/hr IV ONETIME ONE Stop: 07/14/20 08:33 Last Admin: 07/14/20 07:43 Dose: 50 mls/hr Documented by: Magnesium Sulfate (Magnesium Sulfate In Water 4 Gm/100 Ml) 4 gm in 100 mls @ 50 mls/hr IV ONETIME ONE Stop: 07/16/20 09:58 Last Admin: 07/16/20 08:16 Dose: 50 mls/hr Documented by: Lactulose (Lactulose Soln 10 Gm/15 Ml Ml 473 Ml Bottle) 14.666 gm PO TID [facility] Lorazepam (Lorazepam 2 Mg/Ml Sdv) 2 mg IVPUSH ONETIME ONE Stop: 07/13/20 06:13 Last Admin: 07/13/20 06:16 Dose: 2 mg Documented by: Lorazepam (Lorazepam 2 Mg/Ml Sdv) 2 mg IVPUSH ONETIME ONE Stop: 07/13/20 06:43 Last Admin: 07/13/20 06:47 Dose: 2 mg Documented by: Midazolam HCl (Midazolam 5 Mg/Ml Sdv) 5 mg IVPUSH ONETIME ONE Stop: 07/13/20 06:09 Last Admin: 07/13/20 06:12 Dose: Not Given Documented by: Potassium Chloride (Potassium Chloride 20 Meq Tab.Er) 40 meq PO ONETIME ONE Stop: 07/16/20 08:00 Last Admin: 07/16/20 08:15 Dose: 40 meq Documented by: - Exam Quality Assessment: Denies: Supplemental Oxygen General: Reports: Alert, Oriented, Cooperative, No Acute Distress Lungs: Reports: Clear to Auscultation, Normal Respiratory Effort Cardiovascular: Reports: Regular Rate, Regular Rhythm GI/Abdominal Exam: Normal Bowel Sounds, Soft, Non-Tender Extremities: Normal Inspection, Normal Range of Motion, Non-Tender, No Pedal Edema Neurological: Reports: No New Focal Deficit, Sensation Intact Psy/Mental Status: Reports: Alert, Normal Affect, Normal Mood, Withdrawal Symptoms (Mild tremors noted). Denies: Hallucinations
== END 2020-07-16 11:05 | disposition home or self-care (01) | DRG 897 ==
LOC: MW.ED 05:42 → MW.ICU 07:07 → MW.MS 07-15 10:21
PROVIDERS: ADMIT Internal Medicine; ATTEND Internal Medicine
DX: F10.231 Alcohol dependence with withdrawal delirium (principal); F10.229 Alcohol dependence with intoxication, unspecified; Y90.9 Presence of alcohol in blood, level not specified; K70.30 Alcoholic cirrhosis of liver without ascites; I10 Essential (primary) hypertension; K21.9 Gastro-esophageal reflux disease without esophagitis; E11.9 Type 2 diabetes mellitus without complications; F41.9 Anxiety disorder, unspecified; E87.6 Hypokalemia; Z79.899 Other long term (current) drug therapy; K74.60 Unspecified cirrhosis of liver; Z79.4 Long term (current) use of insulin; H54.7 Unspecified visual loss; E78.00 Pure hypercholesterolemia, unspecified; F32.9 Major depressive disorder, single episode, unspecified; Z20.822 Contact with and (suspected) exposure to COVID-19
CPT/HCPCS: 0240U; 36415; 80053; 80307; 82140; 82962; 83690; 83735; 84100; 85025; 85610; 93005; 96365; 96375; 96376; 99285; A9270-GY; J0360; J1815-GY; J2060; J3411; J3475; J7030; J7042

== ENCOUNTER 2020-09-27 07:54 | Emergency (ER) | payer MEDICAID ==
[2020-09-27] MEDS ORDERED: Lactated Ringers 1,000 ML IV SCH (08:15)
[2020-09-27] MEDS ORDERED: Famotidine 20 MG/2 ML SDV IVPUSH ONE (08:24)
[2020-09-27] MEDS ORDERED: Alum Hydrox/Mag Hydrox/Simeth 15 ML, Lidocaine 2% 5 ML PO ONE ×2 (08:24)
[2020-09-27] MEDS ORDERED: Metoprolol Succinate 50 MG Tab.ER PO ONE (08:38)
--- NOTE | 2020-09-27 08:48 | PCM.EKG ---
#1 Interpretation EKG Date: 09/27/20 Time: 08:33 Rhythm: NSR Rate (Beats/Min): 110 [place]: LAD-Left [place] Deviation P-Wave: Present QRS: Normal ST-T: Normal QT: Normal Comparison: No Change (07/13/20) EKG Interpretation Comments: Sinus Rhythm
[2020-09-27 08:49] LABS: BLOOD UREA NITROGEN,BUN 9 mg/dL (7.0-18.0); CARBON DIOXIDE,CO2 25.4 mmol/L (21.0-32.0); CHLORIDE,CL 96 mmol/L (98-107); GLUCOSE RANDOM 327 mg/dL (74-106); POTASSIUM,K 3.7 mmol/L (3.5-5.1); SODIUM,NA 133 mmol/L (136-148)
[2020-09-27] MEDS ORDERED: Potassium Chloride 10% 20 MEQ/15 ML Soln 30 ML UD Cup PO ONE (08:55)
[2020-09-27] MEDS ORDERED: Magnesium Sulfate (4.06 MEQ/ML) 5 GM/10 ML SDV IV STA (08:55)
[2020-09-27] MEDS ORDERED: Magnesium Sulfate/Water 2 GM/50 ML BAG ONE (09:00)
[2020-09-27] MEDS ORDERED: Magnesium Sulfate/Water 2 GM in Premix Bag 1 BAG IV ONE (09:06)
[2020-09-27] MEDS ORDERED: Magnesium Sulfate/Water 2 GM/50 ML BAG IV ONE (09:15)
[2020-09-27] MEDS ORDERED: MVI, Adult with Vitamin K 10 ML, Thiamine 100 MG, Folic Acid 1 MG in Sodium Chloride 0.... IV ONE ×8 (10:37→10:45)
--- NOTE | 2020-09-27 10:56 | EDM.PDOC ---
ED HPI GENERAL MEDICAL PROBLEM - General Chief Complaint: Drug or Alcohol Abuse Stated Complaint: DETOX Time Seen by Provider: 09/27/20 08:06 - History of Present Illness INITIAL COMMENTS - FREE TEXT/NARRATIVE: CHIEF COMPLAINT(S): "I would like to go into alcohol detox." HISTORY OF PRESENT ILLNESS: This is a 50-year-old man with a past medical history of hypertension, diabetes mellitus, alcoholic hepatitis, alcohol use disorder who comes to the emergency department with a chief complaint of "I would like to go into alcohol detox." The patient states that he was sober for approximately 2 months and then starting 3 weeks ago he has been drinking a 30 pack of 12 ounce H[place] Light a day. He states that he has associated nausea and vomiting every day from drinking this much. He denies any current headache, nausea, vomiting but states he does have some mild abdominal pain throughout his abdomen. He describes it as dull and achy without any associated symptoms. There is no radiation of this pain. He has not yet taken any pain medication for it. The pain is not exacerbated by anything. The patient denies any chest pain, shortness of breath, anxiety, auditory or visual hallucination, tremors. He states that he has not yet taken his insulin or his blood pressure medication in 3 weeks. In addition: Of note the patient did have some type of eye surgery approximately 3 weeks ago where he had a hemorrhage in his right eye. He states that after that surgery he was told he would be blind not from some time. Therefore he does not have any vision from the right eye. REVIEW OF SYSTEMS: Constitutional: Denies fever, chills. Eyes: Denies eye pain Ears, Nose, Mouth, & Throat: Denies earache Cardiovascular: Denies chest pain Respiratory: Denies shortness of breath Gastrointestinal: Positive for mild abdominal pain. Denies Nausea, vomiting, diarrhea, hematochezia. Genitourinary: Denies hematuria Skin:Denies a rash MSK: Denies joint pain Neurological: Denies blurred vision, numbness, tingling, weakness Psychiatric: Denies depression PAST MEDICAL HISTORY: As per history of present illness and as reviewed below otherwise noncontributory. SURGICAL HISTORY: As per history of present illness and as reviewed below otherwise noncontributory. SOCIAL HISTORY: As per history of present illness and as reviewed below otherwise noncontributory. FAMILY HISTORY: As per history of present illness and as reviewed below otherwise noncontributory. EXAMINATION OF ORGAN SYSTEMS/BODY AREAS: Constitutional: Blood pressure is 145/104, heart rate 110, respiratory rate 18 with an oxygen saturation 96% on room air. Temperature 36.1 General: Overall well-appearing man who is in no acute distress Psychiatric: Appropriate mood and affect. Eyes: No scleral icterus or conjunctival erythema pupils are equal round and reactive. Mild horizontal nystagmus which is fatigable. ENMT: Moist mucous membranes. No pharyngeal erythema mild tongue fasciculations. Cardiovascular: Tachycardic but regular. No gallops, murmurs, or rubs. Bilateral upper extremity pulses symmetric and intact. No peripheral edema. No JVD. Respiratory: Lungs clear to auscultation bilaterally. No wheezes, rales, or rhonchi. Gastrointestinal: Soft, non-tender, non-distended. Normoactive bowel sounds no rebound or guarding Genitourinary: No suprapubic tenderness Musculoskeletal: Normal range of motion. No tremors noted with the hands and arms extended. No tremors could be palpated by holding finger. Skin: No lesions or abrasions. Neurological: AOx4. CN grossly intact. Strength 5/5 in bilateral upper and lower extremity. Sensation is intact bilaterally in upper and lower extremity. Gait appears normal. Finger to nose, heel to rodriguez, rapid alternating movements intact. MEDICAL DECISION MAKING AND COURSE IN THE ED WITH INTERPRETATION/REVIEW OF DIAGNOSTIC STUDIES: This is a 50-year-old man with a past medical history diabetes mellitus, hypertension, alcohol use disorder and history of alcohol withdrawal who comes to the emergency department with request for alcohol detoxification. The patient's last drink was 20 minutes prior to arrival which was a 12 ounce beer of H[place]. At this time I do not suspect he is in alcohol withdrawal. Will obtain screening labs including CBC, CMP, coags, urinalysis, UDS, serum alcohol level. The patient's [id number] glucose was found to be 404. We will provide the patient with 1 L of lactated Ringer's. Will obtain ABG and serum ketones. Patient does not appear to be in DKA. EKG was obtained which did not reveal any acute signs of ischemia. At this time the patient CIWA score was 1. Laboratory: CBC reveals thrombocytopenia at 109 which is slightly decreased from prior at 122 otherwise unremarkable. INR is 1.0. CMP reveals hyponatremia at 133 which is unchanged from prior, hypochloremia at 96, hyperglycemia at 404 by [id number] glucose, 327 on CMP, hypocalcemia at 8.1 however corrected is within the normal limits, mild transaminitis with an AST of 62, ALT of 70, mild elevation in alkaline phosphatase at 121. CPK is elevated 861 which does not indicate rhabdomyolysis. There is hypomagnesemia at 1.5. Urinalysis was a clean catch and was revealed proteinuria and glucosuria with moderate amount of microscopic hematuria. UDS is negative. Serum alcohol level is 235. Serum ketones are negative. AB.45/35/82/24 Normal After fluid administration I did provide the patient with his home medications for his blood pressure given that he did not take them. We will reevaluate his blood pressure and repeat glucose. The patient again does not appear to be in alcohol withdrawal. CIWA score again was 1. On reevaluation his tachycardia had improved, after his blood pressure medication his blood pressure also returned to normal. At this time we did repeat the patient's glucose which did significantly decrease down to 268. At this time I did discuss transfer for alcoholic detox. I contacted [facility] in [place] and they do have detoxification beds available. I spoke with Dr. Loera who accepted the transfer. Patient will be transferred via private vehicle for evaluation. Patient was amenable to transfer and reevalu ation at [facility] in [place]. At the time of transfer the patient CIWA score continued to remain 1. DISPOSITION: Patient was transferred to [facility] by private vehicle in stable condition CONDITION: Fair PROCEDURES: None FINAL IMPRESSION(S)/DIAGNOSES: 1. Acute alcohol intoxication 2. Acute hyperglycemia secondary to noncompliance with medication administration 3. Acute hypertension, uncontrolled secondary to noncompliance 4. Acute hypomagnesemia likely secondary to alcohol use disorder 5. Acute transaminitis likely secondary to alcohol use Skyler Velasquez M.D. abdomen Pain Score (Numeric/FACES): 5 - Related Data Allergies Allergy/AdvReac Type Severity Reaction Status Date / Time No Known Allergies Allergy Verified 09/27/20 08:02 Home Meds: Home Meds Enalapril [Vasotec] 20 mg PO DAILY 06/03/19 [History] Metoprolol Succinate 50 mg PO DAILY 06/03/19 [History] Rifaximin [Xifaxan] 1 tab PO BID 02/26/20 [History] Lactulose 22 ml PO TID #0 02/28/20 [Rx] Past Medical History HEENT History: Reports: Impaired Vision, Other (See Below) Other HEENT History: glasses for reading Cardiovascular History: Reports: High Cholesterol, Hypertension Respiratory History: Reports: None Gastrointestinal History: Reports: Cirrhosis, GERD Genitourinary History: Reports: None Musculoskeletal History: Reports: None Neurological History: Reports: None Psychiatric History: Reports: Addiction, Anxiety, Depression Endocrine/Metabolic History: Reports: Diabetes, Type II Insulin Pump Model and Instruments Sales Representative: None Hematologic History: Reports: None Immunologic History: Reports: None Oncologic (Cancer) History: Reports: None Dermatologic History: Reports: None - Infectious Disease History Infectious Disease History: Reports: Chicken Pox, Measles, Mumps - Past Surgical History Head Surgeries/Procedures: Reports: None HEENT Surgical History: Reports: Other (See Below) Other HEENT Surgeries/Procedures: right eye surgery, states unknown what surgical procedure completed but now cannot see out of right eye. GI Surgical History: Reports: None Male Surgical History: Reports: None Musculoskeletal Surgical History: Reports: Other (See Below) Other Musculoskeletal Surgeries/Procedures:: left knee pain- every year had an injection to control the pain, broken left arm with plate Social & Family History - Family History Family Medical History: No Pertinent Family History - Tobacco Use Tobacco Use Status *Q: Never Tobacco User - Caffeine Use Caffeine Use: Reports: Soda Other Caffeine Use: coffee for morning. soda for lunch - Recreational Drug Use Recreational Drug Use: No ED ROS GENERAL - Review of Systems Review Of Systems: See Below ED EXAM, GENERAL - Physical Exam Exam: See Below Course - Vital Signs Last Recorded V/S: Last Vital Signs Temp 36.1 C 09/27/20 08:04 Pulse 102 H 09/27/20 09:13 Resp 18 09/27/20 08:04 BP 128/91 H 09/27/20 09:13 Pulse Ox 98 09/27/20 09:13 - Orders/Labs/Meds Orders: Active Orders 24 hr Category Date Time Status Blood Glucose Check, Bedside [RC] ONETIME Care 09/27/20 09:59 Active EKG Documentation Completion [RC] STAT Care 09/27/20 08:07 Active Lactated Ringers [Ringers, Lactated] 1,000 ml Med 09/27/20 08:15 Active IV ASDIRECTED MVI, Adult with Vitamin K [Infuvite Adult] 10 ml Med 09/27/20 10:45 Active Thiamine [Vitamin B-1] 100 mg Folic Acid 1 mg Sodium Chloride 0.9% [Normal Saline] 1,000 ml IV ONETIME Medication Orders Lactated Ringer's (Ringers, Lactated) 1,000 mls @ 999 mls/hr IV ASDIRECTED JESUS Last Admin: 09/27/20 08:36 Dose: 999 mls/hr Documented by: DOM Multivitamins/Minerals 10 ml/Thiamine HCl 100 mg/ Folic Acid 1 mg/ Sodium Chloride 1,011.2 mls @ 999 mls/hr IV ONETIME ONE Stop: 09/27/20 11:45 Labs: Laboratory Tests 09/27/20 09/27/20 09/27/20 Range/Units 08:06 08:13 08:13 WBC 5.98 (4.0-11.0) K/uL RBC 4.31 L (4.50-5.90) M/uL Hgb 14.2 (13.0-17.0) g/dL Hct 40.7 (38.0-50.0) % MCV 94.4 (80.0-98.0) fL MCH 32.9 H (27.0-32.0) pg MCHC 34.9 (31.0-37.0) g/dL RDW Std Deviation 48.8 (28.0-62.0) fl RDW Coeff of Pipe 14 (11.0-15.0) % Plt Count 109 L (150-400) K/uL MPV 10.10 (7.40-12.00) fL Neut % (Auto) 44.3 L (48.0-80.0) % Lymph % (Auto) 46.7 H (16.0-40.0) % [place] % (Auto) 7.7 (0.0-15.0) % Eos % (Auto) 1.0 (0.0-7.0) % Baso % (Auto) 0.3 (0.0-1.5) % Neut # (Auto) 2.7 (1.4-5.7) K/uL Lymph # (Auto) 2.8 H (0.6-2.4) K/uL [place] # (Auto) 0.5 (0.0-0.8) K/uL Eos # (Auto) 0.1 (0.0-0.7) K/uL Baso # (Auto) 0.0 (0.0-0.1) K/uL Nucleated RBC % 0.0 /100WBC Nucleated RBCs # 0 K/uL INR ABG pH (7.35-7.45) ABG pCO2 (35-45) mmHG ABG pO2 (80-105) mmHG ABG HCO3 (22-26) mEq/L ABG Total CO2 (23-27) mmol/L ABG Base Excess (-2.0-3.0) Sodium 133 L (136-148) mmol/L Potassium 3.7 (3.5-5.1) mmol/L Chloride 96 L (98-107) mmol/L Carbon Dioxide 25.4 (21.0-32.0) mmol/L BUN 9 (7.0-18.0) mg/dL Creatinine 0.9 (0.8-1.3) mg/dL Est Cr Clr Drug Dosing 112.21 mL/min Estimated GFR (MDRD) > 60.0 ml/min Glucose 327 H (74-106) mg/dL POC Glucose 404 H* (70-99) mg/dL Calcium 8.1 L (8.5-10.1) mg/dL Magnesium 1.5 L (1.8-2.4) mg/dL Total Bilirubin 0.6 (0.2-1.0) mg/dL AST 62 H (15-37) IU/L ALT 70 H (14-63) IU/L Alkaline Phosphatase 121 H (46-116) U/L Creatine Kinase (26-308) U/L Total Protein 6.3 L (6.4-8.2) g/dL Albumin 2.5 L (3.4-5.0) g/dL Globulin 3.8 (2.6-4.0) g/dL Albumin/Globulin Ratio 0.7 L (0.9-1.6) Urine Color Urine Appearance Urine pH (5.0-8.0) Ur Specific [place] (1.001-1.035) Urine Protein (NEGATIVE) mg/dL Urine Glucose (UA) (NEGATIVE) mg/dL Urine Ketones (NEGATIVE) mg/dL Urine Occult Blood (NEGATIVE) Urine Nitrite (NEGATIVE) Urine Bilirubin (NEGATIVE) Urine Urobilinogen (<2.0) EU/dL Ur Leukocyte Esterase (NEGATIVE) Urine RBC (0-2/HPF) Urine WBC (0-5/HPF) Ur Epithelial Cells (NONE-FEW) Urine Bacteria (NEGATIVE) Urine Opiates Screen (NEGATIVE) Ur Oxycodone Screen (NEGATIVE) Urine Methadone Screen (NEGATIVE) Ur Barbiturates Screen (NEGATIVE) Ur Phencyclidine Scrn (NEGATIVE) Ur Amphetamine Screen (NEGATIVE) U Methamphetamines Scrn (NEGATIVE) U Benzodiazepines Scrn (NEGATIVE) U Cocaine Metab Screen (NEGATIVE) U Marijuana (THC) Screen (NEGATIVE) Ethyl Alcohol 235 mg/dL Ketones (NEG) 09/27/20 09/27/20 09/27/20 Range/Units 08:13 08:13 08:20 WBC (4.0-11.0) K/uL RBC (4.50-5.90) M/uL Hgb (13.0-17.0) g/dL Hct (38.0-50.0) % MCV (80.0-98.0) fL MCH (27.0-32.0) pg MCHC (31.0-37.0) g/dL RDW Std Deviation (28.0-62.0) fl RDW Coeff of Pipe (11.0-15.0) % Plt Count (150-400) K/uL MPV (7.40-12.00) fL Neut % (Auto) (48.0-80.0) % Lymph % (Auto) (16.0-40.0) % [place] % (Auto) (0.0-15.0) % Eos % (Auto) (0.0-7.0) % Baso % (Auto) (0.0-1.5) % Neut # (Auto) (1.4-5.7) K/uL Lymph # (Auto) (0.6-2.4) K/uL [place] # (Auto) (0.0-0.8) K/uL Eos # (Auto) (0.0-0.7) K/uL Baso # (Auto) (0.0-0.1) K/uL Nucleated RBC % /100WBC Nucleated RBCs # K/uL INR 1.00 ABG pH (7.35-7.45) ABG pCO2 (35-45) mmHG ABG pO2 (80-105) mmHG ABG HCO3 (22-26) mEq/L ABG Total CO2 (23-27) mmol/L ABG Base Excess (-2.0-3.0) Sodium (136-148) mmol/L Potassium (3.5-5.1) mmol/L Chloride (98-107) mmol/L Carbon Dioxide (21.0-32.0) mmol/L BUN (7.0-18.0) mg/dL Creatinine (0.8-1.3) mg/dL Est Cr Clr Drug Dosing mL/min Estimated GFR (MDRD) ml/min Glucose (74-106) mg/dL POC Glucose (70-99) mg/dL Calcium (8.5-10.1) mg/dL Magnesium (1.8-2.4) mg/dL Total Bilirubin (0.2-1.0) mg/dL AST (15-37) IU/L ALT (14-63) IU/L Alkaline Phosphatase (46-116) U/L Creatine Kinase 861 H (26-308) U/L Total Protein (6.4-8.2) g/dL Albumin (3.4-5.0) g/dL Globulin (2.6-4.0) g/dL Albumin/Globulin Ratio (0.9-1.6) Urine Color Urine Appearance Urine pH (5.0-8.0) Ur Specific [place] (1.001-1.035) Urine Protein (NEGATIVE) mg/dL Urine Glucose (UA) (NEGATIVE) mg/dL Urine Ketones (NEGATIVE) mg/dL Urine Occult Blood (NEGATIVE) Urine Nitrite (NEGATIVE) Urine Bilirubin (NEGATIVE) Urine Urobilinogen (<2.0) EU/dL Ur Leukocyte Esterase (NEGATIVE) Urine RBC (0-2/HPF) Urine WBC (0-5/HPF) Ur Epithelial Cells (NONE-FEW) Urine Bacteria (NEGATIVE) Urine Opiates Screen (NEGATIVE) Ur Oxycodone Screen (NEGATIVE) Urine Methadone Screen (NEGATIVE) Ur Barbiturates Screen (NEGATIVE) Ur Phencyclidine Scrn (NEGATIVE) Ur Amphetamine Screen (NEGATIVE) U Methamphetamines Scrn (NEGATIVE) U Benzodiazepines Scrn (NEGATIVE) U Cocaine Metab Screen (NEGATIVE) U Marijuana (THC) Screen (NEGATIVE) Ethyl Alcohol mg/dL Ketones NEGATIVE (NEG) 09/27/20 09/27/20 09/27/20 Range/Units 08:35 10:07 10:07 WBC (4.0-11.0) K/uL RBC (4.50-5.90) M/uL Hgb (13.0-17.0) g/dL Hct (38.0-50.0) % MCV (80.0-98.0) fL MCH (27.0-32.0) pg MCHC (31.0-37.0) g/dL RDW Std Deviation (28.0-62.0) fl RDW Coeff of Pipe (11.0-15.0) % Plt Count (150-400) K/uL MPV (7.40-12.00) fL Neut % (Auto) (48.0-80.0) % Lymph % (Auto) (16.0-40.0) % [place] % (Auto) (0.0-15.0) % Eos % (Auto) (0.0-7.0) % Baso % (Auto) (0.0-1.5) % Neut # (Auto) (1.4-5.7) K/uL Lymph # (Auto) (0.6-2.4) K/uL [place] # (Auto) (0.0-0.8) K/uL Eos # (Auto) (0.0-0.7) K/uL Baso # (Auto) (0.0-0.1) K/uL Nucleated RBC % /100WBC Nucleated RBCs # K/uL INR ABG pH 7.45 (7.35-7.45) ABG pCO2 35 (35-45) mmHG ABG pO2 82 (80-105) mmHG ABG HCO3 24 (22-26) mEq/L ABG Total CO2 21.3 L (23-27) mmol/L ABG Base Excess 0.6 (-2.0-3.0) Sodium (136-148) mmol/L Potassium (3.5-5.1) mmol/L Chloride (98-107) mmol/L Carbon Dioxide (21.0-32.0) mmol/L BUN (7.0-18.0) mg/dL Creatinine (0.8-1.3) mg/dL Est Cr Clr Drug Dosing mL/min Estimated GFR (MDRD) ml/min Glucose (74-106) mg/dL POC Glucose (70-99) mg/dL Calcium (8.5-10.1) mg/dL Magnesium (1.8-2.4) mg/dL Total Bilirubin (0.2-1.0) mg/dL AST (15-37) IU/L ALT (14-63) IU/L Alkaline Phosphatase (46-116) U/L Creatine Kinase (26-308) U/L Total Protein (6.4-8.2) g/dL Albumin (3.4-5.0) g/dL Globulin (2.6-4.0) g/dL Albumin/Globulin Ratio (0.9-1.6) Urine Color YELLOW Urine Appearance CLEAR Urine pH 7.0 (5.0-8.0) Ur Specific [place] 1.020 (1.001-1.035) Urine Protein >=300 H (NEGATIVE) mg/dL Urine Glucose (UA) >=1000 (NEGATIVE) mg/dL Urine Ketones NEGATIVE (NEGATIVE) mg/dL Urine Occult Blood MODERATE H (NEGATIVE) Urine Nitrite NEGATIVE (NEGATIVE) Urine Bilirubin NEGATIVE (NEGATIVE) Urine Urobilinogen 0.2 (<2.0) EU/dL Ur Leukocyte Esterase NEGATIVE (NEGATIVE) Urine RBC 2-5 (0-2/HPF) Urine WBC 0-1 (0-5/HPF) Ur Epithelial Cells RARE (NONE-FEW) Urine Bacteria RARE (NEGATIVE) Urine Opiates Screen NEGATIVE (NEGATIVE) Ur Oxycodone Screen NEGATIVE (NEGATIVE) Urine Methadone Screen NEGATIVE (NEGATIVE) Ur Barbiturates Screen NEGATIVE (NEGATIVE) Ur Phencyclidine Scrn NEGATIVE (NEGATIVE) Ur Amphetamine Screen NEGATIVE (NEGATIVE) U Methamphetamines Scrn NEGATIVE (NEGATIVE) U Benzodiazepines Scrn NEGATIVE (NEGATIVE) U Cocaine Metab Screen NEGATIVE (NEGATIVE) U Marijuana (THC) Screen NEGATIVE (NEGATIVE) Ethyl Alcohol mg/dL Ketones (NEG) 09/27/20 Range/Units 10:13 WBC (4.0-11.0) K/uL RBC (4.50-5.90) M/uL Hgb (13.0-17.0) g/dL Hct (38.0-50.0) % MCV (80.0-98.0) fL MCH (27.0-32.0) pg MCHC (31.0-37.0) g/dL RDW Std Deviation (28.0-62.0) fl RDW Coeff of Pipe (11.0-15.0) % Plt Count (150-400) K/uL MPV (7.40-12.00) fL Neut % (Auto) (48.0-80.0) % Lymph % (Auto) (16.0-40.0) % [place] % (Auto) (0.0-15.0) % Eos % (Auto) (0.0-7.0) % Baso % (Auto) (0.0-1.5) % Neut # (Auto) (1.4-5.7) K/uL Lymph # (Auto) (0.6-2.4) K/uL [place] # (Auto) (0.0-0.8) K/uL Eos # (Auto) (0.0-0.7) K/uL Baso # (Auto) (0.0-0.1) K/uL Nucleated RBC % /100WBC Nucleated RBCs # K/uL INR ABG pH (7.35-7.45) ABG pCO2 (35-45) mmHG ABG pO2 (80-105) mmHG ABG HCO3 (22-26) mEq/L ABG Total CO2 (23-27) mmol/L ABG Base Excess (-2.0-3.0) Sodium (136-148) mmol/L Potassium (3.5-5.1) mmol/L Chloride (98-107) mmol/L Carbon Dioxide (21.0-32.0) mmol/L BUN (7.0-18.0) mg/dL Creatinine (0.8-1.3) mg/dL Est Cr Clr Drug Dosing mL/min Estimated GFR (MDRD) ml/min Glucose (74-106) mg/dL POC Glucose 268 H (70-99) mg/dL Calcium (8.5-10.1) mg/dL Magnesium (1.8-2.4) mg/dL Total Bilirubin (0.2-1.0) mg/dL AST (15-37) IU/L ALT (14-63) IU/L Alkaline Phosphatase (46-116) U/L Creatine Kinase (26-308) U/L Total Protein (6.4-8.2) g/dL Albumin (3.4-5.0) g/dL Globulin (2.6-4.0) g/dL Albumin/Globulin Ratio (0.9-1.6) Urine Color Urine Appearance Urine pH (5.0-8.0) Ur Specific [place] (1.001-1.035) Urine Protein (NEGATIVE) mg/dL Urine Glucose (UA) (NEGATIVE) mg/dL Urine Ketones (NEGATIVE) mg/dL Urine Occult Blood (NEGATIVE) Urine Nitrite (NEGATIVE) Urine Bilirubin (NEGATIVE) Urine Urobilinogen (<2.0) EU/dL Ur Leukocyte Esterase (NEGATIVE) Urine RBC (0-2/HPF) Urine WBC (0-5/HPF) Ur Epithelial Cells (NONE-FEW) Urine Bacteria (NEGATIVE) Urine Opiates Screen (NEGATIVE) Ur Oxycodone Screen (NEGATIVE) Urine Methadone Screen (NEGATIVE) Ur Barbiturates Screen (NEGATIVE) Ur Phencyclidine Scrn (NEGATIVE) Ur Amphetamine Screen (NEGATIVE) U Methamphetamines Scrn (NEGATIVE) U Benzodiazepines Scrn (NEGATIVE) U Cocaine Metab Screen (NEGATIVE) U Marijuana (THC) Screen (NEGATIVE) Ethyl Alcohol mg/dL Ketones (NEG) Meds: Medications Generic Name Dose Route Start Last Admin Trade Name Freq PRN Reason Stop Dose Admin Lactated Ringer's 1,000 mls @ 999 mls/hr 09/27/20 08:15 09/27/20 08:36 Ringers, Lactated IV 999 mls/hr ASDIRECTED JESUS Administration Multivitamins/Minerals 10 ml/ 1,011.2 mls @ 999 mls/hr 09/27/20 10:45 Thiamine HCl 100 mg/ Folic IV 09/27/20 11:45 Acid 1 mg/ Sodium Chloride ONETIME ONE Discontinued Medications Generic Name Dose Route Start Last Admin Trade Name Freq PRN Reason Stop Dose Admin Al Hydroxide/Mg Hydroxide 15 0 ml 09/27/20 08:24 09/27/20 08:36 ml/ Lidocaine HCl 5 ml PO 09/27/20 08:25 1 each ONETIME ONE Administration Diazepam 5 mg 09/27/20 10:36 Diazepam 10 Mg/2 Ml Syringe IVPUSH 09/27/20 10:37 ONETIME ONE Enalapril Maleate 20 mg 09/27/20 08:38 09/27/20 08:45 Enalapril 10 Mg Tab PO 09/27/20 08:39 20 mg ONETIME ONE Administration Famotidine 20 mg 09/27/20 08:24 09/27/20 08:36 Famotidine 20 Mg/2 Ml Sdv IVPUSH 09/27/20 08:25 20 mg ONETIME ONE Administration Magnesium Sulfate Confirm 09/27/20 09:00 09/27/20 09:09 Magnesium Sulfate In Water 2 Gm/50 Ml Administered 09/27/20 09:01 Not Given Dose 2 gm in 50 mls @ as directed .ROUTE .STK-MED ONE Magnesium Sulfate 2 gm in 50 mls @ 50 mls/hr 09/27/20 09:15 09/27/20 09:10 Magnesium Sulfate In Water 2 Gm/50 Ml IV 09/27/20 10:14 50 mls/hr ONETIME ONE Administration Magnesium Sulfate 2 gm/ Premix 50 mls @ 12.5 mls/hr 09/27/20 09:06 IV 09/27/20 13:05 ONETIME ONE Multivitamins/Minerals 10 ml/ 1,011.2 mls @ 999 mls/hr 09/27/20 10:37 Thiamine HCl 100 mg/ Folic IV 09/27/20 11:37 Acid 1 mg/ Sodium Chloride ONETIME ONE Metoprolol Succinate 50 mg 09/27/20 08:38 09/27/20 08:42 Metoprolol Succinate 50 Mg Tab.Er PO 09/27/20 08:39 50 mg ONETIME ONE Administration Potassium Chloride 40 meq 09/27/20 08:55 09/27/20 09:10 Potassium Chloride 10% 20 Meq/15 Ml Soln 30 Ml Ud Cup PO 09/27/20 08:56 40 meq ONETIME ONE Administration Departure - Departure Time of Disposition: 11:09 Disposition: DC/Tfer to Acute Hospital 02 Condition: Fair Clinical Impression: Alcohol abuse, Hypomagnesemia Alcoholic hepatitis Qualifiers: Ascites presence: without ascites Qualified Code(s): K70.10 - Alcoholic hepatitis without ascites - Discharge Information *PRESCRIPTION DRUG MONITORING PROGRAM REVIEWED*: No *COPY OF PRESCRIPTION DRUG MONITORING REPORT IN PATIENT NIEVES: No Referrals: Itzel,Anitra A, LINING MACHINE OPERATOR [Primary Care Provider] - Forms: ED Department Discharge Additional Instructions: You evaluate today on an emergent basis. At this time they do have a detoxification for alcohol room at [facility]. You are to drive directly to [facility] in [place] and check in at the emergency department. Dr. Loera was the accepting physician. Sepsis Event Note (ED) - Evaluation Sepsis Screening Result: No Definite Risk - Focused Exam Vital Signs: Vital Signs Temp Pulse Pulse Resp BP BP Pulse Ox 09/27/20 09:13 102 H 128/91 H 98 09/27/20 08:45 145/95 H 09/27/20 08:42 110 H 145/95 H 09/27/20 08:04 36.1 C 110 H 18 145/104 H 96 - My Orders Last 24 Hours: My Active Orders 09/27/20 08:07 EKG Documentation Completion [RC] STAT 09/27/20 08:15 Lactated Ringers [Ringers, Lactated] 1,000 ml IV ASDIRECTED 09/27/20 09:59 Blood Glucose Check, Bedside [RC] ONETIME 09/27/20 10:45 MVI, Adult with Vitamin K [Infuvite Adult] 10 ml Thiamine [Vitamin B-1] 100 mg Folic Acid 1 mg Sodium Chloride 0.9% [Normal Saline] 1,000 ml IV ONETIME - Assessment/Plan Last 24 Hours: My Active Orders 09/27/20 08:07 EKG Documentation Completion [RC] STAT 09/27/20 08:15 Lactated Ringers [Ringers, Lactated] 1,000 ml IV ASDIRECTED 09/27/20 09:59 Blood Glucose Check, Bedside [RC] ONETIME 09/27/20 10:45 MVI, Adult with Vitamin K [Infuvite Adult] 10 ml Thiamine [Vitamin B-1] 100 mg Folic Acid 1 mg Sodium Chloride 0.9% [Normal Saline] 1,000 ml IV ONETIME
== END 2020-09-27 11:17 ==
LOC: MW.ED 07:54
DX: K70.10 Alcoholic hepatitis without ascites (principal); F10.129 Alcohol abuse with intoxication, unspecified; E11.65 Type 2 diabetes mellitus with hyperglycemia; I10 Essential (primary) hypertension; E83.42 Hypomagnesemia; R74.01 Elevation of levels of liver transaminase levels; E78.00 Pure hypercholesterolemia, unspecified; Y90.8 Blood alcohol level of 240 mg/100 ml or more
CPT/HCPCS: 36415; 36600; 80053; 80305; 80307; 81001; 82009; 82550; 82803; 82947; 83735; 85025; 85610; 93005; 96365; 96375; 99285; A9270; J3475; J3490; J7120; 99284

== ENCOUNTER 2021-02-19 15:35 | Emergency (ER) | payer MEDICAID ==
[2021-02-19] MEDS ORDERED: Sodium Chloride 0.9% 10 ML Syringe FLUSH PRN (15:57)
[2021-02-19] MEDS ORDERED: Sodium Chloride 0.9% 1,000 ML IV ONE (15:57)
[2021-02-19] MEDS ORDERED: Sodium Chloride 0.9% 2.5 ML Syringe FLUSH PRN (15:57)
[2021-02-19] MEDS ORDERED: Morphine 2 MG/ML SYRINGE IVPUSH ONE (15:58)
[2021-02-19] MEDS ORDERED: chlordiazePOXIDE 25 MG Cap PO ONE (15:59)
--- NOTE | 2021-02-19 16:01 | EDM.PDOC ---
ED HPI GENERAL MEDICAL PROBLEM - General Chief Complaint: Abdominal Pain Stated Complaint: EMS Time Seen by Provider: 02/19/21 15:52 Source of Information: Reports: Patient - History of Present Illness INITIAL COMMENTS - FREE TEXT/NARRATIVE: 50-year-old male presents the emergency department complaining of abdominal pain. The patient states the pain started 3 or 4 days ago and then got worse today. He states he last drank alcohol 3 to 4 days ago and normally drinks a large amount of alcohol. He has a history of hypertension and diabetes and cirrhosis. Patient with vomiting. There is no overt diarrhea. No fevers. No pain with urination. Moderate discomfort. No exacerbating relieving factors. Patient states he is also had degree of cough. No marked shortness of breath Middle Abdomen Pain Score (Numeric/FACES): 8 - Related Data Allergies Allergy/AdvReac Type Severity Reaction Status Date / Time No Known Allergies Allergy Verified 02/19/21 15:36 Home Meds: Home Meds Enalapril [Vasotec] 20 mg PO DAILY 06/03/19 [History] Metoprolol Succinate 50 mg PO DAILY 06/03/19 [History] Rifaximin [Xifaxan] 1 tab PO BID 02/26/20 [History] Lactulose 22 ml PO TID #0 02/28/20 [Rx] Past Medical History HEENT History: Reports: Impaired Vision, Other (See Below) Other HEENT History: glasses for reading Cardiovascular History: Reports: High Cholesterol, Hypertension Respiratory History: Reports: None Gastrointestinal History: Reports: Cirrhosis, GERD Genitourinary History: Reports: None Musculoskeletal History: Reports: None Neurological History: Reports: None Psychiatric History: Reports: Addiction, Anxiety, Depression Endocrine/Metabolic History: Reports: Diabetes, Type II Insulin Pump Model and Guest Service Aide: None Hematologic History: Reports: None Immunologic History: Reports: None Oncologic (Cancer) History: Reports: None Dermatologic History: Reports: None - Infectious Disease History Infectious Disease History: Reports: Chicken Pox, Measles, Mumps - Past Surgical History Head Surgeries/Procedures: Reports: None HEENT Surgical History: Reports: Other (See Below) Other HEENT Surgeries/Procedures: right eye surgery, states unknown what surgical procedure completed but now cannot see out of right eye. GI Surgical History: Reports: None Male Surgical History: Reports: None Musculoskeletal Surgical History: Reports: Other (See Below) Other Musculoskeletal Surgeries/Procedures:: left knee pain- every year had an injection to control the pain, broken left arm with plate Social & Family History - Family History Family Medical History: No Pertinent Family History - Tobacco Use Tobacco Use Status *Q: Never Tobacco User - Caffeine Use Caffeine Use: Reports: Soda Other Caffeine Use: coffee for morning. soda for lunch - Recreational Drug Use Recreational Drug Use: No ED ROS GENERAL - Review of Systems Review Of Systems: Comprehensive ROS is negative, except as noted in HPI. ED EXAM, GENERAL - Physical Exam Exam: See Below Free Text/Narrative:: CONSTITUTIONAL: well appearing in no acute distress SKIN: Warm, dry, and intact without rash HENT: Normocephalic, atraumatic, PULMONARY: clear to ausculation bilaterally. No rales, rhonchi, wheezing CARDIOVASCULAR: regular rate, No murmur, rubs, or gallops GASTROINTESTINAL: Patient points mostly to left lower quadrant where the pain is. No significant right upper quadrant tenderness NEUROLOGIC: normal speech, II-XII intact. No marked significant tremors. Sensorimotor function grossly intact MUSCULOSKELETAL: no gross deformities, atraumatic PSYCHIATRIC: normal mood and affect #1 Interpretation Time: 16:10 EKG Interpretation Comments: 113, sinus tachycardia, nonspecific ST/T findings Course - Vital Signs Last Recorded V/S: Last Vital Signs Temp 36.6 C 02/19/21 15:37 Pulse 97 02/19/21 18:26 Resp 19 02/19/21 18:26 BP 157/98 H 02/19/21 18:26 Pulse Ox 96 02/19/21 18:26 - Orders/Labs/Meds Orders: Active Orders 24 hr Category Date Time Status CULTURE BLOOD [BC] Stat Lab 02/19/21 16:14 Received CULTURE BLOOD [BC] Stat Lab 02/19/21 16:20 Received UA W/KOKI RFLX IF INDICATED [URIN] Stat Lab 02/19/21 15:57 Ordered Sodium Chloride 0.9% [Saline Flush] Med 02/19/21 15:57 Active 10 ml FLUSH ASDIRECTED PRN Sodium Chloride 0.9% [Saline Flush] Med 02/19/21 15:57 Active 2.5 ml FLUSH ASDIRECTED PRN Blood Culture x2 Reflex Set [OM.PC] Stat Oth 02/19/21 15:57 Ordered Saline Lock Insert [OM.PC] Stat Ot 02/19/21 15:57 Ordered Medication Orders Sodium Chloride (Sodium Chloride 0.9% 10 Ml Syringe) 10 ml FLUSH ASDIRECTED PRN PRN Reason: Keep Vein Open Last Admin: 02/19/21 16:16 Dose: 10 ml Documented by: RAMILA Sodium Chloride (Sodium Chloride 0.9% 2.5 Ml Syringe) 2.5 ml FLUSH ASDIRECTED PRN PRN Reason: Keep Vein Open Last Admin: 02/19/21 16:16 Dose: 2.5 ml Documented by: RAMILA Labs: Laboratory Tests 02/19/21 02/19/21 02/19/21 Range/Units 15:40 15:40 15:40 WBC 7.27 (4.0-11.0) K/uL RBC 4.25 L (4.50-5.90) M/uL Hgb 14.4 (13.0-17.0) g/dL Hct 39.7 (38.0-50.0) % MCV 93.4 (80.0-98.0) fL MCH 33.9 H (27.0-32.0) pg MCHC 36.3 (31.0-37.0) g/dL RDW Std Deviation 44.2 (28.0-62.0) fl RDW Coeff of Pipe 13 (11.0-15.0) % Plt Count 117 L (150-400) K/uL MPV 10.70 (7.40-12.00) fL Neut % (Auto) 39.9 L (48.0-80.0) % Lymph % (Auto) 49.7 H (16.0-40.0) % Talbot % (Auto) 9.4 (0.0-15.0) % Eos % (Auto) 0.6 (0.0-7.0) % Baso % (Auto) 0.4 (0.0-1.5) % Neut # (Auto) 2.9 (1.4-5.7) K/uL Lymph # (Auto) 3.6 H (0.6-2.4) K/uL Talbot # (Auto) 0.7 (0.0-0.8) K/uL Eos # (Auto) 0.0 (0.0-0.7) K/uL Baso # (Auto) 0.0 (0.0-0.1) K/uL Nucleated RBC % 0.0 /100WBC Nucleated RBCs # 0 K/uL INR 1.10 Sodium 124 L (136-148) mmol/L Potassium 3.4 L (3.5-5.1) mmol/L Chloride 89 L (98-107) mmol/L Carbon Dioxide 25.6 (21.0-32.0) mmol/L BUN 9 (7.0-18.0) mg/dL Creatinine 1.1 (0.8-1.3) mg/dL Est Cr Clr Drug Dosing 97.09 mL/min Estimated GFR (MDRD) > 60.0 ml/min Glucose 228 H (74-106) mg/dL Lactic Acid (0.4-2.0) mmol/L Calcium 6.9 L (8.5-10.1) mg/dL Total Bilirubin 2.0 H (0.2-1.0) mg/dL AST 191 H (15-37) IU/L ALT 85 H (14-63) IU/L Alkaline Phosphatase 172 H (46-116) U/L Troponin I < 0.050 (0.000-0.056) ng/mL B-Natriuretic Peptide (<100) PG/ML Total Protein 6.4 (6.4-8.2) g/dL Albumin 2.1 L (3.4-5.0) g/dL Globulin 4.3 H (2.6-4.0) g/dL Albumin/Globulin Ratio 0.5 L (0.9-1.6) Lipase 142 (73-393) U/L SARS-CoV-2 RNA (MAYE) (NEGATIVE) Blood Type Antibody Screen 02/19/21 02/19/21 02/19/21 Range/Units 15:40 16:14 16:14 WBC (4.0-11.0) K/uL RBC (4.50-5.90) M/uL Hgb (13.0-17.0) g/dL Hct (38.0-50.0) % MCV (80.0-98.0) fL MCH (27.0-32.0) pg MCHC (31.0-37.0) g/dL RDW Std Deviation (28.0-62.0) fl RDW Coeff of Pipe (11.0-15.0) % Plt Count (150-400) K/uL MPV (7.40-12.00) fL Neut % (Auto) (48.0-80.0) % Lymph % (Auto) (16.0-40.0) % Talbot % (Auto) (0.0-15.0) % Eos % (Auto) (0.0-7.0) % Baso % (Auto) (0.0-1.5) % Neut # (Auto) (1.4-5.7) K/uL Lymph # (Auto) (0.6-2.4) K/uL Talbot # (Auto) (0.0-0.8) K/uL Eos # (Auto) (0.0-0.7) K/uL Baso # (Auto) (0.0-0.1) K/uL Nucleated RBC % /100WBC Nucleated RBCs # K/uL INR Sodium (136-148) mmol/L Potassium (3.5-5.1) mmol/L Chloride (98-107) mmol/L Carbon Dioxide (21.0-32.0) mmol/L BUN (7.0-18.0) mg/dL Creatinine (0.8-1.3) mg/dL Est Cr Clr Drug Dosing mL/min Estimated GFR (MDRD) ml/min Glucose (74-106) mg/dL Lactic Acid 1.7 (0.4-2.0) mmol/L Calcium (8.5-10.1) mg/dL Total Bilirubin (0.2-1.0) mg/dL AST (15-37) IU/L ALT (14-63) IU/L Alkaline Phosphatase (46-116) U/L Troponin I (0.000-0.056) ng/mL B-Natriuretic Peptide 35 (<100) PG/ML Total Protein (6.4-8.2) g/dL Albumin (3.4-5.0) g/dL Globulin (2.6-4.0) g/dL Albumin/Globulin Ratio (0.9-1.6) Lipase (73-393) U/L SARS-CoV-2 RNA ([facility]YE) (NEGATIVE) Blood Type O NEGATIVE Antibody Screen NEGATIVE 02/19/21 Range/Units 16:25 WBC (4.0-11.0) K/uL RBC (4.50-5.90) M/uL Hgb (13.0-17.0) g/dL Hct (38.0-50.0) % MCV (80.0-98.0) fL MCH (27.0-32.0) pg MCHC (31.0-37.0) g/dL RDW Std Deviation (28.0-62.0) fl RDW Coeff of Pipe (11.0-15.0) % Plt Count (150-400) K/uL MPV (7.40-12.00) fL Neut % (Auto) (48.0-80.0) % Lymph % (Auto) (16.0-40.0) % Talbot % (Auto) (0.0-15.0) % Eos % (Auto) (0.0-7.0) % Baso % (Auto) (0.0-1.5) % Neut # (Auto) (1.4-5.7) K/uL Lymph # (Auto) (0.6-2.4) K/uL Talbot # (Auto) (0.0-0.8) K/uL Eos # (Auto) (0.0-0.7) K/uL Baso # (Auto) (0.0-0.1) K/uL Nucleated RBC % /100WBC Nucleated RBCs # K/uL INR Sodium (136-148) mmol/L Potassium (3.5-5.1) mmol/L Chloride (98-107) mmol/L Carbon Dioxide (21.0-32.0) mmol/L BUN (7.0-18.0) mg/dL Creatinine (0.8-1.3) mg/dL Est Cr Clr Drug Dosing mL/min Estimated GFR (MDRD) ml/min Glucose (74-106) mg/dL Lactic Acid (0.4-2.0) mmol/L Calcium (8.5-10.1) mg/dL Total Bilirubin (0.2-1.0) mg/dL AST (15-37) IU/L ALT (14-63) IU/L Alkaline Phosphatase (46-116) U/L Troponin I (0.000-0.056) ng/mL B-Natriuretic Peptide (<100) PG/ML Total Protein (6.4-8.2) g/dL Albumin (3.4-5.0) g/dL Globulin (2.6-4.0) g/dL Albumin/Globulin Ratio (0.9-1.6) Lipase (73-393) U/L SARS-CoV-2 RNA ([facility]YE) NEGATIVE (NEGATIVE) Blood Type Antibody Screen Meds: Medications Generic Name Dose Route Start Last Admin Trade Name Freq PRN Reason Stop Dose Admin Sodium Chloride 10 ml 02/19/21 15:57 02/19/21 16:16 Sodium Chloride 0.9% 10 Ml Syringe FLUSH 10 ml ASDIRECTED PRN Administration Keep Vein Open Sodium Chloride 2.5 ml 02/19/21 15:57 02/19/21 16:16 Sodium Chloride 0.9% 2.5 Ml Syringe FLUSH 2.5 ml ASDIRECTED PRN Administration Keep Vein Open Discontinued Medications Generic Name Dose Route Start Last Admin Trade Name Shekharq PRN Reason Stop Dose Admin Chlordiazepoxide HCl 25 mg 02/19/21 15:59 02/19/21 16:15 Chlordiazepoxide 25 Mg Cap PO 02/19/21 16:00 25 mg ONETIME ONE Administration Sodium Chloride 1,000 mls @ 999 mls/hr 02/19/21 15:57 02/19/21 16:16 Normal Saline IV 02/19/21 16:57 999 mls/hr .BOLUS ONE Administration Iopamidol 100 ml 02/19/21 17:33 02/19/21 17:33 Iopamidol 755 Mg/Ml 500 Ml Multipack Bottle IVPUSH 02/19/21 17:34 100 ml ONETIME STA Administration Morphine Sulfate 2 mg 02/19/21 15:58 02/19/21 16:15 Morphine 2 Mg/Ml Syringe IVPUSH 02/19/21 15:59 2 mg ONETIME ONE Administration Departure - Departure Time of Disposition: 18:46 Disposition: Home, Self-Care 01 Condition: Good Clinical Impression: Abdominal pain - Discharge Information Instructions: Abdominal Pain, Adult, [id number] Referrals: Anitra Robbins DIRECTOR OF RESPIRATORY THERAPY [Primary Care Provider] - Forms: ED Department Discharge Additional Instructions: As discussed you cannot stop drinking alcohol altogether at one time. It needs to be slowly weaned down. Please slowly wean down your alcohol. Return for fevers, increased pain, any change or worsening condition. Follow-up with primary care doctor this week The following information is given to patients seen in the emergency department who are being discharged to home. This information is to outline your options for follow-up care. We provide all patients seen in our emergency department with a follow-up referral. The need for follow-up, as well as the timing and circumstances, are variable depending upon the specifics of your emergency department visit. If you don't have a primary care physician on staff, we will provide you with a referral. We always advise you to contact your personal physician following an emergency department visit to inform them of the circumstance of the visit and for follow-up with them and/or the need for any referrals to a consulting specialist. The emergency department will also refer you to a specialist when appropriate. This referral assures that you have the opportunity for follow-up care with a specialist. All of these measure are taken in an effort to provide you with optimal care, which includes your follow-up. Primary care clinics in the area: [facility] [address] [place] [address] [place] [address] Under all circumstances we always encourage you to contact your private physician who remains a resource for coordinating your care. When calling for follow-up care, please make the office aware that this follow-up is from your recent emergency room visit. If for any reason you are refused follow-up, please contact the [facility] Emergency Department at and asked to speak to the emergency department charge nurse. Sepsis Event Note (ED) - Focused Exam Vital Signs: Vital Signs Temp Pulse Resp BP Pulse Ox 02/19/21 18:26 97 19 157/98 H 96 02/19/21 17:33 94 18 144/100 H 98 02/19/21 15:37 36.6 C 96 19 184/116 H 96 - My Orders Last 24 Hours: My Active Orders 02/19/21 15:57 UA W/KOKI RFLX IF INDICATED [URIN] Stat Sodium Chloride 0.9% [Saline Flush] 10 ml FLUSH ASDIRECTED PRN Sodium Chloride 0.9% [Saline Flush] 2.5 ml FLUSH ASDIRECTED PRN Blood Culture x2 Reflex Set [OM.PC] Stat Saline Lock Insert [OM.PC] Stat 02/19/21 16:14 CULTURE BLOOD [BC] Stat 02/19/21 16:20 CULTURE BLOOD [BC] Stat - Assessment/Plan Last 24 Hours: My Active Orders 02/19/21 15:57 UA W/KOKI RFLX IF INDICATED [URIN] Stat Sodium Chloride 0.9% [Saline Flush] 10 ml FLUSH ASDIRECTED PRN Sodium Chloride 0.9% [Saline Flush] 2.5 ml FLUSH ASDIRECTED PRN Blood Culture x2 Reflex Set [OM.PC] Stat Saline Lock Insert [OM.PC] Stat 02/19/21 16:14 CULTURE BLOOD [BC] Stat 02/19/21 16:20 CULTURE BLOOD [BC] Stat
[2021-02-19 16:37] LABS: BLOOD UREA NITROGEN,BUN 9 mg/dL (7.0-18.0); CARBON DIOXIDE,CO2 25.6 mmol/L (21.0-32.0); CHLORIDE,CL 89 mmol/L (98-107); GLUCOSE RANDOM 228 mg/dL (74-106); LIPASE 142 U/L (73-393); POTASSIUM,K 3.4 mmol/L (3.5-5.1); SODIUM,NA 124 mmol/L (136-148)
--- NOTE | 2021-02-19 16:53 | CR ---
INDICATION: Chest pain. TECHNIQUE: Chest 1 views. COMPARISON: 07/12/2020. FINDINGS: Cardiovascular and mediastinum: Heart size and vasculature are normal in caliber and appearance. Lungs and pleural spaces: Lungs are clear. No sign of infiltrate or mass. No sign of pleural effusion. No pneumothorax. Bones and soft tissues: No significant findings. IMPRESSION: No acute findings and no significant changes from the prior exam. Dictated by Raad Whitmore MD @ 02/19/2021 4:51:50 PM (Electronically Signed)
[2021-02-19] MEDS ORDERED: Iopamidol 755 MG/ML 500 ML Multipack Bottle IVPUSH STA (17:33)
--- NOTE | 2021-02-19 18:21 | CT ---
INDICATION: Abdominal pain TECHNIQUE: Axial images were obtained from the diaphragm to the pubic symphysis. Reformats were obtained in the coronal and sagittal plane. IV Contrast: 100 cc Isovue 370 Oral Contrast: None COMPARISON: None. FINDINGS: Lower chest: Minimal basilar discoid atelectasis. Coronary atherosclerosis. Liver: Diffusely decreased density of the liver without focal lesion. Gallbladder and bile ducts: Unremarkable. No stones or inflammation. No biliary dilatation. Spleen: Unremarkable. Normal in size without mass. Pancreas: Unremarkable. No mass or inflammation. Adrenal glands: Unremarkable. No nodules. Kidneys: Unremarkable. No masses, stones, or hydronephrosis. Vasculature: Unremarkable. GI tract: The stomach is unremarkable. No dilated loops of large or small intestine. Unremarkable appendix. Pelvis: Unremarkable. Bones: Spondylolysis L5 IMPRESSION: 1. No dilated bowel or localized inflammation. 2. Hepatic steatosis. 3. Spondylolysis L5. Please note that all CT scans at this facility use dose modulation, iterative reconstruction, and/or weight-based dosing when appropriate to reduce radiation dose to as low as reasonably achievable. Dictated by Khanh Bean MD @ 02/19/2021 6:19:59 PM (Electronically Signed)
[2021-02-19] MEDS ORDERED: Ibuprofen 600 MG Tab PO ONE (18:51)
== END 2021-02-19 21:22 | disposition home or self-care (01) ==
LOC: MW.ED 15:35
DX: R10.9 Unspecified abdominal pain (principal); E11.9 Type 2 diabetes mellitus without complications; I10 Essential (primary) hypertension; Z20.822 Contact with and (suspected) exposure to COVID-19; Z79.899 Other long term (current) drug therapy
CPT/HCPCS: 36415; 71045; 74177; 80053; 81001; 83605; 83690; 83880; 84484; 85025; 85610; 86850; 86900; 86901; 87040; 87150; 87635; 93005; 96374; 99285; A9270; J2270; J7030; Q9967; U0002

== ENCOUNTER 2021-02-20 15:44 | Inpatient (IN) | payer MEDICAID ==
--- NOTE | 2021-02-20 16:27 | EDM.PDOC ---
ED HPI GENERAL MEDICAL PROBLEM - General Chief Complaint: Possible Sepsis Stated Complaint: REFFERED/CLOTS Time Seen by Provider: 02/20/21 16:01 Source of Information: Reports: Patient - History of Present Illness INITIAL COMMENTS - FREE TEXT/NARRATIVE: 50-year-old male presents reevaluation when one of his blood culture Gram stains came back for gram-positive cocci in pairs and in clusters. Patient states overall he is feeling better. He still feeling intermittent abdominal and chest pain that changes in location and position. He has some mild tremors in the setting of his alcohol use and denies any fevers. No other additional new symptomatology. No exacerbating or alleviating factors. Patient denies any pain when he pees. He was having some vomiting and diarrhea this is less than when he was here yesterday. He has had some mild cough. Chest x-ray here is negative. No marked shortness of breath - Related Data Allergies Allergy/AdvReac Type Severity Reaction Status Date / Time No Known Allergies Allergy Verified 02/20/21 15:48 Home Meds: Home Meds Enalapril [Vasotec] 20 mg PO DAILY 06/03/19 [History] Metoprolol Succinate 50 mg PO DAILY 06/03/19 [History] Rifaximin [Xifaxan] 1 tab PO BID 02/26/20 [History] Lactulose 22 ml PO TID #0 02/28/20 [Rx] Past Medical History HEENT History: Reports: Impaired Vision, Other (See Below) Other HEENT History: glasses for reading Cardiovascular History: Reports: High Cholesterol, Hypertension Respiratory History: Reports: None Gastrointestinal History: Reports: Cirrhosis, GERD Genitourinary History: Reports: None Musculoskeletal History: Reports: None Neurological History: Reports: None Psychiatric History: Reports: Addiction, Anxiety, Depression Endocrine/Metabolic History: Reports: Diabetes, Type II Insulin Pump Model and Instructional Services Librarian: None Hematologic History: Reports: None Immunologic History: Reports: None Oncologic (Cancer) History: Reports: None Dermatologic History: Reports: None - Infectious Disease History Infectious Disease History: Reports: Chicken Pox, Measles, Mumps - Past Surgical History Head Surgeries/Procedures: Reports: None HEENT Surgical History: Reports: Other (See Below) Other HEENT Surgeries/Procedures: right eye surgery, states unknown what surgical procedure completed but now cannot see out of right eye. GI Surgical History: Reports: None Male Surgical History: Reports: None Neurological Surgical History: Reports: None Musculoskeletal Surgical History: Reports: Other (See Below) Other Musculoskeletal Surgeries/Procedures:: left knee pain- every year had an injection to control the pain, broken left arm with plate Dermatological Surgical History: Reports: None Social & Family History - Family History Family Medical History: No Pertinent Family History - Caffeine Use Caffeine Use: Reports: None Other Caffeine Use: coffee for morning. soda for lunch - Recreational Drug Use Recreational Drug Use: No ED ROS GENERAL - Review of Systems Review Of Systems: See Below ED EXAM, GENERAL - Physical Exam Exam: See Below Free Text/Narrative:: CONSTITUTIONAL: well appearing in no acute distress SKIN: Warm, dry, and intact without rash HENT: Normocephalic, atraumatic, PULMONARY: clear to ausculation bilaterally. No rales, rhonchi, wheezing CARDIOVASCULAR: regular rate, No murmur, rubs, or gallops GASTROINTESTINAL: soft, nondistended, nontender NEUROLOGIC: normal speech, II-XII intact. light touch/5/5 power equal and symmetric in upper and lower extremities without deficit MUSCULOSKELETAL: no gross deformities, atraumatic PSYCHIATRIC: normal mood and affect #1 Interpretation Time: 16:27 EKG Interpretation Comments: EKG: NSR, nonspecific ST/T changes, Rate -97 Course - Vital Signs Text/Narrative:: Bacteremia, skin contamination, UTI, early ascending cholangitis, pneumonia or other Patient presents as outlined above. Patient's blood cultures came back positive for gram-positive cocci in pairs and clumps. This is only a Gram stain. 1 stick in both the aerobic and anaerobic cultures were positive at this point. Patient was brought back for reevaluation. Patient does have some mild tachycardia and he is in minor withdrawals as he is yesterday. I did give him some Librium. Th ere is no fever or lactic acidosis or white blood cell count elevation. Nonetheless I discussed with the hospitalist the patient will be brought in to ensure that he does not have an early evolving infection and bacteremia. Patient is still having some abdominal pain. A CT scan was done yesterday which did not show any acute abnormalities. This can be followed along during his inpatient hospitalization to ensure that he does not get change or worsening symptoms in this regard. Last Recorded V/S: Last Vital Signs Temp 35.6 C L 02/20/21 15:46 Pulse 94 02/20/21 17:55 Resp 18 02/20/21 17:55 BP 129/88 02/20/21 17:55 Pulse Ox 96 02/20/21 17:55 - Orders/Labs/Meds Orders: Active Orders 24 hr Category Date Time Status Admission Status [Patient Status] [ADT] Stat ADT 02/20/21 18:48 Ordered EKG 12 Lead [EKG Documentation Completion] [RC] STAT Care 02/20/21 16:23 Active CULTURE BLOOD [BC] Stat Lab 02/20/21 14:21 Received CULTURE BLOOD [BC] Stat Lab 02/20/21 16:43 Received UA W/KOKI RFLX IF INDICATED [URIN] Stat Lab 02/20/21 16:20 Ordered Pharmacy to Dose - Vancomycin Med 02/20/21 18:48 Once 1 dose .XX ONETIME ONE Piperacillin/Tazobactam [Piperacil-Tazobact] 4.5 gm Med 02/20/21 18:47 Ordered Sodium Chloride 0.9% [Normal Saline AdvBag] 100 ml IV ONETIME Blood Culture x2 Reflex Set [OM.PC] Stat Oth 02/20/21 16:20 Ordered Medication Orders Piperacillin Sod/Tazobactam (Sod 4.5 gm/ Sodium Chloride) 100 mls @ 100 mls/hr IV ONETIME ONE Stop: 02/20/21 19:46 Vancomycin HCl (Pharmacy To Dose - Vancomycin) 1 dose .XX ONETIME ONE Stop: 02/20/21 18:49 Labs: Laboratory Tests 02/20/21 02/20/21 02/20/21 Range/Units 14:21 14:21 14:21 WBC 7.81 (4.0-11.0) K/uL RBC 4.23 L (4.50-5.90) M/uL Hgb 14.2 (13.0-17.0) g/dL Hct 40.1 (38.0-50.0) % MCV 94.8 (80.0-98.0) fL MCH 33.6 H (27.0-32.0) pg MCHC 35.4 (31.0-37.0) g/dL RDW Std Deviation 45.5 (28.0-62.0) fl RDW Coeff of Pipe 13 (11.0-15.0) % Plt Count 108 L (150-400) K/uL MPV 11.10 (7.40-12.00) fL Neut % (Auto) 50.7 (48.0-80.0) % Lymph % (Auto) 38.2 (16.0-40.0) % [place] % (Auto) 8.8 (0.0-15.0) % Eos % (Auto) 1.9 (0.0-7.0) % Baso % (Auto) 0.4 (0.0-1.5) % Neut # (Auto) 4.0 (1.4-5.7) K/uL Lymph # (Auto) 3.0 H (0.6-2.4) K/uL [place] # (Auto) 0.7 (0.0-0.8) K/uL Eos # (Auto) 0.2 (0.0-0.7) K/uL Baso # (Auto) 0.0 (0.0-0.1) K/uL Nucleated RBC % 0.0 /100WBC Nucleated RBCs # 0 K/uL Sodium 130 L (136-148) mmol/L Potassium 3.4 L (3.5-5.1) mmol/L Chloride 94 L (98-107) mmol/L Carbon Dioxide 25.9 (21.0-32.0) mmol/L BUN 7 (7.0-18.0) mg/dL Creatinine 1.1 (0.8-1.3) mg/dL Est Cr Clr Drug Dosing 97.09 mL/min Estimated GFR (MDRD) > 60.0 ml/min Glucose 136 H (74-106) mg/dL Lactic Acid 0.6 (0.4-2.0) mmol/L Calcium 7.8 L (8.5-10.1) mg/dL Total Bilirubin 2.2 H (0.2-1.0) mg/dL AST 181 H (15-37) IU/L ALT 83 H (14-63) IU/L Alkaline Phosphatase 173 H (46-116) U/L Troponin I < 0.050 (0.000-0.056) ng/mL Total Protein 6.8 (6.4-8.2) g/dL Albumin 2.4 L (3.4-5.0) g/dL Globulin 4.4 H (2.6-4.0) g/dL Albumin/Globulin Ratio 0.6 L (0.9-1.6) Lipase 173 (73-393) U/L Meds: Medications Generic Name Dose Route Start Last Admin Trade Name Freq PRN Reason Stop Dose Admin Piperacillin Sod/Tazobactam 100 mls @ 100 mls/hr 02/20/21 18:47 Sod 4.5 gm/ Sodium Chloride IV 02/20/21 19:46 ONETIME ONE Vancomycin HCl 1 dose 02/20/21 18:48 Pharmacy To Dose - Vancomycin .XX 02/20/21 18:49 ONETIME ONE Discontinued Medications Generic Name Dose Route Start Last Admin Trade Name Freq PRN Reason Stop Dose Admin Chlordiazepoxide HCl 25 mg 02/20/21 16:30 02/20/21 16:46 Chlordiazepoxide 25 Mg Cap PO 02/20/21 16:31 25 mg NOW STA Administration Chlordiazepoxide HCl 25 mg 02/20/21 18:47 Chlordiazepoxide 25 Mg Cap PO 02/20/21 18:48 ONETIME ONE Ibuprofen 600 mg 02/20/21 18:10 02/20/21 18:17 Ibuprofen 600 Mg Tab PO 02/20/21 18:11 600 mg ONETIME ONE Administration Departure - Departure Time of Disposition: 18:51 Disposition: Admitted As Inpatient 67 Preliminary Cause of *Q: Cardiac Arrest Condition: Good Clinical Impression: Bacteremia, Abdominal pain - Discharge Information Forms: ED Department Discharge Sepsis Event Note (ED) - Evaluation Sepsis Screening Result: No Definite Risk - Focused Exam Vital Signs: Vital Signs Temp Pulse Resp BP Pulse Ox 02/20/21 17:55 94 18 129/88 96 02/20/21 15:46 35.6 C L 106 H 18 149/103 H 98 - My Orders Last 24 Hours: My Active Orders 02/20/21 14:21 CULTURE BLOOD [BC] Stat 02/20/21 16:20 UA W/KOKI RFLX IF INDICATED [URIN] Stat Blood Culture x2 Reflex Set [OM.PC] Stat 02/20/21 16:23 EKG 12 Lead [EKG Documentation Completion] [RC] STAT 02/20/21 16:43 CULTURE BLOOD [BC] Stat 02/20/21 18:47 Piperacillin/Tazobactam [Piperacil-Tazobact] 4.5 gm Sodium Chloride 0.9% [Normal Saline AdvBag] 100 ml IV ONETIME 02/20/21 18:48 Admission Status [Patient Status] [ADT] Stat Pharmacy to Dose - Vancomycin 1 dose .XX ONETIME ONE - Assessment/Plan Last 24 Hours: My Active Orders 02/20/21 14:21 CULTURE BLOOD [BC] Stat 02/20/21 16:20 UA W/KOKI RFLX IF INDICATED [URIN] Stat Blood Culture x2 Reflex Set [OM.PC] Stat 02/20/21 16:23 EKG 12 Lead [EKG Documentation Completion] [RC] STAT 02/20/21 16:43 CULTURE BLOOD [BC] Stat 02/20/21 18:47 Piperacillin/Tazobactam [Piperacil-Tazobact] 4.5 gm Sodium Chloride 0.9% [Normal Saline AdvBag] 100 ml IV ONETIME 02/20/21 18:48 Admission Status [Patient Status] [ADT] Stat Pharmacy to Dose - Vancomycin 1 dose .XX ONETIME ONE
[2021-02-20] MEDS ORDERED: chlordiazePOXIDE 25 MG Cap PO STA (16:30)
[2021-02-20 17:15] LABS: BLOOD UREA NITROGEN,BUN 7 mg/dL (7.0-18.0); CARBON DIOXIDE,CO2 25.9 mmol/L (21.0-32.0); CHLORIDE,CL 94 mmol/L (98-107); GLUCOSE RANDOM 136 mg/dL (74-106); LIPASE 173 U/L (73-393); POTASSIUM,K 3.4 mmol/L (3.5-5.1); SODIUM,NA 130 mmol/L (136-148)
[2021-02-20] MEDS ORDERED: Ibuprofen 600 MG Tab PO ONE (18:10)
[2021-02-20] MEDS ORDERED: chlordiazePOXIDE 25 MG Cap PO ONE (18:47)
[2021-02-20] MEDS ORDERED: Piperacillin/Tazobactam 4.5 GM in Sodium Chloride 0.9% 100 ML IV ONE (18:47)
[2021-02-20] MEDS ORDERED: VANCOmycin 2 GM/400 ML 2 GM in Premix Bag 1 BAG IV ONE (20:00)
[2021-02-20] MEDS ORDERED: LORazepam 2 MG/ML SDV IVPUSH PRN (21:16)
--- NOTE | 2021-02-20 21:22 | PCM.HP.2 ---
H&P History of Present Illness - General Date of Service: 02/20/21 Admit Problem/Dx: Admission Diagnosis/Problem Admission Diagnosis/Problem Bacteremia - History of Present Illness Initial Comments - Free Text/Narative: 49-year-old man with a past medical history of alcoholic cirrhosis, hypertension, diabetes type 2, who was seen in the ED yesterday with complain of epigastric pain, nausea and cough. He was sent home but then returns today due to 2/4 BC growing gram positive cocci. Patient reports he has cut back on his alcohol intake but can not quit completely due to withdrawal symptoms. He normally drinks about 20 beers a day. - Related Data Allergies/Adverse Reactions: Allergies Allergy/AdvReac Type Severity Reaction Status Date / Time No Known Allergies Allergy Verified 02/20/21 15:48 Home Medications: Home Meds Enalapril [Vasotec] 20 mg PO DAILY 06/03/19 [History] Metoprolol Succinate 50 mg PO DAILY 06/03/19 [History] Rifaximin [Xifaxan] 1 tab PO BID 02/26/20 [History] Lactulose 22 ml PO TID #0 02/28/20 [Rx] Past Medical History HEENT History: Reports: Impaired Vision, Other (See Below) Other HEENT History: glasses for reading Cardiovascular History: Reports: High Cholesterol, Hypertension Respiratory History: Reports: None Gastrointestinal History: Reports: Cirrhosis, GERD Genitourinary History: Reports: None Musculoskeletal History: Reports: None Neurological History: Reports: None Psychiatric History: Reports: Addiction, Anxiety, Depression Endocrine/Metabolic History: Reports: Diabetes, Type II Insulin Pump Model and Rehabilitation Specialist: None Hematologic History: Reports: None Immunologic History: Reports: None Oncologic (Cancer) History: Reports: None Dermatologic History: Reports: None - Infectious Disease History Infectious Disease History: Reports: Chicken Pox, Measles, Mumps - Past Surgical History Head Surgeries/Procedures: Reports: None HEENT Surgical History: Reports: Other (See Below) Other HEENT Surgeries/Procedures: right eye surgery, states unknown what surgical procedure completed but now cannot see out of right eye. GI Surgical History: Reports: None Male Surgical History: Reports: None Neurological Surgical History: Reports: None Musculoskeletal Surgical History: Reports: Other (See Below) Other Musculoskeletal Surgeries/Procedures:: left knee pain- every year had an injection to control the pain, broken left arm with plate Dermatological Surgical History: Reports: None Social & Family History - Family History Family Medical History: No Pertinent Family History - Caffeine Use Caffeine Use: Reports: None Other Caffeine Use: coffee for morning. soda for lunch - Recreational Drug Use Recreational Drug Use: No H&P Review of Systems - Review of Systems: Review Of Systems: Comprehensive ROS is negative, except as noted in HPI. Exam - Exam Exam: See Below - Vital Signs Vital Signs: Last Vital Signs Temp 35.6 C L 02/20/21 15:46 Pulse 97 02/20/21 21:09 Resp 18 02/20/21 19:12 BP 130/94 H 02/20/21 21:09 Pulse Ox 96 02/20/21 21:09 Weight: 128.8 kg - Exam General: Alert, Oriented HEENT: Mucosa Moist & [place] Lungs: Clear to Auscultation, Normal Respiratory Effort Cardiovascular: Regular Rate, Regular Rhythm GI/Abdominal Exam: Soft, Non-Tender Extremities: Non-Tender, No Pedal Edema Skin: Warm, Dry, Intact Neurological: No: Focal Deficit - Patient Data Lab Results Last 24 hrs: Laboratory Results - last 24 hr 02/20/21 02/20/21 02/20/21 Range/Units 14:21 14:21 14:21 WBC 7.81 (4.0-11.0) K/uL RBC 4.23 L (4.50-5.90) M/uL Hgb 14.2 (13.0-17.0) g/dL Hct 40.1 (38.0-50.0) % MCV 94.8 (80.0-98.0) fL MCH 33.6 H (27.0-32.0) pg MCHC 35.4 (31.0-37.0) g/dL RDW Std Deviation 45.5 (28.0-62.0) fl RDW Coeff of Pipe 13 (11.0-15.0) % Plt Count 108 L (150-400) K/uL MPV 11.10 (7.40-12.00) fL Neut % (Auto) 50.7 (48.0-80.0) % Lymph % (Auto) 38.2 (16.0-40.0) % [place] % (Auto) 8.8 (0.0-15.0) % Eos % (Auto) 1.9 (0.0-7.0) % Baso % (Auto) 0.4 (0.0-1.5) % Neut # (Auto) 4.0 (1.4-5.7) K/uL Lymph # (Auto) 3.0 H (0.6-2.4) K/uL [place] # (Auto) 0.7 (0.0-0.8) K/uL Eos # (Auto) 0.2 (0.0-0.7) K/uL Baso # (Auto) 0.0 (0.0-0.1) K/uL Nucleated RBC % 0.0 /100WBC Nucleated RBCs # 0 K/uL Sodium 130 L (136-148) mmol/L Potassium 3.4 L (3.5-5.1) mmol/L Chloride 94 L (98-107) mmol/L Carbon Dioxide 25.9 (21.0-32.0) mmol/L BUN 7 (7.0-18.0) mg/dL Creatinine 1.1 (0.8-1.3) mg/dL Est Cr Clr Drug Dosing 97.09 mL/min Estimated GFR (MDRD) > 60.0 ml/min Glucose 136 H (74-106) mg/dL Lactic Acid 0.6 (0.4-2.0) mmol/L Calcium 7.8 L (8.5-10.1) mg/dL Total Bilirubin 2.2 H (0.2-1.0) mg/dL AST 181 H (15-37) IU/L ALT 83 H (14-63) IU/L Alkaline Phosphatase 173 H (46-116) U/L Troponin I < 0.050 (0.000-0.056) ng/mL Total Protein 6.8 (6.4-8.2) g/dL Albumin 2.4 L (3.4-5.0) g/dL Globulin 4.4 H (2.6-4.0) g/dL Albumin/Globulin Ratio 0.6 L (0.9-1.6) Lipase 173 (73-393) U/L Result Diagrams: 02/20/21 14:21 02/20/21 14:21 Sepsis Event Note - Evaluation Sepsis Screening Result: No Definite Risk - Focused Exam Vital Signs: Vital Signs Temp Pulse Resp BP Pulse Ox 02/20/21 21:09 97 130/94 H 96 02/20/21 19:14 103 H 147/88 H 97 02/20/21 19:12 103 H 18 147/88 H 96 02/20/21 17:55 94 18 129/88 96 02/20/21 15:46 35.6 C L 106 H 18 149/103 H 98 - Problem List (1) Bacteremia SNOMED Code(s): 6120306 ICD Code: R78.81 - BACTEREMIA Status: Acute Current Visit: Yes (2) Alcohol abuse SNOMED Code(s): 73573956 ICD Code: F10.10 - ALCOHOL ABUSE, UNCOMPLICATED Status: Acute Current Visit: Yes Problem List Initiated/Reviewed/Updated: Yes Orders Last 24hrs: Active Orders 24 hr Category Date Time Status Admission Status [Patient Status] [ADT] Stat ADT 02/20/21 18:48 Active CULTURE BLOOD [BC] Stat Lab 02/20/21 14:21 Received CULTURE BLOOD [BC] Stat Lab 02/20/21 16:43 Received UA W/KOKI RFLX IF INDICATED [URIN] Stat Lab 02/20/21 16:20 Ordered VANCOMYCIN TROUGH [CHEM] Timed Lab 02/21/21 19:30 Ordered Enalapril [Vasotec] Med 02/21/21 09:00 Ordered 20 mg PO DAILY Lactulose [Chronulac] Med 02/20/21 22:00 Ordered 14.666 gm PO TID Metoprolol Succinate [Toprol XL] Med 02/21/21 09:00 Ordered 50 mg PO DAILY Pharmacy to Dose - Vancomycin Med 02/20/21 21:15 Ordered 1 dose .XX ASDIRECTED Pharmacy to Dose - Vancomycin Med 02/20/21 18:48 Pending 1 dose .XX ONETIME ONE Rifaximin [Xifaxan] Med 02/21/21 09:00 Ordered 550 mg PO BID VANCOmycin 1.5 GM/300 ML 1.5 gm Med 02/21/21 04:00 Active Premix Bag 1 bag IV Q8H VANCOmycin 2 GM/400 ML 2 gm Med 02/20/21 20:00 Active Premix Bag 1 bag IV STAT Blood Culture x2 Reflex Set [OM.PC] Stat Oth 02/20/21 16:20 Ordered Medication Orders Enalapril Maleate (Enalapril 10 Mg Tab) 20 mg PO DAILY JESUS Vancomycin HCl 2 gm/ Premix 400 mls @ 200 mls/hr IV STAT ONE Stop: 02/20/21 21:59 Last Admin: 02/20/21 21:05 Dose: 200 mls/hr Documented by: AMMON Vancomycin HCl 1.5 gm/ Premix 300 mls @ 200 mls/hr IV Q8H [facility] Lactulose (Lactulose Soln 10 Gm/15 Ml Ml 473 Ml Bottle) 14.666 gm PO TID [facility] Metoprolol Succinate (Metoprolol Succinate 50 Mg Tab.Er) 50 mg PO DAILY [facility] Rifaximin (Rifaximin 550 Mg Tab) 550 mg PO BID [facility] Vancomycin HCl (Pharmacy To Dose - Vancomycin) 1 dose .XX ONETIME ONE Stop: 02/20/21 18:49 Vancomycin HCl (Pharmacy To Dose - Vancomycin) 1 dose .XX ASDIRECTED [facility] Assessment/Plan Comment:: 50 yo male admitted for ETOH withdrawal and possible gram positive bacteremia ETOH withdrawal: CIWAA protocol with thiamin, folic acid and prn ativan Bacteremia: 2/4 BC positive, no source identified, suspect contaminant but will keep on VAncomycin until infection ruled out.
[2021-02-20] MEDS ORDERED: 50% Dextrose in Water 50 ML Syringe IVPUSH PRN (21:23)
[2021-02-20] MEDS ORDERED: Glucagon,Human Recombinant 1 MG Vial IM PRN (21:23)
[2021-02-20] MEDS ORDERED: Thiamine 100 MG in Sodium Chloride 0.9% 100 ML IV SCH (21:30)
[2021-02-20] MEDS: Folic Acid 50 MG/10 ML MDV SUBCUT SCH (21:45)
[2021-02-20] MEDS: Lactulose Soln 10 GM/15 ML 15 ML UD Cup PO SCH (23:12)
[2021-02-20] MEDS: Insulin Glargine,Human Rec. Analog 100 Units/ML 3 ML Pen SUBCUT SCH (23:52)
[2021-02-21] MEDS: traMADol 50 MG Tab PO PRN ×3 (01:33→18:52)
[2021-02-21] MEDS: VANCOmycin 1.5 GM/300 ML 1.5 GM in Premix Bag 1 BAG IV SCH ×4 (04:45→23:55)
[2021-02-21] MEDS: Lactulose Soln 10 GM/15 ML 15 ML UD Cup PO SCH ×3 (06:14→21:12)
[2021-02-21] MEDS: Rifaximin 550 MG Tab PO SCH ×2 (08:36→21:12)
[2021-02-21] MEDS: Insulin Aspart 100 Units/ML 3 ML Pen SUBCUT SCH ×3 (08:37→18:48)
[2021-02-21] MEDS: Folic Acid 50 MG/10 ML MDV SUBCUT SCH (08:39)
[2021-02-21] MEDS: Thiamine 200 MG/2 ML MDV IV SCH (08:40)
[2021-02-21] MEDS ORDERED: Metoprolol Succinate 50 MG Tab.ER PO SCH (09:00)
--- NOTE | 2021-02-21 10:00 | PCM.PN ---
- General Info Date of Service: 02/21/21 Subjective Update: The patient is a 50-year-old male, on day 2 of service, with a significant past medical history of hepatic cirrhosis, hypertension, diabetes mellitus type 2, and alcohol abuse disorder with withdrawal symptoms, who was admitted to the medical floor for bacteremia and withdrawal symptoms secondary to alcohol abuse. On interview with the patient today, he complains of shakes and tremors during the night but when his last 3 CIWA scores were calculated they were 1, 1, and 5. As a result he did not receive any Ativan. He is complaining of ongoing pain in his left lower quadrant and has tramadol as needed on board and as a result was given one dosage. He also complains that his feet go to sleep and he was educated on trying to increase circulation by moving his feet and walking around. On further interview, he denies fever, chills, nausea, vomiting, di arrhea, cough, or any issues with urination. He has no other health concerns at this time. - Review of Systems General: Reports: Fatigue. Denies: Fever, Weakness HEENT: Denies: Headaches, Sore Throat Pulmonary: Denies: Shortness of Breath, Cough Cardiovascular: Denies: Chest Pain, Palpitations Gastrointestinal: Reports: Abdominal Pain. Denies: Constipation, Diarrhea Genitourinary: Denies: Dysuria Neurological: Reports: Tremors. Denies: Dizziness Psychiatric: Reports: Agitation - Patient Data Vitals - Most Recent: Last Vital Signs Temp 97.2 F 02/21/21 08:00 Pulse 98 02/21/21 08:36 Resp 20 02/21/21 08:00 BP 150/100 H 02/21/21 08:36 Pulse Ox 97 02/21/21 08:00 Weight - Most Recent: 283 lb 3.2 oz I&O - Last 24 Hours: Intake & Output 02/20/21 02/21/21 02/21/21 22:59 06:59 14:59 Intake Total 550 Balance 550 Lab Results Last 24 Hours: Laboratory Results - last 24 hr 02/20/21 02/20/21 02/20/21 Range/Units 14:21 14:21 14:21 WBC 7.81 (4.0-11.0) K/uL RBC 4.23 L (4.50-5.90) M/uL Hgb 14.2 (13.0-17.0) g/dL Hct 40.1 (38.0-50.0) % MCV 94.8 (80.0-98.0) fL MCH 33.6 H (27.0-32.0) pg MCHC 35.4 (31.0-37.0) g/dL RDW Std Deviation 45.5 (28.0-62.0) fl RDW Coeff of Pipe 13 (11.0-15.0) % Plt Count 108 L (150-400) K/uL MPV 11.10 (7.40-12.00) fL Neut % (Auto) 50.7 (48.0-80.0) % Lymph % (Auto) 38.2 (16.0-40.0) % [place] % (Auto) 8.8 (0.0-15.0) % Eos % (Auto) 1.9 (0.0-7.0) % Baso % (Auto) 0.4 (0.0-1.5) % Neut # (Auto) 4.0 (1.4-5.7) K/uL Lymph # (Auto) 3.0 H (0.6-2.4) K/uL [place] # (Auto) 0.7 (0.0-0.8) K/uL Eos # (Auto) 0.2 (0.0-0.7) K/uL Baso # (Auto) 0.0 (0.0-0.1) K/uL Nucleated RBC % 0.0 /100WBC Nucleated RBCs # 0 K/uL Sodium 130 L (136-148) mmol/L Potassium 3.4 L (3.5-5.1) mmol/L Chloride 94 L (98-107) mmol/L Carbon Dioxide 25.9 (21.0-32.0) mmol/L BUN 7 (7.0-18.0) mg/dL Creatinine 1.1 (0.8-1.3) mg/dL Est Cr Clr Drug Dosing 97.09 mL/min Estimated GFR (MDRD) > 60.0 ml/min Glucose 136 H (74-106) mg/dL POC Glucose (70-99) mg/dL Lactic Acid 0.6 (0.4-2.0) mmol/L Calcium 7.8 L (8.5-10.1) mg/dL Total Bilirubin 2.2 H (0.2-1.0) mg/dL AST 181 H (15-37) IU/L ALT 83 H (14-63) IU/L Alkaline Phosphatase 173 H (46-116) U/L Troponin I < 0.050 (0.000-0.056) ng/mL Total Protein 6.8 (6.4-8.2) g/dL Albumin 2.4 L (3.4-5.0) g/dL Globulin 4.4 H (2.6-4.0) g/dL Albumin/Globulin Ratio 0.6 L (0.9-1.6) Lipase 173 (73-393) U/L Urine Color Urine Appearance Urine pH (5.0-8.0) Ur Specific [place] (1.001-1.035) Urine Protein (NEGATIVE) mg/dL Urine Glucose (UA) (NEGATIVE) mg/dL Urine Ketones (NEGATIVE) mg/dL Urine Occult Blood (NEGATIVE) Urine Nitrite (NEGATIVE) Urine Bilirubin (NEGATIVE) Urine Urobilinogen (<2.0) EU/dL Ur Leukocyte Esterase (NEGATIVE) Urine RBC (0-2/HPF) Urine WBC (0-5/HPF) Ur Epithelial Cells (NONE-FEW) Urine Bacteria (NEGATIVE) 02/20/21 02/21/21 02/21/21 Range/Units 22:26 02:21 06:59 WBC (4.0-11.0) K/uL RBC (4.50-5.90) M/uL Hgb (13.0-17.0) g/dL Hct (38.0-50.0) % MCV (80.0-98.0) fL MCH (27.0-32.0) pg MCHC (31.0-37.0) g/dL RDW Std Deviation (28.0-62.0) fl RDW Coeff of Pipe (11.0-15.0) % Plt Count (150-400) K/uL MPV (7.40-12.00) fL Neut % (Auto) (48.0-80.0) % Lymph % (Auto) (16.0-40.0) % [place] % (Auto) (0.0-15.0) % Eos % (Auto) (0.0-7.0) % Baso % (Auto) (0.0-1.5) % Neut # (Auto) (1.4-5.7) K/uL Lymph # (Auto) (0.6-2.4) K/uL [place] # (Auto) (0.0-0.8) K/uL Eos # (Auto) (0.0-0.7) K/uL Baso # (Auto) (0.0-0.1) K/uL Nucleated RBC % /100WBC Nucleated RBCs # K/uL Sodium (136-148) mmol/L Potassium (3.5-5.1) mmol/L Chloride (98-107) mmol/L Carbon Dioxide (21.0-32.0) mmol/L BUN (7.0-18.0) mg/dL Creatinine (0.8-1.3) mg/dL Est Cr Clr Drug Dosing mL/min Estimated GFR (MDRD) ml/min Glucose (74-106) mg/dL POC Glucose 163 H 117 H (70-99) mg/dL Lactic Acid (0.4-2.0) mmol/L Calcium (8.5-10.1) mg/dL Total Bilirubin (0.2-1.0) mg/dL AST (15-37) IU/L ALT (14-63) IU/L Alkaline Phosphatase (46-116) U/L Troponin I (0.000-0.056) ng/mL Total Protein (6.4-8.2) g/dL Albumin (3.4-5.0) g/dL Globulin (2.6-4.0) g/dL Albumin/Globulin Ratio (0.9-1.6) Lipase (73-393) U/L Urine Color DARK YELLOW Urine Appearance CLEAR Urine pH 5.5 (5.0-8.0) Ur Specific [place] >= 1.030 (1.001-1.035) Urine Protein 100 H (NEGATIVE) mg/dL Urine Glucose (UA) NEGATIVE (NEGATIVE) mg/dL Urine Ketones TRACE H (NEGATIVE) mg/dL Urine Occult Blood SMALL H (NEGATIVE) Urine Nitrite NEGATIVE (NEGATIVE) Urine Bilirubin SMALL H (NEGATIVE) Urine Urobilinogen 0.2 (<2.0) EU/dL Ur Leukocyte Esterase NEGATIVE (NEGATIVE) Urine RBC 0-2 (0-2/HPF) Urine WBC 0-2 (0-5/HPF) Ur Epithelial Cells RARE (NONE-FEW) Urine Bacteria RARE (NEGATIVE) Med Orders - Current: Current Medications Dextrose/Water (50% Dextrose In Water 50 Ml Syringe) 50 ml IVPUSH ASDIRECTED PRN PRN Reason: Hypoglycemia Enalapril Maleate (Enalapril 10 Mg Tab) 20 mg PO DAILY [facility] Last Admin: 02/21/21 08:36 Dose: 20 mg Documented by: Folic Acid (Folic Acid 50 Mg/10 Ml Mdv) 1 mg SUBCUT DAILY [facility] Last Admin: 02/21/21 08:39 Dose: 1 mg Documented by: Glucagon (Glucagon,Human Recombinant 1 Mg Vial) 1 mg IM ASDIRECTED PRN PRN Reason: Hypoglycemia Vancomycin HCl 1.5 gm/ Premix 300 mls @ 200 mls/hr IV Q8H [facility] Last Admin: 02/21/21 04:45 Dose: 200 mls/hr Documented by: Insulin Aspart (Insulin Aspart 100 Units/Ml 3 Ml Pen) 0 unit SUBCUT TIDAC [facility]; Protocol Last Admin: 02/21/21 08:37 Dose: Not Given Documented by: Insulin Glargine (Insulin Glargine,Human Rec. Analog 100 Units/Ml 3 Ml Pen) 16 units SUBCUT BEDTIME [facility] Last Admin: 02/20/21 23:52 Dose: 16 units Documented by: Lactulose (Lactulose Soln 10 Gm/15 Ml 15 Ml Ud Cup) 14.666 gm PO TID [facility] Last Admin: 02/21/21 06:14 Dose: 14.666 gm Documented by: Lorazepam (Lorazepam 2 Mg/Ml Sdv) 0 mg IVPUSH Q4H PRN; Protocol PRN Reason: CIWAA Metoprolol Succinate (Metoprolol Succinate 50 Mg Tab.Er) 50 mg PO DAILY [facility] Last Admin: 02/21/21 08:36 Dose: 50 mg Documented by: Rifaximin (Rifaximin 550 Mg Tab) 550 mg PO BID [facility] Last Admin: 02/21/21 08:36 Dose: 550 mg Documented by: Thiamine HCl (Thiamine 200 Mg/2 Ml Mdv) 100 mg IV DAILY [facility] Last Admin: 02/21/21 08:40 Dose: 100 mg Documented by: Tramadol HCl (Tramadol 50 Mg Tab) 50 mg PO Q6H PRN PRN Reason: Pain Last Admin: 02/21/21 08:48 Dose: 50 mg Documented by: Vancomycin HCl (Pharmacy To Dose - Vancomycin) 1 dose .XX ASDIRECTED JESUS Discontinued Medications Chlordiazepoxide HCl (Chlordiazepoxide 25 Mg Cap) 25 mg PO NOW STA Stop: 02/20/21 16:31 Last Admin: 02/20/21 16:46 Dose: 25 mg Documented by: Chlordiazepoxide HCl (Chlordiazepoxide 25 Mg Cap) 25 mg PO ONETIME ONE Stop: 02/20/21 18:48 Last Admin: 02/20/21 19:05 Dose: 25 mg Documented by: Piperacillin Sod/Tazobactam (Sod 4.5 gm/ Sodium Chloride) 100 mls @ 100 mls/hr IV ONETIME ONE Stop: 02/20/21 19:46 Last Admin: 02/20/21 19:06 Dose: 100 mls/hr Documented by: Vancomycin HCl 2 gm/ Premix 400 mls @ 200 mls/hr IV STAT ONE Stop: 02/20/21 21:59 Last Admin: 02/20/21 21:05 Dose: 200 mls/hr Documented by: Thiamine HCl 100 mg/ Sodium (Chloride) 101 mls @ 202 mls/hr IV DAILY [facility] Last Admin: 02/20/21 23:54 Dose: 202 mls/hr Documented by: Ibuprofen (Ibuprofen 600 Mg Tab) 600 mg PO ONETIME ONE Stop: 02/20/21 18:11 Last Admin: 02/20/21 18:17 Dose: 600 mg Documented by: Vancomycin HCl (Pharmacy To Dose - Vancomycin) 1 dose .XX ASDIRECTED JESUS - Exam General: Alert, Oriented, Cooperative HEENT: Mucous Membr. Moist/[place] Neck: Trachea Midline Lungs: Clear to Auscultation, Normal Respiratory Effort Cardiovascular: Regular Rate, Regular Rhythm GI/Abdominal Exam: Tender Extremities: Other (Tremors of both hands when held out) Neurological: Normal Gait - Patient Data Lab Results Last 24 hrs: Laboratory Results - last 24 hr 02/20/21 02/20/21 02/20/21 Range/Units 14:21 14:21 14:21 WBC 7.81 (4.0-11.0) K/uL RBC 4.23 L (4.50-5.90) M/uL Hgb 14.2 (13.0-17.0) g/dL Hct 40.1 (38.0-50.0) % MCV 94.8 (80.0-98.0) fL MCH 33.6 H (27.0-32.0) pg MCHC 35.4 (31.0-37.0) g/dL RDW Std Deviation 45.5 (28.0-62.0) fl RDW Coeff of Pipe 13 (11.0-15.0) % Plt Count 108 L (150-400) K/uL MPV 11.10 (7.40-12.00) fL Neut % (Auto) 50.7 (48.0-80.0) % Lymph % (Auto) 38.2 (16.0-40.0) % [place] % (Auto) 8.8 (0.0-15.0) % Eos % (Auto) 1.9 (0.0-7.0) % Baso % (Auto) 0.4 (0.0-1.5) % Neut # (Auto) 4.0 (1.4-5.7) K/uL Lymph # (Auto) 3.0 H (0.6-2.4) K/uL [place] # (Auto) 0.7 (0.0-0.8) K/uL Eos # (Auto) 0.2 (0.0-0.7) K/uL Baso # (Auto) 0.0 (0.0-0.1) K/uL Nucleated RBC % 0.0 /100WBC Nucleated RBCs # 0 K/uL Sodium 130 L (136-148) mmol/L Potassium 3.4 L (3.5-5.1) mmol/L Chloride 94 L (98-107) mmol/L Carbon Dioxide 25.9 (21.0-32.0) mmol/L BUN 7 (7.0-18.0) mg/dL Creatinine 1.1 (0.8-1.3) mg/dL Est Cr Clr Drug Dosing 97.09 mL/min Estimated GFR (MDRD) > 60.0 ml/min Glucose 136 H (74-106) mg/dL POC Glucose (70-99) mg/dL Lactic Acid 0.6 (0.4-2.0) mmol/L Calcium 7.8 L (8.5-10.1) mg/dL Total Bilirubin 2.2 H (0.2-1.0) mg/dL AST 181 H (15-37) IU/L ALT 83 H (14-63) IU/L Alkaline Phosphatase 173 H (46-116) U/L Troponin I < 0.050 (0.000-0.056) ng/mL Total Protein 6.8 (6.4-8.2) g/dL Albumin 2.4 L (3.4-5.0) g/dL Globulin 4.4 H (2.6-4.0) g/dL Albumin/Globulin Ratio 0.6 L (0.9-1.6) Lipase 173 (73-393) U/L Urine Color Urine Appearance Urine pH (5.0-8.0) Ur Specific [place] (1.001-1.035) Urine Protein (NEGATIVE) mg/dL Urine Glucose (UA) (NEGATIVE) mg/dL Urine Ketones (NEGATIVE) mg/dL Urine Occult Blood (NEGATIVE) Urine Nitrite (NEGATIVE) Urine Bilirubin (NEGATIVE) Urine Urobilinogen (<2.0) EU/dL Ur Leukocyte Esterase (NEGATIVE) Urine RBC (0-2/HPF) Urine WBC (0-5/HPF) Ur Epithelial Cells (NONE-FEW) Urine Bacteria (NEGATIVE) 02/20/21 02/21/21 02/21/21 Range/Units 22:26 02:21 06:59 WBC (4.0-11.0) K/uL RBC (4.50-5.90) M/uL Hgb (13.0-17.0) g/dL Hct (38.0-50.0) % MCV (80.0-98.0) fL MCH (27.0-32.0) pg MCHC (31.0-37.0) g/dL RDW Std Deviation (28.0-62.0) fl RDW Coeff of Pipe (11.0-15.0) % Plt Count (150-400) K/uL MPV (7.40-12.00) fL Neut % (Auto) (48.0-80.0) % Lymph % (Auto) (16.0-40.0) % [place] % (Auto) (0.0-15.0) % Eos % (Auto) (0.0-7.0) % Baso % (Auto) (0.0-1.5) % Neut # (Auto) (1.4-5.7) K/uL Lymph # (Auto) (0.6-2.4) K/uL [place] # (Auto) (0.0-0.8) K/uL Eos # (Auto) (0.0-0.7) K/uL Baso # (Auto) (0.0-0.1) K/uL Nucleated RBC % /100WBC Nucleated RBCs # K/uL Sodium (136-148) mmol/L Potassium (3.5-5.1) mmol/L Chloride (98-107) mmol/L Carbon Dioxide (21.0-32.0) mmol/L BUN (7.0-18.0) mg/dL Creatinine (0.8-1.3) mg/dL Est Cr Clr Drug Dosing mL/min Estimated GFR (MDRD) ml/min Glucose (74-106) mg/dL POC Glucose 163 H 117 H (70-99) mg/dL Lactic Acid (0.4-2.0) mmol/L Calcium (8.5-10.1) mg/dL Total Bilirubin (0.2-1.0) mg/dL AST (15-37) IU/L ALT (14-63) IU/L Alkaline Phosphatase (46-116) U/L Troponin I (0.000-0.056) ng/mL Total Protein (6.4-8.2) g/dL Albumin (3.4-5.0) g/dL Globulin (2.6-4.0) g/dL Albumin/Globulin Ratio (0.9-1.6) Lipase (73-393) U/L Urine Color DARK YELLOW Urine Appearance CLEAR Urine pH 5.5 (5.0-8.0) Ur Specific [place] >= 1.030 (1.001-1.035) Urine Protein 100 H (NEGATIVE) mg/dL Urine Glucose (UA) NEGATIVE (NEGATIVE) mg/dL Urine Ketones TRACE H (NEGATIVE) mg/dL Urine Occult Blood SMALL H (NEGATIVE) Urine Nitrite NEGATIVE (NEGATIVE) Urine Bilirubin SMALL H (NEGATIVE) Urine Urobilinogen 0.2 (<2.0) EU/dL Ur Leukocyte Esterase NEGATIVE (NEGATIVE) Urine RBC 0-2 (0-2/HPF) Urine WBC 0-2 (0-5/HPF) Ur Epithelial Cells RARE (NONE-FEW) Urine Bacteria RARE (NEGATIVE) Result Diagrams: 02/20/21 14:21 02/20/21 14:21 Sepsis Event Note - Evaluation Sepsis Screening Result: Possible Sepsis Risk - Focused Exam Vital Signs: Vital Signs Temp Pulse Pulse Resp BP BP BP 02/21/21 08:36 98 150/100 H 02/21/21 08:00 97.2 F 98 20 150/100 H 02/21/21 04:54 97 F 84 19 142/93 H 02/21/21 01:31 96.3 F L 77 19 145/72 H 02/20/21 22:21 98.7 F 87 20 121/78 02/20/21 22:00 98 109/66 Pulse Ox 02/21/21 08:36 02/21/21 08:00 97 02/21/21 04:54 94 L 02/21/21 01:31 98 02/20/21 22:21 94 L 02/20/21 22:00 95 - Problem List & Annotations (1) Withdrawal complaint SNOMED Code(s): 666411464 Code(s): R68.89 - OTHER GENERAL SYMPTOMS AND SIGNS Status: Acute Current Visit: Yes (2) Diabetes mellitus SNOMED Code(s): 90473138 Code(s): E11.9 - TYPE 2 DIABETES MELLITUS WITHOUT COMPLICATIONS Status: Acute Current Visit: Yes (3) Abdominal pain SNOMED Code(s): 70359791 Code(s): R10.9 - UNSPECIFIED ABDOMINAL PAIN Status: Acute Current Visit: Yes (4) Bacteremia SNOMED Code(s): 8181228 Code(s): R78.81 - BACTEREMIA Status: Acute Current Visit: Yes (5) Cirrhosis of liver SNOMED Code(s): 14504487 Code(s): K74.60 - UNSPECIFIED CIRRHOSIS OF LIVER Status: Acute Current Visit: No (6) Hypertension SNOMED Code(s): 85283726 Code(s): I10 - ESSENTIAL (PRIMARY) HYPERTENSION Status: Acute Current Visit: No (7) Alcohol abuse SNOMED Code(s): 46085648 Code(s): F10.10 - ALCOHOL ABUSE, UNCOMPLICATED Status: Acute Current Visit: Yes - Problem List Review Problem List Initiated/Reviewed/Updated: Yes - My Orders Last 24 Hours: My Active Orders 02/21/21 Breakfast ADA Diabetic [[place] [employer] Diet] [DIET] 02/22/21 05:11 CBC WITH AUTO DIFF [HEME] AM CMP [COMPREHENSIVE METABOLIC PN,CMP] [CHEM] AM 02/23/21 05:11 CBC WITH AUTO DIFF [HEME] AM CMP [COMPREHENSIVE METABOLIC PN,CMP] [CHEM] AM 02/24/21 05:11 CBC WITH AUTO DIFF [HEME] AM CMP [COMPREHENSIVE METABOLIC PN,CMP] [CHEM] AM - Plan Plan:: 1. Bacteremia -Blood cultures were positive but this may be a contaminant, we will reorder blood cultures to confirm -In the meantime patient will be treated with vancomycin 1.5 g per IV route zarina ry 8 hours -Continue to monitor with daily CBC 2. Alcohol withdrawal symptoms -Patient is on CIWA protocol and if scores go over 8 he will be treated with Ativan -Continue thiamine 100 mg per IV route -Continue folic acid 1 mg subcutaneously 3. Diabetes mellitus -Continue with insulin sliding scale/NovoLog 3 times a day -Continue with insulin glargine 16 units subcutaneously 4. Hypertension -Continue the patient on metoprolol 50 mg per oral route once a day -Continue the patient on enalapril 20 mg per oral route once a day 5. Cirrhosis -Continue lactulose 14.66 per oral route 3 times a day -Continue rifaximin 550 mg per oral route once a day 6. Left lower quadrant pain/cramping -Continue tramadol as needed
[2021-02-21] MEDS: Metoprolol Tartrate 50 MG Tab PO SCH (21:12)
[2021-02-21] MEDS: Insulin Glargine,Human Rec. Analog 100 Units/ML 3 ML Pen SUBCUT SCH (21:23)
[2021-02-22] MEDS: Lactulose Soln 10 GM/15 ML 15 ML UD Cup PO SCH ×2 (05:16→14:22)
[2021-02-22 06:59] LABS: BLOOD UREA NITROGEN,BUN 14 mg/dL (7.0-18.0); CARBON DIOXIDE,CO2 27.6 mmol/L (21.0-32.0); CHLORIDE,CL 99 mmol/L (98-107); GLUCOSE RANDOM 100 mg/dL (74-106); POTASSIUM,K 4.2 mmol/L (3.5-5.1); SODIUM,NA 135 mmol/L (136-148)
[2021-02-22] MEDS: Insulin Aspart 100 Units/ML 3 ML Pen SUBCUT SCH ×2 (07:37→11:30)
[2021-02-22] MEDS: Metoprolol Tartrate 50 MG Tab PO SCH (08:52)
[2021-02-22] MEDS: Rifaximin 550 MG Tab PO SCH (08:53)
[2021-02-22] MEDS: Folic Acid 50 MG/10 ML MDV SUBCUT SCH (08:55)
[2021-02-22] MEDS: Thiamine 200 MG/2 ML MDV IV SCH (08:56)
--- NOTE | 2021-02-22 10:58 | PCM.DCSUM1 ---
Discharge Summary - Hospital Course Free Text/Narrative:: The patient is a 50-year-old male, on day 3 of service, with a significant past medical history of hepatic cirrhosis, hypertension, diabetes mellitus type 2, and alcohol abuse disorder with withdrawal symptoms, who was admitted to the medical floor for bacteremia and withdrawal symptoms secondary to alcohol abuse. Throughout his hospital stay the patient was on CIWA protocol with Ativan. His last 4 CIWA scores fell below the 8 range for Ativan administration and he had no withdrawal symptoms other than occasional tremors and shakes. The patient was advised that upon discharge he should abstain from alcohol use and join support groups such as AA to get the help he needs. He was also advised to follow-up with his PCP who can prescribe certain medications that help individuals refrain from alcohol use. With respect to the patient's bacteremia, his cultures came back and was a contaminant, and as a result antibiotic treatment will not be needed after discharge. Throughout his hospital course the patient was also treated for tramadol whenever he had pain, more specifically the left lower quadrant and obliques of the abdomen. The patient has been educated on being compliant with all his medications and taking them at scheduled times. He has also been counseled to return to the hospital if he experiences tremors, seizures, chest pain, and palpitations. The patient is now stable and can be discharged. - Discharge Data Discharge Date: 02/22/21 Discharge Disposition: Home, Self-Care 01 Preliminary Cause of *Q: Cardiac Arrest Condition: Good - Referral to Home Health Primary Care Physician: Anitra Robbins NP - Discharge Diagnosis/Problem(s) (1) Withdrawal complaint SNOMED Code(s): 815766885 ICD Code: R68.89 - OTHER GENERAL SYMPTOMS AND SIGNS Status: Acute Current Visit: Yes (2) Diabetes mellitus SNOMED Code(s): 74794725 ICD Code: E11.9 - TYPE 2 DIABETES MELLITUS WITHOUT COMPLICATIONS Status: Acute Current Visit: Yes (3) Abdominal pain SNOMED Code(s): 10876072 ICD Code: R10.9 - UNSPECIFIED ABDOMINAL PAIN Status: Acute Current Visit: Yes (4) Bacteremia SNOMED Code(s): 1673811 ICD Code: R78.81 - BACTEREMIA Status: Acute Current Visit: Yes (5) Cirrhosis of liver SNOMED Code(s): 27379985 ICD Code: K74.60 - UNSPECIFIED CIRRHOSIS OF LIVER Status: Acute Current Visit: No (6) Hypertension SNOMED Code(s): 78390452 ICD Code: I10 - ESSENTIAL (PRIMARY) HYPERTENSION Status: Acute Current Visit: No (7) Alcohol abuse SNOMED Code(s): 26251946 ICD Code: F10.10 - ALCOHOL ABUSE, UNCOMPLICATED Status: Acute Current Visit: Yes - Patient Instructions Diet: Diabetic Diet Activity: As Tolerated Showering/Bathing: May Shower Other/Special Instructions: -Return to the hospital if you experience fever, increased agitation, chest pain, palpitations, or seizure. -Be compliant with your medications and take them at scheduled times. -Follow-up with your PCP in 1 to 2 weeks time - Discharge Plan Home Medications: Home Meds Enalapril [Vasotec] 20 mg PO DAILY 06/03/19 [History] Rifaximin [Xifaxan] 1 tab PO BID 02/26/20 [History] Insulin Glarg,Human.Rec.Analog [Lantus] 16 unit SUBCUT BEDTIME 02/20/21 [History] Lactulose [Chronulac] 22.5 ml PO BID 02/20/21 [History] FLUoxetine HCl [Fluoxetine HCl] 20 mg PO DAILY 02/21/21 [History] Metoprolol Tartrate [Lopressor] 50 mg PO BID 02/21/21 [History] Pantoprazole [ProTONIX] 40 mg PO BID 02/21/21 [History] Forms: ED Department Discharge Referrals: Anitra Robbins MEDICATION RECONCILIATION TECHNICIAN [Primary Care Provider] - - Discharge Summary/Plan Comment DC Time >30 min.: Yes Total # of Minutes for Discharge Time: 35 minutes - Review of Systems General: Denies: Fever, Fatigue, Chills HEENT: Denies: Headaches, Sore Throat Pulmonary: Denies: Shortness of Breath, Cough Cardiovascular: Denies: Chest Pain, Palpitations Gastrointestinal: Denies: Abdominal Pain, Constipation, Diarrhea Genitourinary: Denies: Dysuria Neurological: Denies: Confusion, Dizziness, Tremors - Patient Data Vitals - Most Recent: Last Vital Signs Temp 97.3 F 02/22/21 08:01 Pulse 89 02/22/21 08:52 Resp 16 02/22/21 08:01 BP 170/100 H 02/22/21 08:52 Pulse Ox 99 02/22/21 08:01 Weight - Most Recent: 283 lb 3.2 oz I&O - Last 24 hours: Intake & Output 02/21/21 02/22/21 02/22/21 22:59 06:59 14:59 Intake Total 1000 1230 700 Balance 1000 1230 700 Lab Results - Last 24 hrs: Laboratory Results - last 24 hr 02/21/21 02/21/21 02/22/21 Range/Units 12:28 19:38 06:00 WBC 6.17 (4.0-11.0) K/uL RBC 3.85 L (4.50-5.90) M/uL Hgb 12.8 L (13.0-17.0) g/dL Hct 38.2 (38.0-50.0) % MCV 99.2 H (80.0-98.0) fL MCH 33.2 H (27.0-32.0) pg MCHC 33.5 (31.0-37.0) g/dL RDW Std Deviation 48.4 (28.0-62.0) fl RDW Coeff of Pipe 13 (11.0-15.0) % Plt Count 94 L (150-400) K/uL MPV 11.20 (7.40-12.00) fL Neut % (Auto) 57.0 (48.0-80.0) % Lymph % (Auto) 30.0 (16.0-40.0) % Wolfe % (Auto) 10.4 (0.0-15.0) % Eos % (Auto) 2.3 (0.0-7.0) % Baso % (Auto) 0.3 (0.0-1.5) % Neut # (Auto) 3.5 (1.4-5.7) K/uL Lymph # (Auto) 1.9 (0.6-2.4) K/uL Wolfe # (Auto) 0.6 (0.0-0.8) K/uL Eos # (Auto) 0.1 (0.0-0.7) K/uL Baso # (Auto) 0.0 (0.0-0.1) K/uL Nucleated RBC % 0.0 /100WBC Nucleated RBCs # 0 K/uL Sodium (136-148) mmol/L Potassium (3.5-5.1) mmol/L Chloride (98-107) mmol/L Carbon Dioxide (21.0-32.0) mmol/L BUN (7.0-18.0) mg/dL Creatinine (0.8-1.3) mg/dL Est Cr Clr Drug Dosing mL/min Estimated GFR (MDRD) ml/min Glucose (74-106) mg/dL POC Glucose 206 H (70-99) mg/dL Calcium (8.5-10.1) mg/dL Total Bilirubin (0.2-1.0) mg/dL AST (15-37) IU/L ALT (14-63) IU/L Alkaline Phosphatase (46-116) U/L Total Protein (6.4-8.2) g/dL Albumin (3.4-5.0) g/dL Globulin (2.6-4.0) g/dL Albumin/Globulin Ratio (0.9-1.6) Vancomycin Trough 24.5 H (5.0-10.0) ug/mL 02/22/21 02/22/21 Range/Units 06:00 06:40 WBC (4.0-11.0) K/uL RBC (4.50-5.90) M/uL Hgb (13.0-17.0) g/dL Hct (38.0-50.0) % MCV (80.0-98.0) fL MCH (27.0-32.0) pg MCHC (31.0-37.0) g/dL RDW Std Deviation (28.0-62.0) fl RDW Coeff of Pipe (11.0-15.0) % Plt Count (150-400) K/uL MPV (7.40-12.00) fL Neut % (Auto) (48.0-80.0) % Lymph % (Auto) (16.0-40.0) % Wolfe % (Auto) (0.0-15.0) % Eos % (Auto) (0.0-7.0) % Baso % (Auto) (0.0-1.5) % Neut # (Auto) (1.4-5.7) K/uL Lymph # (Auto) (0.6-2.4) K/uL Wolfe # (Auto) (0.0-0.8) K/uL Eos # (Auto) (0.0-0.7) K/uL Baso # (Auto) (0.0-0.1) K/uL Nucleated RBC % /100WBC Nucleated RBCs # K/uL Sodium 135 L (136-148) mmol/L Potassium 4.2 (3.5-5.1) mmol/L Chloride 99 (98-107) mmol/L Carbon Dioxide 27.6 (21.0-32.0) mmol/L BUN 14 (7.0-18.0) mg/dL Creatinine 1.2 (0.8-1.3) mg/dL Est Cr Clr Drug Dosing 89.00 mL/min Estimated GFR (MDRD) > 60.0 ml/min Glucose 100 (74-106) mg/dL POC Glucose 102 H (70-99) mg/dL Calcium 7.6 L (8.5-10.1) mg/dL Total Bilirubin 1.9 H (0.2-1.0) mg/dL AST 109 H (15-37) IU/L ALT 66 H (14-63) IU/L Alkaline Phosphatase 148 H (46-116) U/L Total Protein 6.6 (6.4-8.2) g/dL Albumin 2.3 L (3.4-5.0) g/dL Globulin 4.3 H (2.6-4.0) g/dL Albumin/Globulin Ratio 0.5 L (0.9-1.6) Vancomycin Trough (5.0-10.0) ug/mL KOKI Results - Last 24 hrs: Microbiology 02/20/21 16:43 Aerobic Blood Culture - Preliminary Blood - Venous - Lab Draw NO GROWTH AFTER 1 DAY Anaerobic Blood Culture - Preliminary NO GROWTH AFTER 1 DAY 02/20/21 14:21 Aerobic Blood Culture - Preliminary Blood - Venous NO GROWTH AFTER 1 DAY Anaerobic Blood Culture - Preliminary NO GROWTH AFTER 1 DAY Med Orders - Current: Current Medications Dextrose/Water (50% Dextrose In Water 50 Ml Syringe) 50 ml IVPUSH ASDIRECTED PRN PRN Reason: Hypoglycemia Enalapril Maleate (Enalapril 10 Mg Tab) 20 mg PO DAILY [facility] Last Admin: 02/22/21 08:52 Dose: 20 mg Documented by: Folic Acid (Folic Acid 50 Mg/10 Ml Mdv) 1 mg SUBCUT DAILY [facility] Last Admin: 02/22/21 08:55 Dose: 1 mg Documented by: Glucagon (Glucagon,Human Recombinant 1 Mg Vial) 1 mg IM ASDIRECTED PRN PRN Reason: Hypoglycemia Vancomycin HCl 1.5 gm/ Premix 300 mls @ 200 mls/hr IV Q12H [facility] Last Admin: 02/21/21 23:55 Dose: 200 mls/hr Documented by: Insulin Aspart (Insulin Aspart 100 Units/Ml 3 Ml Pen) 0 unit SUBCUT TIDAC [facility]; Protocol Last Admin: 02/22/21 07:37 Dose: Not Given Documented by: Insulin Glargine (Insulin Glargine,Human Rec. Analog 100 Units/Ml 3 Ml Pen) 16 units SUBCUT BEDTIME [facility] Last Admin: 02/21/21 21:23 Dose: 16 units Documented by: Lactulose (Lactulose Soln 10 Gm/15 Ml 15 Ml Ud Cup) 15 gm PO TID [facility] Last Admin: 02/22/21 05:16 Dose: 15 gm Documented by: Lorazepam (Lorazepam 2 Mg/Ml Sdv) 0 mg IVPUSH Q4H PRN; Protocol PRN Reason: CIWAA Metoprolol Tartrate (Metoprolol Tartrate 50 Mg Tab) 50 mg PO BID [facility] Last Admin: 02/22/21 08:52 Dose: 50 mg Documented by: Rifaximin (Rifaximin 550 Mg Tab) 550 mg PO BID [facility] Last Admin: 02/22/21 08:53 Dose: 550 mg Documented by: Thiamine HCl (Thiamine 200 Mg/2 Ml Mdv) 100 mg IV DAILY [facility] Last Admin: 02/22/21 08:56 Dose: 100 mg Documented by: Tramadol HCl (Tramadol 50 Mg Tab) 50 mg PO Q6H PRN PRN Reason: Pain Last Admin: 02/21/21 18:52 Dose: 50 mg Documented by: Vancomycin HCl (Pharmacy To Dose - Vancomycin) 1 dose .XX ASDIRECTED [facility] Discontinued Medications Chlordiazepoxide HCl (Chlordiazepoxide 25 Mg Cap) 25 mg PO NOW STA Stop: 02/20/21 16:31 Last Admin: 02/20/21 16:46 Dose: 25 mg Documented by: Chlordiazepoxide HCl (Chlordiazepoxide 25 Mg Cap) 25 mg PO ONETIME ONE Stop: 02/20/21 18:48 Last Admin: 02/20/21 19:05 Dose: 25 mg Documented by: Piperacillin Sod/Tazobactam (Sod 4.5 gm/ Sodium Chloride) 100 mls @ 100 mls/hr IV ONETIME ONE Stop: 02/20/21 19:46 Last Admin: 02/20/21 19:06 Dose: 100 mls/hr Documented by: Vancomycin HCl 2 gm/ Premix 400 mls @ 200 mls/hr IV STAT ONE Stop: 02/20/21 21:59 Last Admin: 02/20/21 21:05 Dose: 200 mls/hr Documented by: Vancomycin HCl 1.5 gm/ Premix 300 mls @ 200 mls/hr IV Q8H [facility] Last Admin: 02/21/21 21:02 Dose: Not Given Documented by: Thiamine HCl 100 mg/ Sodium (Chloride) 101 mls @ 202 mls/hr IV DAILY [facility] Last Admin: 02/20/21 23:54 Dose: 202 mls/hr Documented by: Ibuprofen (Ibuprofen 600 Mg Tab) 600 mg PO ONETIME ONE Stop: 02/20/21 18:11 Last Admin: 02/20/21 18:17 Dose: 600 mg Documented by: Lactulose (Lactulose Soln 10 Gm/15 Ml 15 Ml Ud Cup) 14.666 gm PO TID [facility] Last Admin: 02/21/21 06:14 Dose: 14.666 gm Documented by: Metoprolol Succinate (Metoprolol Succinate 50 Mg Tab.Er) 50 mg PO DAILY [facility] Last Admin: 02/21/21 08:36 Dose: 50 mg Documented by: Vancomycin HCl (Pharmacy To Dose - Vancomycin) 1 dose .XX ASDIRECTED [facility] - Exam General: Reports: Alert, Oriented, Cooperative HEENT: Reports: Mucous Membr. Moist/[place] Neck: Reports: Trachea Midline Lungs: Reports: Clear to Auscultation, Normal Respiratory Effort Cardiovascular: Reports: Regular Rate, Regular Rhythm, No Murmurs GI/Abdominal Exam: Normal Bowel Sounds, Soft, Non-Tender, No Organomegaly Extremities: No Pedal Edema
[2021-02-22] MEDS: VANCOmycin 1.5 GM/300 ML 1.5 GM in Premix Bag 1 BAG IV SCH (11:36)
== END 2021-02-22 15:34 | disposition home or self-care (01) | DRG 897 ==
LOC: MW.ED 15:44 → MW.MS 18:48
PROVIDERS: ADMIT Internal Medicine; ATTEND Internal Medicine
DX: F10.239 Alcohol dependence with withdrawal, unspecified (principal); R10.9 Unspecified abdominal pain; I10 Essential (primary) hypertension; E11.9 Type 2 diabetes mellitus without complications; H54.7 Unspecified visual loss; K70.30 Alcoholic cirrhosis of liver without ascites; E78.00 Pure hypercholesterolemia, unspecified; K21.9 Gastro-esophageal reflux disease without esophagitis; F41.9 Anxiety disorder, unspecified; F32.A Depression, unspecified; R10.32 Left lower quadrant pain; Z79.899 Other long term (current) drug therapy
CPT/HCPCS: 36415; 80053; 83605; 83690; 84484; 85025; 87040 ×2; 99285; A9270 ×2; 80202; 81001; 82947; 87077; 87186; J1815-GY; J2543; J3370; J3411

== ENCOUNTER 2021-06-01 08:03 | Emergency (ER) | payer MEDICAID ==
[2021-06-01] MEDS ORDERED: Sodium Chloride 0.9% 2.5 ML Syringe FLUSH PRN (08:15)
[2021-06-01] MEDS ORDERED: Morphine 4 MG/ML VIAL IVPUSH ONE ×4 (08:15→15:14)
[2021-06-01] MEDS ORDERED: Sodium Chloride 0.9% 10 ML Syringe FLUSH PRN (08:15)
[2021-06-01] MEDS ORDERED: Ondansetron 4 MG/2 ML SDV IVPUSH ONE ×2 (08:15→10:19)
[2021-06-01 09:25] LABS: BLOOD UREA NITROGEN,BUN 68 mg/dL (7.0-18.0); CARBON DIOXIDE,CO2 14.7 mmol/L (21.0-32.0); CHLORIDE,CL 89 mmol/L (98-107); GLUCOSE RANDOM 89 mg/dL (74-106); LIPASE 432 U/L (73-393); POTASSIUM,K 4.4 mmol/L (3.5-5.1)
[2021-06-01 09:28] LABS: SODIUM,NA 120 mmol/L (136-148)
[2021-06-01] MEDS ORDERED: Ondansetron 4 MG/2 ML SDV ONE (10:20)
== END 2021-06-01 15:22 ==
LOC: MW.ED 08:03
DX: K74.60 Unspecified cirrhosis of liver (principal); K85.90 Acute pancreatitis without necrosis or infection, unspecified; N17.9 Acute kidney failure, unspecified; E78.00 Pure hypercholesterolemia, unspecified; I10 Essential (primary) hypertension; E11.9 Type 2 diabetes mellitus without complications; K21.9 Gastro-esophageal reflux disease without esophagitis; Z79.4 Long term (current) use of insulin; Z79.899 Other long term (current) drug therapy
CPT/HCPCS: 36415; 71045; 74176; 80053; 80307; 83605; 83690; 83735; 84484; 85025; 85610; 85730; 87040; 93005; 96374; 96375; 96376; 99285; J2270; J2405; 93010; 99282

== ENCOUNTER 2021-06-10 06:21 | Emergency (ER) | payer MEDICAID ==
[2021-06-10 07:26] LABS: CARBON DIOXIDE,CO2 21.8 mmol/L (21.0-32.0); POTASSIUM,K 3.6 mmol/L (3.5-5.1)
== END 2021-06-10 08:49 | disposition other institution (70) ==
LOC: MW.ED 06:21
DX: I12.0 Hypertensive chronic kidney disease with stage 5 chronic kidney disease or end stage renal disease (principal); E11.22 Type 2 diabetes mellitus with diabetic chronic kidney disease; N18.6 End stage renal disease; E78.00 Pure hypercholesterolemia, unspecified; K21.9 Gastro-esophageal reflux disease without esophagitis; Z86.16 Personal history of COVID-19; Z79.4 Long term (current) use of insulin; Z79.899 Other long term (current) drug therapy; Z99.2 Dependence on renal dialysis
CPT/HCPCS: 36415; 71045; 71045-26; 80053; 83735; 83880; 84484; 85025; 93005; 93010; 99285; 99285-25

== ENCOUNTER 2021-10-11 23:45 | Emergency (ER) | payer MEDICAID ==
[2021-10-12 00:46] LABS: CARBON DIOXIDE,CO2 19.9 mmol/L (21.0-32.0); POTASSIUM,K 3.5 mmol/L (3.5-5.1)
[2021-10-12] MEDS ORDERED: Pantoprazole 80 MG in Sodium Chloride 0.9% 10 ML IVPUSH ONE (01:02)
[2021-10-12] MEDS ORDERED: Aspirin 81 MG Tab.Chew PO ONE (01:26)
[2021-10-12] MEDS ORDERED: Heparin Sodium 5,000 Units/ML Vial IVPUSH STA (01:26)
[2021-10-12] MEDS ORDERED: Heparin Sodium/0.45% NaCl 500 ML IV SCH (01:30)
[2021-10-12] MEDS ORDERED: Magnesium Sulfate/Water 2 GM in Premix Bag 1 BAG IV ONE ×2 (01:31→04:17)
[2021-10-12] MEDS ORDERED: Nitroglycerin 0.4 MG Tab.SL SL ONE ×2 (01:41→03:14)
[2021-10-12] MEDS ORDERED: LORazepam 2 MG/ML SDV IVPUSH ONE (02:54)
[2021-10-12] MEDS ORDERED: Magnesium Sulfate/Water 50 ML ONE (04:18)
== END 2021-10-12 04:15 ==
LOC: MW.ED 23:45
DX: I21.4 Non-ST elevation (NSTEMI) myocardial infarction (principal); I11.0 Hypertensive heart disease with heart failure; I50.9 Heart failure, unspecified; E83.42 Hypomagnesemia; E11.9 Type 2 diabetes mellitus without complications; K21.9 Gastro-esophageal reflux disease without esophagitis; E78.00 Pure hypercholesterolemia, unspecified; Z20.822 Contact with and (suspected) exposure to COVID-19; Z79.4 Long term (current) use of insulin; Z79.899 Other long term (current) drug therapy
CPT/HCPCS: 36415; 71045; 80053; 83735; 83880; 84484; 85025; 85379; 85610; 85730; 87635; 93005; 96365; 96366; 96368; 96375; 96376; 99291; 99292; A9270; C9113; J1644; J2060; J3475; J3490; U0002

== ENCOUNTER 2021-10-18 19:33 | Emergency (ER) | payer MEDICAID ==
[2021-10-18] MEDS ORDERED: Sodium Chloride 0.9% 10 ML Syringe FLUSH PRN (19:47)
[2021-10-18] MEDS ORDERED: Sodium Chloride 0.9% 2.5 ML Syringe FLUSH PRN (19:47)
[2021-10-18 20:13] LABS: CARBON DIOXIDE,CO2 18.8 mmol/L (21.0-32.0); POTASSIUM,K 3.1 mmol/L (3.5-5.1)
[2021-10-18] MEDS ORDERED: Ondansetron 4 MG/2 ML SDV IVPUSH ONE ×2 (20:27→23:19)
[2021-10-18] MEDS ORDERED: Sodium Chloride 0.9% 1,000 ML IV ONE (22:08)
[2021-10-18] MEDS ORDERED: Acetaminophen 325 MG Tab PO ONE (22:08)
== END 2021-10-18 23:58 | disposition home or self-care (01) ==
LOC: MW.ED 19:33
DX: E86.0 Dehydration (principal); I13.0 Hypertensive heart and chronic kidney disease with heart failure and stage 1 through stage 4 chronic kidney disease, or unspecified chronic kidney disease; I50.9 Heart failure, unspecified; N18.9 Chronic kidney disease, unspecified; R50.9 Fever, unspecified; R11.2 Nausea with vomiting, unspecified; R19.7 Diarrhea, unspecified; B34.9 Viral infection, unspecified; K21.9 Gastro-esophageal reflux disease without esophagitis; E11.9 Type 2 diabetes mellitus without complications; Z79.899 Other long term (current) drug therapy; Z79.4 Long term (current) use of insulin; Z86.16 Personal history of COVID-19; Z20.822 Contact with and (suspected) exposure to COVID-19
CPT/HCPCS: 36415; 71045; 80053; 81001; 83690; 84484; 85025; 87040; 87635; 93005; 96361; 96374; 96376; 99285; A9270; J2405; J3490; J7030; U0002

== ENCOUNTER 2022-02-13 08:47 | Inpatient (IN) | payer MEDICAID ==
[2022-02-13] MEDS ORDERED: Ondansetron 4 MG/2 ML SDV IVPUSH ONE ×2 (09:46→15:09)
[2022-02-13] MEDS ORDERED: fentaNYL 50 MCG/ML SDV IVPUSH ONE (09:47)
[2022-02-13] MEDS ORDERED: Sodium Chloride 0.9% 1,000 ML IV SCH ×3 (10:00→15:15)
[2022-02-13 10:26] LABS: POTASSIUM,K 2.9 mmol/L (3.5-5.1)
[2022-02-13] MEDS ORDERED: Potassium Chloride 10% 20 MEQ/15 ML Soln 30 ML UD Cup PO ONE ×2 (10:32→15:58)
[2022-02-13] MEDS ORDERED: Magnesium Oxide 400 MG Tab PO ONE (10:32)
[2022-02-13 14:19] LABS: CARBON DIOXIDE,CO2 26.4 mmol/L (21.0-32.0); POTASSIUM,K 3.3 mmol/L (3.5-5.1)
[2022-02-13] MEDS ORDERED: Magnesium Sulfate/Water 2 GM in Premix Bag 1 BAG IV ONE (15:57)
[2022-02-13] MEDS ORDERED: Ondansetron 4 MG/2 ML SDV IVPUSH PRN (18:42)
[2022-02-13] MEDS ORDERED: traMADol 50 MG Tab PO PRN (18:42)
[2022-02-13] MEDS ORDERED: oxyCODONE 5 MG Tab PO PRN (18:42)
[2022-02-13] MEDS ORDERED: Metoprolol Tartrate 50 MG Tab PO SCH (19:00)
[2022-02-13] MEDS: amLODIPine 5 MG Tab PO SCH (19:54)
[2022-02-13] MEDS ORDERED: Pantoprazole 40 MG in Sodium Chloride 0.9% 10 ML IVPUSH SCH (20:00)
[2022-02-13] MEDS: Heparin Sodium 5,000 Units/ML Vial SUBCUT SCH (20:52)
[2022-02-13] MEDS: Metoprolol Tartrate 50 MG Tab PO SCH (20:53)
[2022-02-13] MEDS: Lactated Ringers 1,000 ML IV SCH (23:26)
[2022-02-14] MEDS ORDERED: Melatonin 3 MG Tab PO ONE (01:30)
[2022-02-14] MEDS: Heparin Sodium 5,000 Units/ML Vial SUBCUT SCH (06:26)
[2022-02-14 07:55] LABS: CARBON DIOXIDE,CO2 23.3 mmol/L (21.0-32.0); POTASSIUM,K 2.9 mmol/L (3.5-5.1)
[2022-02-14] MEDS: Metoprolol Tartrate 50 MG Tab PO SCH (08:09)
[2022-02-14] MEDS: amLODIPine 5 MG Tab PO SCH (08:09)
[2022-02-14] MEDS ORDERED: Magnesium Sulfate/Water 4 GM in Premix Bag 1 BAG IV ONE (08:12)
[2022-02-14] MEDS ORDERED: Potassium Chloride 20 MEQ Tab.ER PO ONE (08:12)
[2022-02-14] MEDS ORDERED: Glucagon,Human Recombinant 1 MG Vial IM PRN (08:45)
[2022-02-14] MEDS ORDERED: 50% Dextrose in Water 50 ML Syringe IVPUSH PRN (08:45)
[2022-02-14] MEDS ORDERED: MULTIVITAMIN WITH IRON PO SCH (09:00)
[2022-02-14] MEDS ORDERED: [UNRECOGNIZED DRUG - OTHER] PO SCH (09:00)
[2022-02-14] MEDS ORDERED: METOLAZONE 2.5 MG PO SCH (09:00)
[2022-02-14] MEDS ORDERED: CALCIUM PO SCH (09:00)
[2022-02-14] MEDS ORDERED: ISOSORBIDE MONONITRATE 10 MG PO SCH (09:00)
[2022-02-14] MEDS: Potassium Chloride 100 ML IV SCH ×2 (09:47→11:28)
[2022-02-14] MEDS: Insulin Aspart 100 Units/ML 3 ML Pen SUBCUT SCH ×2 (12:04→16:22)
[2022-02-14] MEDS: Lactated Ringers 1,000 ML IV SCH (12:05)
== END 2022-02-14 18:55 | disposition home or self-care (01) | DRG 683 ==
LOC: MW.ED 08:47 → MW.ICU 15:32 → MW.MS 17:33
PROVIDERS: ADMIT Student in an Organized Health Care Education/Training Program; ATTEND Student in an Organized Health Care Education/Training Program
DX: N17.9 Acute kidney failure, unspecified (principal); E87.1 Hypo-osmolality and hyponatremia; N18.5 Chronic kidney disease, stage 5; E87.8 Other disorders of electrolyte and fluid balance, not elsewhere classified; H54.7 Unspecified visual loss; E78.00 Pure hypercholesterolemia, unspecified; Z20.822 Contact with and (suspected) exposure to COVID-19; I12.9 Hypertensive chronic kidney disease with stage 1 through stage 4 chronic kidney disease, or unspecified chronic kidney disease; K21.9 Gastro-esophageal reflux disease without esophagitis; E11.22 Type 2 diabetes mellitus with diabetic chronic kidney disease; F41.9 Anxiety disorder, unspecified; F32.A Depression, unspecified; K74.60 Unspecified cirrhosis of liver; D63.1 Anemia in chronic kidney disease; E87.5 Hyperkalemia; E86.0 Dehydration; E83.42 Hypomagnesemia; Z79.899 Other long term (current) drug therapy; Z86.16 Personal history of COVID-19
CPT/HCPCS: 36415; 80053; 80307; 81001; 82947; 83605; 83690; 83735; 84100; 85025; 85610; 85730; 93005; A9270-GY; C9113; J1644; J2405; J3010; J3475; J3480; J3490; J7030; J7120; U0002

== ENCOUNTER 2022-03-13 16:41 | Emergency (ER) | payer MEDICAID ==
[2022-03-13] MEDS ORDERED: Sodium Chloride 0.9% 1,000 ML IV ONE (18:24)
[2022-03-13] MEDS ORDERED: Ondansetron 4 MG/2 ML SDV IVPUSH ONE (18:24)
[2022-03-13] MEDS ORDERED: Acetaminophen 325 MG Tab PO ONE (18:26)
[2022-03-13 18:50] LABS: CORONAVIRUS COVID-19 NAA NEGATIVE (NEGATIVE); INFLUENZA A NAA NEGATIVE (NEGATIVE); INFLUENZA B NAA NEGATIVE (NEGATIVE)
[2022-03-13 19:09] LABS: CARBON DIOXIDE,CO2 26.8 mmol/L (21.0-32.0); POTASSIUM,K 2.7 mmol/L (3.5-5.1)
[2022-03-13] MEDS ORDERED: Potassium Chloride 20 MEQ Tab.ER PO ONE (19:52)
[2022-03-13] MEDS ORDERED: Magnesium Oxide 400 MG Tab PO ONE (19:52)
[2022-03-13] MEDS ORDERED: Acetaminophen/HYDROcodone 325-10 MG Tab PO ONE (20:47)
== END 2022-03-13 21:21 | disposition home or self-care (01) ==
LOC: MW.ED 16:41
DX: R05.9 Cough, unspecified (principal); E78.00 Pure hypercholesterolemia, unspecified; I10 Essential (primary) hypertension; E11.9 Type 2 diabetes mellitus without complications; Z79.899 Other long term (current) drug therapy; Z20.822 Contact with and (suspected) exposure to COVID-19
CPT/HCPCS: 0240U; 36415; 71045; 80053; 80307; 81001; 83690; 83735; 85025; 96361; 96374; 99284; A9270; J2405; J7030

== ENCOUNTER 2022-04-03 21:00 | Emergency (ER) | payer MEDICAID ==
[2022-04-04] MEDS ORDERED: Ondansetron 4 MG/2 ML SDV IVPUSH ONE (00:17)
[2022-04-04] MEDS ORDERED: Morphine 4 MG/ML Syringe IVPUSH ONE (00:30)
[2022-04-04 00:59] LABS: CARBON DIOXIDE,CO2 16.6 mmol/L (21.0-32.0); POTASSIUM,K 3.3 mmol/L (3.5-5.1)
[2022-04-04] MEDS ORDERED: Sodium Chloride 0.9% 500 ML IV SCH (02:00)
[2022-04-04] MEDS ORDERED: LORazepam 2 MG/ML SDV IVPUSH ONE (03:16)
[2022-04-04] MEDS ORDERED: methylPREDNISolone Sodium Succinate 125 MG/2 ML SDV IVPUSH ONE (03:19)
[2022-04-04] MEDS ORDERED: Sodium Chloride 3% 100 ML IV SCH (03:30)
[2022-04-04] MEDS ORDERED: 50% Dextrose in Water 50 ML Syringe IVPUSH ONE (03:30)
[2022-04-04] MEDS ORDERED: 50% Dextrose in Water 50 ML Syringe ONE (03:31)
[2022-04-04] MEDS ORDERED: Dextrose 5%-0.9% NaCl with KCl 1,000 ML IV SCH (03:45)
[2022-04-04 04:02] LABS: CORONAVIRUS COVID-19 NAA NEGATIVE (NEGATIVE); INFLUENZA A NAA NEGATIVE (NEGATIVE); INFLUENZA B NAA NEGATIVE (NEGATIVE)
[2022-04-04 08:19] LABS: CARBON DIOXIDE,CO2 17.7 mmol/L (21.0-32.0); POTASSIUM,K 4.2 mmol/L (3.5-5.1)
[2022-04-04] MEDS ORDERED: Magnesium Sulfate/Water 2 GM in Premix Bag 1 BAG IV ONE (08:32)
[2022-04-04] MEDS ORDERED: Sodium Chloride 0.9% 1,000 ML IV SCH (08:45)
[2022-04-04 12:36] LABS: CARBON DIOXIDE,CO2 17.3 mmol/L (21.0-32.0); POTASSIUM,K 4.4 mmol/L (3.5-5.1)
[2022-04-04] MEDS ORDERED: Sodium Chloride 3% 500 ML IV SCH (13:00)
[2022-04-04 13:46] LABS: CARBON DIOXIDE,CO2 16.7 mmol/L (21.0-32.0); POTASSIUM,K 4.3 mmol/L (3.5-5.1)
[2022-04-04 14:19] LABS: CARBON DIOXIDE,CO2 16.2 mmol/L (21.0-32.0); POTASSIUM,K 4.4 mmol/L (3.5-5.1)
[2022-04-04 15:19] LABS: CARBON DIOXIDE,CO2 16.9 mmol/L (21.0-32.0); POTASSIUM,K 4.6 mmol/L (3.5-5.1)
[2022-04-04 16:23] LABS: CARBON DIOXIDE,CO2 17.2 mmol/L (21.0-32.0); POTASSIUM,K 4.5 mmol/L (3.5-5.1)
[2022-04-05] MEDS ORDERED: LORazepam 2 MG/ML SDV IVPUSH ONE ×2 (01:01→03:22)
== END 2022-04-05 06:07 ==
LOC: MW.ED 21:00
DX: E87.1 Hypo-osmolality and hyponatremia (principal); E11.649 Type 2 diabetes mellitus with hypoglycemia without coma; D64.9 Anemia, unspecified; F10.10 Alcohol abuse, uncomplicated; Z79.899 Other long term (current) drug therapy; Z79.4 Long term (current) use of insulin; Z20.822 Contact with and (suspected) exposure to COVID-19
CPT/HCPCS: 0240U; 36415; 71045; 74176; 80048; 80053; 80307; 81001; 82947; 83690; 83735; 84484; 85025; 85027; 85610; 93005; 96361; 96374; 96375; 99291; 99292; J2060; J2270; J2405; J2930; J3475; J7030; J7040; 51702; 93010; J3480

== ENCOUNTER 2022-05-18 20:32 | Emergency (ER) | payer MEDICAID ==
[2022-05-18] MEDS ORDERED: Sodium Chloride 0.9% 2.5 ML Syringe FLUSH PRN (20:37)
[2022-05-18] MEDS ORDERED: Sodium Chloride 0.9% 10 ML Syringe FLUSH PRN (20:37)
[2022-05-18] MEDS ORDERED: Acetaminophen 500 MG Tab PO ONE (20:40)
[2022-05-18] MEDS ORDERED: Piperacillin/Tazobactam 4.5 GM in Sodium Chloride 0.9% 100 ML IV ONE (20:42)
[2022-05-18] MEDS ORDERED: VANCOmycin 2 GM/400 ML 2 GM in Premix Bag 1 BAG IV ONE (21:15)
[2022-05-18 21:23] LABS: POTASSIUM,K 3.4 mmol/L (3.5-5.1)
[2022-05-18 21:31] LABS: CORONAVIRUS COVID-19 NAA NEGATIVE (NEGATIVE); INFLUENZA A NAA NEGATIVE (NEGATIVE); INFLUENZA B NAA NEGATIVE (NEGATIVE); RESPIRATORY SYNCYTIAL VIR NAA NEGATIVE (NEGATIVE)
[2022-05-18] MEDS ORDERED: Furosemide 40 MG/4 ML VIAL IVPUSH ONE ×2 (21:53)
[2022-05-18] MEDS ORDERED: Furosemide 40 MG/4 ML VIAL ONE ×2 (21:54→21:55)
== END 2022-05-18 22:55 ==
LOC: MW.ED 20:32
DX: J96.91 Respiratory failure, unspecified with hypoxia (principal); J81.0 Acute pulmonary edema; I12.0 Hypertensive chronic kidney disease with stage 5 chronic kidney disease or end stage renal disease; N18.6 End stage renal disease; E78.00 Pure hypercholesterolemia, unspecified; E11.9 Type 2 diabetes mellitus without complications; Z79.899 Other long term (current) drug therapy; Z79.4 Long term (current) use of insulin; Z86.16 Personal history of COVID-19; Z20.822 Contact with and (suspected) exposure to COVID-19
CPT/HCPCS: 0241U; 36415; 71045; 80053; 81001; 82803; 83605; 83735; 84484; 85025; 87040; 93005; 96365; 96367; 96375; 99285; A9270; J1940; J2543; J3370; J3490; J7050; 93010; 99291

== ENCOUNTER 2022-07-11 08:49 | Emergency (ER) | payer BC, MEDICAID ==
[2022-07-11] MEDS ORDERED: HYDROmorphone 1 MG/ML Syringe IVPUSH ONE (08:59)
[2022-07-11] MEDS ORDERED: Lactated Ringers 1,000 ML IV SCH (09:00)
[2022-07-11 09:39] LABS: CARBON DIOXIDE,CO2 23.4 mmol/L (21.0-32.0); POTASSIUM,K 3.4 mmol/L (3.5-5.1)
[2022-07-11 09:53] LABS: CORONAVIRUS COVID-19 NAA NEGATIVE (NEGATIVE); INFLUENZA A NAA NEGATIVE (NEGATIVE); INFLUENZA B NAA NEGATIVE (NEGATIVE); RESPIRATORY SYNCYTIAL VIR NAA NEGATIVE (NEGATIVE)
[2022-07-11] MEDS ORDERED: HYDROmorphone 2 MG/ML Syringe IVPUSH ONE (11:13)
[2022-07-11] MEDS ORDERED: Omeprazole 20 MG Cap.CR PO ONE (11:14)
[2022-07-11] MEDS ORDERED: Pantoprazole 40 MG in Sodium Chloride 0.9% 10 ML IVPUSH ONE (11:14)
[2022-07-11 11:55] LABS: BILIRUBIN INDIRECT 3.1
== END 2022-07-11 13:45 ==
LOC: MW.ED 08:49
DX: K72.90 Hepatic failure, unspecified without coma (principal); Z20.822 Contact with and (suspected) exposure to COVID-19
CPT/HCPCS: 0241U; 36415; 71045; 71250; 74176; 76705; 80053; 82247; 82248; 82947; 82977; 83605; 83690; 83735; 84100; 84484; 85025; 85610; 85730; 96361; 96374; 96375; 96376; 99291; 99292; A9270; C9113; J1170; J3490; J7120

== ENCOUNTER 2022-07-17 00:40 | Emergency (ER) | payer MEDICAID ==
[2022-07-17] MEDS ORDERED: Polyethylene Glycol 3350 Powder 17 GM Packet PO ONE (01:55)
[2022-07-17] MEDS ORDERED: Oxymetazoline 0.05% Nasal Spray 30 ML Bottle NAS ONE (01:55)
[2022-07-17] MEDS ORDERED: Bisacodyl 5 MG Tab PO ONE (01:55)
[2022-07-17] MEDS ORDERED: Simethicone 80 MG Tab.Chew PO ONE (01:56)
[2022-07-17] MEDS ORDERED: HYDROmorphone 1 MG/ML Syringe IVPUSH ONE ×2 (01:58→03:32)
[2022-07-17 02:46] LABS: CARBON DIOXIDE,CO2 25.2 mmol/L (21.0-32.0); POTASSIUM,K 4.6 mmol/L (3.5-5.1)
[2022-07-17] MEDS ORDERED: Metoprolol Tartrate 5 MG/5 ML SDV IVPUSH ONE (04:44)
== END 2022-07-17 06:56 | disposition home or self-care (01) ==
LOC: MW.ED 00:40
DX: K59.00 Constipation, unspecified (principal); R74.8 Abnormal levels of other serum enzymes; E11.9 Type 2 diabetes mellitus without complications; E78.00 Pure hypercholesterolemia, unspecified; I10 Essential (primary) hypertension; Z86.16 Personal history of COVID-19; Z79.899 Other long term (current) drug therapy; Z79.4 Long term (current) use of insulin
CPT/HCPCS: 36415; 70450; 74018; 76705; 80053; 81001; 83690; 85025; 93005; 96374; 96376; 99284; A9270; J1170; 93010

== ENCOUNTER 2022-09-05 18:21 | Emergency (ER) | payer MEDICAID ==
[2022-09-05] MEDS ORDERED: Sodium Chloride 0.9% 2.5 ML Syringe FLUSH PRN ×2 (19:27→19:31)
[2022-09-05] MEDS ORDERED: Sodium Chloride 0.9% 10 ML Syringe FLUSH PRN ×2 (19:27→19:31)
[2022-09-05] MEDS ORDERED: Morphine 2 MG/ML SYRINGE IVPUSH STA ×2 (19:56→21:48)
[2022-09-05] MEDS ORDERED: Magnesium Sulfate/Water 2 GM in Premix Bag 1 BAG IV STA (19:56)
[2022-09-05] MEDS ORDERED: Lactated Ringers 500 ML IV SCH (20:00)
[2022-09-05 20:21] LABS: PHOSPHORUS 7.8 mg/dL (2.6-4.7)
[2022-09-05 20:24] LABS: ALBUMIN 3.3 g/dL (3.4-5.0); BILIRUBIN TOTAL 1.1 mg/dL (0.2-1.0); CALCIUM 6.7 mg/dL (8.5-10.1); CARBON DIOXIDE,CO2 16.7 mmol/L (21.0-32.0); CREATININE 11.6 mg/dL (0.8-1.3); POTASSIUM,K 5.2 mmol/L (3.5-5.1); PROTEIN TOTAL,TP 6.5 g/dL (6.4-8.2)
[2022-09-05] MEDS ORDERED: 50% Dextrose in Water 50 ML Syringe IVPUSH STA (20:30)
[2022-09-05 20:49] LABS: HEMATOCRIT 33.3 % (38.0-50.0); MEAN CORPUSCULAR HEMOGLOBIN 34.2 pg (27.0-32.0); MEAN CORPUSCULAR VOLUME 94.9 fL (80.0-98.0); PLATELET COUNT,PLT 144 K/uL (150-400); RED BLOOD CELL COUNT 3.51 M/uL (4.50-5.90); WHITE BLOOD CELL COUNT,WBC 8.48 K/uL (4.0-11.0)
[2022-09-05 20:54] LABS: BAND ABSOLUTE MAN 1.5; MONOCYTES ABSOLUTE MAN 0.1 (0.0-0.8); MONOCYTES PERCENT MAN 1 % (0.0-15.0); SEG NEUTROPHILS ABSOLUTE MAN 6.9 (1.4-5.7); SEG NEUTROPHILS PERCENT MAN 81 % (48.0-80.0)
[2022-09-05 21:17] LABS: LYMPHOCYTES ABSOLUTE MAN 1.5 (0.6-2.4); LYMPHOCYTES PERCENT MAN 18 % (16.0-40.0)
[2022-09-05] MEDS ORDERED: Acetaminophen 500 MG Tab PO STA (21:46)
[2022-09-05] MEDS ORDERED: Promethazine 25 MG/ML SDV IM STA (21:52)
== END 2022-09-05 22:25 | disposition home or self-care (01) ==
LOC: MW.ED 18:21
DX: E11.649 Type 2 diabetes mellitus with hypoglycemia without coma (principal); F10.10 Alcohol abuse, uncomplicated; I12.0 Hypertensive chronic kidney disease with stage 5 chronic kidney disease or end stage renal disease; E11.22 Type 2 diabetes mellitus with diabetic chronic kidney disease; N18.5 Chronic kidney disease, stage 5; Z91.158 Patient's noncompliance with renal dialysis for other reason; Z91.148 Patient's other noncompliance with medication regimen for other reason; Z86.16 Personal history of COVID-19; Z99.2 Dependence on renal dialysis
CPT/HCPCS: 36415; 80053; 80307; 82947; 83605; 83690; 83735; 84100; 85025; 87040; 93005; 96365; 96372; 96375; 99285; J2270; J2550; J3475; J3490

== ENCOUNTER 2022-09-06 09:48 | Emergency (ER) | payer MEDICAID ==
[2022-09-06] MEDS ORDERED: Sodium Chloride 0.9% 2.5 ML Syringe FLUSH PRN (10:07)
[2022-09-06] MEDS ORDERED: Sodium Chloride 0.9% 10 ML Syringe FLUSH PRN (10:07)
[2022-09-06] MEDS ORDERED: Metoprolol Tartrate 5 MG in Sodium Chloride 0.9% 50 ML IV STA (10:12)
[2022-09-06 10:14] LABS: HEMOGLOBIN 11.7 g/dL (13.0-17.0); MEAN CORPUSCULAR HEMOGLOBIN 33.7 pg (27.0-32.0); MEAN CORPUSCULAR HGB CONC 34.4 g/dL (31.0-37.0); PLATELET COUNT,PLT 124 K/uL (150-400); RED BLOOD CELL COUNT 3.47 M/uL (4.50-5.90); WHITE BLOOD CELL COUNT,WBC 12.34 K/uL (4.0-11.0)
[2022-09-06] MEDS ORDERED: LORazepam 2 MG/ML SDV IVPUSH STA (10:24)
[2022-09-06 10:27] LABS: ALBUMIN 3.4 g/dL (3.4-5.0); BILIRUBIN TOTAL 1.5 mg/dL (0.2-1.0); CALCIUM 6.8 mg/dL (8.5-10.1); CARBON DIOXIDE,CO2 14.6 mmol/L (21.0-32.0); EST CRCL DRUG DOSING (CG) 8.03 mL/min; POTASSIUM,K 4.5 mmol/L (3.5-5.1); PROTEIN TOTAL,TP 6.7 g/dL (6.4-8.2)
[2022-09-06] MEDS ORDERED: Metoprolol Tartrate 5 MG/5 ML SDV IV ONE (10:30)
[2022-09-06 10:35] LABS: INR 1.11 (0.86-1.11); MAGNESIUM 2.6 mg/dL (1.8-2.4); T4 FREE 0.63 ng/dL (0.76-1.46); TSH ULTRASENSITIVE 0.89 uIU/mL (0.36-3.74)
[2022-09-06] MEDS ORDERED: 50% Dextrose in Water 50 ML Syringe IVPUSH STA ×2 (10:40→12:59)
[2022-09-06] MEDS ORDERED: Calcium Gluconate 10% 1 GM/10 ML SDV IV STA (10:41)
[2022-09-06] MEDS ORDERED: Ondansetron 4 MG/2 ML SDV ONE (10:43)
[2022-09-06] MEDS ORDERED: Ondansetron 4 MG/2 ML SDV IVPUSH ONE (10:45)
[2022-09-06] MEDS ORDERED: Furosemide 40 MG/4 ML VIAL IVPUSH STA ×2 (10:52→13:02)
[2022-09-06 11:02] LABS: BAND ABSOLUTE MAN 0.7; LYMPHOCYTES ABSOLUTE MAN 0.7 (0.6-2.4); LYMPHOCYTES PERCENT MAN 6 % (16.0-40.0); MONOCYTES ABSOLUTE MAN 0.4 (0.0-0.8); MONOCYTES PERCENT MAN 3 % (0.0-15.0); SEG NEUTROPHILS ABSOLUTE MAN 11.2 (1.4-5.7); SEG NEUTROPHILS PERCENT MAN 91 % (48.0-80.0)
[2022-09-06 12:24] LABS: CORONAVIRUS COVID-19 NAA NEGATIVE (NEGATIVE); INFLUENZA A NAA NEGATIVE (NEGATIVE); INFLUENZA B NAA NEGATIVE (NEGATIVE)
[2022-09-06 13:27] LABS: LACTIC ACID 2.6 mmol/L (0.4-2.0)
[2022-09-06] MEDS ORDERED: Metoprolol Tartrate 5 MG/5 ML SDV IVPUSH STA (13:45)
[2022-09-06 14:53] LABS: APPEARANCE,URINE CLEAR; BILIRUBIN,URINE NEGATIVE (NEGATIVE); COLOR,URINE YELLOW; GLUCOSE,URINE NEGATIVE (NEGATIVE); KETONES,URINE NEGATIVE (NEGATIVE); LEUKOCYTE ESTERASE,URINE NEGATIVE (NEGATIVE); NITRITE,URINE NEGATIVE (NEGATIVE); OCCULT BLOOD,URINE MODERATE (NEGATIVE); PROTEIN,URINE 100 mg/dL (NEGATIVE); UROBILINOGEN,URINE 0.2 EU/dL (<2.0)
[2022-09-06 15:02] LABS: BACTERIA,URINE FEW (NEGATIVE); EPITHELIAL CELLS,URINE RARE (NONE-FEW); MUCUS,URINE LIGHT (NONE-MOD); RBC,URINE 0-3 (0-2/HPF); WBC,URINE 0-1 (0-5/HPF)
[2022-09-06 15:04] LABS: AMPHETAMINES SCREEN, URINE NEGATIVE (CUTOFF=500); BARBITURATE SCREEN,URINE NEGATIVE (CUTOFF=200); BENZODIAZEPINES SCREEN,URINE NEGATIVE (CUTOFF=150); BUPRENORPHINE SCREEN,URINE NEGATIVE (CUTOFF=10); METHADONE SCREEN, URINE NEGATIVE (CUTOFF=200); METHAMPHETAMINES SCREEN, URINE NEGATIVE (CUTOFF=500); OXYCODONE SCREEN,URINE PRESUMPTIVE POSITIVE (CUT0FF=100); PCP SCREEN,URINE NEGATIVE (CUTOFF=25); PROPOXYPHENE SCREEN,URINE NEGATIVE (CUTOFF=300); THC SCREEN,URINE 20 NG/ML NEGATIVE (CUTOFF=50)
== END 2022-09-06 16:11 ==
LOC: MW.ED 09:48
DX: I48.91 Unspecified atrial fibrillation (principal); E87.70 Fluid overload, unspecified; E87.1 Hypo-osmolality and hyponatremia; E83.51 Hypocalcemia; I12.0 Hypertensive chronic kidney disease with stage 5 chronic kidney disease or end stage renal disease; E11.22 Type 2 diabetes mellitus with diabetic chronic kidney disease; N18.6 End stage renal disease; F10.10 Alcohol abuse, uncomplicated; E11.649 Type 2 diabetes mellitus with hypoglycemia without coma; Z99.2 Dependence on renal dialysis; Z91.158 Patient's noncompliance with renal dialysis for other reason; Z79.899 Other long term (current) drug therapy; Z20.822 Contact with and (suspected) exposure to COVID-19
CPT/HCPCS: 0240U; 36415; 71045; 74176; 80053; 80305; 80307; 81001; 82947; 83605; 83735; 84439; 84443; 84484; 85025; 85610; 93005; 96374; 96375; 96376; 99285; J0612; J1940; J2060; J2405; J3490; 93010

== ENCOUNTER 2022-09-08 22:03 | Emergency (ER) | payer MEDICAID ==
[2022-09-08] MEDS ORDERED: chlordiazePOXIDE 25 MG Cap PO ONE (22:19)
[2022-09-08] MEDS ORDERED: LORazepam 2 MG/ML SDV IM ONE (22:19)
[2022-09-08] MEDS ORDERED: LORazepam 2 MG/ML SDV IVPUSH ONE (23:51)
[2022-09-09 00:23] LABS: BASOPHILS PERCENT AUTO 0.4 % (0.0-1.5); EOSINOPHILS ABSOLUTE AUTO 0.1 K/uL (0.0-0.7); EOSINOPHILS PERCENT AUTO 0.9 % (0.0-7.0); LYMPHOCYTES ABSOLUTE AUTO 1.4 K/uL (0.6-2.4); LYMPHOCYTES PERCENT AUTO 17.2 % (16.0-40.0); MEAN CORPUSCULAR HEMOGLOBIN 34.2 pg (27.0-32.0); MEAN CORPUSCULAR HGB CONC 34.5 g/dL (31.0-37.0); MEAN CORPUSCULAR VOLUME 99.3 fL (80.0-98.0); MONOCYTES ABSOLUTE AUTO 0.6 K/uL (0.0-0.8); MONOCYTES PERCENT AUTO 7.8 % (0.0-15.0); NEUTROPHILS ABSOLUTE AUTO 5.8 K/uL (1.4-5.7); NEUTROPHILS PERCENT AUTO 73.7 % (48.0-80.0); PLATELET COUNT,PLT 75 K/uL (150-400); RED BLOOD CELL COUNT 2.92 M/uL (4.50-5.90); WHITE BLOOD CELL COUNT,WBC 7.84 K/uL (4.0-11.0)
[2022-09-09 00:36] LABS: A/G RATIO 1.1 (0.9-1.6); ALANINE AMINOTRANSFERASE,ALT 28 IU/L (14-63); ALBUMIN 3.5 g/dL (3.4-5.0); ALKALINE PHOSPHATASE 163 U/L (46-116); ASPARTATE AMNIOTRANSFERASE,AST 20 IU/L (15-37); BILIRUBIN TOTAL 1.1 mg/dL (0.2-1.0); BLOOD UREA NITROGEN,BUN 131 mg/dL (7.0-18.0); CALCIUM 6.7 mg/dL (8.5-10.1); CARBON DIOXIDE,CO2 19.7 mmol/L (21.0-32.0); CHLORIDE,CL 91 mmol/L (98-107); CREATININE 13.2 mg/dL (0.8-1.3); EST CRCL DRUG DOSING (CG) 7.91 mL/min; GLUCOSE RANDOM 91 mg/dL (74-106); MAGNESIUM 2.2 mg/dL (1.8-2.4); POTASSIUM,K 4.7 mmol/L (3.5-5.1); PROTEIN TOTAL,TP 6.7 g/dL (6.4-8.2); SODIUM,NA 130 mmol/L (136-148)
[2022-09-09 00:38] LABS: ESTIMATED GFR 4 mL/min (>60); ETHANOL BLOOD MEDICAL < 3.0 mg/dL
[2022-09-09] MEDS ORDERED: LORazepam 2 MG/ML SDV IVPUSH ONE (00:40)
[2022-09-09] MEDS ORDERED: Hydrocortisone 1% Crm 30 GM Tube TOP ONE (00:40)
[2022-09-09] MEDS ORDERED: Thiamine 200 MG/2 ML MDV IVPUSH ONE (01:25)
[2022-09-09] MEDS ORDERED: Folic Acid 1 MG/0.2 ML UD Syringe IV STA (01:25)
[2022-09-09] MEDS: LORazepam 2 MG/ML SDV IVPUSH ONE ×2 (01:47→02:23)
[2022-09-09] MEDS ORDERED: Haloperidol Lactate 5 MG/ML SDV IM ONE (01:47)
[2022-09-09] MEDS ORDERED: Midazolam 5 MG/ML SDV IVPUSH ONE (02:03)
== END 2022-09-09 05:09 ==
LOC: MW.ED 22:03
DX: G93.40 Encephalopathy, unspecified (principal); I48.91 Unspecified atrial fibrillation; I12.0 Hypertensive chronic kidney disease with stage 5 chronic kidney disease or end stage renal disease; E11.22 Type 2 diabetes mellitus with diabetic chronic kidney disease; N18.6 End stage renal disease; K21.9 Gastro-esophageal reflux disease without esophagitis; Z79.899 Other long term (current) drug therapy; Z86.16 Personal history of COVID-19; Z99.2 Dependence on renal dialysis
CPT/HCPCS: 36415; 80053; 80307; 83735; 85025; 96365; 96372; 96375; 96376; 99285; A9270; J1630; J2060; J2250; J3411; J3490; 99291

== ENCOUNTER 2022-09-21 08:36 | Observation (INO) | payer MEDICAID ==
[2022-09-21] MEDS ORDERED: Ondansetron 4 MG/2 ML SDV IVPUSH ONE (09:14)
[2022-09-21] MEDS ORDERED: HYDROmorphone 1 MG/ML Syringe IVPUSH ONE (09:14)
[2022-09-21 09:20] LABS: BASOPHILS PERCENT AUTO 0.4 % (0.0-1.5); EOSINOPHILS ABSOLUTE AUTO 0.1 K/uL (0.0-0.7); EOSINOPHILS PERCENT AUTO 2.6 % (0.0-7.0); HEMATOCRIT 29.6 % (38.0-50.0); HEMOGLOBIN 10.5 g/dL (13.0-17.0); LYMPHOCYTES ABSOLUTE AUTO 2.3 K/uL (0.6-2.4); LYMPHOCYTES PERCENT AUTO 49.2 % (16.0-40.0); MEAN CORPUSCULAR HEMOGLOBIN 33.2 pg (27.0-32.0); MEAN CORPUSCULAR HGB CONC 35.5 g/dL (31.0-37.0); MEAN CORPUSCULAR VOLUME 93.7 fL (80.0-98.0); MONOCYTES ABSOLUTE AUTO 0.3 K/uL (0.0-0.8); MONOCYTES PERCENT AUTO 6.8 % (0.0-15.0); NEUTROPHILS ABSOLUTE AUTO 1.9 K/uL (1.4-5.7); NRBC ABSOLUTE 0 K/uL; PLATELET COUNT,PLT 237 K/uL (150-400); RED BLOOD CELL COUNT 3.16 M/uL (4.50-5.90); WHITE BLOOD CELL COUNT,WBC 4.59 K/uL (4.0-11.0)
[2022-09-21 09:30] LABS: INR 1.07 (0.86-1.11)
[2022-09-21 09:34] LABS: ACETAMINOPHEN < 2.0 ug/mL; ALANINE AMINOTRANSFERASE,ALT 24 IU/L (14-63); ALBUMIN 3.3 g/dL (3.4-5.0); ALKALINE PHOSPHATASE 154 U/L (46-116); ASPARTATE AMNIOTRANSFERASE,AST 32 IU/L (15-37); BILIRUBIN TOTAL 0.6 mg/dL (0.2-1.0); BLOOD UREA NITROGEN,BUN 20 mg/dL (7.0-18.0); CALCIUM 8.3 mg/dL (8.5-10.1); CARBON DIOXIDE,CO2 27.8 mmol/L (21.0-32.0); CHLORIDE,CL 87 mmol/L (98-107); CREATININE 7.7 mg/dL (0.8-1.3); EST CRCL DRUG DOSING (CG) 13.57 mL/min; ETHANOL BLOOD MEDICAL 94 mg/dL; GLUCOSE RANDOM 121 mg/dL (74-106); LIPASE 71 U/L (73-393); MAGNESIUM 1.5 mg/dL (1.8-2.4); POTASSIUM,K 3.9 mmol/L (3.5-5.1); PROTEIN TOTAL,TP 6.7 g/dL (6.4-8.2); SALICYLATE 0.2 mg/dL (0.0-20.0); SODIUM,NA 127 mmol/L (136-148)
[2022-09-21 09:39] LABS: LACTIC ACID 2.9 mmol/L (0.4-2.0)
[2022-09-21 09:49] LABS: ESTIMATED GFR 8 mL/min (>60)
[2022-09-21] MEDS ORDERED: LORazepam 2 MG/ML SDV IVPUSH ONE (13:00)
[2022-09-21] MEDS ORDERED: Ondansetron 4 MG Tab.DIS PO PRN (14:13)
[2022-09-21] MEDS ORDERED: oxyCODONE 5 MG Tab PO PRN (14:13)
[2022-09-21] MEDS ORDERED: Acetaminophen 325 MG Tab PO PRN (14:13)
[2022-09-21] MEDS ORDERED: HYDROmorphone 1 MG/ML Syringe IVPUSH PRN (14:13)
[2022-09-21] MEDS ORDERED: Ondansetron 4 MG/2 ML SDV IVPUSH PRN (14:13)
[2022-09-21] MEDS ORDERED: Sodium Chloride 0.9% 1,000 ML IV SCH (14:15)
[2022-09-21] MEDS ORDERED: Meclizine 25 MG Tab PO PRN (14:20)
[2022-09-21] MEDS: Heparin Sodium 5,000 Units/ML Vial SUBCUT SCH (15:51)
[2022-09-21] MEDS: Polyethylene Glycol 3350 Powder 17 GM Packet PO SCH ×2 (16:25→21:18)
[2022-09-21] MEDS: Rifaximin 550 MG Tab PO SCH (21:15)
[2022-09-21] MEDS: hydrALAZINE 25 MG Tab PO SCH (21:17)
[2022-09-21] MEDS ORDERED: cloNIDine 0.1 MG Tab PO PRN (21:36)
[2022-09-21] MEDS: LORazepam 2 MG/ML SDV IVPUSH PRN (23:13)
[2022-09-21] MEDS: Isosorbide Mononitrate 20 MG Tablet PO SCH (23:49)
[2022-09-22] MEDS: Heparin Sodium 5,000 Units/ML Vial SUBCUT SCH (03:24)
[2022-09-22 05:56] LABS: BASOPHILS PERCENT AUTO 0.4 % (0.0-1.5); EOSINOPHILS ABSOLUTE AUTO 0.1 K/uL (0.0-0.7); EOSINOPHILS PERCENT AUTO 2.3 % (0.0-7.0); HEMATOCRIT 25.7 % (38.0-50.0); HEMOGLOBIN 8.9 g/dL (13.0-17.0); LYMPHOCYTES PERCENT AUTO 42.7 % (16.0-40.0); MEAN CORPUSCULAR HEMOGLOBIN 32.5 pg (27.0-32.0); MEAN CORPUSCULAR HGB CONC 34.6 g/dL (31.0-37.0); MEAN CORPUSCULAR VOLUME 93.8 fL (80.0-98.0); MONOCYTES ABSOLUTE AUTO 0.4 K/uL (0.0-0.8); MONOCYTES PERCENT AUTO 7.4 % (0.0-15.0); NEUTROPHILS ABSOLUTE AUTO 2.2 K/uL (1.4-5.7); NEUTROPHILS PERCENT AUTO 47.2 % (48.0-80.0); NRBC ABSOLUTE 0 K/uL; PLATELET COUNT,PLT 198 K/uL (150-400); RED BLOOD CELL COUNT 2.74 M/uL (4.50-5.90); WHITE BLOOD CELL COUNT,WBC 4.75 K/uL (4.0-11.0)
[2022-09-22] MEDS: LORazepam 2 MG/ML SDV IVPUSH PRN (06:11)
[2022-09-22 06:27] LABS: CALCIUM 7.8 mg/dL (8.5-10.1); CARBON DIOXIDE,CO2 26.5 mmol/L (21.0-32.0); EST CRCL DRUG DOSING (CG) 11.61 mL/min; MAGNESIUM 1.3 mg/dL (1.8-2.4); PHOSPHORUS 4.3 mg/dL (2.6-4.7); POTASSIUM,K 3.7 mmol/L (3.5-5.1)
[2022-09-22] MEDS: hydrALAZINE 25 MG Tab PO SCH (06:40)
[2022-09-22] MEDS ORDERED: Levothyroxine 100 MCG Tab PO SCH (07:30)
[2022-09-22] MEDS ORDERED: Magnesium Sulfate/Water 2 GM in Premix Bag 1 BAG IV ONE (07:32)
[2022-09-22] MEDS: Polyethylene Glycol 3350 Powder 17 GM Packet PO SCH (08:25)
[2022-09-22] MEDS: Rifaximin 550 MG Tab PO SCH (08:31)
[2022-09-22] MEDS: Isosorbide Mononitrate 20 MG Tablet PO SCH (08:34)
[2022-09-22] MEDS ORDERED: Heparin Sodium 5,000 Units/ML Vial SUBCUT SCH (09:00)
[2022-09-22] MEDS ORDERED: Metoprolol Succinate 50 MG Tab.ER PO SCH (09:00)
[2022-09-22] MEDS ORDERED: Multivitamins with Iron/Calcium/Folic Acid/Minerals Tab PO SCH (09:00)
[2022-09-22] MEDS ORDERED: Bumetanide 1 MG Tab PO SCH (09:00)
[2022-09-22] MEDS ORDERED: amLODIPine 5 MG Tab PO SCH (09:00)
== END 2022-09-22 12:20 | disposition home or self-care (01) ==
LOC: MW.ED 08:36 → MW.MS 13:40
PROVIDERS: ADMIT Internal Medicine; ATTEND Internal Medicine
DX: L02.211 Cutaneous abscess of abdominal wall (principal); F10.129 Alcohol abuse with intoxication, unspecified; D64.9 Anemia, unspecified; E87.8 Other disorders of electrolyte and fluid balance, not elsewhere classified; E87.1 Hypo-osmolality and hyponatremia; E87.20 Acidosis, unspecified; I12.0 Hypertensive chronic kidney disease with stage 5 chronic kidney disease or end stage renal disease; E11.22 Type 2 diabetes mellitus with diabetic chronic kidney disease; N18.6 End stage renal disease; Z79.890 Hormone replacement therapy; Z79.899 Other long term (current) drug therapy; Z79.2 Long term (current) use of antibiotics; Z99.2 Dependence on renal dialysis; Y90.4 Blood alcohol level of 80-99 mg/100 ml
CPT/HCPCS: 36415; 80048; 80053; 80143; 80179; 80307; 83605; 83690; 83735; 84100; 85025; 85610; 86850; 86900; 86901; 87040; 96374; 96375; 99285; A9270; J1170; J1644; J2060; J2405; J3475; J7030; 96361; 96365; 96366; 96372; 96376; 99223; 99239; G0378

== ENCOUNTER 2022-10-21 15:20 | Emergency (ER) | payer MEDICAID ==
[2022-10-21] MEDS ORDERED: Sodium Chloride 0.9% 10 ML Syringe FLUSH PRN (15:46)
[2022-10-21] MEDS ORDERED: Sodium Chloride 0.9% 2.5 ML Syringe FLUSH PRN (15:46)
[2022-10-21 15:58] LABS: BASOPHILS PERCENT AUTO 0.4 % (0.0-1.5); HEMATOCRIT 27.2 % (38.0-50.0); HEMOGLOBIN 9.8 g/dL (13.0-17.0); LYMPHOCYTES ABSOLUTE AUTO 0.7 K/uL (0.6-2.4); LYMPHOCYTES PERCENT AUTO 14.2 % (16.0-40.0); MEAN CORPUSCULAR HEMOGLOBIN 34.4 pg (27.0-32.0); MEAN CORPUSCULAR VOLUME 95.4 fL (80.0-98.0); MONOCYTES ABSOLUTE AUTO 0.1 K/uL (0.0-0.8); MONOCYTES PERCENT AUTO 2.5 % (0.0-15.0); NEUTROPHILS ABSOLUTE AUTO 4.3 K/uL (1.4-5.7); NEUTROPHILS PERCENT AUTO 82.9 % (48.0-80.0); PLATELET COUNT,PLT 152 K/uL (150-400); RED BLOOD CELL COUNT 2.85 M/uL (4.50-5.90); WHITE BLOOD CELL COUNT,WBC 5.21 K/uL (4.0-11.0)
[2022-10-21 16:03] LABS: A/G RATIO 1.1 (0.9-1.6); ALBUMIN 3.4 g/dL (3.4-5.0); BILIRUBIN TOTAL 0.7 mg/dL (0.2-1.0); CALCIUM 6.9 mg/dL (8.5-10.1); CARBON DIOXIDE,CO2 13.8 mmol/L (21.0-32.0); CREATININE 13.8 mg/dL (0.8-1.3); EST CRCL DRUG DOSING (CG) 7.36 mL/min; POTASSIUM,K 4.7 mmol/L (3.5-5.1); PROTEIN TOTAL,TP 6.5 g/dL (6.4-8.2)
[2022-10-21] MEDS ORDERED: Furosemide 40 MG/4 ML VIAL IVPUSH ONE (17:08)
[2022-10-21] MEDS ORDERED: Morphine 2 MG/ML SYRINGE IVPUSH ONE ×2 (17:31→22:18)
[2022-10-21] MEDS ORDERED: Ondansetron 4 MG/2 ML SDV IVPUSH ONE (17:50)
[2022-10-21] MEDS ORDERED: cefTRIAXone 2 GM in Sodium Chloride 0.9% 50 ML IV ONE (17:57)
[2022-10-22] MEDS ORDERED: Ondansetron 4 MG/2 ML SDV IVPUSH ONE (00:18)
== END 2022-10-22 00:36 ==
LOC: MW.ED 15:20
DX: N19 Unspecified kidney failure (principal); R74.02 Elevation of levels of lactic acid dehydrogenase [LDH]; E11.40 Type 2 diabetes mellitus with diabetic neuropathy, unspecified; I11.0 Hypertensive heart disease with heart failure; I50.9 Heart failure, unspecified; I25.2 Old myocardial infarction; I48.91 Unspecified atrial fibrillation; E66.9 Obesity, unspecified; Z68.30 Body mass index [BMI] 30.0-30.9, adult; Z86.16 Personal history of COVID-19; Z79.899 Other long term (current) drug therapy
CPT/HCPCS: 36415; 71045; 74176; 80053; 80307; 82947; 83605; 83690; 83880; 85025; 87040; 93005; 96365; 96375; 96376; 99285; J0696; J1940; J2270; J2405; J3490

== ENCOUNTER 2022-11-01 07:42 | Emergency (ER) | payer MEDICAID ==
[2022-11-01] MEDS ORDERED: Nitroglycerin 2% Oint 1 GM UD Packet TOP ONE (07:50)
[2022-11-01] MEDS ORDERED: Albuterol/Ipratropium 3.0-0.5 MG/3 ML Neb Soln NEB ONE (07:50)
[2022-11-01] MEDS ORDERED: Ondansetron 4 MG/2 ML SDV IVPUSH ONE (07:50)
[2022-11-01] MEDS ORDERED: Sodium Chloride 0.9% 2.5 ML Syringe FLUSH PRN (07:50)
[2022-11-01] MEDS ORDERED: Sodium Chloride 0.9% 10 ML Syringe FLUSH PRN (07:50)
[2022-11-01 08:08] LABS: BASOPHILS PERCENT AUTO 0.7 % (0.0-1.5); EOSINOPHILS ABSOLUTE AUTO 0.1 K/uL (0.0-0.7); EOSINOPHILS PERCENT AUTO 1.1 % (0.0-7.0); HEMATOCRIT 29.1 % (38.0-50.0); HEMOGLOBIN 9.9 g/dL (13.0-17.0); LYMPHOCYTES ABSOLUTE AUTO 2.2 K/uL (0.6-2.4); LYMPHOCYTES PERCENT AUTO 46.9 % (16.0-40.0); MEAN CORPUSCULAR HEMOGLOBIN 33.1 pg (27.0-32.0); MEAN CORPUSCULAR VOLUME 97.3 fL (80.0-98.0); MONOCYTES ABSOLUTE AUTO 0.6 K/uL (0.0-0.8); MONOCYTES PERCENT AUTO 12.4 % (0.0-15.0); NEUTROPHILS ABSOLUTE AUTO 1.8 K/uL (1.4-5.7); NEUTROPHILS PERCENT AUTO 38.9 % (48.0-80.0); NRBC ABSOLUTE 0 K/uL; PLATELET COUNT,PLT 181 K/uL (150-400); RED BLOOD CELL COUNT 2.99 M/uL (4.50-5.90); WHITE BLOOD CELL COUNT,WBC 4.61 K/uL (4.0-11.0)
[2022-11-01 08:22] LABS: D-DIMER QUANTITATIVE 1.77 mg/L FEU (0.00-0.50); INR 1.12 (0.86-1.11); PTT,PARTIAL THROMBOPLSTIN TIME 29.9 SEC (23.9-30.7)
[2022-11-01 08:28] LABS: A/G RATIO 0.9 (0.9-1.6); ALBUMIN 3.1 g/dL (3.4-5.0); BILIRUBIN TOTAL 0.4 mg/dL (0.2-1.0); CALCIUM 8.2 mg/dL (8.5-10.1); CARBON DIOXIDE,CO2 28.6 mmol/L (21.0-32.0); CREATININE 7.2 mg/dL (0.8-1.3); EST CRCL DRUG DOSING (CG) 14.51 mL/min; LACTIC ACID 1.4 mmol/L (0.4-2.0); MAGNESIUM 1.5 mg/dL (1.8-2.4); PROTEIN TOTAL,TP 6.4 g/dL (6.4-8.2)
[2022-11-01] MEDS ORDERED: Iopamidol 755 Mg/ML 100 ML Bottle IVPUSH ONE (10:22)
[2022-11-01 10:48] LABS: AMPHETAMINES SCREEN, URINE NEGATIVE (CUTOFF=500); BARBITURATE SCREEN,URINE NEGATIVE (CUTOFF=200); BENZODIAZEPINES SCREEN,URINE NEGATIVE (CUTOFF=150); BUPRENORPHINE SCREEN,URINE NEGATIVE (CUTOFF=10); METHADONE SCREEN, URINE NEGATIVE (CUTOFF=200); METHAMPHETAMINES SCREEN, URINE NEGATIVE (CUTOFF=500); OXYCODONE SCREEN,URINE NEGATIVE (CUT0FF=100); PCP SCREEN,URINE NEGATIVE (CUTOFF=25); PROPOXYPHENE SCREEN,URINE NEGATIVE (CUTOFF=300); THC SCREEN,URINE 20 NG/ML NEGATIVE (CUTOFF=50)
[2022-11-01] MEDS ORDERED: Dicyclomine 10 MG Cap PO ONE (11:07)
[2022-11-01] MEDS: LORazepam 2 MG/ML SDV IV SCH ×2 (11:18→12:22)
[2022-11-01] MEDS ORDERED: Potassium Chloride 10% 20 MEQ/15 ML Soln 15 ML UD Cup PO ONE (11:28)
[2022-11-01] MEDS ORDERED: Magnesium Oxide 400 MG Tab PO ONE (11:28)
[2022-11-01] MEDS ORDERED: Potassium Chloride 10 MEQ in Premix Bag 1 BAG IV ONE (11:42)
[2022-11-01] MEDS ORDERED: Magnesium Sulfate/Water 2 GM in Premix Bag 1 BAG IV ONE (11:44)
[2022-11-01] MEDS ORDERED: Naloxone 0.4 MG/ML SDV IVPUSH PRN (15:07)
[2022-11-01] MEDS ORDERED: Morphine 2 MG/ML SYRINGE IVPUSH ONE (15:07)
[2022-11-01] MEDS ORDERED: Lidocaine 4% 1 each Patch TOP SCH (15:15)
== END 2022-11-01 15:38 ==
LOC: MW.ED 07:42
DX: I13.2 Hypertensive heart and chronic kidney disease with heart failure and with stage 5 chronic kidney disease, or end stage renal disease (principal); E11.22 Type 2 diabetes mellitus with diabetic chronic kidney disease; N18.6 End stage renal disease; I50.9 Heart failure, unspecified; E87.70 Fluid overload, unspecified; E87.1 Hypo-osmolality and hyponatremia; E83.42 Hypomagnesemia; E87.6 Hypokalemia; F10.10 Alcohol abuse, uncomplicated; I25.2 Old myocardial infarction; E11.40 Type 2 diabetes mellitus with diabetic neuropathy, unspecified; E11.311 Type 2 diabetes mellitus with unspecified diabetic retinopathy with macular edema; E66.9 Obesity, unspecified; Z68.34 Body mass index [BMI] 34.0-34.9, adult; Y90.6 Blood alcohol level of 120-199 mg/100 ml; Z86.16 Personal history of COVID-19; Z79.899 Other long term (current) drug therapy; Z20.822 Contact with and (suspected) exposure to COVID-19
CPT/HCPCS: 36415; 71045; 71275; 80053; 80305; 80307; 83605; 83690; 83735; 83880; 84484; 85025; 85379; 85610; 85730; 87635; 93005; 96365; 96366; 96368; 96375; 96376; 99285; A9270; J2060; J2270; J2405; J3475; J3480; J3490; Q9967; 93010; J7620-GY; U0002

== ENCOUNTER 2022-11-21 19:54 | Emergency (ER) | payer MEDICAID ==
[2022-11-21] MEDS ORDERED: Sodium Chloride 0.9% 10 ML Syringe FLUSH PRN (20:06)
[2022-11-21] MEDS ORDERED: Sodium Chloride 0.9% 2.5 ML Syringe FLUSH PRN (20:06)
[2022-11-21] MEDS ORDERED: Morphine 4 MG/ML Syringe IVPUSH ONE (20:09)
[2022-11-21] MEDS ORDERED: Naloxone 0.4 MG/ML SDV IVPUSH PRN (20:09)
[2022-11-21 20:21] LABS: BASOPHILS PERCENT AUTO 0.9 % (0.0-1.5); EOSINOPHILS PERCENT AUTO 0.2 % (0.0-7.0); HEMATOCRIT 31.9 % (38.0-50.0); HEMOGLOBIN 10.7 g/dL (13.0-17.0); LYMPHOCYTES ABSOLUTE AUTO 1.5 K/uL (0.6-2.4); LYMPHOCYTES PERCENT AUTO 34.9 % (16.0-40.0); MEAN CORPUSCULAR HEMOGLOBIN 33.5 pg (27.0-32.0); MEAN CORPUSCULAR HGB CONC 33.5 g/dL (31.0-37.0); MONOCYTES ABSOLUTE AUTO 0.3 K/uL (0.0-0.8); MONOCYTES PERCENT AUTO 7.7 % (0.0-15.0); NEUTROPHILS ABSOLUTE AUTO 2.5 K/uL (1.4-5.7); NEUTROPHILS PERCENT AUTO 56.3 % (48.0-80.0); NRBC ABSOLUTE 0 K/uL; PLATELET COUNT,PLT 140 K/uL (150-400); RED BLOOD CELL COUNT 3.19 M/uL (4.50-5.90); WHITE BLOOD CELL COUNT,WBC 4.39 K/uL (4.0-11.0)
[2022-11-21 20:34] LABS: INR 1.26 (0.86-1.11)
[2022-11-21 20:42] LABS: ALBUMIN 3.1 g/dL (3.4-5.0); BILIRUBIN TOTAL 1.1 mg/dL (0.2-1.0); CALCIUM 8.1 mg/dL (8.5-10.1); CREATININE 7.6 mg/dL (0.8-1.3); EST CRCL DRUG DOSING (CG) 13.74 mL/min; POTASSIUM,K 4.1 mmol/L (3.5-5.1); PROTEIN TOTAL,TP 6.3 g/dL (6.4-8.2)
[2022-11-21] MEDS ORDERED: Metoprolol Tartrate 5 MG/5 ML SDV IVPUSH ONE (23:20)
[2022-11-22] MEDS ORDERED: Metoprolol Tartrate 5 MG/5 ML SDV IVPUSH ONE (01:38)
[2022-11-22] MEDS ORDERED: Sodium Chloride 0.9% 250 ML IV SCH (01:45)
[2022-11-22] MEDS ORDERED: Morphine 4 MG/ML Syringe IVPUSH ONE (01:52)
[2022-11-22] MEDS ORDERED: Sodium Chloride 0.9% 250 ML IV STA (01:53)
== END 2022-11-22 02:15 ==
LOC: MW.ED 19:54
DX: R00.0 Tachycardia, unspecified (principal); R79.89 Other specified abnormal findings of blood chemistry; R74.02 Elevation of levels of lactic acid dehydrogenase [LDH]; E11.40 Type 2 diabetes mellitus with diabetic neuropathy, unspecified; I10 Essential (primary) hypertension; Z79.899 Other long term (current) drug therapy; Z86.16 Personal history of COVID-19
CPT/HCPCS: 36415; 71045; 74176; 80053; 83605; 83690; 84484; 85025; 85610; 93005; 96374; 96375; 96376; 99285; J2270; J3490; J7040; 93010

== ENCOUNTER 2022-12-17 15:03 | Emergency (ER) | payer MEDICAID ==
[2022-12-17] MEDS ORDERED: Sodium Chloride 0.9% 10 ML Syringe FLUSH PRN (15:14)
[2022-12-17] MEDS ORDERED: Sodium Chloride 0.9% 2.5 ML Syringe FLUSH PRN (15:14)
[2022-12-17 15:22] LABS: BASOPHILS PERCENT AUTO 0.4 % (0.0-1.5); EOSINOPHILS ABSOLUTE AUTO 0.1 K/uL (0.0-0.7); HEMATOCRIT 31.3 % (38.0-50.0); HEMOGLOBIN 10.7 g/dL (13.0-17.0); LYMPHOCYTES ABSOLUTE AUTO 2.5 K/uL (0.6-2.4); LYMPHOCYTES PERCENT AUTO 52.6 % (16.0-40.0); MEAN CORPUSCULAR HGB CONC 34.2 g/dL (31.0-37.0); MEAN CORPUSCULAR VOLUME 96.6 fL (80.0-98.0); MONOCYTES ABSOLUTE AUTO 0.3 K/uL (0.0-0.8); MONOCYTES PERCENT AUTO 5.8 % (0.0-15.0); NEUTROPHILS ABSOLUTE AUTO 1.9 K/uL (1.4-5.7); NEUTROPHILS PERCENT AUTO 40.2 % (48.0-80.0); NRBC ABSOLUTE 0 K/uL; PLATELET COUNT,PLT 124 K/uL (150-400); RED BLOOD CELL COUNT 3.24 M/uL (4.50-5.90); WHITE BLOOD CELL COUNT,WBC 4.79 K/uL (4.0-11.0)
[2022-12-17 15:30] LABS: INR 1.13 (0.86-1.11)
[2022-12-17] MEDS ORDERED: Sodium Chloride 0.9% 500 ML IV SCH (15:30)
[2022-12-17 15:41] LABS: ALBUMIN 3.4 g/dL (3.4-5.0); BILIRUBIN TOTAL 0.8 mg/dL (0.2-1.0); CALCIUM 7.4 mg/dL (8.5-10.1); CARBON DIOXIDE,CO2 19.5 mmol/L (21.0-32.0); CREATININE 15.4 mg/dL (0.8-1.3); EST CRCL DRUG DOSING (CG) 6.78 mL/min; PROTEIN TOTAL,TP 6.8 g/dL (6.4-8.2)
[2022-12-17] MEDS ORDERED: Sodium Polystyrene Sulfonate 15 GM/60 ML Susp 60 ML Bot PO ONE (16:30)
[2022-12-17] MEDS ORDERED: Acetaminophen/HYDROcodone 325-5 MG Tab PO ONE (17:08)
[2022-12-17] MEDS ORDERED: Morphine 4 MG/ML Syringe IVPUSH PRN (18:10)
== END 2022-12-17 18:39 | disposition left against medical advice (07) ==
LOC: MW.ED 15:03
DX: R10.84 Generalized abdominal pain (principal); N18.6 End stage renal disease; R74.02 Elevation of levels of lactic acid dehydrogenase [LDH]; F10.20 Alcohol dependence, uncomplicated; Z99.2 Dependence on renal dialysis; Z79.899 Other long term (current) drug therapy; Z86.16 Personal history of COVID-19; Z87.891 Personal history of nicotine dependence
CPT/HCPCS: 36415; 80053; 83605; 85025; 85610; 93005; 96361; 96374; 99284; A9270; J2270; J3490; J7040

== ENCOUNTER 2022-12-18 02:53 | Emergency (ER) | payer MEDICAID ==
[2022-12-18] MEDS ORDERED: Haloperidol Lactate 5 MG/ML SDV IM ONE (03:10)
[2022-12-18 03:23] LABS: BASOPHILS PERCENT AUTO 0.7 % (0.0-1.5); EOSINOPHILS PERCENT AUTO 0.3 % (0.0-7.0); HEMATOCRIT 32.8 % (38.0-50.0); LYMPHOCYTES ABSOLUTE AUTO 1.8 K/uL (0.6-2.4); LYMPHOCYTES PERCENT AUTO 31.3 % (16.0-40.0); MEAN CORPUSCULAR HEMOGLOBIN 32.8 pg (27.0-32.0); MEAN CORPUSCULAR HGB CONC 33.5 g/dL (31.0-37.0); MEAN CORPUSCULAR VOLUME 97.9 fL (80.0-98.0); MONOCYTES ABSOLUTE AUTO 0.3 K/uL (0.0-0.8); MONOCYTES PERCENT AUTO 5.3 % (0.0-15.0); NEUTROPHILS ABSOLUTE AUTO 3.7 K/uL (1.4-5.7); NEUTROPHILS PERCENT AUTO 62.4 % (48.0-80.0); NRBC ABSOLUTE 0 K/uL; PLATELET COUNT,PLT 126 K/uL (150-400); RED BLOOD CELL COUNT 3.35 M/uL (4.50-5.90); WHITE BLOOD CELL COUNT,WBC 5.87 K/uL (4.0-11.0)
[2022-12-18 03:47] LABS: ALBUMIN 3.5 g/dL (3.4-5.0); BILIRUBIN TOTAL 0.7 mg/dL (0.2-1.0); CALCIUM 7.1 mg/dL (8.5-10.1); CARBON DIOXIDE,CO2 20.6 mmol/L (21.0-32.0); CREATININE 15.9 mg/dL (0.8-1.3); EST CRCL DRUG DOSING (CG) 6.57 mL/min; POTASSIUM,K 4.6 mmol/L (3.5-5.1)
[2022-12-18] MEDS ORDERED: HYDROmorphone 1 MG/ML Syringe IVPUSH ONE (03:48)
[2022-12-18 04:03] LABS: INR 1.14 (0.86-1.11)
[2022-12-18] MEDS ORDERED: LORazepam 2 MG/ML SDV IVPUSH ONE (06:12)
[2022-12-18] MEDS ORDERED: Diltiazem 25 MG/5 ML SDV IVPUSH ONE (07:37)
[2022-12-18] MEDS ORDERED: Diltiazem 100 MG in Sodium Chloride 0.9% 100 ML IV SCH (09:45)
[2022-12-18 10:22] LABS: BASE EXCESS ARTERIAL -8.5 (-2.0-3.0); BICARBONATE,ARTERIAL 17 mEq/L (22-26); PCO2 ARTERIAL 33 mmHG (35-45); PO2 ARTERIAL 69 mmHG (80-105)
== END 2022-12-18 14:32 | disposition home or self-care (01) ==
LOC: MW.ED 02:53
DX: R10.13 Epigastric pain (principal); R10.84 Generalized abdominal pain; Z99.2 Dependence on renal dialysis; Z86.16 Personal history of COVID-19; Z79.899 Other long term (current) drug therapy
CPT/HCPCS: 36415; 36600; 71045; 74176; 80053; 80307; 82140; 82803; 83690; 83735; 84484; 85025; 85610; 93005; 96365; 96366; 96372; 96375; 96376; 99285; J1170; J1630; J2060; J3360; J3490; 93010; 99284

== ENCOUNTER 2023-01-05 00:48 | Emergency (ER) | payer MEDICAID ==
[2023-01-05 01:06] LABS: BASOPHILS PERCENT AUTO 0.5 % (0.0-1.5); EOSINOPHILS PERCENT AUTO 0.4 % (0.0-7.0); HEMATOCRIT 32.2 % (38.0-50.0); HEMOGLOBIN 11.2 g/dL (13.0-17.0); LYMPHOCYTES ABSOLUTE AUTO 2.1 K/uL (0.6-2.4); LYMPHOCYTES PERCENT AUTO 36.7 % (16.0-40.0); MEAN CORPUSCULAR HEMOGLOBIN 32.9 pg (27.0-32.0); MEAN CORPUSCULAR HGB CONC 34.8 g/dL (31.0-37.0); MEAN CORPUSCULAR VOLUME 94.7 fL (80.0-98.0); MONOCYTES ABSOLUTE AUTO 0.3 K/uL (0.0-0.8); MONOCYTES PERCENT AUTO 5.2 % (0.0-15.0); NEUTROPHILS ABSOLUTE AUTO 3.2 K/uL (1.4-5.7); NEUTROPHILS PERCENT AUTO 57.2 % (48.0-80.0); NRBC ABSOLUTE 0 K/uL; NRBC PERCENT 0.3 /100WBC; PLATELET COUNT,PLT 238 K/uL (150-400); WHITE BLOOD CELL COUNT,WBC 5.59 K/uL (4.0-11.0)
[2023-01-05 01:21] LABS: CALCIUM 7.8 mg/dL (8.5-10.1); CARBON DIOXIDE,CO2 23.3 mmol/L (21.0-32.0); CREATININE 11.6 mg/dL (0.8-1.3); POTASSIUM,K 4.1 mmol/L (3.5-5.1)
[2023-01-05] MEDS ORDERED: 50% Dextrose in Water 50 ML Syringe IVPUSH ONE (01:50)
[2023-01-05] MEDS ORDERED: Acetaminophen 325 MG Tab PO ONE ×2 (02:01)
[2023-01-05] MEDS ORDERED: Ondansetron 4 MG/2 ML SDV IVPUSH ONE (02:19)
[2023-01-05] MEDS ORDERED: Ondansetron 4 MG/2 ML SDV IVPUSH STA (05:54)
[2023-01-05] MEDS ORDERED: LORazepam 2 MG/ML SDV IVPUSH ONE (06:00)
[2023-01-05] MEDS ORDERED: Aluminum Hydroxide/Magnesium Hydroxide/Simethicone XS Susp 30 ML Cup PO ONE (07:58)
[2023-01-05] MEDS ORDERED: chlordiazePOXIDE 25 MG Cap PO ONE (08:04)
[2023-01-05] MEDS ORDERED: Ondansetron 4 MG Tab.DIS PO ONE (10:06)
== END 2023-01-05 11:32 | disposition home or self-care (01) ==
LOC: MW.ED 00:48
DX: E87.1 Hypo-osmolality and hyponatremia (principal); N18.6 End stage renal disease; Z86.16 Personal history of COVID-19; Z79.899 Other long term (current) drug therapy
CPT/HCPCS: 36415; 80048; 82947; 85025; 93005; 96374; 96375; 96376; 99285; A9270; J2060; J2405; 99284; J3490

== ENCOUNTER 2023-01-26 13:01 | Emergency (ER) | payer SELFPAY ==
[2023-01-26] MEDS ORDERED: 50% Dextrose in Water 50 ML Syringe IVPUSH ONE ×5 (13:02→16:05)
[2023-01-26] MEDS ORDERED: 50% Dextrose in Water 50 ML Syringe ONE ×2 (13:02→15:59)
[2023-01-26] MEDS ORDERED: cefTRIAXone 1 GM Vial IM ONE (13:59)
[2023-01-26 14:05] LABS: A/G RATIO 1.1 (0.9-1.6); ALBUMIN 3.5 g/dL (3.4-5.0); BILIRUBIN TOTAL 1.3 mg/dL (0.2-1.0); CALCIUM 7.5 mg/dL (8.5-10.1); CARBON DIOXIDE,CO2 15.6 mmol/L (21.0-32.0); CREATININE 16.9 mg/dL (0.8-1.3); EST CRCL DRUG DOSING (CG) 5.68 mL/min; PROTEIN TOTAL,TP 6.8 g/dL (6.4-8.2)
[2023-01-26 14:06] LABS: LACTIC ACID 3.5 mmol/L (0.4-2.0)
[2023-01-26] MEDS ORDERED: cefTRIAXone 1 GM in Sodium Chloride 0.9% 50 ML IV ONE (14:10)
[2023-01-26 14:28] LABS: BASE EXCESS VENOUS -10.7 (-2.0-3.0); PH,VENOUS 7.27 (7.31-7.41)
[2023-01-26 14:31] LABS: BASOPHILS ABSOLUTE AUTO 0.01 K/uL (0.00-0.20); BASOPHILS PERCENT AUTO 0.3 % (0.0-1.0); HEMATOCRIT 32.3 % (42.0-52.0); HEMOGLOBIN 11.9 g/dL (14.0-18.0); IMMATURE GRAN ABSOLUTE AUTO 0.01 K/uL (0.00-0.05); IMMATURE GRAN PERCENT AUTO 0.3 % (0.0-0.4); LYMPHOCYTES ABSOLUTE AUTO 0.63 K/uL (1.00-4.80); LYMPHOCYTES PERCENT AUTO 19.9 % (24.0-44.0); MEAN CORPUSCULAR HEMOGLOBIN 35.1 pg (28.0-32.0); MEAN CORPUSCULAR HGB CONC 36.8 g/dL (32.0-36.0); MEAN CORPUSCULAR VOLUME 95.3 fL (83.0-99.0); MEAN PLATELET VOLUME 9.4 fL (9.4-12.4); MONOCYTES ABSOLUTE AUTO 0.34 K/uL (0.00-0.80); MONOCYTES PERCENT AUTO 10.8 % (0.0-8.0); NEUTROPHILS ABSOLUTE AUTO 2.17 K/uL (1.80-7.70); NEUTROPHILS PERCENT AUTO 68.7 % (41.0-71.0); PLATELET COUNT,PLT 64 K/uL (150-400); RED BLOOD CELL COUNT 3.39 M/uL (4.52-5.90); WHITE BLOOD CELL COUNT,WBC 3.16 K/uL (3.9-11.3)
[2023-01-26 14:54] LABS: CORONAVIRUS COVID-19 NAA NEGATIVE (NEGATIVE); INFLUENZA A NAA NEGATIVE (NEGATIVE); INFLUENZA B NAA NEGATIVE (NEGATIVE)
[2023-01-26] MEDS ORDERED: Ondansetron 4 MG/2 ML SDV IVPUSH ONE ×2 (15:02→16:01)
[2023-01-26] MEDS ORDERED: Ondansetron 4 MG/2 ML SDV ONE (16:01)
== END 2023-01-26 16:18 ==
LOC: MW.ED 13:01
DX: E16.2 Hypoglycemia, unspecified (principal); J18.9 Pneumonia, unspecified organism; E11.22 Type 2 diabetes mellitus with diabetic chronic kidney disease; N18.6 End stage renal disease; R79.89 Other specified abnormal findings of blood chemistry; R74.02 Elevation of levels of lactic acid dehydrogenase [LDH]; Z91.148 Patient's other noncompliance with medication regimen for other reason; Z20.822 Contact with and (suspected) exposure to COVID-19
CPT/HCPCS: 0240U; 36415; 71045; 80053; 82009; 82803; 82947; 83605; 83690; 83880; 84484; 85025; 93005; 96365; 96375; 96376; 99285; J0696; J2405; J3490; 93010